=== PATIENT | female | born 1950 | race Caucasian/White ===

== ENCOUNTER 2018-01-12 11:40 | Emergency (ER) | payer MEDICARE ==
[~2018-01-12] VITALS: Ht 149.9 cm; Wt 83.9 kg
[2018-01-12] MEDS ORDERED: AMILORIDE HCL5 MG PO (12:31)
[2018-01-12] MEDS ORDERED: B-121000 MC1 SL (12:31)
[2018-01-12] MEDS ORDERED: ASPIR-LOW81 MG PO (12:31)
[2018-01-12] MEDS ORDERED: BACLOFEN10 MG PO (12:32)
[2018-01-12] MEDS ORDERED: CALCITRIOL0.25 MCG PO (12:33)
[2018-01-12] MEDS ORDERED: ESTRADIOL0.5 MG PO (12:33)
[2018-01-12] MEDS ORDERED: COLACE100 MG PO (12:33)
[2018-01-12] MEDS ORDERED: METOLAZONE2.5 MG PO (12:34)
[2018-01-12] MEDS ORDERED: MAGNESIUM500 MG PO (12:34)
[2018-01-12] MEDS ORDERED: KLOR-CON 1010 MEQ PO (12:34)
[2018-01-12] MEDS ORDERED: LEVOTHYROXINE125 MCG PO (12:34)
[2018-01-12] MEDS ORDERED: MIRAPEX1 MG PO (12:35)
[2018-01-12] MEDS ORDERED: SINGULAIR10 MG PO (12:35)
[2018-01-12] MEDS ORDERED: PROBIOTIC1 EAC1 PO (12:35)
[2018-01-12] MEDS ORDERED: VITAMIN D35000 UNIT PO (12:36)
[2018-01-12] MEDS ORDERED: TORSEMIDE100 MG PO (12:36)
[2018-01-12] MEDS ORDERED: ULORIC40 MG PO (12:36)
[2018-01-12] MEDS ORDERED: VENTOLIN HFA18 GM INH (12:37)
[2018-01-12] MEDS ORDERED: RESTORIL30 MG PO (12:37)
[2018-01-12] MEDS ORDERED: DYMISTA NASAL S23 GM NAS (12:37)
--- NOTE | 2018-01-12 18:09 | EKG ---
[facility] [address] [facility] [address] [place], [place] [address] Signed Normal sinus rhythm Low voltage QRS Borderline ECG No previous ECGs available Confirmed by RIMA CASPER MD ([id number]) on 01/12/2018 6:09:36 PM Electronically Signed By: RIMA CASPER MD 01/12/18 1809 PATIENT NAME: JUDY [place]ACE Electrocardiogram DATE OF : 48 PHYSICIAN: RIMA CASPER MD REPORT #: [id number] REPORT IS CONFIDENTIAL AND NOT TO BE RELEASED WITHOUT AUTHORIZATION
== END 2018-01-12 14:06 | disposition home or self-care (01) ==
LOC: ED 11:40
DX: R42 Dizziness and giddiness (principal); N18.3 Chronic kidney disease, stage 3 (moderate); Z91.041 Radiographic dye allergy status; Z91.013 Allergy to seafood; Z88.8 Allergy status to other drugs, medicaments and biological substances; Z88.5 Allergy status to narcotic agent; Z79.82 Long term (current) use of aspirin; Z79.899 Other long term (current) drug therapy
CPT/HCPCS: 80053; 85025; 93005; 93010; 99284

== ENCOUNTER 2019-01-07 18:38 | Emergency (ER) | payer MEDICARE ==
[~2019-01-07] VITALS: Ht 149.9 cm; Wt 88.5 kg
--- OUTSIDE RECORDS SUMMARY | ~2019-01-07 | XMS | Encounter Summary ---
Demographics + + + | Address | [address] | | | [place] [address] | + + + | Home Phone | | + + + | Preferred Language | Unknown | + + + | Marital Status | | + + + | Jainism Affiliation | 1013 | + + + | Race | Unknown | + + + | Ethnic Group | Unknown | + + + Author + + + | Author | [facility] | | | and [place] | + + + | Organization | [facility] | | | and [place] | + + + | Address | Unknown | + + + | Phone | Unavailable | + + + Support + + + + + | Name | Relationship | Address | Phone | + + + + + | AriisidroJose | ECON | [address] | | | | | [place] | | | | | [address] | | + + + + + Care Team Providers + +------+ + | Care Wrapper Stemmer Hand Name | Role | Phone | + +------+ + | Shazia Tamayo MD | PCP | | + +------+ + Reason for Referral Evaluate & Treat (Routine) + + + + + + + | Status | Reason | Specialty | Diagnoses / | Referred By | Referred To | | | | | Procedures | Contact | Contact | + + + + + + + | Authorized | Specialty | Gastroenterol | Diagnoses | | [facility] | | | Services | ogy | Elevated | [place], | [facility] | | | Required | | liver | [facility] | | | | | enzymes | [employer] [address] | | | | | Procedures | [place], [place] | [address]VE | | | | | [place], | [address] [place] | [place], [place] | | | | | ABDOM,B-SCAN | [place] | [address] | | | | | &/OR REAL | [address] | Phone: | | | | | TIME,COMPLET | Phone: | [phone] | | | | | E | [phone] | Fax: | | | | | | Fax: | [phone] | | | | | | [phone] | | + + + + + + + Reason for Visit + + + | Reason | Comments | + + + | Recall For Services | | | (DMST) | | + + + Encounter Details +--------+ + + + + | Date | Type | Department | Care Team | Description | +--------+ + + + + | 01/01/ | Telephone | [facility] | [facility] | [facility] | | 2019 | | GASTROENTEROLOGY | [facility] [address] | (DMST) | | | | [address] [place] | [place], [place] [address] | | | | | [address] [place] | [place] | | | | | [address] | [id number] | | | | | [phone] | | | +--------+ + + + [...] + +---------+ + | Alcohol Use | Drinks/We | oz/Week | Comments | | | ek | | | + + +---------+ + | No [...] as of this encounter Plan of Treatment + +--------+ + + | Name | Priori | Associated Diagnoses | Order Schedule | | | ty | | | + +--------+ + + | Alpha Fetoprotein, Tumor Marker | Routin | Elevated liver | 1 Occurrences | | | e | enzymes | starting 01/01/2019 | | | | | until 05/01/2019 | + +--------+ + + | CBC with Differential | Routin | Elevated liver | 1 Occurrences | | | e | enzymes | starting 01/01/2019 | | | | | until 05/01/2019 | + +--------+ + + | Comprehensive Metabolic Panel | Routin | Elevated liver | 1 Occurrences | | | e | enzymes | starting 01/01/2019 | | | | | until 05/01/2019 | + +--------+ + + | Protime INR | Routin | Elevated liver | 1 Occurrences | | | e | enzymes | starting 01/01/2019 | | | | | until 05/01/2019 | + +--------+ + + | US Abdomen Limited | Routin | Elevated liver | Expected: | | | e | enzymes | 01/08/2019, Expires: | | | | | 05/01/2019 | + +--------+ + + + +--------+ + + | Name | Priori | Associated Diagnoses | Order Schedule | | | ty | | | + +--------+ + + | Referral ABDOMINAL US St | Routin | Elevated liver | Ordered: 01/01/2019 | | [facility] | e | enzymes | | + +--------+ + + documented as of this encounter Visit Diagnoses + + | Diagnosis | + + | Elevated liver enzymes - Primary Nonspecific elevation of levels of transaminase or | | lactic acid dehydrogenase (LDH) | + + documented in this encounter"
--- OUTSIDE RECORDS SUMMARY | ~2019-01-07 | XMS | Encounter Summary ---
Demographics + + + | Address | [address] | | | [place] [address] | + + + | Home Phone | | + + + | Preferred Language | Unknown | + + + | Marital Status | | + + + | Gnosticist Affiliation | 1013 | + + + | Race | Unknown | + + + | Ethnic Group | Unknown | + + + Author + + + | Author | [facility] | + + + | Organization | [facility] | + + + | Address | Unknown | + + + | Phone | Unavailable | + + + Support + + + + + | Name | Relationship | Address | Phone | + + + + + | Jose Minaya | ECON | [address] | | | | | [place] | | | | | [address] | | + + + + + Care Team Providers + +------+ + | Care Outbound Sales Agent Name | Role | Phone | + +------+ + | Shazia Tamayo MD | PCP | | + +------+ + Reason for Visit + + + | Reason | Comments | + + + | Labs Only | 10/30/18 | + + + Encounter Details +--------+ + + + + | Date | Type | Department | Care Team | Description | +--------+ + + + + | 10/31/ | Documentati | [facility] | Tomás | Labs Only (10/30/18) | | 2019 | on Only | [place] [address] | [place] | | | | | [address] | | | | | | [place] [address] | | | | | | [phone] | | | +--------+ + + + [...] on file | | + + + as of this encounter Plan of Treatment +--------+---------+ + + + | Date | Type | Specialty | Care Team | Description | +--------+---------+ + + + | 04/02/ | Office | Nephrology | Arslan Robertson MD | | | 2018 | Visit | | [address] | | | | | | [address] [facility] | | | | | | [id number] | | | | | | | | +--------+---------+ + + + | 07/11/ | Office | Cardiology | Camille Hernandez, | | | 2019 | Visit | | [address] | | | | | | [address], | | | | | | [place] [address] | | | | | | [phone] | | | | | | | | +--------+---------+ + + + as of this encounter Procedures + +--------+ + + + | Procedure Name | Priori | Date/Time | Associated Diagnosis | Comments | | | ty | | | | + +--------+ + + + | MICROALBUMIN / | Routin | 10/30/2018 | | Results for this | | CREATININE URINE | e | 1:25 PM | | procedure are in the | | RATIO | | PST | | results section. | + +--------+ + + + | URINE MICROSCOPIC | Routin | 10/30/2018 | | Results for this | | ONLY | e | 1:25 PM | | procedure are in the | | | | PST | | results section. | + +--------+ + + + | CBC W/AUTO DIFF | Routin | 10/30/2018 | | Results for this | | (REFLEX TO MANUAL) | e | 1:25 PM | | procedure are in the | | | | PST | | results section. | + +--------+ + + + | URIC ACID | Routin | 10/30/2018 | | Results for this | | | e | 1:25 PM | | procedure are in the | | | | PST | | results section. | + +--------+ + + + | PTH INTACT NO | Routin | 10/30/2018 | | Results for this | | CALCIUM | e | 1:25 PM | | procedure are in the | | | | PST | | results section. | + +--------+ + + + | RENAL FUNCTION PANEL | Routin | 10/30/2018 | | Results for this | | | e | 1:25 PM | | procedure are in the | | | | PST | | results section. | + +--------+ + + + in this encounter Results Albumin/Creat Ratio (10/30/2018 1:25 PM) + + + + + | Component | Value | Ref Range | Performed At | + + + + + | ALBUMIN/CREAT RATIO | Comment: Microalbumin | | | | | calculation is invalid | | | | | when microalbumin is | | | | | less than 0.7 mg/dl | | | + + + + + + + | Specimen | + + | Urine | + + Uric acid (10/30/2018 1:25 PM) + +-------+ + + | Component | Value | Ref Range | Performed At | + +-------+ + + | URIC ACID | 6.6 | 2.3 - 6.6 | | + +-------+ + + + + | Specimen | + + | Blood | + + Renal function panel (10/30/2018 1:25 PM) + + + + + | Component | Value | Ref Range | Performed At | + + + + + | GLUCOSE | 294 (A) | 70 - 100 mg/dL | | + + + + + | BUN | 48 (A) | 6 - 23 mg/dL | | + + + + + | CREATININE | 1.74 (A) | 0.70 - 1.25 mg/dL | | + + + + + | PHOSPHORUS | 2.9 | 2.5 - 5.0 mg/dL | | + + + + + | Albumin | 4.0 | 3.5 - 5.0 | | + + + + + | SODIUM | 136 | 132 - 143 mmol/L | | + + + + + | POTASSIUM | 3.8 | 3.6 - 5.1 mmol/L | | + + + + + | CHLORIDE | 94 (A) | 95 - 112 mmol/L | | + + + + + | CO2 | 29 | 19 - 31 mmol/L | | + + + + + | ANION GAP AGAP | 16.8 | 7 - 21 mmol/L | | + + + + + | GFR MDRD Non Af Amer | | | | + + + + + | Phosphorus,Inorganic | | | | + + + + + | BUN/CREAT | 27.6 | 6.0 - 28.6 | | + + + + + | CALCIUM | 9.9 | 8.5 - 10.3 mg/dL | | + + + + + | EGFR | 29 (A) | 60 - 140 mg/dL | | + + + + + + + | Specimen | + + | Blood | + + CBC W/Auto Diff (Reflex to Manual) (10/30/2018 1:25 PM) + + + + + | Component | Value | Ref Range | Performed At | + + + + + | WBC | 8.3 | 4.5 - 11.0 10^3/mL | | + + + + + | RBC | 4.37 | 3.8 - 5.1 10^6/ L | | + + + + + | HGB | 13.0 | 12.0 - 16.0 g/dL | | + + + + + | HCT | 38.9 | 35 - 45 % | | + + + + + | MCV | 89.2 | 81 - 99 fL | | + + + + + | MCH | 30 | 27 - 33 pg | | + + + + + | MCHC | 33 | 30 - 36 g/dL | | + + + + + | PLT | 246 | 140 - 440 K/ L | | + + + + + | RDW SD | 14.9 | 10.5 - 15.0 % | | + + + + + | MPV | | fL | | + + + + + | DIFF TYPE | | | | + + + + + | NEUTROPHILS | 66.1 | 39 - 80 % | | + + + + + | LYMPHOCYTES | 20.2 (A) | 24 - 44 % | | + + + + + | MONOCYTES | 7.2 | 0 - 12 % | | + + + + + | EOSINOPHILS | 6.0 | 0 - 6 % | | + + + + + | BASOPHILS | 0.5 | 0 - 2 % | | + + + + + | NEUTROPHILS ABS | | / L | | + + + + + | LYMPHOCYTES ABS | | / L | | + + + + + | MONOCYTES ABS | | / L | | + + + + + | EOSINOPHILS ABS | | / L | | + + + + + | BASOPHILS ABS | | / L | | + + + + + + + | Specimen | + + | Blood | + + Urine microscopic only (10/30/2018 1:25 PM) + + + + + | Component | Value | Ref Range | Performed At | + + + + + | COLOR UA | Yellow | | | + + + + + | CLARITY | Clear | | | + + + + + | Specific Gore, UA | 1.008 | 1.005 - 1.030 | | + + + + + | LEUKOCYTE ESTERASE | Negative | | | + + + + + | NITRITE | Negative | | | + + + + + | UROBILINOGEN | Normal | | | + + + + + | PROTEIN | Negative | | | + + + + + | PH,URINE | 7 | 5 - 9 | | + + + + + | BLOOD | Negative | | | + + + + + | KETONES | Negative | | | + + + + + | BILIRUBIN | Negative | | | + + + + + | GLUCOSE | Negative | | | + + + + + + + | Specimen | + + | Urine | + + PTH intact no calcium (10/30/2018 1:25 PM) + + + + + | Component | Value | Ref Range | Performed At | + + + + + | PTH INTACT NO | 109.9 (A) | 15 - 65 pg/mL | | | CALCIUM | | | | + + + + + + + | Specimen | + + | Blood | + + in this encounter Visit Diagnoses Not on filein this encounter"
--- OUTSIDE RECORDS SUMMARY | ~2019-01-07 | XMS | Encounter Summary ---
Demographics + + + | Address | [address] | | | [place] [address] | + + + | Home Phone | | + + + | Preferred Language | Unknown | + + + | Marital Status | | + + + | Nondenominational Affiliation | 1013 | + + + | Race | Unknown | + + + | Ethnic Group | Unknown | + + + Author + + + | Author | [facility] | + + + | Organization | [facility] | + + + | Address | Unknown | + + + | Phone | Unavailable | + + + Support + + + + + | Name | Relationship | Address | Phone | + + + + + | Jose Minaya | ECON | [address] | | | | | [place] | | | | | [address] | | + + + + + Care Team Providers + +------+ + | Care Director Of Extension Work Name | Role | Phone | + +------+ + | Shazia Tamayo MD | PCP | | + +------+ + Encounter Details +--------+ + + + + | Date | Type | Department | Care Team | Description | +--------+ + + + + | 11/27/ | Telephone | [facility] | Tom[place], | | | 2019 | | [place] [address] | [place] | | | | | [address] | | | | | | [place] [address] | | | | | | [phone] | | | +--------+ + + + [...] | | | | | | [address] [place] | | | | | | [address] | | | | | | | | +--------+---------+ + + + | 07/11/ | Office | Cardiology | Camille Hernandez, | | | 2018 | Visit | | [address] | | | | | | [address], | | | | | | [place] [address] | | | | | | [phone] | | | | | | | | +--------+---------+ + + + + +--------+ + + | Name | Priori | Associated Diagnoses | Order Schedule | | | ty | | | + +--------+ + + | Basic metabolic panel | Routin | CKD (chronic | Expected: | | | e | kidney disease), | 01/27/2019, Expires: | | | | stage III (HCC) | 11/28/2019 | | | | Secondary | | | | | hyperparathyroidism | | | | | (HCC) Essential | | | | | hypertension | | + +--------+ + + | CBC W/Auto Diff (Reflex to | Routin | CKD (chronic | Expected: | | Manual) | e | kidney disease), | 01/27/2019, Expires: | | | | stage III (HCC) | 11/28/2019 | | | | Secondary | | | | | hyperparathyroidism | | | | | (HCC) Essential | | | | | hypertension | | + +--------+ + + | Renal function panel | Routin | CKD (chronic | Expected: | | | e | kidney disease), | 03/29/2019, Expires: | | | | stage III (HCC) | 11/28/2019 | | | | Secondary | | | | | hyperparathyroidism | | | | | (HCC) Essential | | | | | hypertension | | + +--------+ + + | CBC W/Auto Diff (Reflex to | Routin | CKD (chronic | Expected: | | Manual) | e | kidney disease), | 03/29/2019, Expires: | | | | stage III (HCC) | 11/28/2019 | | | | Secondary | | | | | hyperparathyroidism | | | | | (HCC) Essential | | | | | hypertension | | + +--------+ + + | PTH intact no calcium | Routin | CKD (chronic | Expected: | | | e | kidney disease), | 03/29/2019, Expires: | | | | stage III (HCC) | 11/28/2019 | | | | Secondary | | | | | hyperparathyroidism | | | | | (HCC) Essential | | | | | hypertension | | + +--------+ + + | Uric acid | Routin | CKD (chronic | Expected: | | | e | kidney disease), | 03/29/2019, Expires: | | | | stage III (HCC) | 11/28/2019 | | | | Secondary | | | | | hyperparathyroidism | | | | | (HCC) Essential | | | | | hypertension | | + +--------+ + + | Protein / creatinine ratio, urine | Routin | CKD (chronic | Expected: | | | e | kidney disease), | 03/29/2019, Expires: | | | | stage III (HCC) | 11/28/2019 | | | | Secondary | | | | | hyperparathyroidism | | | | | (HCC) Essential | | | | | hypertension | | + +--------+ + + as of this encounter Visit Diagnoses + + | Diagnosis | + + | CKD (chronic kidney disease), stage III (HCC) - Primary | + + | Chronic kidney disease, Stage III (moderate) | + + | Secondary hyperparathyroidism (HCC) | + + | Secondary hyperparathyroidism (of renal origin) | + + | Essential hypertension | + + | Unspecified essential hypertension | + +"
--- OUTSIDE RECORDS SUMMARY | ~2019-01-07 | XMS | Clinical Summary ---
Demographics + + + | Address | [address] | | | [place] [address] | + + + | Home Phone | | + + + | Preferred Language | Unknown | + + + | Marital Status | | + + + | Presybeterian Affiliation | 1013 | + + + | Race | Unknown | + + + | Ethnic Group | Unknown | + + + Author + + + | Author | [facility] | | | and [place] | + + + | Organization | [facility] | | [...] [place] | | | | | [address] | | + + + + + Care Team Providers + +------+ + | Care Financial Services Professional Name | Role | Phone | + +------+ + | Shazia Tamayo MD | PP | | + +------+ + Allergies + + + + + + | Active Allergy | Reactions | Severity | Noted | Comments | | | | | Date | | + + + + + + | Adhesive & Tape | Other (See Comments) | | 06/06/20 | Reaction: redness | | | | | 18 | | + + + + + + | Celecoxib | | | 06/22/20 | | | | | | 18 | | + + + + + + | Codeine | Nausea And Vomiting, | Medium | 03/14/20 | Nausea/vomiting | | | Other (See | | 13 | | | | Comments) | | | | + + + + + + | Iodinated Diagnostic | Anaphylaxis | High | 06/06/20 | | | Agents | | | 18 | | + + + + + + | Diazepam | Other (See Comments) | Medium | 03/14/20 | Nausea and | | | | | 13 | vomiting in large | | | | | | doses | + + + + + + | Hydrocodone | Nausea And Vomiting | Low | 07/17/20 | | | | | | 13 | | + + + + + + | Iodine | Other (See Comments) | | 06/06/20 | Reaction: Triggers | | | | | 18 | Asthma | + + + + + + | Metronidazole | Other (See Comments) | Medium | 06/06/20 | Reaction: | | | | | 18 | convulsions | + + + + + + | Morphine | Nausea And Vomiting | Low | 07/17/20 | | | | | | 13 | | + + + + + + | Oxycodone | Nausea And Vomiting | Low | 07/17/20 | | | | | | 13 | | + + + + + + | Penicillins | Other (See Comments) | Medium | | | + + + + + + | Shellfish | Anaphylaxis | High | 06/06/20 | | | | | | 18 | | + + + + + + | Tramadol | Other (See Comments) | Medium | 03/14/20 | Nausea/vomiting | | | | | 13 | | + + + + + + Medications + + + +---------+------+------+-------+ | Medication | Sig | Dispensed | Refills | Star | End | Statu | | | | | | t | Date | s | | | | | | Date | | | + + + +---------+------+------+-------+ | aspirin 81 mg EC | Take 81 mg by mouth | | 0 | | | Activ | | tablet | Daily. | | | | | e | + + + +---------+------+------+-------+ | calcitriol | Take 0.25 mcg by | | 0 | | | Activ | | (ROCALTROL) 0.25 mcg | mouth Daily. | | | | | e | | capsule | | | | | | | + + + +---------+------+------+-------+ | cholecalciferol | Take 5,000 Units by | | 0 | | | Activ | | (VITAMIN D-3) 5000 | mouth Daily. | | | | | e | | units TABS | | | | | | | + + + +---------+------+------+-------+ | cyanocobalamin | Take 1,000 mcg by | | 0 | | | Activ | | (VITAMIN B-12) 1000 | mouth Daily. | | | | | e | | MCG tablet | | | | | | | + + + +---------+------+------+-------+ | Magnesium 500 MG | Take 1 capsule by | | 0 | | | Activ | | CAPS | mouth Daily. | | | | | e | + + + +---------+------+------+-------+ | potassium chloride | Take 20 mEq by mouth | | 0 | | | Activ | | (KLOR-CON M20) 20 | 2 times daily. | | | | | e | | mEq ER tablet | | | | | | | + + + +---------+------+------+-------+ | torsemide | Take 10 mg by mouth | | 0 | | | Activ | | (DEMADEX) 10 mg | 2 times daily. | | | | | e | | tablet | | | | | | | + + + +---------+------+------+-------+ | febuxostat | Take 40 mg by mouth | | 0 | | | Activ | | (ULORIC) 40 mg TABS | Daily. | | | | | e | + + + +---------+------+------+-------+ | cetirizine | Take 10 mg by mouth | | 0 | | | Activ | | (ZYRTEC) 10 mg | Daily. | | | | | e | | tablet | | | | | | | + + + +---------+------+------+-------+ | Probiotic Product | Take by mouth. | | 0 | | | Activ | | (PROBIOTIC DAILY PO) | | | | | | e | + + + +---------+------+------+-------+ | metOLazone | Take 2.5 mg by mouth | | 0 | | | Activ | | (ZAROXOLYN) 5 MG | Daily. | | | | | e | | tablet | | | | | | | + + + +---------+------+------+-------+ | montelukast | Take 10 mg by mouth | | 0 | | | Activ | | (SINGULAIR) 10 mg | nightly. | | | | | e | | tablet | | | | | | | + + + +---------+------+------+-------+ | metoprolol | Take 25 mg by mouth | | 0 | | | Activ | | succinate | Daily. | | | | | e | | (TOPROL-XL) 25 mg 24 | | | | | | | | hr tablet | | | | | | | + + + +---------+------+------+-------+ | amitriptyline | Take 50 mg by mouth | | 0 | | | Activ | | (ELAVIL) 25 mg | nightly. | | | | | e | | tablet | | | | | | | + + + +---------+------+------+-------+ | levothyroxine | Take 125 mcg by | | 0 | | | Activ | | (SYNTHROID) 125 mcg | mouth every morning | | | | | e | | tablet | (before breakfast). | | | | | | + + + +---------+------+------+-------+ | gabapentin | Take 300 mg by mouth | | 0 | | | Activ | | (NEURONTIN) 300 mg | nightly. | | | | | e | | capsule | | | | | | | + + + +---------+------+------+-------+ | albuterol 90 | Inhale 2 puffs into | | 0 | | | Activ | | mcg/puff inhaler | the lungs. | | | | | e | + + + +---------+------+------+-------+ | pramipexole | Take 1 mg by mouth 3 | | 0 | | | Activ | | (MIRAPEX) 1 MG | times daily. | | | | | e | | tablet | | | | | | | + + + +---------+------+------+-------+ Active Problems + + + | Problem | Noted Date | + + + | At high risk for electrolyte imbalance | 05/08/2018 | + + + | Hypokalemia | 05/08/2018 | + + + | Chronic pain | 04/18/2018 | + + + | Essential hypertension | 04/18/2018 | + + + | Primary fibromyalgia syndrome | 04/18/2018 | + + + | Acquired hypothyroidism | 02/08/2018 | + + + | Bilateral leg edema | 02/08/2018 | + + + | CKD (chronic kidney disease), stage III | 02/08/2018 | + + + | Hyperuricemia | 02/08/2018 | + + + | Secondary hyperparathyroidism | 02/08/2018 | + + + | Tachycardia | 02/08/2018 | + + + | Vitamin D deficiency | 02/08/2018 | + + + Encounters +--------+ + + + + | Date | Type | Specialty | Care Team | Description | +--------+ + + + + | 01/05/ | Telephone | | My, | Other | | 2018 | | | [facility] | | +--------+ + + + + | 01/01/ | Telephone | | My, | Recall For Services | | 2018 | | | [facility] [place] | (DMST) | +--------+ + + + + from Last 3 Months Immunizations + + + + | Name | Dates Previously Given | Next Due | + + + + | PNEUMOCOCCAL | 05/01/2018 | | | CONJUGATE 13-VALENT | | | | (PCV13) | | | + + + + | TDAP, (ADOL/ADULT) | 05/01/2018 | | + + + + Family History + + +------+ + | Medical History | Relation | Name | Comments | + + +------+ + | Lung cancer | Sister | | | + + +------+ + + +------+ + + | Relation | Name | Status | Comments | + +------+ + + | Brother | | Alive | | + +------+ + + | Father | | | | + +------+ + + | Mother | | | | + +------+ + + | Sister | | Alive | | + +------+ + + | Sister | | | | + +------+ + + Social History + +-------+ +--------+------+ [...] recent travel history available. | + + Last Filed Vital Signs + + + + | Vital Sign | Reading | Time Taken | + + + + | Blood Pressure | 110/78 | 06/22/2018854 PDT | + + + + | Pulse | 79 | 06/22/2018854 PDT | + + + + | Temperature | 36.5 C (97.7 F) | 06/22/2018854 PDT | + + + + | Respiratory Rate | 12 | 06/22/2018854 PDT | + + + + | Oxygen Saturation | 95% | 06/22/2018854 PDT | + + + + | Inhaled Oxygen | - | - | | Concentration | | | + + + + | Weight | 86.7 kg (191 lb 2.2 | 06/22/2018854 PDT | | | oz) | | + + + + | Height | 149.9 cm (4' 11") | 06/22/2018854 PDT | + + + + | Body Mass Index | 38.61 | 06/22/2018 0855 PDT | + + + + Plan of Treatment + + + + + | Health Maintenance | Due Date | Last Done | Comments | + + + + + | Breast Cancer | | | | | Screening (Ages | 9 | | | | 50-74) | | | | + + + + + | Vaccine: Zoster (1 | | | | | of 2) | 9 | | | + + + + + | Adult Annual | | | | | Wellness Visit | 8 | | | + + + + + | Vaccine: | | 05/01/2018 | | | Pneumococcal 65+ | 9 | | | | Low/Medium Risk (2 | | | | | of 2 - PPSV23) | | | | + + + + + | Vaccine: Influenza | | | | | (Season Ended) | 9 | | | + + + + + | Colorectal Cancer | | 09/12/2013 | | | Screening | 4 | | | | (Colonoscopy) | | | | + + + + + | Vaccine: | | 05/01/2018 | | | Dtap/Tdap/Td (2 - | 8 | | | | Td) | | | | + + + + + | Hepatitis C | Completed | 05/01/2018 | | | Screening | | | | + + + + + Results Not on filefrom Last 3 Months Insurance + +--------+ +--------+ +---------+--------+ | Payer | Benefi | Subscriber | Effect | Phone | Address | Type | | | t Plan | ID | dinorah | | | | | | / | | Dates | | | | | | Group | | | | | | + +--------+ +--------+ +---------+--------+ | MEDICARE | MEDICA | [id number] | | [phone] | | Medica | | | RE | | 018-Pr | 5 | | re | | | PART A | | esent | | | | | | AND B | | | | | | + +--------+ +--------+ +---------+--------+ | AARP | AARP | [id number] | 09/12/19 | [phone] | | Indemn | | | MDCR | | 18-Pre | 0 | | ity | | | SUPPL | | sent | | | | + +--------+ +--------+ +---------+--------+ + +--------+ +--------+ + + | Guarantor Name | Accoun | Relation to | Date | Phone | Billing Address | | | t Type | Patient | of | | | | | | | | | | + +--------+ +--------+ + + | Deirdre Minaya | Person | Self [birth year] | [address] | | | al/Fam | | 1950 | [phone] | [place] | | | [place] | | | [address] (Home) | [phone] | + +--------+ +--------+ + + Advance Directives Patient has advance care planning documents on file. For more information, please contact:[facility] [address]
--- OUTSIDE RECORDS SUMMARY | ~2019-01-07 | XMS | Encounter Summary ---
Demographics + + + | Address | [address] | | | [place] [address] | + + + | Home Phone | | + + + | Preferred Language | Unknown | + + + | Marital Status | | + + + | Latter-Day Affiliation | 1013 | + + + | Race | Unknown | + + + | Ethnic Group | Unknown | + + + Author + + + | Author | [facility] [facility] | + + + | Organization | [facility] | + + + | Address | Unknown | + + + | Phone | Unavailable | + + + Support + + + + + | Name | Relationship | Address | Phone | + + + + + | Jose Minaya | ECON | [address] | | | | | [place] | | | | | [address] | | + + + + + Care Team Providers + +------+ + | Care High Density Press Laborer Name | Role | Phone | + [...] | | | | | [place] [address] | | | | | | [phone] | | | +--------+ + + + [...] | | | | | | [address] [facility] | | | | | | [id number] | | | | | | | | +--------+---------+ + + + | 07/11/ | Office | Cardiology | Camille Hernandez, | | | 2019 | Visit | | [address] | | | | | | [address], | | | | | | [place] [address] | | | | | | [phone] | | | | | | | [...] + + + + + | Specific [place], [place] | 1.008 | 1.005 - 1.030 [...]
--- OUTSIDE RECORDS SUMMARY | ~2019-01-07 | XMS | Encounter Summary ---
Demographics + + + | Address | [address] | | | [place] [address] | + + + | Home Phone | | + + + | Preferred Language | Unknown | + + + | Marital Status | | + + + | Adventism Affiliation | 1013 | + + + [...] [place] | | | | | [address] | | + + + + + Care Team Providers + +------+ + | Care Horse Farm Manager Name | Role | Phone | [...] | | | | | enzymes | [facility] [address] | [address] | | | | | Procedures | [place], [place] | [address] | | | | | [place], | [address] [place] | [place], [place] | | | | | [place]SCAN | [place], [place] | [address] | | | | | &/OR REAL | [address] | Phone: | | | | | TIME,COMPLET | Phone: | [phone] | | | | | E | [phone] | Fax: | | | | | | Fax: | [phone] | | | | | | [phone] | | + + + + + [...] + + | 01/01/ | Telephone | [facility] | [facility] | [facility] | | 2019 | | GASTROENTEROLOGY | [facility] [place] [address] | (DMST) | | | | [address] [place] | [place], [place] [address] | | | | | [address] [place] | [place] | | | | | [id number] | [id number] | | | | | [phone] | | | +--------+ + + + [...]
--- OUTSIDE RECORDS SUMMARY | ~2019-01-07 | XMS | Encounter Summary ---
Demographics + + + | Address | [address] | | | [place] [address] | + + + | Home Phone | | + + + | Preferred Language | Unknown | + + + | Marital Status | | + + + | Mormonism Affiliation | 1013 | + + + | Race | Unknown | + + + | Ethnic Group | Unknown | + + + Author + + + | Author | [facility] [employer] | + + + | Organization | [facility] [employer] | + + + | Address | Unknown | + + + | Phone | Unavailable | + + + Support + + + + + | Name | Relationship | Address | Phone | + + + + + | Jose Minaya | ECON | [address] | | | | | [place] | | | | | [address] | | + + + + + Care Team Providers + +------+ + | Care Treating Engineer Name | Role | Phone | [...] | | | | | [place] [address] | | | | | | [phone] | | | +--------+ + + + [...] [place] | | | | | | [address] | | | | | | | | +--------+---------+ + + + | 07/11/ | Office | Cardiology | Camille Hernandez, | | | 2018 | Visit | | [address] | | | | | | [address], | | | | | | [place] [address] | | | | | | [phone] | | | | | | | [...]
--- OUTSIDE RECORDS SUMMARY | ~2019-01-07 | XMS | Encounter Summary ---
Demographics + + + | Address | [address] | | | [place] [address] | + + + | Home Phone | | + + + | Preferred Language | Unknown | + + + | Marital Status | | + + + | Faith Affiliation | 1013 | + + + | Race | Unknown | + + + | Ethnic Group | Unknown | + + + Author + + + | Author | [facility] | | | and [place] | + + + | Organization | [facility] | | | [...] [place] | | | | | [address] | | + + + + + Care Team Providers + +------+ + | Care Machine Washer Name | Role | Phone | + +------+ + | Shazia Tamayo MD | PCP | | + +------+ + Reason for Visit +--------+ + | Reason | Comments | +--------+ + | Other | | +--------+ + Encounter Details +--------+ + + + + | Date | Type | Department | Care Team | Description | +--------+ + + + + | 01/05/ | Telephone | [facility] [place] | [place], | Other | | 2019 | | GASTROENTEROLOGY | [address] | | | | | [address] [place] | [place], [place] [address] | | | | | [address] [place], [place] | [place], [place] | | | | | [address] | [address] | | | | | [phone] | | | +--------+ + + + [...] as of this encounter Plan of Treatment Not on filedocumented as of this encounter Visit Diagnoses Not on filedocumented in this encounter"
--- OUTSIDE RECORDS SUMMARY | ~2019-01-07 | XMS | Encounter Summary ---
Demographics + + + | Address | [address] | | | [place] [address] | + + + | Home Phone | | + + + | Preferred Language | Unknown | + + + | Marital Status | | + + + | Druze Affiliation | 1013 | + + + | Race | Unknown | + + + | Ethnic Group | Unknown | + + + Author + + + | Author | [facility] | + + + | Organization | [facility] | + + + | Address | Unknown | + + + | Phone | Unavailable | + + + Support + + + + + | Name | Relationship | Address | Phone | + + + + + | Jose Minaya | ECON | [address] | | | | | [place] | | | | | [address] | | + + + + + Care Team Providers + +------+ + | Care Boilerhouse Mechanic Name | Role | Phone | + +------+ + | Shazia Tamayo MD | PCP | | + +------+ + Encounter Details +--------+---------+ + + + | Date | Type | Department | Care Team | Description | +--------+---------+ + + + | 11/27/ | Office | [facility] | Arslan Robertson MD | CKD (chronic kidney | | 2019 | Visit | [address] | [address] | disease), stage III | | | | [address] | [address] [place], [place] | ([facility]) (Primary Dx); | | | | [place] [address] | [address] | Essential | | | | [phone] | | hypertension; | | | | | | Bilateral leg edema; | | | | | | At high risk for | | | | | | electrolyte | | | | | | imbalance; | | | | | | Hyperuricemia; | | | | | | Secondary | | | | | | hyperparathyroidism | | | | | | (HCC); Vitamin D | | | | | | deficiency | +--------+---------+ + + + Social [...] + + + as of this encounter Last Filed Vital Signs + + + + | Vital Sign | Reading | Time Taken | + + + + | Blood Pressure | 90/60 | 11/27/2018 11:49 AM PDT | + + + + | Pulse | 79 | 11/27/2018 11:49 AM PDT | + + + + | Temperature | - | - | + + + + | Respiratory Rate | - | - | + + + + | Oxygen Saturation | 93% | 11/27/2018 11:49 AM PDT | + + + + | Inhaled Oxygen | - | - | | Concentration | | | + + + + | Weight | 86.5 kg (190 lb 11.2 | 11/27/2018 11:49 AM PDT | | | oz) | | + + + + | Height | 149.9 cm (4' 11") | 11/27/2018 11:49 AM PDT | + + + + | Body Mass Index | 38.52 | 11/27/2018 11:49 AM PDT | + + + + in this encounter Instructions Patient Instructions - Arslan Robertson MD - 11/27/2018 11:50 AM PDTDiscussions/Recommendatio ns: I discussed today with Ms. Minaya the meaning of her CKD and the interaction of that wi th her vital organs. I stressed the importance of avoiding getting dehydrated if we are to have a chance at h elping preserve her renal function. She showed good understanding. She will strictly abide by a low salt & low purine diet and will avoid all kinds of NSAI Ds for analgesia. Also: I will not change any of her vasoactive meds today. She will report back to me her home BP readings if they fall outside of her usual lower- than-average range. At that time, I will decide whether any change to his vasoactive regimen is warranted. She will continue to F/U with your office regularly. I sent her for a repeat BMP, CBC in 2 months. She will have a RFP, CBC, intact PTH, uric acid, UTPCR before she comes back in 4 months .in this encounter Progress Notes Arslan Robertson MD - 11/27/2018 11:50 AM PDTFormatting of this note may be different from th e original. Patient Active Problem List Diagnosis CKD (chronic kidney disease), stage III (HCC) Bilateral leg edema Hyperuricemia Tachycardia Secondary hyperparathyroidism (HCC) Vitamin D deficiency Acquired hypothyroidism Primary fibromyalgia syndrome Chronic pain Essential hypertension Hypokalemia At high risk for electrolyte imbalance Dear Dr Tamayo: I saw your patient Ms. Minaya in the office today. As you are familiar with her case, I w ill not state her past history in detail. Briefly, she is a 68 y.o. female patient with pas t history as delineated above; she is here to F/U on her CKD & its associated complications . She tells me she's had CKD following an LAMBERTO she sustained celeste-operatively (knee surgery) in 2012. she's had a chest ache (more pressure [...] symptoms. No symptoms of UTI; she has 3-4 times nightly nocturia. No history of pa ssing kidney stones; she has no foamy urine either. her baseline Creatinine is 1.6. There is no family history of renal genetic diseases such as PKD. she says that she feels 'fair ' today. she denies any blurred vision tinnitus, headache, f ever, chills, or cough. No nausea, vomiting, abdominal pain, diarrhea, melena, or hematoche tila. No chest pain, palpitation, dizziness, loss of consciousness, orthopnea, paroxysmal no cturnal dyspnea, or leg edema. The following portions of the patient's history were reviewed and updated as appropriate: a llergies, current medications, past medical history, past social history, past surgical hist ory, family history and problem list. As in History of Present Illness & in Assessment. All the pertinent systems were reviewed a nd were otherwise negative. Current Outpatient Prescriptions Medication Sig Dispense Refill aMILoride (MIDAMOR) 5 MG tablet Take 2 tablets by mouth daily. 180 tablet 3 amitriptyline (ELAVIL) 25 MG tablet Take 50 mg by mouth nightly as needed for Sleep. aspirin 81 MG tablet Take 81 mg by mouth daily. Cholecalciferol (VITAMIN D PO) Take 5,000 Units by mouth daily. Cyanocobalamin (VITAMIN B-12) [address] 2,500 mcg under the tongue daily. febuxostat (ULORIC) 40 MG tablet Take 2 tablets by mouth daily. 60 tablet 11 gabapentin (NEURONTIN) 300 MG capsule Take 300 mg by mouth daily. levothyroxine (SYNTHROID) 125 MCG tablet Take 125 mcg by mouth every morning before mickey akfast. Magnesium 250 MG TABS tablet Take 250 mg by mouth daily. metolazone (ZAROXOLYN) 2.5 MG tablet Take 1 tablet by mouth every other day. 30 tablet 3 metoprolol (TOPROL-XL) 25 MG 24 hr tablet Take 25 mg by mouth daily. montelukast (SINGULAIR) 10 MG tablet Take 10 mg by mouth nightly. potassium chloride SA (K-DUR,KLOR-CON) 20 MEQ tablet Take 2 tablets by mouth 4 (four) t imes daily. (Patient taking differently: Take 20 mEq by mouth 4 (four) times daily.) 240 tab let 11 pramipexole (MIRAPEX) 1 MG tablet Take 1 mg by mouth 3 (three) times daily. Probiotic Product (PROBIOTIC PO) Take by mouth. torsemide (DEMADEX) 100 MG tablet Take 1 tablet by mouth 2 (two) times daily. 180 table t 3 albuterol (PROVENTIL HFA;VENTOLIN HFA) 108 (90 Base) MCG/ACT inhaler Inhale 2 puffs int o the lungs every 6 (six) hours as needed for Wheezing. allopurinol (ZYLOPRIM) 100 MG tablet allopurinol 100 mg tablet Azelastine-Fluticasone 137-50 MCG/ACT SUSP by Nasal route daily. B Complex Vitamins (B COMPLEX PO) Take by mouth. baclofen (LIORESAL) 10 MG tablet Take 5 mg by mouth 3 (three) times daily. calcitRIOL (ROCALTROL) 0.25 MCG capsule Take 1 capsule by mouth every other day. 45 cap mili 3 cyclobenzaprine (FLEXERIL) 5 MG tablet Take 5 mg by mouth 3 (three) times daily as need ed for Muscle spasms. docusate sodium (COLACE) 250 MG capsule Take 400 mg by mouth daily. estradiol (ESTRACE) 1 MG tablet Take 1 mg by mouth daily. FERROUS SULFATE PO Take by mouth. LACTOBACILLUS PO Take by mouth daily. temazepam (RESTORIL) 30 MG capsule Take 30 mg by mouth nightly as needed for Sleep. WHEAT DEXTRIN-CALCIUM PO Take by mouth daily. No current facility-administered medications for this visit. Physical Exam: BP 90/60 (BP Location: Left upper arm, Patient Position: Sitting) | Pulse 79 | Ht 1.499 m (4' 11") | Wt 86.5 kg (190 lb 11.2 oz) | SpO2 93% | BMI 38.52 kg/m General appearance: Pleasant, not in acute distress. Neck: Supple without tracheal deviation or jugular venous distension. Head and ENT: Head is atraumatic. The oropharynx is without erythema or thrush. Eyes: Anicteric. The extraocular muscle movements are normal. Lungs: Clear to auscultation bilaterally. There are no wheezes. Heart: Regular rate and rhythm without any rub, gallop. no murmur. Abdominal exam: Soft and nontender with normal bowel sounds. [...] are normal. Lab Results Component Value Date BUN 48 (A) 10/30/2018 CREATININE 1.74 (A) 10/30/2018 EGFR 29 (A) 10/30/2018 NA 136 10/30/2018 K 3.8 10/30/2018 CL 94 (A) 10/30/2018 CO2 29 10/30/2018 CA 9.9 10/30/2018 PHOS 2.9 10/30/2018 MG 2.2 03/29/2018 ALB 4.0 10/30/2018 HGB 13.0 10/30/2018 URICACID 6.6 10/30/2018 WBC 8.3 10/30/2018 HCT 38.9 10/30/2018 FERRITIN 342.1 (A) 03/29/2018 LABIRON 16.7 (A) 03/29/2018 Assessment: Ms. Minaya is a 68 y.o. female patient with stage IIIb CKD on a background of a partially recovered ATN from 2012. RENAL FUNCTION: Stable GFR BLOOD PRESSURE: On the low side chronically BLOOD SUGAR: Reports it normal ELECTROLYTES: okay ANEMIA: none VITAMIN D: To be checked thru your office PARATHYROID HORMONE: Mildly up URIC ACID: Hyperuricemia [...] function. She showed good understanding. She will strictly abide by a low salt & low purine diet and will avoid all kinds of NSAI Ds for analgesia. Also: I will not change any of her vasoactive meds today. She will report back to me her home BP readings if they fall outside of her usual lower- than-average range. At that time, I will decide whether any change to his vasoactive regimen is warranted. I see no need to send her for a renal & bladder U/S at this time. I kept her off of her Calcitriol (hypercalcemia). I kept her Uloric at 80 mg daily. She will continue to F/U with your office regularly. I sent her for a repeat BMP, CBC in 2 months. She will have a RFP, CBC, intact PTH, uric acid, UTPCR before she comes back in 4 months . I spent 15 minutes of this 25-minute visit in education, counseling and answering all of her questions to her satisfaction. Thank you Dr Fishman for the opportunity to see this patient in F/U today. Please do not hes itate to call me at any time with questions or concerns. Truly yours, MD LOR StevensP SANIA GUTIERREZ in this encounter Plan of Treatment +--------+---------+ + + + | Date | Type | Specialty | Care Team | Description | +--------+---------+ + + + | 04/02/ | Office | Nephrology | Arslan Robertson MD | | | 2019 | Visit | | [address] | | | | | | [address] [place], [place] | | | | | | [address] | | | | | | | | +--------+---------+ + + + | 07/11/ | Office | Cardiology | Camille Hernandez, | | | 2018 | Visit | | MD Judith Finn | | | | | | Dr [address], | | | | | | [place] [address] | | | | | | [phone] | | | | | | | | +--------+---------+ + + + as of this encounter Visit Diagnoses + + | Diagnosis | + + | CKD (chronic kidney disease), stage III (HCC) - Primary | + + | Chronic kidney disease, Stage III (moderate) | + + | Essential hypertension | + + | Unspecified essential hypertension | + + | Bilateral leg edema | + + | Edema | + + | At high risk for electrolyte imbalance | + + | Hyperuricemia | + + | Other abnormal blood chemistry | + + | Secondary hyperparathyroidism (HCC) | + + | Secondary hyperparathyroidism (of renal origin) | + + | Vitamin D deficiency | + + | Unspecified vitamin D deficiency | + +
--- OUTSIDE RECORDS SUMMARY | ~2019-01-07 | XMS | Encounter Summary ---
Demographics + + + | Address | [address] | | | [place] [address] | + + + | Home Phone | | + + + | Preferred Language | Unknown | + + + | Marital Status | | + + + | Druze Affiliation | 1013 | + + + | Race | Unknown | + + + | Ethnic Group | Unknown | + + + Author + + + | Author | [facility] | + + + | Organization | [facility] | + + + | Address | Unknown | + + + | Phone | Unavailable | + + + Support + + + + + | Name | Relationship | Address | Phone | + + + + + | Jose Minaya | ECON | [address] | | | | | [place] | | | | | [address] | | + + + + + Care Team Providers + +------+ + | Care Roadway Engineer Name | Role | Phone | [...] | | [address] | [address] [place], [place] | ([facility]) (Primary Dx); | | | | [place] [address] | Essential | | | | [phone] | | hypertension; | | | | [...] | | | | | | [address] [place], [place] | | | | | | [address] | | | | | | | | +--------+---------+ + + + | 07/11/ | Office | Cardiology | Camille Hernandez, | | | 2018 | Visit | | MD Judith Finn | | | | | | Dr [address], | | | | | | [place] [address] | | | | | | [phone] | | | | | | | [...]
--- OUTSIDE RECORDS SUMMARY | ~2019-01-07 | XMS | Clinical Summary ---
Demographics + + + | Address | [address] | | | [place] [address] | + + + | Home Phone [...] [place] | | | | | [address] | | + + + + + Care Team Providers + +------+ + | Care Supervisor Type Photography Name | Role | Phone | + [...] +--------+ +---------+--------+ | MEDICARE | MEDICA | [id number] | | [phone] | | Medica | | | RE | | 018-Pr | 5 | | re | | | PART A | | esent | | | | | | AND B | | | | | | + +--------+ +--------+ +---------+--------+ | AARP | AARP | [id number] | 09/12/19 | [phone] | | Indemn [...] roque | | | 6 (Home) | [address] | + +--------+ +--------+ + + Advance Directives Patient has advance care planning documents on file. For more information, please contact:[facility] [place] [address]
--- OUTSIDE RECORDS SUMMARY | ~2019-01-07 | XMS | Clinical Summary ---
Demographics + + + | Address | [address] | | | [place] [address] | + + + | Home Phone | | + + + | Preferred Language | Unknown | + + + | Marital Status | | + + + | Sabianism Affiliation | 1013 | + + + | Race | Unknown | + + + | Ethnic Group | Unknown | + + + Author + + + | Author | [facility] [email or web address] [facility] | + + + | Organization | [facility] [email or web address] [facility] | + + + | Address | Unknown | + + + | Phone | Unavailable | + + + Support + + + + + | Name | Relationship | Address | Phone | + + + + + | Jose Wallace | ECON | [address] | | | | | [place] | | | | | [address] | | + + + + + Care Team Providers + +------+ + | Care Paving Machine Operator Name | Role | Phone | + +------+ + | Shazia Tamayo MD | PP | | + +------+ + Allergies + + + + + + | Active Allergy | Reactions | Severity | Noted | Comments | | | | | Date | | + + + + + + | Adhesive Tape | Other (See Comments) | Medium | 03/06/20 | All antibiotics | | | | | 13 | cause full body | | | | | | yeast infection | | | | | | Blisters and pulls | | | | | | skin off. | + + + + + + | Codeine | Other (See Comments) | Medium | [...] + + + | Hydrocodone | Nausea and Vomiting | Low | 07/17/20 | | | | | | 13 | | + + + + + + | Iodinated Diagnostic | Anaphylaxis | High | 03/06/20 | | | Agents | | | 13 | | + + + + + + | Metronidazole | Other (See Comments) | Medium | | | + + + + + + | Morphine | Nausea and Vomiting | Low | 07/17/20 | | | | | | 13 | | + + + + + + | Oxycodone | Nausea and Vomiting | Low | 07/17/20 | | | | | | 13 | | + + + + + + | Penicillins | Other (See Comments) | Medium | | | + + + + + + | Shellfish Allergy | Anaphylaxis | High | 03/06/20 | | | | | | 13 | | + + + + + + | Tramadol | Other (See Comments) | Medium | 03/14/20 | Nausea/vomiting | | | | | 13 | | + + + + + + Current Medications + + +---------+---------+------+------+-------+ | Prescription | Sig. | Disp. | Refills | Star | End | Statu | | | | | | t | Date | s | | | | | | Date | | | + + +---------+---------+------+------+-------+ | albuterol | Inhale 2 puffs into | | | | | Activ | | (PROVENTIL | the lungs every 6 | | | | | e | | HFA;VENTOLIN HFA) | (six) hours as | | | | | | | 108 (90 Base) | needed for Wheezing. | | | | | | | MCG/ACT inhaler | | | | | | | + + +---------+---------+------+------+-------+ | aspirin 81 MG | Take 81 mg by mouth | | | | | Activ | | tablet | daily. | | | | | e | + + +---------+---------+------+------+-------+ | | by Nasal route | | | | | Activ | | Azelastine-Fluticaso | daily. | | | | | e | | ne 137-50 MCG/ACT | | | | | | | | SUSP | | | | | | | + + +---------+---------+------+------+-------+ | baclofen | Take 5 mg by mouth 3 | | | | | Activ | | (LIORESAL) 10 MG | (three) times | | | | | e | | tablet | daily. | | | | | | + + +---------+---------+------+------+-------+ | Cholecalciferol | Take 5,000 Units by | | | | | Activ | | (VITAMIN D PO) | mouth daily. | | | | | e | + + +---------+---------+------+------+-------+ | Cyanocobalamin | Place 2,500 mcg | | | | | Activ | | (VITAMIN B-12) 2500 | under the tongue | | | | | e | | MCG SUBL | daily. | | | | | | + + +---------+---------+------+------+-------+ | cyclobenzaprine | Take 5 mg by mouth 3 | | | | | Activ | | (FLEXERIL) 5 MG | (three) times daily | | | | | e | | tablet | as needed for | | | | | | | | Muscle spasms. | | | | | | + + +---------+---------+------+------+-------+ | docusate sodium | Take 400 mg by mouth | | | | | Activ | | (COLACE) 250 MG | daily. | | | | | e | | capsule | | | | | | | + + +---------+---------+------+------+-------+ | estradiol | Take 1 mg by mouth | | | | | Activ | | (ESTRACE) 1 MG | daily. | | | | | e | | tablet | | | | | | | + + +---------+---------+------+------+-------+ | LACTOBACILLUS PO | Take by mouth | | | | | Activ | | | daily. | | | | | e | + + +---------+---------+------+------+-------+ | levothyroxine | Take 125 mcg by | | | | | Activ | | (SYNTHROID) 125 MCG | mouth every morning | | | | | e | | tablet | before breakfast. | | | | | | + + +---------+---------+------+------+-------+ | Magnesium 250 MG | Take 250 mg by mouth | | | | | Activ | | TABS tablet | daily. | | | | | e | + + +---------+---------+------+------+-------+ | montelukast | Take 10 mg by mouth | | | | | Activ | | (SINGULAIR) 10 MG | nightly. | | | | | e | | tablet | | | | | | | + + +---------+---------+------+------+-------+ | pramipexole | Take 1 mg by mouth 3 | | | | | Activ | | (MIRAPEX) 1 MG | (three) times | | | | | e | | tablet | daily. | | | | | | + + +---------+---------+------+------+-------+ | temazepam | Take 30 mg by mouth | | | | | Activ | | (RESTORIL) 30 MG | nightly as needed | | | | | e | | capsule | for Sleep. | | | | | | + + +---------+---------+------+------+-------+ | WHEAT | Take by mouth | | | | | Activ | | DEXTRIN-CALCIUM PO | daily. | | | | | e | + + +---------+---------+------+------+-------+ | allopurinol | allopurinol 100 mg | | | | | Activ | | (ZYLOPRIM) 100 MG | tablet | | | | | e | | tablet | | | | | | | + + +---------+---------+------+------+-------+ | potassium chloride | Take 2 tablets by | 240 | 11 | 02/10 | | Activ | | SA (MALIK LAGUNAS) | mouth 4 (four) times | tablet | | / | | e | | 20 MEQ | daily. | | | 18 | | | | tabletIndications: | | | | | | | | CKD (chronic kidney | | | | | | | | disease), stage III | | | | | | | | (HCC) | | | | | | | + + +---------+---------+------+------+-------+ | calcitRIOL | Take 1 capsule by | 45 | 3 | / | | Activ | | (ROCALTROL) 0.25 MCG | mouth every other | capsule | | 0/20 | | e | | capsule | day. | | | 18 | | | + + +---------+---------+------+------+-------+ | Probiotic Product | Take by mouth. | | | | | Activ | | (PROBIOTIC PO) | | | | | | e | + + +---------+---------+------+------+-------+ | amitriptyline | Take 50 mg by mouth | | | | | Activ | | (ELAVIL) 25 MG | nightly as needed | | | | | e | | tablet | for Sleep. | | | | | | + + +---------+---------+------+------+-------+ | metoprolol | Take 25 mg by mouth | | | | | Activ | | (TOPROL-XL) 25 MG 24 | daily. | | | | | e | | hr tablet | | | | | | | + + +---------+---------+------+------+-------+ | gabapentin | Take 300 mg by mouth | | | | | Activ | | (NEURONTIN) 300 MG | daily. | | | | | e | | capsule | | | | | | | + + +---------+---------+------+------+-------+ | B Complex Vitamins | Take by mouth. | | | | | Activ | | (B COMPLEX PO) | | | | | | e | + + +---------+---------+------+------+-------+ | FERROUS SULFATE PO | Take by mouth. | | | | | Activ | | | | | | | | e | + + +---------+---------+------+------+-------+ | aMILoride | Take 2 tablets by | 180 | 3 | 08/2 | | Activ | | (MIDAMOR) 5 MG | mouth daily. | tablet | | 7/20 | | e | | tablet | | | | 18 | | | + + +---------+---------+------+------+-------+ | torsemide | Take 1 tablet by | 180 | 3 | 08/2 | | Activ | | (DEMADEX) 100 MG | mouth 2 (two) times | tablet | | 7/20 | | e | | tablet | daily. | | | 18 | | | + + +---------+---------+------+------+-------+ | metolazone | Take 1 tablet by | 30 | 3 | 08/2 | | Activ | | (ZAROXOLYN) 2.5 MG | mouth every other | tablet | | 7/20 | | e | | tablet | day. | | | 18 | | | + + +---------+---------+------+------+-------+ | febuxostat | Take 2 tablets by | 60 | 11 | 11/2 | | Activ | | (ULORIC) 40 MG | mouth daily. | tablet | | 6/20 | | e | | tablet | | | | 18 | | | + + +---------+---------+------+------+-------+ Active Problems + + + | Problem | Noted Date | + + + | Hypokalemia | 05/08/2018 | + + + | At high risk for electrolyte imbalance | 05/08/2018 | + + + | Primary fibromyalgia syndrome | 04/18/2018 | + + + | Chronic pain | 04/18/2018 | + + + | Essential hypertension | 04/18/2018 | + + + | CKD (chronic kidney disease), stage III (HCC) | 02/08/2018 | + + + | Bilateral leg edema | 02/08/2018 | + + + | Hyperuricemia | 02/08/2018 | + + + | Tachycardia | 02/08/2018 | + + + | Secondary hyperparathyroidism (HCC) | 02/08/2018 | + + + | Vitamin D deficiency | 02/08/2018 | + + + | Acquired hypothyroidism | 02/08/2018 | + + + Encounters +--------+ + + + + | Date | Type | Specialty | Care Team | Description | +--------+ + + + + | 11/27/ | Office | | Arslan Robertson MD | CKD (chronic kidney | | 2019 | Visit | | | disease), stage III | | | | | | ([facility]) (Primary Dx); | | | | | | Essential | | [...] hyperparathyroidism | | | | | | ([facility]); Vitamin D | | | | | | deficiency | +--------+ + + + + | 11/27/ | Telephone | | Tomás, | | | 2018 | | | MINERVA Moeller | | +--------+ + + + + | 10/31/ | Documentati | | Tomás | Princess Only (10/30/18) | | 2019 | on Only | | MINERVA Moeller | | +--------+ + + + + from Last 3 Months Immunizations + + + + | Name | Dates Previously Given | Next Due | + + + + | Influenza, Trivalent | 07/16/2010 | | | W/Preservative | | | + + + + | Pneumococcal | 05/01/2018, 06/12/2010 | | | Conjugate 13-valent | | | + + + + | Tdap | 05/01/2018 | | + + + + | Zoster (Live) | 08/10/2011 | | + + + + Social History + [...] on file | | + + + Last Filed Vital Signs + + + + | Vital Sign | Reading | Time Taken | + + + + | Blood Pressure | 90/60 | 11/27/2018 11:49 AM PDT | + + + + | Pulse | 79 | 11/27/2018 11:49 AM PDT | + + + + | Temperature | 36.1 C (96.9 F) | 05/08/2018 10:02 AM PDT | + + + + [...] AM PDT | + + + + Plan of Treatment +--------+---------+ + + + | Date | Type | Specialty | Care Team | Description | +--------+---------+ + + + | 04/02/ | Office | | Arslan Robertson MD | | | 2018 | Visit | | [address] | | | | | | [address] [place] | | | | | | [address] | | | | | | | | +--------+---------+ + + + | 07/11/ | Office | | Camille Hernandez, | | | 2018 | Visit | | [address] | | | | | | [address], | | | | | | [place] [address] | | | | | | [phone] | | | | | | | | +--------+---------+ + + + + + + + + | Health Maintenance | Due Date | Last Done | Comments | + + + + + | Breast Cancer | | | | | Screening | 9 | | | | (Mammogram) | | | | + + + + + | Colon Cancer | | | | | Screening | 9 | | | | (Colonoscopy) | | | | + + + + + | Vaccine: Zoster (2 | | 08/10/2011 | | | of 3) | 2 | | | + + + + + | DEXA SCAN SCREENING | | | | | | 4 | | | + + + + + | Vaccine: | | 05/01/2018, 06/12/2010 | | | Pneumococcal 65+ | 9 | | | | Low/Medium Risk (2 | | | | | of 2 - PPSV23) | | | | + + + + + | Vaccine: Influenza | | 07/16/2010 | | | (Season Ended) | 9 [...] + + from Last 3 Months Results Albumin/Creat Ratio (10/30/2018 1:25 PM) + [...] + + | Urine | + + Urine microscopic only (10/30/2018 1:25 PM) + + + + + | Component | Value | Ref Range | Performed At | + + + + + | COLOR UA | Yellow | | | + + + + + | CLARITY | Clear | | | + + + + + | Specific [place], UA | 1.008 | 1.005 - 1.030 [...] + | Urine | + + CBC W/Auto Diff (Reflex [...] + | Blood | + + Uric acid (10/30/2018 1:25 PM) + +-------+ + + | Component | Value | Ref Range | Performed At | + +-------+ + + | URIC ACID | 6.6 | 2.3 - 6.6 | | + +-------+ + + + + | Specimen | + + | Blood | + + PTH intact no calcium [...] from Last 3 Months Insurance + +--------+ +------+-------+ + | Payer | Benefi | Subscriber | Type | Phone | Address | | | t Plan | ID | | | | | | / | | | | | | | Group | | | | | + +--------+ +------+-------+ + | MEDICARE | MEDICA | [id number] | | | [address] | | | RE | | | | [place] [id number] | | | IP-OP | | | | | + +--------+ +------+-------+ + | UNITED HEALTHCARE | UNITED | [id number] | | | | | | | | | | | | | HEALTH | | | | | | | CARE - | | | | | | | AARP | | | | | + +--------+ +------+-------+ + + +--------+ +--------+ + + | Guarantor Name | Accoun | Relation to | Date | Phone | Billing Address | | | t Type | Patient | of | | | | | | | | | | + +--------+ +--------+ + + | JUDY WALLACE | Person | Self [birth year] Home: | [address] [place] [address] | | | al/Fam | | 1950 | [phone] | [place] | | | [place] | | | [phone] | [phone] | + +--------+ +--------+ + +
--- OUTSIDE RECORDS SUMMARY | ~2019-01-07 | XMS | Encounter Summary ---
Demographics + + + | Address | [address] | | | [place] [address] | + + + | Home Phone | | + + + | Preferred Language | Unknown | + + + | Marital Status | | + + + | Scientologist Affiliation | 1013 | + + + | Race | Unknown | + + + | Ethnic Group | Unknown | + + + Author + + + | Author | [facility] | | | and [place] | + + + | Organization | [facility] | | | [...] [place] | | | | | [address] | | + + + + + Care Team Providers + +------+ + | Care Digital Marketing Lead Name | Role | Phone | [...] | [address] [place] | [place], [place] [address] | | | | | [address] [place], [place] | [place], [place] | | | | | [address] | [address] | | | | | [phone] | | | +--------+ + + + [...]
--- OUTSIDE RECORDS SUMMARY | ~2019-01-07 | XMS | Clinical Summary ---
Demographics + + + | Address | [address] | | | [place] [address] | + + + | Home Phone | | + + + | Preferred Language | Unknown | + + + | Marital Status | | + + + | Adventism Affiliation | 1013 | + + + | Race | Unknown | + + + | Ethnic Group | Unknown | + + + Author + + + | Author | [facility] [employer] | + + + | Organization | [facility] [employer] [facility] | + + + | Address | Unknown | + + + | Phone | Unavailable | + + + Support + + + + + | Name | Relationship | Address | Phone | + + + + + | Jose Wallace | ECON | [address] | | | | | [place] | | | | | [address] | | + + + + + Care Team Providers + +------+ + | Care Data Software Engineer Name | Role | Phone | [...] | | | | | ([facility]) (Primary Dx); | | | | | [...] | | | | | ([facility]); Vitamin D | | | | | [...] [place] | | | | | | [address] | | | | | | | | +--------+---------+ + + + | 07/11/ | Office | | Camille Hernandez, | | | 2018 | Visit | | [address] | | | | | | [address], | | | | | | [place] [address] | | | | | | [phone] | | | | | | | [...] + + + + + | Specific [place], UA | 1.008 | 1.005 - 1.030 [...] +------+-------+ + | MEDICARE | MEDICA | [id number] | | | [address] | | | RE | | | | [place] [phone] | | | IP-OP | | | | | + +--------+ +------+-------+ + | UNITED HEALTHCARE | UNITED | [id number] | | | | | | | [...] | Self | [birth year] | Home: | [address] [place] [address] | | | al/Fam | | 1950 | [phone] | [place] | | | [place] | | | [phone] | [phone] | + +--------+ +--------+ + +
[~2019-01-07 18:38] MED LIST: AMILORIDE HCL5 MG PO; ASPIR-LOW81 MG PO; B-121000 MC1 SL; BACLOFEN10 MG PO; CALCITRIOL0.25 MCG PO; COLACE100 MG PO; DYMISTA NASAL S23 GM NAS; ESTRADIOL0.5 MG PO; KLOR-CON 1010 MEQ PO; LEVOTHYROXINE125 MCG PO; MAGNESIUM500 MG PO; METOLAZONE2.5 MG PO; MIRAPEX1 MG PO; PROBIOTIC1 EAC1 PO; RESTORIL30 MG PO; SINGULAIR10 MG PO; TORSEMIDE100 MG PO; ULORIC40 MG PO; VENTOLIN HFA18 GM INH; VITAMIN D35000 UNIT PO
[2019-01-07] MEDS ORDERED: AMITRIPTYLINE H50 MG PO (20:25)
[2019-01-07] MEDS ORDERED: TORSEMIDE100 MG PO (20:25)
[2019-01-07] MEDS ORDERED: NEURONTIN300 MG PO (20:27)
[2019-01-07] MEDS ORDERED: METOPROLOL SUCC25 MG PO (20:27)
--- NOTE | 2019-01-08 07:47 | EKG ---
[facility] [address] [facility] [facility] [place], [place] [address] Signed Sinus tachycardia Nonspecific T wave abnormality Abnormal ECG When compared with ECG of 12-JAN-2018 12:25, No significant change was found Confirmed by RICCO KUHN MD ([id number]) on 01/08/2019 7:47:36 AM Electronically Signed By: RICCO KUHN MD 01/08/19 0747 PATIENT NAME: JUDY WALLACE Electrocardiogram DATE OF : 48 PHYSICIAN: RICCO KUHN MD REPORT #: [id number] REPORT IS CONFIDENTIAL AND NOT TO BE RELEASED WITHOUT AUTHORIZATION
== END 2019-01-08 00:02 | disposition home or self-care (01) ==
LOC: ED 18:38
DX: B34.9 Viral infection, unspecified (principal); N18.3 Chronic kidney disease, stage 3 (moderate); J45.909 Unspecified asthma, uncomplicated; Z90.710 Acquired absence of both cervix and uterus; Z91.048 Other nonmedicinal substance allergy status; Z91.013 Allergy to seafood; Z91.09 Other allergy status, other than to drugs and biological substances; Z88.5 Allergy status to narcotic agent; Z79.82 Long term (current) use of aspirin; Z79.899 Other long term (current) drug therapy
CPT/HCPCS: 71045; 74176; 80053; 81001; 83605; 84484; 85025; 85379; 87081; 87088; 87880; 93005; 93010; 96361; 96374; 96375; 99284-25; J2405; J2550; J7030

== ENCOUNTER 2020-01-04 22:18 | Emergency (ER) | payer MEDICARE, OTHER ==
[~2020-01-04] VITALS: Ht 149.9 cm; Wt 77.1 kg
--- OUTSIDE RECORDS SUMMARY | ~2020-01-04 | XMS | Encounter Summary ---
Demographics + + + | Address | [address] | | | [place] [address] | + + + | Home Phone | | + + + | Preferred Language | Unknown | + + + | Marital Status | | + + + | Orthodoxy Affiliation | 1013 | + + + | Race | Unknown | + + + | Ethnic Group | Unknown | + + + Author + + + | Author | [facility] | | | and [place] | + + + | Organization | [facility] | | | and [place] | + + + | Address | Unknown | + + + | Phone | Unavailable | + + + Support + + + + + | Name | Relationship | Address | Phone | + + + + + | Jose Ariisidro | ECON | [address] | | | | | [place] | | | | | [address] | | + + + + + Care Team Providers + +------+ + | Care Furnace Installer Name | Role | Phone | + +------+ + | Shazia Tamayo MD | PCP | | + +------+ + Reason for Visit +--------+ + | Reason | Comments | +--------+ + | Other | CT done, no ultrasound | +--------+ + Encounter Details +--------+ + + + + | Date | Type | Department | Care Team | Description | +--------+ + + + + | 01/05/ | Telephone | [facility] [place] | [facility], | Other (CT done, no | | 2018 | | GASTROENTEROLOGY | [place] [address] | ultrasound) | | | | [address] [place] | [place], [place] [address] | | | | | [address] [place], [place] | [place], [place] | | | | | [address] | [address] | | | | | [phone] | | | +--------+ + + + + Social History + +-------+ +--------+------+ | Tobacco Use | Types | Packs/Day | Years | Date | | | | | Used | | + +-------+ +--------+------+ | Never Smoker | | | | | + +-------+ +--------+------+ + +---+---+---+ | Smokeless Tobacco: | | | | | Never Used | | | | + +---+---+---+ + + +---------+ + | Alcohol Use | Drinks/Week | oz/Week | Comments | + + +---------+ + | No | | | | + + +---------+ + + + + | Sex Assigned at | Date Recorded | | | | + + + | Female | | + + + + + + + | Job Start Date | Occupation | Industry | + + + + | Not on file | Not on file | Not on file | + + + + + + + + | Travel History | Travel Start | Travel End | + + + + + + | No recent travel history available. | + + documented as of this encounter Plan of Treatment +--------+ + + + + | Date | Type | Specialty | Care Team | Description | +--------+ + + + + | 01/10/ | Appointment | Radiology | Deirdre Maharaj | | | 2019 | | | MD [place] [address], [place] | | | | | | [place] [address] | | | | | | [phone] | | | | | | | | +--------+ + + + + | 01/10/ | Appointment | Respiratory Therapy | Deirdre Maharaj | | | 2019 | | | MD [address] | | | | | | [place] | | | | | | [place] [address] | | | | | | [phone] | | | | | | | | +--------+ + + + + | 04/10/ | Office | Neurology | Deirdre Maharaj | | | 2019 | Visit | | MD [place] [address] | | | | | | [address] [place] | | | | | | [place] [address] | | | | | | [phone] | | | | | | | | +--------+ + + + + | 06/02/ | Office | Nephrology | Arslan Robertson MD | | | 2019 | Visit | | [address] [place] | | | | | | [address] [place] | | | | | | [address] | | | | | | | | +--------+ + + + + documented as of this encounter Visit Diagnoses Not on filedocumented in this encounter"
--- OUTSIDE RECORDS SUMMARY | ~2020-01-04 | XMS | Encounter Summary ---
Demographics + + + | Address | [address] | | | [place] [address] | + + + | Home Phone | | + + + | Preferred Language | Unknown | + + + | Marital Status | | + + + | Uatsdin Affiliation | CHR | + + + | Race | White | + + + | Ethnic Group | Not or | + + + Author + + + | Author | [facility] | + + + | Organization | [facility] | + + + | Address | Unknown | + + + | Phone | Unavailable | + + + Support + + +---------+ + | Name | Relationship | Address | Phone | + + +---------+ + | Jose Minaya | ECON | Unknown | | + + +---------+ + Care Team Providers + +------+ + | Care Food And Beverage Assistant Name | Role | Phone | + +------+ + | Shazia Tamayo MD | PCP | | + +------+ + Reason for Visit AUTH/CERT +--------+--------+ + + + + | Status | Reason | Specialty | Diagnoses / | Referred By | Referred To | | | | | Procedures | Contact | Contact | +--------+--------+ + + + + | | | | | | | +--------+--------+ + + + + Encounter Details +--------+ + + + + | Date | Type | Department | Care Team | Description | +--------+ + + + + | /04/ | Anesthesia | 6A Intra Op 3181 | Gregg Thomason MD | | | 2020 | Event | [facility] | [address] | | | | | [facility] | [facility] | | | | | [facility] | [place] [address] | | | | | Desk Located on the | [phone] | | | | | 9th floor | | | | | | [place], [place] | | | | | | [address] | | | +--------+ + + + + Anesthesia Record + + + + + | Procedure Name | Responsible | Anesthesia Start | Anesthesia Stop Time | | | Anesthesiologist | Time | | + + + + + | SACROSPINOUS | Gregg Thomason MD | 11/14/19 1511 | 11/14/19 1923 | | LIGAMENT FIXATION, | | | | | ANTERIOR AND | | | | | POSTERIOR | | | | | COLPORRHAPHY, | | | | | MID-URETHRAL SLING, | | | | | CYSTOSCOPY (N/A ) | | | | + + + + + +----+---+ + + | Da | T | Event | Comment | | te | i | | | | | m | | | | | e | | | +----+---+ + + | 03 | 1 | | | | /0 | 3 | | | | 4/ | 4 | | | | 20 | 4 | | | | 20 | | | | +----+---+ + + | | 1 | Pt. Check | Prior to anesthesia start, pt. Identified, examined, chart | | | 3 | | reviewed, PARQ held, anesthetic plan made or approved by | | | 4 | | attending anesthesiologist. NPO status confirmed as appropriate | | | 5 | | for procedure Preoperative evaluation: unchanged | +----+---+ + + | | 1 | Eq Check | Anesthesia machine checked Equipment verified | | | 3 | | | | | 4 | | | | | 9 | | | +----+---+ + + | | 1 | An Start | | | | 5 | | | | | 1 | | | | | 1 | | | +----+---+ + + | | 1 | An Start | | | | 5 | Data | | | | 1 | | | | | 8 | | | +----+---+ + + | | 1 | Vitals | Monitors applied Vital signs checked Patient ready for anesthesia | | | 5 | Checked | | | | 2 | | | | | 2 | | | +----+---+ + + | | 1 | ETT | | | | 5 | | | | | 2 | | | | | 9 | | | +----+---+ + + | | 1 | Ready | | | | 5 | | | | | 3 | | | | | 1 | | | +----+---+ + + | | 1 | Abx | | | | 5 | Administere | | | | 3 | d | | | | 1 | | | +----+---+ + + | | 1 | Incision | | | | 6 | | | | | 1 | | | | | 3 | | | +----+---+ + + | | 1 | Local | | | | 6 | Anesthetic | | | | 1 | by Surgeon | | | | 8 | | | +----+---+ + + | | 1 | Surgery end | | | | 9 | | | | | 1 | | | | | 2 | | | +----+---+ + + | | 1 | An Extubate | Neuromuscular function Intact. Pharynx suctioned. Patient obeys | | | 9 | | commands. Adequate pulmonary mechanics. | | | 1 | | | | | 6 | | | +----+---+ + + | | 1 | an stop | | | | 9 | data | | | | 1 | | | | | 7 | | | +----+---+ + + | | 1 | Anesthesia | | | | 9 | End | | | | 2 | | | | | 3 | | | +----+---+ + + | | 1 | PACU Rpt | | | | 9 | Given | | | | 2 | | | | | 3 | | | +----+---+ + + | | 1 | Post-Op | | | | 9 | Page | | | | 4 | | | | | 5 | | | +----+---+ + + +------+ | Meds | +------+ + + + | Name | Total | + + + | ceFAZolin (ANCEF) injection 2 g | 2 g | + + + | propofol | 140 mg | + + + | lidocaine 2% | 80 mg | + + + | fentaNYL | 250 mcg | + + + | dexamethasone | 10 mg | + + + | ondansetron | 4 mg | + + + | rocuronium | 70 mg | + + + | PHENYLEPHrine | 900 mcg | + + + | PHENYLEPHrine INF (25mg/250mL) | 3,179.93 mcg | + + + | fluorescein (AK-FLUOR) injection | 50 mg | + + + | neostigmine vial | 3 mg | + + + | glycopyrrolate | 0.4 mg | + + + | LR bolus | 1,600 mL | + + + + + | Name | + + | O2 FR Avance (Total Liters) | + + | N2O FR Avance (l/min) | + + | Air FR Avance (l/min) | + + | Insp Iso | + + | Et Iso | + + | EtN2O % | + + | Insp N2O % | + + + + | No blood administrations on file. | + + +--------+ + + + | Type | Details | Placement | Removal | +--------+ + + + | Periph | 11/14/19; 1229; Right; Hand; 20 | 11/14/19 1229 by | 11/15/19 0254 by | | jennl | g; Positive; 11/15/19; 0254 | Lanie Oconnell, | Sunni Tomlin RN | | IV | | RN | | +--------+ + + + | ETT | 11/14/19; 1529 (created via | 11/14/19 1529 by | 11/14/191915 by | | | procedure documentation); Kelechi | Kelechi Estevez, | Kelechi Estevez, | | | G Herb, SUPERVISORY CIVIL ENGINEER; Endotracheal | SUPERVISORY CIVIL ENGINEER | SUPERVISORY CIVIL ENGINEER | | | Tube; 7; Oral; 11/14/19; 191 | | | +--------+ + + + | Urethr | 11/14/19; 1629; Clinic Staff; | 11/14/19 1629 by | 11/15/19 0700 by | | al | Blossom; 1; Lidia; 16 Fr.; 10 mL; | Karlos Moeller RN | Yoselyn Guerra RN | | Shabbir | 11/15/19; 0700; Other (Comment) | | | | er | (Removed by ) | | | +--------+ + + + | Incisi | 11/14/19; 1629; Clinic Staff; | 11/14/19 1629 by | 11/15/19 1845 by | | on | Blossom; Other (comment); adb- | Karlos Moeller RN | Yoselyn Guerra RN | | | lower quadrant; 11/15/19; 1845 | | | +--------+ + + + documented in this encounter Social History + +-------+ +--------+------+ | Tobacco Use | Types | Packs/Day | Years | Date | | | | | Used | | + +-------+ +--------+------+ | Never Smoker | | | | | + +-------+ +--------+------+ + +---+---+---+ | Smokeless Tobacco: | | | | | Never Used | | | | + +---+---+---+ + + + | Sex Assigned at | Date Recorded | | | | + + + | Not on file | | + + + + + [...] as of this encounter Plan of Treatment +--------+---------+ + + + | Date | Type | Specialty | Care Team | Description | +--------+---------+ + + + | 02/11/ | Office | Urology | Seymour Cerrato MD | | | 2019 | Visit | | [address] | | | | | | [place], [place] | | | | | | [address] | | | | | | [phone] | | | | | | | | +--------+---------+ + + + documented as of this encounter Procedures + +--------+ + + + | Procedure Name | Priori | Date/Time | Associated Diagnosis | Comments | | | ty | | | | + +--------+ + + + | ANE ETT | Routin | 11/14/2019 | | Results for this | | | e | 3:39 PM | | procedure are in the | | | | PST | | results section. | + +--------+ + + + documented in this encounter Results ETT (11/14/2019 3:39 PM PST) + + + | Narrative | Performed At | + + + | Kelechi Estevez CRNA 11/14/2019 3:40 PM AIRWAY MANAGEMENT - | | | ETT Time of Placement: 11/14/2019 3:29 PM Intubation Reason: For | | | surgical procedure Positioning: Supine Location Performed:OR | | | OXYGENATION Patient was preoxygenated Grade: Grade 2 - Ventilated by | | | mask with oral airway/adjuvant Induction:Routine INTUBATION | | | ATTEMPT 1 Blade Type: Almas Blade #: 3 Intubation Adjuncts: w/ | | | Stylet Laryngoscopic View: Grade II ETT DETAILS ETT | | | Type:Standard, Hi-Lo Cuffed Intubation Type: Oral Size: 7 ETT | | | secured with adhesive tape Depth at Lip: 20 cm CONFIRMATION | | | airway not difficult Number of Attempts: 1 Positive for | | | EtCO2:Waveform capnography Breath Sounds: Bilateral and equal | | | NARRATIVE Attending was physically present for the critical portions | | | of the procedure as described in the procedure note | | | Attending/Authorizing Provider: Gregg Thomason MD Performing Provider: | | | Kelechi Estevez CRNA | | + + + documented in this encounter Visit Diagnoses Not on filedocumented in this encounter Administered Medications + +--------+ +------+------+------+ | Medication Order | MAR | Action | Dose | Rate | Site | | | Action | Date | | | | + +--------+ +------+------+------+ | ceFAZolin (ANCEF) injection 2 g | Given | 11/14/19 | 2 g | | | | 2 g, intravenous, PREPROCEDURE | | 20 3:31 | | | | | ONCE, 1 dose, Starting Tue11/14/19 | | PM PST | | | | | at 1146, Until Tue11/14/19 at | | | | | | | 1531 | | | | | | + +--------+ +------+------+------+ +---+---+ | | | +---+---+ + +-------+ +-------+---+---+ | dexamethasone (DECADRON) | Given | 11/14/19 | 10 mg | | | | injection INTRAPROCEDURE PRN, | | 20 3:29 | | | | | Starting Tue11/14/19 at 1529, | | PM PST | | | | | Until Tue11/14/19 at 1923 | | | | | | + +-------+ +-------+---+---+ +---+---+ | | | +---+---+ + +-------+ +--------+---+---+ | fentaNYL (SUBLIMAZE) injection | Given | 11/14/19 | 25 mcg | | | | INTRAPROCEDURE PRN, Starting Tue | | 20 7:11 | | | | | 11/14/19 at 1518, Until Tue11/14/19 | | PM PST | | | | | at 1923 | | | | | | + +-------+ +--------+---+---+ +-------+ +--------+---+---+ | Given | 11/14/19 | 25 mcg | | | | | 20 7:09 | | | | | | PM PST | | | | +-------+ +--------+---+---+ | Given | 11/14/19 | 25 mcg | | | | | 20 7:07 | | | | | | PM PST | | | | +-------+ +--------+---+---+ +---+---+ | | | +---+---+ + +-------+ +-------+---+---+ | fluorescein (AK-FLUOR) | Given | 11/14/19 | 50 mg | | | | injection INTRAPROCEDURE PRN, | | 20 6:42 | | | | | Starting Tue11/14/19 at 1842, | | PM PST | | | | | Until Tue11/14/19 at 1923 | | | | | | + +-------+ +-------+---+---+ +---+---+ | | | +---+---+ + +-------+ +--------+---+---+ | glycopyrrolate (PF) (MYRON) | Given | 11/14/19 | 0.4 mg | | | | injection soln INTRAPROCEDURE | | 20 7:06 | | | | | PRN, Starting Tue11/14/19 at 1906, | | PM PST | | | | | Until Tue11/14/19 at 1923 | | | | | | + +-------+ +--------+---+---+ +---+---+ | | | +---+---+ + + + +---+---+---+ | lactated ringers (LR) bolus | given by | 11/14/19 | | | | | INTRAPROCEDURE CONTINUOUS PRN, | | 20 7:11 | | | | | Starting Tue11/14/19 at 1229, | anesthes | PM PST | | | | | Until Tue11/14/19 at 1923 | iology | | | | | + + + +---+---+---+ + + +---+---+---+ | given by anesthesiology | 11/14/19 | | | | | | 20 7:00 | | | | | | PM PST | | | | + + +---+---+---+ | New Bag | 11/14/19 | | | | | | 20 3:55 | | | | | | PM PST | | | | + + +---+---+---+ +---+---+ | | | +---+---+ + +-------+ +-------+---+---+ | lidocaine (XYLOCAINE MPF) 2 % | Given | 11/14/19 | 80 mg | | | | (20 mg/mL) injection | | 20 3:26 | | | | | INTRAPROCEDURE PRN, Starting Wed | | PM PST | | | | | 11/14/19 at 1526, Until 11/14/19 | | | | | | | at 1923 | | | | | | + +-------+ +-------+---+---+ +---+---+ | | | +---+---+ + +-------+ +------+---+---+ | neostigmine (PROSTIGMIN) | Given | 11/14/19 | 3 mg | | | | intravenous, INTRAPROCEDURE PRN, | | 20 7:06 | | | | | Starting Tue11/14/19 at 1906, | | PM PST | | | | | Until Tue11/14/19 at 1923 | | | | | | + +-------+ +------+---+---+ +---+---+ | | | +---+---+ + +-------+ +------+---+---+ | ondansetron (ZOFRAN) injection | Given | 11/14/19 | 4 mg | | | | INTRAPROCEDURE PRN, Starting Tue | | 20 6:56 | | | | | 11/14/19 at 1856, Until Tue11/14/19 | | PM PST | | | | | at 1923 | | | | | | + +-------+ +------+---+---+ +---+---+ | | | +---+---+ + +-------+ +--------+---+---+ | PHENYLEPHrine 100 mcg/mL IV | Given | 11/14/19 | 50 mcg | | | | syringe INTRAPROCEDURE PRN, | | 20 5:11 | | | | | Starting Tue11/14/19 at 1546, | | PM PST | | | | | Until Tue11/14/19 at 1923 | | | | | | + +-------+ +--------+---+---+ +-------+ +---------+---+---+ | Given | 11/14/19 | 100 mcg | | | | | 20 5:02 | | | | | | PM PST | | | | +-------+ +---------+---+---+ | Given | 11/14/19 | 150 mcg | | | | | 20 4:23 | | | | | | PM PST | | | | +-------+ +---------+---+---+ +---+---+ | | | +---+---+ + + + + +-------+---+ | PHENYLEPHrine 25 mg/250 mL (0.1 | Rate/Dos | 11/14/19 | 0.1 | 4.76 | | | mg/mL) IV infusion (ADC) | e Change | 20 7:07 | mcg/kg/m | mL/hr | | | intravenous, INTRAPROCEDURE | | PM PST | in | | | | CONTINUOUS PRN, Starting Tue | | | | | | | 11/14/19 at 1624, Until Tue11/14/19 | | | | | | | at 1923 | | | | | | + + + + +-------+---+ + + + +--------+---+ | Rate/Dose Change | 11/14/19 | 0.3 | 14.27 | | | | 20 5:11 | mcg/kg/m | mL/hr | | | | PM PST | in | | | + + + +--------+---+ | New Bag | 11/14/19 | 0.1 | 4.76 | | | | 20 4:24 | mcg/kg/m | mL/hr | | | | PM PST | in | | | + + + +--------+---+ +---+---+ | | | +---+---+ + +-------+ +-------+---+---+ | propofoL (DIPRIVAN) injection | Given | 11/14/19 | 20 mg | | | | INTRAPROCEDURE PRN, Starting Tue | | 20 6:18 | | | | | 11/14/19 at 1526, Until 11/14/19 | | PM PST | | | | | at 1923 | | | | | | + +-------+ +-------+---+---+ +-------+ +--------+---+---+ | Given | 11/14/19 | 120 mg | | | | | 20 3:26 | | | | | | PM PST | | | | +-------+ +--------+---+---+ +---+---+ | | | +---+---+ + +-------+ +-------+---+---+ | rocuronium injection | Given | 11/14/19 | 10 mg | | | | INTRAPROCEDURE PRN, Starting Tue | | 20 5:30 | | | | | 11/14/19 at 1526, Until Tue11/14/19 | | PM PST | | | | | at 1923 | | | | | | + +-------+ +-------+---+---+ +-------+ +-------+---+---+ | Given | 11/14/19 | 10 mg | | | | | 20 4:30 | | | | | | PM PST | | | | +-------+ +-------+---+---+ | Given | 11/14/19 | 50 mg | | | | | 20 3:26 | | | | | | PM PST | | | | +-------+ +-------+---+---+ +---+---+ | | | +---+---+ documented in this encounter"
--- OUTSIDE RECORDS SUMMARY | ~2020-01-04 | XMS | Encounter Summary ---
Demographics + + + | Address | [address] | | | [place] [address] | + + + | Home Phone | | + + + | Preferred Language | Unknown | + + + | Marital Status | | + + + | Restorationism Affiliation | 1013 | + + + | Race | Unknown | + + + | Ethnic Group | Unknown | + + + Author + + + | Author | [facility] | | | and [place] | + + + | Organization | [facility] | | | and [place] | + + + | Address | Unknown | + + + | Phone | Unavailable | + + + Support + + + + + | Name | Relationship | Address | Phone | + + + + + | Jose Ariisidro | ECON | [address] | | | | | [place] | | | | | [address] | | + + + + + Care Team Providers + +------+ + | Care Monument Letterer Name | Role | Phone | + +------+ + | Shazia Tamayo MD | PCP | | + +------+ + Encounter Details +--------+ + + + + | Date | Type | Department | Care Team | Description | +--------+ + + + + | 03/26/ | Orders Only | [facility] | Conversion | | | 2019 | | NEPHROLOGY [place] | Transaction, | | | | | [address] | Provider Unknown | | | | | [address] [place], [place] | | | | | | [address] | (Fax) | | | | | [phone] | | | +--------+ + + + [...] [address] | | | | | | [address] [address] | | | | | | [place] [address] | | | | | | [phone] | | | | | | | | +--------+ + + + + | 01/10/ | Appointment | Respiratory Therapy | Deridre Maharaj | | | 2019 | | | MD [address] | [address], [place] | | | | | | [place] [address] | | | | | | [phone] | | | | | | | | +--------+ + + + + | 04/10/ | Office | Neurology | Deirdre Maharaj | | | 2019 | Visit | | MD [address] | | | | | | [place] | | | | | | [place] [address] | | | | | | [phone] | | | | | | | | +--------+ + + + + | 06/02/ | Office | Nephrology | Arslan Robertson MD | | | 2019 | Visit | | [address] | | | | | | [address] [place] | | | | | | [address] | | | | | | | | +--------+ + + + + documented as of this encounter Procedures + +--------+ + + + | Procedure Name | Priori | Date/Time | Associated Diagnosis | Comments | | | ty | | | | + +--------+ + + + | URIC ACID | Routin | 03/26/2019 | | Results for this | | | e | 2:33 PM | | procedure are in the | | | | PDT | | results section. | + +--------+ + + + | PARATHYROID HORMONE, | Routin | 03/26/2019 | | Results for this | | INTACT | e | 2:33 PM | | procedure are in the | | | | PDT | | results section. | + +--------+ + + + | RENAL FUNCTION PANEL | Routin | 03/26/2019 | | Results for this | | | e | 2:33 PM | | procedure are in the | | | | PDT | | results section. | + +--------+ + + + documented in this encounter Results Uric Acid (03/26/2019 2:33 PM PDT) + +---------+ + + + | Component | Value | Ref Range | Performed | Pathologist | | | | | At | Signature | + +---------+ + + + | Uric Acid | 7.2 (A) | 2.3 - 6.6 | EXTERNAL | | | | | | LAB | | + +---------+ + + + + + | Specimen | + + | Blood specimen | | (specimen) | + + + +---------+ + + | Performing | Address | City/State/Zipcode | Phone Number | | Organization | | | | + +---------+ + + | EXTERNAL LAB | | | | + +---------+ + + Parathyroid Hormone, Intact (03/26/2019 2:33 PM PDT) + + + + + + | Component | Value | Ref Range | Performed | Pathologist | | | | | At | Signature | + + + + + + | PTH INTACT | 108.2 (A) | 15 - 65 pg/mL | EXTERNAL | | | | | | LAB | | + + + + + + + + | Specimen | + + | Blood specimen | | (specimen) | + + + +---------+ + + | Performing | Address | City/State/Zipcode | Phone Number | | Organization | | | | + +---------+ + + | EXTERNAL LAB | | | | + +---------+ + + Renal Function Panel (03/26/2019 2:33 PM PDT) + + + + + + | Component | Value | Ref Range | Performed | Pathologist | | | | | At | Signature | + + + + + + | Glucose, | 174 (A) | 70 - 100 mg/dL | EXTERNAL | | | Fasting | | | LAB | | + + + + + + | BUN | 58 (A) | 6 - 23 mg/dL | EXTERNAL | | | | | | LAB | | + + + + + + | Creatinine | 2.42 (A) | 0.70 - 1.18 | EXTERNAL | | | | | mg/dL | LAB | | + + + + + + | PHOSPHORUS | 3.7 | 2.5 - 5.0 mg/dL | EXTERNAL | | | | | | LAB | | + + + + + + | Albumin | 4.0 | 3.5 - 5.0 | EXTERNAL | | | | | | LAB | | + + + + + + | Na | 142 | 132 - 143 | EXTERNAL | | | | | mmol/L | LAB | | + + + + + + | K | 4.2 | 3.6 - 5.1 | EXTERNAL | | | | | mmol/L | LAB | | + + + + + + | Cl | 97 | 95 - 112 mmol/L | EXTERNAL | | | | | | LAB | | + + + + + + | CO2 | 31 | 9 - 31 mmol/L | EXTERNAL | | | | | | LAB | | + + + + + + | Anion Gap | 18.2 | 7 - 21 mmol/L | EXTERNAL | | | | | | LAB | | + + + + + + | eGFR if not | | | EXTERNAL | | | | | | LAB | | | [place] | | | | | + + + + + + | Phosphorus, | | | EXTERNAL | | | Inorganic | | | LAB | | + + + + + + | BUN/Creatin | 24.0 | 6.0 - 28.6 | EXTERNAL | | | ine Ratio | | | LAB | | + + + + + + | Calcium | 9.8 | 8.5 - 10.3 | EXTERNAL | | | | | mg/dL | LAB | | + + + + + + | Estimated | 20 (A) | 60 - 140 mg/dL | EXTERNAL | | | GFR | | | LAB | | + + + + + + + + | Specimen | + + | Blood specimen | | (specimen) | + + + +---------+ + + | Performing | Address | City/State/Zipcode | Phone Number | | Organization | | | | + +---------+ + + | EXTERNAL LAB | | | | + +---------+ + + documented in this encounter Visit Diagnoses Not on filedocumented in this encounter"
--- OUTSIDE RECORDS SUMMARY | ~2020-01-04 | XMS | Encounter Summary ---
Demographics + + + | Address | [address] | | | [place] [address] | + + + | Home Phone | | + + + | Preferred Language | Unknown | + + + | Marital Status | | + + + | Latter Day Affiliation | CHR | + + + | Race | White | + + + | Ethnic Group | Not or | + + + Author + + + | Organization | Unknown | + + + | Address | Unknown | + + + | Phone | Unavailable | + + + Support + + +---------+ + | Name | Relationship | Address | Phone | + + +---------+ + | Jose Minaya | ECON | Unknown | | + + +---------+ + Care Team Providers + +------+ + | Care Printing Agent Name | Role | Phone | + +------+ + | Shazia Tamayo MD | PCP | | + +------+ + Encounter Details +--------+--------+ + + + | Date | Type | Department | Care Team | Description | +--------+--------+ + + + | 03/10/ | Travel | | | | | 2020 | | | | | +--------+--------+ + + + Social History + +-------+ [...] | Seymour Cerrato MD | | | 2020 | Visit | | [address] | | | | | | [place], [place] | | | | | | [address] | | | | | | [phone] | | | | | | | | +--------+---------+ + + + documented as of this encounter Visit Diagnoses Not on filedocumented in this encounter"
--- OUTSIDE RECORDS SUMMARY | ~2020-01-04 | XMS | Encounter Summary ---
Demographics + + + | Address | [address] | | | [place] [address] | + + + | Home Phone | | + + + | Preferred Language | Unknown | + + + | Marital Status | | + + + | Jainism Affiliation | CHR | + + + [...] Team Providers + +------+ + | Care Technical Sales Specialist Name | Role | Phone | + +------+ + | Shazia Tamayo MD | PCP | | + +------+ + Encounter Details +--------+--------+ + + + | Date | Type | Department | Care Team | Description | +--------+--------+ + + + | // | Travel | | | | | [...] Comments | + + +---------+ + | Never | | | | + + +---------+ + + + + + | Alcohol Habits | Answer | Date Recorded | + + + + | How often do you have a drink containing | Never | 01/01/2020 | | alcohol? | | | + + + + | How many drinks containing alcohol do you | Not asked | | | have on a typical day when you are | | | | drinking? | | | + + + + | How often do you have six or more drinks on | Not asked | | | one occasion? | | | + + + + + + + | Sex Assigned [...] recent travel history available. | + + + + + + | COVID-19 Exposure | Response | Date Recorded | + + + + | In the last month, have you been in contact | No / Unsure | 01/01/2020 9:17 AM | | with someone who was confirmed or | | PDT | | suspected to have Coronavirus / COVID-19? | | | + + + + documented as of this encounter Plan of Treatment +--------+---------+ + + + | Date | Type | Specialty | Care Team | Description | +--------+---------+ + + + | 02/11/ | Office | Urology | Seymour Cerrato MD | | | 2020 | Visit | | [address] | | | | | | [place] | | | | | | [address] | | | | | | [phone] | | | | | | | | +--------+---------+ + + + documented as of this encounter Visit Diagnoses Not on filedocumented in this encounter"
--- OUTSIDE RECORDS SUMMARY | ~2020-01-04 | XMS | Encounter Summary ---
Demographics + + + | Address | [address] | | | [place] [address] | + + + | Home Phone | | + + + | Preferred Language | Unknown | + + + | Marital Status | | + + + | Christian Affiliation | CHR | + + + [...] Team Providers + +------+ + | Care Investor Relations Analyst Name | Role | Phone | + [...] [address] | | | | | | [place], [place] | | | | | | [address] | | | | | | [phone] | | | | | | | | +--------+---------+ + + + documented as of this encounter Visit Diagnoses Not on filedocumented in this encounter"
--- OUTSIDE RECORDS SUMMARY | ~2020-01-04 | XMS | Encounter Summary ---
Demographics + + + | Address | [address] | | | [place] [address] | + + + | Home Phone | | + + + | Preferred Language | Unknown | + + + | Marital Status | | + + + | Cheondoism Affiliation | 1013 | + + + | Race | Unknown | + + + | Ethnic Group | Unknown | + + + Author + + + | Author | [facility] | | | and [place] | + + + | Organization | [facility] | | | and [place] | + + + | Address | Unknown | + + + | Phone | Unavailable | + + + Support + + + + + | Name | Relationship | Address | Phone | + + + + + | Jose Minaya | ECON | [address] | | | | | [place] | | | | | [address] | | + + + + + Care Team Providers + +------+ + | Care Multimedia Services Manager Name | Role | Phone | + +------+ + | Shazia Tamayo MD | PCP | | + +------+ + Encounter Details +--------+ + + + + | Date | Type | Department | Care Team | Description | +--------+ + + + + | 06/06/ | Orders Only | [facility] | Arslan Robertson MD | Essential | | 2019 | | NEPHROLOGY [place] | [address] [place] | hypertension | | | | [address] [place] | [address] [place], [place] | (Primary Dx); | | | | [address] [place], [place] | [address] | Secondary | | | | [address] | | hyperparathyroidism | | | | [phone] | | (HCC); CKD (chronic | | | | | | kidney disease), | | | | | | stage III (HCC); | | | | | | Vitamin D deficiency | +--------+ + + + + Social [...] [address] | | | | | | [place] [address] | | | | | | [phone] | | | | | | | | +--------+ + + + + | 01/10/ | Appointment | Respiratory Therapy | Deirdre Maharaj | | | 2019 | | | MD [address] | | | | | | [address], [place] | | | | | | [place] [address] | | | | | | [phone] | | | | | | | | +--------+ + + + + | 04/10/ | Office | Neurology | Deirdre Maharaj | | | 2019 | Visit | | MD [address] | [address], [place] | | | | | | [place] [address] | | | | | | [phone] | | | | | | | | +--------+ + + + + | 06/02/ | Office | Nephrology | Arslan Robertson MD | | | 2019 | Visit | | [address] [place] | | | | | | [address] [place], [place] | | | | | | [address] | | | | | | | | +--------+ + + + + + +------+--------+ + + | Name | Type | Priori | Associated Diagnoses | Order Schedule | | | | ty | | | + +------+--------+ + + | Basic Metabolic | Lab | Routin | Essential | Expected: | | Panel | | e | hypertension CKD | 09/05/2019, Expires: | | | | | (chronic kidney | 06/06/2020 | | | | | disease), stage III | | | | | | (HCC) | | + +------+--------+ + + | CBC with | Lab | Routin | Essential | Expected: | | Differential | | e | hypertension CKD | 09/05/2019, Expires: | | | | | (chronic kidney | 06/06/2020 | | | | | disease), stage III | | | | | | (HCC) | | + +------+--------+ + + | Renal Function Panel | Lab | Routin | Essential | Expected: | | | | e | hypertension CKD | 12/05/2019, Expires: | | | | | (chronic kidney | 06/06/2020 | | | | | disease), stage III | | | | | | (HCC) | | + +------+--------+ + + | CBC with | Lab | Routin | Essential | Expected: | | Differential | | e | hypertension CKD | 12/05/2019, Expires: | | | | | (chronic kidney | 06/06/2020 | | | | | disease), stage III | | | | | | (HCC) | | + +------+--------+ + + | Parathyroid Hormone, | Lab | Routin | Essential | Expected: | | Intact | | e | hypertension | 12/05/2019, Expires: | | | | | Secondary | 06/06/2020 | | | | | hyperparathyroidism | | | | | | (HCC) CKD (chronic | | | | | | kidney disease), | | | | | | stage III (HCC) | | + +------+--------+ + + | Vitamin D, | Lab | Routin | Essential | Expected: | | Deficiency Screen | | e | hypertension CKD | 12/05/2019, Expires: | | (25-Hydroxy) | | | (chronic kidney | 06/06/2020 | | | | | disease), stage III | | | | | | ([facility]) Vitamin D | | | | | | deficiency | | + +------+--------+ + + | Protein/Creatinine | Lab | Routin | Essential | Expected: | | Ratio, Urine | | e | hypertension CKD | 12/05/2019, Expires: | | | | | (chronic kidney | 06/06/2020 | | | | | disease), stage III | | | | | | (HCC) | | + +------+--------+ + + documented as of this encounter Results Creatinine Clearance, Test (12/03/2019 11:53 AM PDT) + + + + + + | Component | Value | Ref Range | Performed | Pathologist | | | | | At | Signature | + + + + + + | Creatinine | 2.5 (H) | 0.6 - 1.5 mg/dL | REFERENCE | | | | | | LAB | | | | | | [facility] | | | | | | LABORATORY | | + + + + + + | Creatinine, | 26.0Comment: NO NORMAL | mg/dL | REFERENCE | | | timed | RANGE ESTABLISHED | | LAB | | | urine | | | [facility] | | | | | | LABORATORY | | + + + + + + | Creatinine, | 1.1 | g/24hr | REFERENCE | | | Urine | | | LAB | | | (mg/24hr) | | | [facility] | | | | | | LABORATORY | | + + + + + + | CREATININE | 36.2 (L)Comment: Testing | 64 - 104 mL | REFERENCE | | | CLEARANCE | performed at TCL;[address] | cl/min | LAB | | | | [place] | | [facility] | | | | [address];[place] [address] | | LABORATORY | | + + + + + + + + | Specimen | + + | Urine | + + + + + + + | Performing | Address | City/State/Zipcode | Phone Number | | Organization | | | | + + + + + | REFERENCE LAB | [address] | [place] | [phone] | | [facility] | Bl[address]. | [address] | | | LABORATORY | | | | + + + + + | REFERENCE LAB | [address] | [place] | | | [facility] | Blvd. | [address] | | | LABORATORY | | | | + + + + + documented in this encounter Visit Diagnoses + + | Diagnosis | + + | Essential hypertension - Primary Unspecified essential hypertension | + + | Secondary hyperparathyroidism (HCC) Secondary hyperparathyroidism (of renal origin) | + + | CKD (chronic kidney disease), stage III (HCC) Chronic kidney disease, Stage III | | (moderate) | + + | Vitamin D deficiency Unspecified vitamin D deficiency | + + documented in this encounter"
--- OUTSIDE RECORDS SUMMARY | ~2020-01-04 | XMS | Encounter Summary ---
Demographics + + + | Address | [address] | | | [place] [address] | + + + | Home Phone | | + + + | Preferred Language | Unknown | + + + | Marital Status | | + + + | Hoahaoism Affiliation | 1013 | + + + | Race | Unknown | + + + | Ethnic Group | Unknown | + + + Author + + + | Author | [facility] | | | and [place] | + + + | Organization | [facility] | | | and [place] | + + + | Address | Unknown | + + + | Phone | Unavailable | + + + Support + + + + + | Name | Relationship | Address | Phone | + + + + + | Jose Ariisidro | ECON | [address] | | | | | [place] | | | | | [address] | | + + + + + Care Team Providers + +------+ + | Care Negotiator Name | Role | Phone | + +------+ + | Shazia Tamayo MD | PCP | | + +------+ + Encounter Details +--------+ + + + + | Date | Type | Department | Care Team | Description | +--------+ + + + + | 07/15/ | Orders Only | [facility] | Arslan Robertson MD | | | 2019 | | NEPHROLOGY [place] | [address] [place] | | | | | [address] [place] | [address] [place], [place] | | | | | [address] [place], [place] | [address] | | | | | [address] | | | | | | [phone] | | | +--------+ + + + [...] 2019 | | | MD [address] | | | | | | [place] | | | | | | [place] [address] | | | | | | [phone] | | | | | | | | +--------+ + + + + | 01/10/ | Appointment | Respiratory Therapy | Deirdre Maharaj | | | 2020 | | | MD [address] | | | [address], [place] | | | | | | [place] [address] | | | | | | [phone] | | | | | | | | +--------+ + + + + | 04/10/ | Office | Neurology | Deirdre Maharaj | | | 2019 | Visit | | MD [address] | | | [address], [place] | | | | | | [place] [address] | | | | | | [phone] | | | | | | | | +--------+ + + + + | 06/02/ | Office | Nephrology | Arslan Robertson MD | | | 2019 | Visit | | [address] [place] | | | | | | [address] [place] | | | | | | [address] | | | | | | | | +--------+ + + + + documented as of this encounter Procedures + +--------+ + + + | Procedure Name | Priori | Date/Time | Associated Diagnosis | Comments | | | ty | | | | + +--------+ + + + | EXTERNAL LAB: [facility] | Routin | 03/26/2019 | | Results for this | | | e | 2:33 PM | | procedure are in the | | | | PDT | | results section. | + +--------+ + + + documented in this encounter Results External Lab: [facility] (03/26/2019 2:33 PM PDT) + + + + + + | Component | Value | Ref Range | Performed | Pathologist | | | | | At | Signature | + + + + + + | WBC | 8.3 | 4.5 - 11.0 10 | EXTERNAL | | | | | | LAB | | + + + + + + | Red Blood | 4.22 | 3.8 - 5.1 10 | EXTERNAL | | | Cells | | | LAB | | | Counted | | | | | + + + + + + | Hemoglobin | 12.4 | 12.0 - 16.0 | EXTERNAL | | | | | g/dL | LAB | | + + + + + + | Hematocrit, | 36.5 | 35 - 45 % | EXTERNAL | | | POC | | | LAB | | + + + + + + | MCV | 86.5 | 81 - 99 fL | EXTERNAL | | | | | | LAB | | + + + + + + | MCH | 29 | 27 - 33 pg | EXTERNAL | | | | | | LAB | | + + + + + + | MCHC | 34 | 30 - 36 g/dL | EXTERNAL | | | | | | LAB | | + + + + + + | Platelet | 254 | 140 - 440 K/ L | EXTERNAL | | | Count | | | LAB | | | Plasma | | | | | + + + + + + | RDW-CV | 15.1 (A) | 10.5 - 15.0 % | EXTERNAL | | | | | | LAB | | + + + + + + | MPV | | fL | EXTERNAL | | | | | | LAB | | + + + + + + | Differentia | | | EXTERNAL | | | l Type | | | LAB | | + + + + + + | % Segmented | 71.8 | 39 - 80 % | EXTERNAL | | | | | | LAB | | | Neutrophils | | | | | + + + + + + | % | 17.4 (A) | 24 - 44 % | EXTERNAL | | | Lymphocytes | | | LAB | | + + + + + + | % Monocytes | 5.4 | 0 - 12 % | EXTERNAL | | | | | | LAB | | + + + + + + | % | 4.1 | 0 - 6 % | EXTERNAL | | | Eosinophils | | | LAB | | + + + + + + | % Basophils | 1.3 | 0 - 2 % | EXTERNAL | | | | | | LAB | | + + + + + + | Absolute | | / L | EXTERNAL | | | Segmented | | | LAB | | | Neutrophils | | | | | + + + + + + | Absolute | | / L | EXTERNAL | | | Lymphocytes | | | LAB | | + + + + + + | Absolute | | / L | EXTERNAL | | | Monocytes | | | LAB | | + + + + + + | Absolute | | / L | EXTERNAL | | | Eosinophils | | | LAB | | + + + + + + | Absolute | | / L | EXTERNAL | | | Basophils | | | LAB | | + [...]
--- OUTSIDE RECORDS SUMMARY | ~2020-01-04 | XMS | Encounter Summary ---
Demographics + + + | Address | [address] | | | [place] [address] | + + + | Home Phone | | + + + | Preferred Language | Unknown | + + + | Marital Status | | + + + | Worship Affiliation | 1013 | + + + | Race | Unknown | + + + | Ethnic Group | Unknown | + + + Author + + + | Author | [facility] | | | and [place] | + + + | Organization | [facility] | | | and [place] | + + + | Address | Unknown | + + + | Phone | Unavailable | + + + Support + + + + + | Name | Relationship | Address | Phone | + + + + + | Jose Ariisidro | ECON | [address] | | | | | [place] | | | | | [address] | | + + + + + Care Team Providers + +------+ + | Care Video Games Mechanic Name | Role | Phone | + +------+ + | Shazia Tamayo MD | PCP | | + +------+ + Encounter Details +--------+ + + + + | Date | Type | Department | Care Team | Description | +--------+ + + + + | 05/23/ | Orders Only | [facility] | Arslan Robertson MD | | | 2017 | | NEPHROLOGY [place] | [address] [place] | | | | | [address] [place] | [address] [place], [place] | | | | | [address] [place], [place] | [address] | | | | | [address] | | | | | | [phone] | | | +--------+ + + + + Social History + +-------+ +--------+------+ | Tobacco Use | Types | Packs/Day | Years | Date | | | | | Used | | + +-------+ +--------+------+ | Never Assessed | | | | | + +-------+ +--------+------+ + + + | Sex Assigned at [...] | | | | | [place] [address] | | | | | | [phone] | | | | | | | | +--------+ + + + + | 01/10/ | Appointment | Respiratory Therapy | Deirdre Maharaj | | | 2020 | | | MD [address], [place] | | | | | | [place] [address] | | | | | | [phone] | | | | | | | | +--------+ + + + + | 04/10/ | Office | Neurology | Deirdre Maharaj | | | 2019 | Visit | | MD [address], [place] | | | | | | [place] [address] | | | | | | [phone] | | | | | | | | +--------+ + + + + | 06/02/ | Office | Nephrology | Arslan Robertson MD | | | 2019 | Visit | | [address] [facility] | | | | | | [address] [place] | | | | | | [address] | | | | | | | | +--------+ + + + + documented as of this encounter Procedures + +--------+ + + + | Procedure Name | Priori | Date/Time | Associated Diagnosis | Comments | | | ty | | | | + +--------+ + + + | EXTERNAL LAB: [facility] | Routin | 02/01/2018 | | Results for this | | | e | 2:50 PM | | procedure are in the | | | | PDT | | results section. | + +--------+ + + + | URINALYSIS WITH | Routin | 02/01/2018 | | Results for this | | MICROSCOPIC IF | e | 2:50 PM | | procedure are in the | | INDICATED | | PDT | | results section. | + +--------+ + + + | PROTEIN/CREATININE | Routin | 02/01/2018 | | Results for this | | RATIO, URINE | e | 2:50 PM | | procedure are in the | | | | PDT | | results section. | + +--------+ + + + | URIC ACID | Routin | 02/01/2018 | | Results for this | | | e | 2:50 PM | | procedure are in the | | | | PDT | | results section. | + +--------+ + + + | BASIC METABOLIC | Routin | 02/01/2018 | | Results for this | | PANEL | e | 2:50 PM | | procedure are in the | | | | PDT | | results section. | + +--------+ + + + documented in this encounter Results Protein/Creatinine Ratio, Urine (02/01/2018 2:50 PM PDT) + +-------+ + + + | Component | Value | Ref Range | Performed | Pathologist | | | | | At | Signature | + +-------+ + + + | Protein/Cre | | | EXTERNAL | | | at Ratio | | | LAB | | + +-------+ + + + + + | Specimen | + + | Urine specimen | | (specimen) | + + + + + | Narrative | Performed At | + + + | Protein: <4 Creatinine: 27 | EXTERNAL LAB | + + + + +---------+ + + | Performing | Address | City/State/Zipcode | Phone Number | | Organization | | | | + +---------+ + + | EXTERNAL LAB | | | | + +---------+ + + Urinalysis with Microscopic if Indicated (02/01/2018 2:50 PM PDT) + + + + + + | Component | Value | Ref Range | Performed | Pathologist | | | | | At | Signature | + + + + + + | Color | Colorless | | EXTERNAL | | | | | | LAB | | + + + + + + | Clarity | Clear | | EXTERNAL | | | | | | LAB | | + + + + + + | Spec Grav, | 1.006 | 1.005 - 1.030 | EXTERNAL | | | Fluid | | | LAB | | + + + + + + | Leukocyte | Negative | | EXTERNAL | | | Esterase, | | | LAB | | | Urine | | | | | + + + + + + | Nitrite, | Negative | | EXTERNAL | | | Urine | | | LAB | | + + + + + + | Urobilinoge | Normal | | EXTERNAL | | | n, Urine | | | LAB | | + + + + + + | Total | Negative | | EXTERNAL | | | Protein | | | LAB | | + + + + + + | pH, Urine | 6 | 5 - 9 | EXTERNAL | | | | | | LAB | | + + + + + + | Blood, | Negative | | EXTERNAL | | | Urine | | | LAB | | + + + + + + | Ketones | Negative | | EXTERNAL | | | | | | LAB | | + + + + + + | Bilirubin, | Negative | | EXTERNAL | | | Urine | | | LAB | | + + + + + + | Glucose, | Negative | | EXTERNAL | | | Urine | | | LAB | | + + + + + + + + | Specimen | + + | Urine specimen | | (specimen) | + + + + + | Narrative | Performed At | + + + | Bacteria: 1+ | EXTERNAL LAB | + + + + +---------+ + + | Performing | Address | City/State/Zipcode | Phone Number | | Organization | | | | + +---------+ + + | EXTERNAL LAB | | | | + +---------+ + + External Lab: CBC (02/01/2018 2:50 PM PDT) + +-------+ + + + | Component | Value | Ref Range | Performed | Pathologist | | | | | At | Signature | + +-------+ + + + | WBC | 9.2 | 4.5 - 11.0 10 | EXTERNAL | | | | | | LAB | | + +-------+ + + + | Red Blood | 3.95 | 3.8 - 5.1 10 | EXTERNAL | | | Cells | | | LAB | | | Counted | | | | | + +-------+ + + + | Hemoglobin | 12.5 | 12 - 16 g/dL | EXTERNAL | | | | | | LAB | | + +-------+ + + + | Hematocrit, | 36.9 | 35 - 45 % | EXTERNAL | | | POC | | | LAB | | + +-------+ + + + | MCV | 93.4 | 81 - 99 fL | EXTERNAL | | | | | | LAB | | + +-------+ + + + | MCH | 32 | 27 - 33 pg | EXTERNAL | | | | | | LAB | | + +-------+ + + + | MCHC | 34 | 30 - 36 g/dL | EXTERNAL | | | | | | LAB | | + +-------+ + + + | Platelet | 215 | 140 - 440 K/ L | EXTERNAL | | | Count | | | LAB | | | Plasma | | | | | + +-------+ + + + | RDW-CV | 14 | 10.5 - 15.0 % | EXTERNAL | | | | | | LAB | | + +-------+ + + + | MPV | | fL | EXTERNAL | | | | | | LAB | | + +-------+ + + + | Differentia | | | EXTERNAL | | | l Type | | | LAB | | + +-------+ + + + | % Segmented | | % | EXTERNAL | | | | | | LAB | | | Neutrophils | | | | | + +-------+ + + + | % | | % | EXTERNAL | | | Lymphocytes | | | LAB | | + +-------+ + + + | % Monocytes | | % | EXTERNAL | | | | | | LAB | | + +-------+ + + + | % | | % | EXTERNAL | | | Eosinophils | | | LAB | | + +-------+ + + + | % Basophils | | % | EXTERNAL | | | | | | LAB | | + +-------+ + + + | Absolute | | / L | EXTERNAL | | | Segmented | | | LAB | | | Neutrophils | | | | | + +-------+ + + + | Absolute | | / L | EXTERNAL | | | Lymphocytes | | | LAB | | + +-------+ + + + | Absolute | | / L | EXTERNAL | | | Monocytes | | | LAB | | + +-------+ + + + | Absolute | | / L | EXTERNAL | | | Eosinophils | | | LAB | | + +-------+ + + + | Absolute | | / L | EXTERNAL | | | Basophils | | | LAB | | + +-------+ + + + + + | Specimen | + + | Blood specimen | | (specimen) | + + + +---------+ + + | Performing | Address | City/State/Zipcode | Phone Number | | Organization | | | | + +---------+ + + | EXTERNAL LAB | | | | + +---------+ + + Uric Acid (02/01/2018 2:50 PM PDT) + + + + + + | Component | Value | Ref Range | Performed | Pathologist | | | | | At | Signature | + + + + + + | Uric Acid | 10.7 (A) | 2.3 - 6.6 | EXTERNAL [...] | | | + +---------+ + + Basic Metabolic Panel (02/01/2018 2:50 PM PDT) + + + + + + | Component | Value | Ref Range | Performed | Pathologist | | | | | At | Signature | + + + + + + | Glucose, | 105 (A) | 70 - 100 mg/dL | EXTERNAL | | | Fasting | | | LAB | | + + + + + + | BUN | 47 (A) | 6 - 23 mg/dL | EXTERNAL | | | | | | LAB | | + + + + + + | Creatinine | 1.62 (A) | 0.7 - 1.25 | EXTERNAL | | | | | mg/dL | LAB | | + + + + + + | BUN/Creatin | 29 (A) | 6.0 - 28.6 | EXTERNAL | | | ine Ratio | | | LAB | | + + + + + + | Calcium | 10.2 | 8.4 - 10.2 | EXTERNAL | | | | | mg/dL | LAB | | + + + + + + | Na | 139 | 132 - 143 | EXTERNAL | | | | | mmol/L | LAB | | + + + + + + | K | 3.6 | 3.6 - 5.1 | EXTERNAL | | | | | mmol/L | LAB | | + + + + + + | Cl | 97 | 95 - 112 mmol/L | EXTERNAL | | | | | | LAB | | + + + + + + | CO2 | 26 | 19 - 31 mmol/L | EXTERNAL | | | | | | LAB | | + + + + + + | Anion Gap | 19.6 | 7 - 21 mmol/L | EXTERNAL | | | | | | LAB | | + + + + + + | Estimated | 32 (A) | 60 mg/dL | EXTERNAL | | | GFR [...]
--- OUTSIDE RECORDS SUMMARY | ~2020-01-04 | XMS | Encounter Summary ---
Demographics + + + | Address | [address] | | | [place] [address] | + + + | Home Phone | | + + + | Preferred Language | Unknown | + + + | Marital Status | | + + + | Confucianist Affiliation | CHR | + + + [...] Team Providers + +------+ + | Care Director Customer Name | Role | Phone | + +------+ + | Shazia Tamayo MD | PCP | | + +------+ + Encounter Details +--------+--------+ + + + | Date | Type | Department | Care Team | Description | +--------+--------+ + + + | 11/06/ | Travel | | | | | [...] [facility] | | | | | | [place], [place] | | | | | | [address] | | | | | | [phone] | | | | | | | | +--------+---------+ + + + documented as of this encounter Visit Diagnoses Not on filedocumented in this encounter"
--- OUTSIDE RECORDS SUMMARY | ~2020-01-04 | XMS | Encounter Summary ---
Demographics + + + | Address | [address] | | | [place] [address] | + + + | Home Phone | | + + + | Preferred Language | Unknown | + + + | Marital Status | | + + + | Cheondoism Affiliation | CHR | + + + [...] Team Providers + +------+ + | Care Tanning Wheel Filler Name | Role | Phone | + +------+ + | Shazia Tamayo MD | PCP | | + +------+ + Encounter Details +--------+--------+ + + + | Date | Type | Department | Care Team | Description | +--------+--------+ + + + | 03/04/ | Travel | | | | | [...] [facility] | | | | | | [place], [place] | | | | | | [address] | | | | | | [phone] | | | | | | | | +--------+---------+ + + + documented as of this encounter Visit Diagnoses Not on filedocumented in this encounter"
--- OUTSIDE RECORDS SUMMARY | ~2020-01-04 | XMS | Encounter Summary ---
Demographics + + + | Address | [address] | | | [place] [address] | + + + | Home Phone | | + + + | Preferred Language | Unknown | + + + | Marital Status | | + + + | Adventist Affiliation | CHR | + + + | Race | White | + + + | Ethnic Group | Not or | + + + Author + + + | Author | [facility] | + + + | Organization | [facility] | + + + | Address | Unknown | + + + | Phone | Unavailable | + + + Support + + +---------+ + | Name | Relationship | Address | Phone | + + +---------+ + | Jose Minaya | ECON | Unknown | | + + +---------+ + Care Team Providers + +------+ + | Care Gel Coat Sprayer Name | Role | Phone | + [...] | +--------+ + + + + | 01/02/ | Hospital | [facility] | Yung Cerrato MD | | | 2020 | Encounter | STAY [address] | [address] | | | | | Ave Mailcode: [facility] | [place], [place] | | | | | [facility] | [address] | | | | | [facility], | [phone] | | | | | [place] [address] | | | | | | [place], [place] | | | | | | [address] | | | | | | [phone] | | | +--------+ + + + [...] in contact | No / Unsure | 01/03/2020 8:30 AM | | with someone who was confirmed or | | PDT | | suspected to have Coronavirus / COVID-19? | | | + + + + documented as of this encounter Last Filed Vital Signs + + + + + | Vital Sign | Reading | Time Taken | Comments | + + + + + | Blood Pressure | 120/70 | 01/03/2020 2:30 PM | | | | | PDT | | + + + + + | Pulse | 87 | 01/03/2020 1:46 PM | | | | | PDT | | + + + + + | Temperature | 36.8 C (98.2 F) | 01/03/2020 2:28 PM | | | | | PDT | | + + + + + | Respiratory Rate | 16 | 01/03/2020 1:46 PM | | | | | PDT | | + + + + + | Oxygen Saturation | 98% | 01/03/2020 2:30 PM | | | | | PDT | | + + + + + | Inhaled Oxygen | - | - | | | Concentration | | | | + + + + + | Weight | 77.1 kg (170 lb) | 01/03/2020 9:00 AM | | | | | PDT | | + + + + + | Height | 147.3 cm (4' 10") | 01/03/2020 9:00 AM | | | | | PDT | | + + + + + | Body Mass Index | 35.53 | 01/03/2020 9:00 AM | | | | | PDT | | + + + + + documented in this encounter Discharge Instructions Instructions Roshni Garcia RN - 01/03/2020Principal Diagnosis: bladder outlet obstr uction Principal Procedure: sling incision, cystoscopy Reason for Admission, Significant Findings, Treatment and Complication: none Condition on Discharge: Good Disposition: Home Follow up care: As scheduled Activity Restrictions: No heavy lifting (more than 8 lbs), no strenuous activity, and noth ing per vagina until after you are seen by Dr. Cerrato. You can shower starting tomorrow. No baths or swimming for 4 weeks. Continue to use the catheter to empty your bladder as needed. Diet: Resume usual diet Call Dr. Cerrato at for difficulty breathing or unusual shortness of breath , excessive bleeding, drainage at the operative site, fevers, chills, increased pain that is not relieved by pain medications, persistent nausea or vomiting. Also call if you have any difficulty in urinating. Signed by: YUNG CERRATO MD documented in this encounter Medications at Time of Discharge + + + +---------+ + + | Medication | Sig | Dispensed | Refills | Start | End Date | | | | | | Date | | + + + +---------+ + + | acetaminophen 500 | Take 2 tablets by | | 0 | 11/15/19 | | | mg oral tablet | mouth three times | | | 20 | | | | daily. | | | | | + + + +---------+ + + | albuterol | Ventolin HFA 90 | | 0 | | | | (VENTOLIN HFA) 90 | mcg/actuation | | | | | | mcg/actuation | aerosol inhaler | | | | | | inhalation HFA | | | | | | | aerosol inhaler | | | | | | + + + +---------+ + + | aMILoride 5 mg | Take 10 mg by mouth | | 0 | 09/25/19 | | | oral tablet | once daily. | | | 20 | | + + + +---------+ + + | amitriptyline 50 | TAKE 1 TO 3 TABLETS | | 0 | 09/15/19 | | | mg oral tablet | BY MOUTH EVERY DAY | | | 20 | | | | AT BEDTIME FOR 90 | | | | | | | DAYS | | | | | + + + +---------+ + + | aspirin EC 81 mg | Take 81 mg by mouth. | | 0 | | | | oral tablet,delayed | | | | | | | release (DR/EC) | | | | | | + + + +---------+ + + | benzalkonium | Apply 1 each to | 4 Box | 11 | 11/26/19 | | | chloride 0.115 % | affected area Use as | | | 20 | | | topical towelette | directed. Use 1 | | | | | | | towelette to clean | | | | | | | prior to | | | | | | | catheterizing. | | | | | + + + +---------+ + + | Catheter 12 FR-16" | Disp 12fr | 90 each | 11 | 11/26/19 | | | miscellaneous | prelubricated | | | 20 | | | (misc) misc | straight | | | | | | | catheters.Duration: | | | | | | | 1 year. Length of | | | | | | | need more than 90 | | | | | | | days.Sig: | | | | | | | Catheterize 3 times | | | | | | | a day as instructed. | | | | | | | Catheterize in the | | | | | | | AM and PM prior to | | | | | | | bedtime.Start date: | | | | | | | 11/26/2019 ICD 10: | | | | | | | Urinary retention | | | | | | | R33.9 | | | | | + + + +---------+ + + | Cetirizine | Zyrtec 10 mg capsule | | 0 | | | | (ZYRTEC) 10 mg oral | Take by oral route. | | | | | | capsule | | | | | | + + + +---------+ + + | cyanocobalamin | Take by mouth. | | 0 | | | | 1,000 mcg oral | | | | | | | tablet | | | | | | + + + +---------+ + + | cyclobenzaprine 5 | Take 5 mg by mouth | | 0 | | | | mg oral tablet | as needed. Do not | | | | | | | use longer than 2-3 | | | | | | | weeks. | | | | | + + + +---------+ + + | Febuxostat 40 mg | TAKE 2 TABLETS BY | | 0 | 08/07/20 | | | oral tablet | MOUTH ONCE DAILY | | | 18 | | + + + +---------+ + + | HYDROmorphone 2 mg | Take 1 tablet by | 8 | 0 | 01/03/20 | | | oral tablet | mouth every six | tablet | | 20 | | | | hours as needed for | | | | | | | severe pain. | | | | | + + + +---------+ + + | HYDROmorphone 2 mg | Take 1-2 tablets by | 12 | 0 | 11/15/19 | | | oral tablet | mouth every four | tablet | | 20 | | | | hours as needed for | | | | | | | moderate pain. | | | | | + + + +---------+ + + | levothyroxine 125 | Take 125 mcg by | | 0 | | | | mcg oral tablet | mouth before | | | | | | | breakfast. | | | | | + + + +---------+ + + | Magnesium 250 mg | Take 250 mg by | | 0 | | | | oral tablet | mouth. | | | | | + + + +---------+ + + | metOLazone 2.5 mg | Take 2.5 mg by mouth | | 0 | 08/24/20 | | | oral tablet | every seventy-two | | | 19 | | | | hours. | | | | | + + + +---------+ + + | metoprolol | Take 25 mg by mouth | | 0 | | | | succinate 25 mg oral | once daily. | | | | | | tablet extended | | | | | | | release 24 hr | | | | | | + + + +---------+ + + | montelukast 10 mg | montelukast 10 mg | | 0 | | | | oral tablet | tablet | | | | | + + + +---------+ + + | oxybutynin CR 10 | Take 1 tablet by | 30 | 1 | 12/18/19 | | | mg oral tablet | mouth once daily. | tablet | | 20 | | | extended release | Indications: | | | | | | 24hrIndications: | overactive bladder | | | | | | bladder | | | | | | | hyperactivity | | | | | | + + + +---------+ + + | potassium chloride | TAKE 2 TABLETS BY | | 0 | 03/12/20 | | | SR 20 mEq oral | MOUTH 4 TIMES DAILY | | | 19 | | | tablet,ER | | | | | | | particles/crystals | | | | | | + + + +---------+ + + | pramipexole 1 mg | pramipexole 1 mg | | 0 | | | | oral tablet | tablet | | | | | + + + +---------+ + + | torsemide 20 mg | torsemide 20 mg | | 0 | | | | oral tablet | tablet | | | | | + + + +---------+ + + documented as of this encounter Plan of Treatment +--------+---------+ + + + | Date | Type | Specialty | Care Team | Description | +--------+---------+ + + + | 02/11/ | Office | Urology | Yung Cerrato MD | | | 2019 | Visit | | [address] | | | | | | [place], [place] | | | | | | [address] | | | | | | [phone] | | | | | | | | +--------+---------+ + + + documented as of this encounter Procedures + +--------+ + + + | Procedure Name | Priori | Date/Time | Associated Diagnosis | Comments | | | ty | | | | + +--------+ + + + | RETROPUBIC | Electi | 01/03/2020 | Bladder outlet | | | MID-URETHRAL SLING | ve | 11:25 AM | obstruction | | | (TVT) | Surgic | PDT | | | | | al | | | | + +--------+ + + + | INTRAPROCEDURE | Routin | 01/03/2020 | | Results for this | | IMAGING | e | 8:49 AM | | procedure are in the | | | | PDT | | results section. | + +--------+ + + + documented in this encounter Results INTRAPROCEDURE IMAGING (01/03/2020 8:49 AM PDT) + + | Specimen | + + | | + + + + + | Narrative | Performed At | + + + | See admission or procedure notes for details of any intraprocedure | [facility] | | images obtained. | [facility] | + + + + +---------+ + + | Performing | Address | City/State/Zipcode | Phone Number | | Organization | | | | + +---------+ + + | [facility] | | | | + +---------+ + + documented in this encounter Visit Diagnoses + + | Diagnosis | + + | Bladder outlet obstruction - Primary Urinary obstruction, unspecified | + + documented in this encounter Administered Medications + +--------+---------+------+------+------+ | Medication Order | MAR | Action | Dose | Rate | Site | | | Action | Date | | | | + +--------+---------+------+------+------+ + +---+ | fentaNYL (SUBLIMAZE) injection | | | 25-50 mcg 25-50 mcg, | | | intravenous, POSTPROCEDURE PRN, 8 | | | doses, Starting Ronel 01/03/20 at | | | 1158, Until Ronel 01/03/20 at 2256, | | | severe pain while in Phase I | | | Recovery | | + +---+ | | | + +---+ | HYDROmorphone (DILAUDID) | | | injection 0.2-0.5 mg 0.2-0.5 mg, | | | intravenous, POSTPROCEDURE PRN, | | | Starting Ronel 01/03/20 at 1158, | | | Until Ronel 01/03/20 at 2256, | | | moderate pain while in Phase I | | | Recovery, if unable to take PO | | + +---+ | | | + +---+ + +-------+ +------+---+---+ | HYDROmorphone (DILAUDID) tablet | Given | 01/03/20 | 2 mg | | | | 2 mg 2 mg, oral, ONCE, 1 dose, | | 20 1:04 | | | | | Ronel 01/03/20 at 1345 | | PM PDT | | | | + +-------+ +------+---+---+ + +---+ | | | + +---+ | meperidine (DEMEROL) injection | | | 12.5 mg 12.5 mg, intravenous, | | | POSTPROCEDURE PRN, 2 doses, | | | Starting Ronel 01/03/20 at 1158, | | | Until Ronel 01/03/20 at 2256, | | | shivering | | + +---+ | | | + +---+ | naloxone (NARCAN) injection | | | intravenous, POSTPROCEDURE PRN, | | | Starting Ronel 01/03/20 at 1158, | | | Until Ronel 01/03/20 at 2256, | | | hypopnea | | + +---+ | | | + +---+ documented in this encounter
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
--- OUTSIDE RECORDS SUMMARY | ~2020-01-04 | XMS | Encounter Summary ---
Demographics + + + | Address | [address] | | | [place] [address] | + + + | Home Phone | | + + + | Preferred Language | Unknown | + + + | Marital Status | | + + + | Jew Affiliation | CHR | + + + | Race | White | + + + | Ethnic Group | Not or | + + + Author + + + | Author | [facility] | + + + | Organization | [facility] | + + + | Address | Unknown | + + + | Phone | Unavailable | + + + Support + + +---------+ + | Name | Relationship | Address | Phone | + + +---------+ + | Jose Minaya | ECON | Unknown | | + + +---------+ + Care Team Providers + +------+ + | Care Emergency Dispatcher Name | Role | Phone | + +------+ + | Shazia Tamayo MD | PCP | | + +------+ + Reason for Visit + + + | Reason | Comments | + + + | Pre-op evaluation | | + + + Encounter Details +--------+ + + + + | Date | Type | Department | Care Team | Description | +--------+ + + + + | 12/31/ | Telephone-S | Preoperative | | Pre-op evaluation | | 2019 | cheduled | Medicine Clinic at | | | | | | [facility] | | | | | | [address] | | | | | | [facility] | | | | | | and Healing Building | | | | | | [address] [place], [place] | | | | | | [address] | | | | | | [phone] | | | +--------+ + + + + Anesthesia Record + + + + + | Procedure Name | Responsible | Anesthesia Start | Anesthesia Stop Time | | | Anesthesiologist | Time | | + + + + + | TRANSVAGINAL SLING | Ciara Wilks, | 01/03/20 1123 | 01/03/20 1235 | | INCISION (N/A ) | MD | | | + + + + + +----+---+ + + | Da | T | Event | Comment | | te | i | | | | | m | | | | | e | | | +----+---+ + + | 04 | 1 | Eq Check | Anesthesia machine checked Equipment verified | | /2 | 0 | | | | 3/ | 5 | | | | 20 | 0 | | | | 20 | | | | +----+---+ + + | | 1 | Pt. Check | Prior to anesthesia start, pt. Identified, examined, chart | | | 1 | | reviewed, PARQ held, anesthetic plan made or approved by | | | 1 | | attending anesthesiologist. NPO status confirmed as appropriate | | | 9 | | for procedure Preoperative evaluation: unchanged | +----+---+ + + | | 1 | An Start | | | | 1 | | | | | 2 | | | | | 3 | | | +----+---+ + + | | 1 | An Start | | | | 1 | Data | | | | 2 | | | | | 6 | | | +----+---+ + + | | 1 | Vitals | Monitors applied Vital signs checked Patient ready for anesthesia | | | 1 | Checked | | | | 3 | | | | | 1 | | | +----+---+ + + | | 1 | SGA | | | | 1 | | | | | 3 | | | | | 6 | | | +----+---+ + + | | 1 | Ready | | | | 1 | | | | | 3 | | | | | 8 | | | +----+---+ + + | | 1 | Abx | | | | 1 | Administere | | | | 4 | d | | | | 2 | | | +----+---+ + + | | 1 | SGA Removed | | | | 1 | | | | | 4 | | | | | 6 | | | +----+---+ + + | | 1 | ETT | | | | 1 | | | | | 4 | | | | | 7 | | | +----+---+ + + | | 1 | Timeout | | | | 1 | | | | | 5 | | | | | 7 | | | +----+---+ + + | | 1 | Incision | | | | 1 | | | | | 5 | | | | | 8 | | | +----+---+ + + | | 1 | Local | | | | 2 | Anesthetic | | | | 0 | by Surgeon | | | | 2 | | | +----+---+ + + | | 1 | Surgery end | | | | 2 | | | | | 1 | | | | | 8 | | | +----+---+ + + | | 1 | An Extubate | Neuromuscular function Intact. Pharynx suctioned. Patient obeys | | | 2 | | commands. Adequate pulmonary mechanics. | | | 1 | | | | | 9 | | | +----+---+ + + | | 1 | an stop | | | | 2 | data | | | | 2 | | | | | 0 | | | +----+---+ + + | | 1 | PACU Rpt | | | | 2 | Given | | | | 3 | | | | | 5 | | | +----+---+ + + | | 1 | Anesthesia | | | | 2 | End | | | | 3 | | | | | 5 | | | +----+---+ + + | | 1 | Post-Op | | | | 2 | Page | | | | 5 | | | | | 3 | | | +----+---+ + + +------+ | Meds | +------+ + + + No medications | on file. | + + + + + | No agents on file. | + + + + | No blood administrations on file. | + + +--------+ + + + | Type | Details | Placement | Removal | +--------+ + + + | Urethr | 11/15/19; 1745 | 11/15/19 1745 by | | | sosa | | Yoselyn Guerra RN | | | Shabbir | | | | | er | | | | +--------+ + + + | Incisi | 01/03/20; MD Blossom; vagina | 01/03/20 0000 by | | | on | | Bibiana Rosales, | | | | | RN | | +--------+ + + + | Periph | 01/03/20; 950; Left; Forearm; 22 | 01/03/2051 by | | | marquita | g | Roro Araujo RN | | | IV | | | | +--------+ + + + | ETT | 01/03/20; 1136 (created via | 01/03/20 1136 by | 01/03/20 1219 by | | | procedure documentation); | Theron Green | Theron Green | | | Theron Malagon CRNA; | PARVIN Malagon | PARVIN Malagon | | | Endotracheal Tube; 7; Oral; | | | | | Cuffed; 01/03/20; 1219 | | | +--------+ + + + [...] + + documented as of this encounter Patient Instructions Patient Instructions Pati Bo RN - 01/01/2020 2:20 PM PDT PREOPERATIVE INSTRUCTIONS If you develop any cold or flu symptoms such as fever, sore throat, cough, or shortness of breath, or if you have had a household or other close contact with a person who has been mony gnosed with COVID-19 (coronavirus), please call the Preoperative Medicine Clinic ) immediately. [facility] has a process for determining what next steps you should take, and if there are concerns for possible Covid-19 infection, we will work to determine if it is safe to keep your surgery date. As part of [facility]'s efforts to keep patients and visitors safe, this is the current visitatio n policy--no visitors except in rare circumstances. If you are not having respiratory symptoms or concerning close contacts but would like to c ancel/postpone your surgery, please contact your surgeon directly. More information can be found here: [email or web address]. Pre-surgery "homework" If you have not already done so, please consider getting your flu vaccine before surgery. This is safe and effective before a surgery and recovery. Unless otherwise instructed by your surgeon, stay active between now and surgery, even st riving to increase your activity levels if you can (ex. taking at least one walk daily, even around the block). This can help speed your surgery recovery. Follow any nutrition recommendations from your surgeon (including special diet or nutriti onal supplements) If you have a CPAP/BiPAP machine (or other device for Sleep Apnea treatment like a mouth guard), please bring it with you on the day of your surgery. Deciding to or needing to schedule a surgery is often an important moment that can help yo u pursue quitting smoking life-long. We ideally recommend quitting smoking for at least 4 we eks before surgery, though we recognize that your appointment today is likely less than 4 we eks until surgery. Any smoking quitting is worth it before surgery, though speak to your evan geon about any specific goals set for how long you will be off cigarettes before your surger y. Quitting smoking can help you decrease the chance of complications from your surgery and improve healing. Multiple tobacco quitting aids exist, including nicotine patches and gum. Leeanna Villegas Quit Line can also be reached at 1.800.QUIT.NOW ( ) or online at [email or web address]. If you did not get a chance to watch it at the Pre-Op Clinic or want to watch it again, venice jacinto can view the home pump/nerve block instructions here - [email or web address] Surgery check-in location: [address] [facility] 2, 1st Floor [facility] Surgery Check in Time: you will receive a call 1-3 business days before your surgery confi rming your exact arrival/check-in time for your surgery day. We know that planning for surg iris can be stressful and involve a lot of family/friend/transportation coordination as well as hotel arrangements. The Preoperative Medicine Clinic does not have access to check in ti mes, and we encourage you to contact your surgeon's office for any assistance planning aroun d a tentative arrival time. Empty stomach before surgery On the day BEFORE your surgery, drink plenty of fluids and stay well hydrated NOTHING to eat or drink after midnight the night before surgery. This includes water, coffee, candy, mints, gum. Medications Instructions On the evening before your surgery, take ALL your usual evening medications On the morning of surgery TAKE the following medications with a sip of water: CETIRIZINE 10 MG CAPSULE LEVOTHYROXINE 125 MCG TABLET OXYBUTYNIN CHLORIDE ER 10 MG TABLET,EXTENDED RELEASE 24 HR On the morning of surgery DO NOT TAKE the following medications: ACETAMINOPHEN 500 MG TABLET ALBUTEROL SULFATE HFA 90 MCG/ACTUATION AEROSOL INHALER AMILORIDE 5 MG TABLET AMITRIPTYLINE 50 MG TABLET ASPIRIN 81 MG TABLET,DELAYED RELEASE BENZALKONIUM CHLORIDE 0.115 % TOWELETTE CYANOCOBALAMIN (VIT B-12) 1,000 MCG TABLET CYCLOBENZAPRINE 5 MG TABLET FEBUXOSTAT 40 MG TABLET HYDROMORPHONE 2 MG TABLET MAGNESIUM 250 MG TABLET METOLAZONE 2.5 MG TABLET METOPROLOL SUCCINATE ER 25 MG TABLET,EXTENDED RELEASE 24 HR MONTELUKAST 10 MG TABLET POTASSIUM CHLORIDE ER 20 MEQ TABLET,EXTENDED RELEASE(PART/CRYST) PRAMIPEXOLE 1 MG TABLET TORSEMIDE 20 MG TABLET Unless otherwise directed by your surgeon, do not take any aspirin, fish oil supplements , vitamin E or non-steroidal anti-inflammatory (NSAIDs i.e. Advil, Aleve, Ibuprofen) or herb al supplements 7 days prior to your surgery. These drugs may interfere with normal blood khai tting and may cause excessive bleeding and bruising during or after the surgery. If you need a pain medication for general purposes, use Tylenol as directed. OK to yin e it even on the morning of surgery, if needed. If you are in doubt about any medications that you are taking, please contact our office . Other Important Guidelines ? Do not shave the surgical area ? Do not smoke, drink alcohol or use recreational drugs for 24 hours before your surgery Watch for any change in your health condition. Let your surgeon know right away if you do not feel well--this includes calling if you think you are developing a "cold" in the days before your surgery. Don't bring own medications unless instructed to do so. ? Do not wear makeup, perfume, lotions, deodorant, powder or hairspray. Do not wear any jewelry to the hospital. Wear loose, comfortable clothing. Leave all your valuables at home. Allow enough travel time so you re not late for your check in for surgery. ? Take a bath or shower and remember to shampoo your hair using your usual hair product be fore your arrival at the hospital ? Please remember to brush your teeth the night before and the morning of your procedure. Preventing post op complications while you are in the hospital Use an incentive spirometer or peep breathe to keep your lungs working properly an d to help prevent respiratory complications. It helps you take long, deep breaths. Use it at least once every hour while you are awake. Leg and feet exercises will maintain good circulation and help prevent blood clots in yo ur legs. Sometimes your doctor will order sequential air compression stockings. Compressed air helps the circulation in your legs. Walking and moving will help stimulate normal circulation and deep breathing. Going Home Your surgical team will decide when you are medically ready to go home. If you are released to go home on the same day as your procedure/surgery please note th e following: You will not be able to drive yourself A responsible adult MUST escort you home. You may not drive yourself Your responsible adult can drive you or they can accompany you in a taxi, ride share (robertson ch as Uber/Lyft), or public transportation. An Uber/Lyft/bobtail driver does not count as the responsible adult who accompanies you. Certified Medical Transport can transport you after surgery as long as a competent adult is waiting for you on arrival at your destination Although not mandatory, it is highly recommended that a patient has a responsible person with you to provide overnight monitoring/support following discharge. It IS required that you have a competent person assist you and look after you on the fi rst night after you have undergone regional blocks (72 hours for patients going home with re gional block pump) If you stayed in the hospital after surgery, please discuss anticipated discharge time and plans with your inpatient team so that transportation plans and other going home arrange ments can be coordinated If you have questions or concerns after you go home, call your doctor s office. If it is after office hours, call the [facility] mixing roll operator at [phone] and ask them to page him or h er. Service animals Not allowed in the following areas: ? 6A ? 11B PCU ? [facility] Pre/Post-op ? [facility] at [facility] During Covid-19 Operations: Visitor guidelines: No visitors are allowed in the hospital at this time. Exceptions: 1 healthy person over age 18 per day may stay with: ? A child or baby ? A patient in labor ? A patient during end of life care ? An adult patient who is deaf/hard of hearing, visually impaired, developmentally challeng ed, or has or limited comprehension. Friends and family are important! Please connect with your loved ones often over the phone or through electronic communication. Day patients: Must have a responsible adult friend or family member available to hear disch arge instructions and accompany the patient home who can ensure arrive home safely and whom can stay with the patient throughout the remainder of the evening and overnight. Overnight Day patients: may be staying in 11B PCU or 6A PACU overnight. No space for visito rs to stay overnight. documented in this encounter Progress Notes Pati Bo RN - 01/01/2020 2:20 PM PDTPhone appointment completed as scheduled. Doc umentation to be found in the Notes and Trans Encounter tab in Nano ePrint. documented in this encounter Plan of Treatment +--------+---------+ + + + | Date | Type | Specialty | Care Team | Description | +--------+---------+ + + + | 02/11/ | Office | Urology | Seymour Cerrato MD | | 2019 | Visit | | [address] | | | | | | [place], [place] | | | | | | [address] | | | | | | [phone] | | | | | | | | +--------+---------+ + + + documented as of this encounter Visit Diagnoses + + | Diagnosis | + + | Pre-op evaluation - Primary Preoperative examination, unspecified | + + documented in this encounter
--- OUTSIDE RECORDS SUMMARY | ~2020-01-04 | XMS | Encounter Summary ---
Demographics + + + | Address | [address] | | | [place] [address] | + + + | Home Phone | | + + + | Preferred Language | Unknown | + + + | Marital Status | | + + + | Adventism Affiliation | CHR | + + + | Race | White | + + + | Ethnic Group | Not or | + + + Author + + + | Author | [facility] | + + + | Organization | [facility] | + + + | Address | Unknown | + + + | Phone | Unavailable | + + + Support + + +---------+ + | Name | Relationship | Address | Phone | + + +---------+ + | Jose Minaya | ECON | Unknown | | + + +---------+ + Care Team Providers + +------+ + | Care Accounts Receivable Accountant Name | Role | Phone | + +------+ + | Shazia Tamayo MD | PCP | | + +------+ + Reason for Visit + + + | Reason | Comments | + + + | Screening | | + + + Encounter Details +--------+ + + + + | Date | Type | Department | Care Team | Description | +--------+ + + + + | 12/16/ | Telephone | Urology at [facility] | Seymour Cerrato MD | Screening | | 2020 | | [address] | [address] | | | | | [place] [facility] | [place], [place] | | | | | and Healing, | [address] | | | | | | [phone] | | | | | Floor [place], [place] | | | | | | [address] | | | | | | [phone] | | | +--------+ + + + [...] [address] | | | | | | [place] | | | | | | [address] | | | | | | [phone] | | | | | | | | +--------+---------+ + + + documented as of this encounter Visit Diagnoses Not on filedocumented in this encounter"
--- OUTSIDE RECORDS SUMMARY | ~2020-01-04 | XMS | Encounter Summary ---
Demographics + + + | Address | [address] | | | [place] [address] | + + + | Home Phone | | + + + | Preferred Language | Unknown | + + + | Marital Status | | + + + | Yazdanism Affiliation | CHR | + + + | Race | White | + + + | Ethnic Group | Not or | + + + Author + + + | Author | [facility] | + + + | Organization | [facility] | + + + | Address | Unknown | + + + | Phone | Unavailable | + + + Support + + +---------+ + | Name | Relationship | Address | Phone | + + +---------+ + | Jose Minyaa | ECON | Unknown | | + + +---------+ + Care Team Providers + +------+ + | Care Vegetable Preparer Name | Role | Phone | + +------+ + | Shazia Tamayo MD | PCP | | + +------+ + Encounter Details +--------+ + + + + | Date | Type | Department | Care Team | Description | +--------+ + + + + | 11/14/ | Pharmacy | Outpatient [facility] | | | | 2019 | Visit | [facility] | | | | | | [address] | | | | | | [address] [place], [place] | | | | | | [address] | | | | | | [phone] | | | +--------+ + + + [...] [address] | | | | | | [place], [place] | | | | | | [address] | | | | | | [phone] | | | | | | | | +--------+---------+ + + + documented as of this encounter Visit Diagnoses Not on filedocumented in this encounter"
--- OUTSIDE RECORDS SUMMARY | ~2020-01-04 | XMS | Encounter Summary ---
Demographics + + + | Address | [address] | | | [place] [address] | + + + | Home Phone | | + + + | Preferred Language | Unknown | + + + | Marital Status | | + + + | Anglican Affiliation | 1013 | + + + | Race | Unknown | + + + | Ethnic Group | Unknown | + + + Author + + + | Author | [facility] | | | and [place] | + + + | Organization | [facility] | | | and [place] | + + + | Address | Unknown | + + + | Phone | Unavailable | + + + Support + + + + + | Name | Relationship | Address | Phone | + + + + + | Josevenice Minaya | ECON | [address] | | | | | [place] | | | | | [address] | | + + + + + Care Team Providers + +------+ + | Care Safety Administrator Name | Role | Phone | + +------+ + | Shazia Tamayo MD | PCP | | + +------+ + Reason for Visit + + + | Reason | Comments | + + + | Medication Refill | | + + + Encounter Details +--------+--------+ + + + | Date | Type | Department | Care Team | Description | +--------+--------+ + + + | 08/05/ | Refill | [facility] | Arslan Robertson MD | Medication Refill | | 2019 | | NEPHROLOGY [place] | [address] [place] | | | | | [address] | [address] [facility] [place] | | | | | [facility] [address] | [address] | | | | | [place], [place] | | | | | | [address] | | | | | | [phone] | | | +--------+--------+ + + + [...] [address] | | | | | | [place], [address] | | | | | | [place] [address] | | | | | | [phone] | | | | | | | | +--------+ + + + + | 01/10/ | Appointment | Respiratory Therapy | Deirdre Maharaj | | | 2019 | | | [address], [place] | | | | | | [place] [address] | | | | | | [phone] | | | | | | | | +--------+ + + + + | 04/10/ | Office | Neurology | Deirdre Maharaj | | | 2019 | Visit | | [address], [place] | | | | | | [place] [address] | | | | | | [phone] | | | | | | | | +--------+ + + + + | 06/02/ | Office | Nephrology | Arslan Robertson MD | | | 2019 | Visit | | [address] [place] | | | | | | [address] [place], [place] | | | | | | [address] | | | | | | | [...] Unspecified vitamin D deficiency | + + | Hyperuricemia Other abnormal blood chemistry | + + documented in this encounter"
--- OUTSIDE RECORDS SUMMARY | ~2020-01-04 | XMS | Encounter Summary ---
Demographics + + + | Address | [address] | | | [place] [address] | + + + | Home Phone | | + + + | Preferred Language | Unknown | + + + | Marital Status | | + + + | Pentecostalism Affiliation | 1013 | + + + | Race | Unknown | + + + | Ethnic Group | Unknown | + + + Author + + + | Author | [facility] | | | and [place] | + + + | Organization | [facility] | | | [...] [place] | | | | | [address] | | + + + + + Care Team Providers + +------+ + | Care Manager Software Development Name | Role | Phone | + +------+ + | Shazia Tamayo MD | PCP | | + +------+ + Encounter Details +--------+ + + + + | Date | Type | Department | Care Team | Description | +--------+ + + + + | 12/02/ | Orders Only | [facility] | PaulinoMaria De Jesusca | Essential | | 2020 | | [address] | I, Conveyor Belt Installer | hypertension; CKD | | | | [place], [place] | | (chronic kidney | | | | [address] | | disease), stage III | | | | [phone] | | (HCC) | +--------+ + + + + Social [...] | | | | | [place] [address] | | | | | | [phone] | | | | | | | | +--------+ + + + + | 01/10/ | Appointment | Respiratory Therapy | Deirdre Maharaj | | 2019 | | | MD [address], [place] | | | | | | [place] [address] | | | | | | [phone] | | | | | | | | +--------+ + + + + | 04/10/ | Office | Neurology | Deirdre Maharaj | | | 2019 | Visit | | MD [address], [place] | | | | | | [place] [address] | | | | | | [phone] | | | | | | | | +--------+ + + + + | 06/02/ | Office | Nephrology | Arslan Robertson MD | | | 2019 | Visit | | [address] | | | | | | [address] [place] | | | | | | [address] | | | | | | | | +--------+ + + + + documented as of this encounter Procedures + +--------+ + + + | Procedure Name | Priori | Date/Time | Associated Diagnosis | Comments | | | ty | | | | + +--------+ + + + | CREATININE | Routin | 12/03/2019 | Essential | Results for this | | CLEARANCE, RESULT | e | 11:53 AM | hypertension CKD | procedure are in the | | | | PDT | (chronic kidney | results section. | | | | | disease), stage III | | | | | | (HCC) | | + +--------+ + + + | VOL/TIME | Routin | 12/03/2019 | | Results for this | | | e | 11:53 AM | | procedure are in the | | | | PDT | | results section. | + +--------+ + + + documented in this encounter Results Vol/Time (12/03/2019 11:53 AM PDT) + + + + + + | Component | Value | Ref Range | Performed | Pathologist | | | | | At | Signature | + + + + + + | Urine Time | 24 | hours | REFERENCE | | | | | | LAB | | | | | | [facility] | | | | | | LABORATORY | | + + + + + + | Urine | 4,375Comment: Testing | mLs | REFERENCE | | | Volume | performed at [facility];[address] | | LAB | | | | [place] | | [facility] | | | | [address];[place] [address] | | LABORATORY | | + + + + + + + + | Specimen | + + | | + + + + + + + | Performing | Address | City/State/Zipcode | Phone Number | | Organization | | | | + + + + + | REFERENCE LAB | [address] [place] [address] | [place], [place] | [phone] | | [facility] | Bl[address] | [address] | | | LABORATORY | | | | + + + + + | REFERENCE LAB | [address] [place] [address] | [place], [place] | | | [facility] | Bl[address] | [address] | | | LABORATORY | | | | + + + + + Creatinine Clearance, Test (12/03/2019 11:53 AM PDT) [...] | [facility] | | | | Blvd;[place] [address] | | LABORATORY | | + + + + + + + + | Specimen | + + | Urine | + + + + + + + | Performing | Address | City/State/Zipcode | Phone Number | | Organization | | | | + + + + + | REFERENCE LAB | [address] | [place] | [phone] | | [facility] | Bl[address] | [address] | | | LABORATORY | | | | + + + + + | REFERENCE LAB | [address] | [place], [place] | | | [facility] | [address] | [address] | | | LABORATORY | | | | + + + + + documented in this encounter Visit Diagnoses + + | Diagnosis | + + | Essential hypertension Unspecified essential hypertension | + + | CKD (chronic kidney disease), stage III (HCC) Chronic kidney disease, Stage III | | (moderate) | + + documented in this encounter"
--- OUTSIDE RECORDS SUMMARY | ~2020-01-04 | XMS | Encounter Summary ---
Demographics + + + | Address | [address] | | | [place] [address] | + + + | Home Phone | | + + + | Preferred Language | Unknown | + + + | Marital Status | | + + + | Latter Day Affiliation | 1013 | + + + | Race | Unknown | + + + | Ethnic Group | Unknown | + + + Author + + + | Author | [facility] | | | and [place] | + + + | Organization | [facility] | | | and [place] | + + + | Address | Unknown | + + + | Phone | Unavailable | + + + Support + + + + + | Name | Relationship | Address | Phone | + + + + + | Jose Ariisidro | ECON | [address] | | | | | [place] | | | | | [address] | | + + + + + Care Team Providers + +------+ + | Care Health Information Administrator Name | Role | Phone | + +------+ + | Shazia Tamayo MD | PCP | | + +------+ + Encounter Details +--------+ + + + + | Date | Type | Department | Care Team | Description | +--------+ + + + + | 08/20/ | Orders Only | [facility] | Arslan Robertson MD | | | 2017 | | NEPHROLOGY [place] | [address] [place] | | | | | [address] [place] | [address] [place], [place] | | | | | [address] [place], [place] | [address] | | | | | [address] | | | | | | [phone] | | | +--------+ + + + [...] | | | | | [place] [address] | | | | | | [phone] | | | | | | | | +--------+ + + + + | 01/10/ | Appointment | Respiratory Therapy | Deirdre Maharaj | | | 2020 | | | MD [address], [place] | | | | | | [place] [address] | | | | | | [phone] | | | | | | | | +--------+ + + + + | 04/10/ | Office | Neurology | Deirdre Maharaj | | | 2019 | Visit | | MD [address], [place] | | | | | | [place] [address] | | | | | | [phone] | | | | | | | | +--------+ + + + + | 06/02/ | Office | Nephrology | Arslan Robertson MD | | | 2019 | Visit | | [address] [facility] | | | | | | [address] [facility] | | | | | | [address] | | | | | | | | +--------+ + + + + documented as of this encounter Procedures + +--------+ + + + | Procedure Name | Priori | Date/Time | Associated Diagnosis | Comments | | | ty | | | | + +--------+ + + + | EXTERNAL LAB: [facility] | Routin | 05/01/2018 | | Results for this | | | e | 2:55 PM | | procedure are in the | | | | PDT | | results section. | + +--------+ + + + | URINALYSIS WITH | Routin | 05/01/2018 | | Results for this | | MICROSCOPIC IF | e | 2:55 PM | | procedure are in the | | INDICATED | | PDT | | results section. | + +--------+ + + + | PARATHYROID HORMONE, | Routin | 05/01/2018 | | Results for this | | INTACT AND CALCIUM | e | 2:55 PM | | procedure are in the | | | | PDT | | results section. | + +--------+ + + + | URIC ACID | Routin | 05/01/2018 | | Results for this | | | e | 2:55 PM | | procedure are in the | | | | PDT | | results section. | + +--------+ + + + | RENAL FUNCTION PANEL | Routin | 05/01/2018 | | Results for this | | | e | 2:55 PM | | procedure are in the | | | | PDT | | results section. | + +--------+ + + + documented in this encounter Results Parathyroid Hormone, Intact and Calcium (05/01/2018 2:55 PM PDT) + + + + + + | Component | Value | Ref Range | Performed | Pathologist | | | | | At | Signature | + + + + + + | PTH Intact | 80.69 (A) | 15 - 65 | EXTERNAL | | | | | | LAB | | + + + + + + | Calcium | 10.5 (A) | 8.5 - 10.3 | EXTERNAL | [...] + + Urinalysis with Microscopic if Indicated (05/01/2018 2:55 PM PDT) + + + + + + | Component | Value | Ref Range | Performed | Pathologist | | | | | At | Signature | + + + + + + | Color | Yellow | | EXTERNAL | | | | [...] + + + | pH, Urine | 7 | 5 - 9 | EXTERNAL | [...] + +---------+ + + External Lab: CBC (05/01/2018 2:55 PM PDT) + +-------+ + + + | Component | Value | Ref Range | Performed | Pathologist | | | | | At | Signature | + +-------+ + + + | WBC | 8.5 | 4.5 - 11.0 10 | EXTERNAL | | | | | | LAB | | + +-------+ + + + | Red Blood | 4.14 | 3.8 - 5.1 10 | EXTERNAL | | | Cells | | | LAB | | | Counted | | | | | + +-------+ + + + | Hemoglobin | 12.8 | 12 - 16 g/dL | EXTERNAL | | | | | | LAB | | + +-------+ + + + | Hematocrit, | 38.7 | 35 - 45 % | EXTERNAL | | | POC | | | LAB | | + +-------+ + + + | MCV | 93.5 | 81 - 99 fL | EXTERNAL | | | | | | LAB | | + +-------+ + + + | MCH | 31 | 27 - 33 pg | EXTERNAL | | | | | | LAB | | + +-------+ + + + | MCHC | 33 | 30 - 36 g/dL | EXTERNAL | | | | | | LAB | | + +-------+ + + + | Platelet | 234 | 140 - 440 K/ L | EXTERNAL | | | Count | | | LAB | | | Plasma | | | | | + +-------+ + + + | RDW-CV | 14.1 | 10.5 - 15.0 % | EXTERNAL [...] | + +---------+ + + Uric Acid (05/01/2018 2:55 PM PDT) + +---------+ + + + | Component | Value | Ref Range | Performed | Pathologist | | | | | At | Signature | + +---------+ + + + | Uric Acid | 9.2 (A) | 2.3 - 6.6 | EXTERNAL [...] + +---------+ + + Renal Function Panel (05/01/2018 2:55 PM PDT) + + + + + + | Component | Value | Ref Range | Performed | Pathologist | | | | | At | Signature | + + + + + + | Glucose, | 113 (A) | 70 - 100 mg/dL | EXTERNAL | | | Fasting | | | LAB | | + + + + + + | BUN | 49 (A) | 6 - 23 mg/dL | EXTERNAL | | | | | | LAB | | + + + + + + | Creatinine | 2.06 (A) | 0.7 - 1.25 | EXTERNAL | | | | | mg/dL | LAB | | + + + + + + | PHOSPHORUS | 4.1 | 2.5 - 5.0 mg/dL | EXTERNAL | | | | | | LAB | | + + + + + + | Albumin | 4.5 | 3.5 - 5.0 | EXTERNAL | | | | | | LAB | | + + + + + + | Na | 140 | 132 - 143 | EXTERNAL | | | | | mmol/L | LAB | | + + + + + + | K | 3.7 | 3.6 - 5.1 | EXTERNAL | | | | | mmol/L | LAB | | + + + + + + | Cl | 95 | 95 - 112 mmol/L | EXTERNAL | | | | | | LAB | | + + + + + + | CO2 | 31 | 19 - 31 mmol/L | EXTERNAL | | | | | | LAB | | + + + + + + | Anion Gap | 17.7 | 7 - 21 mmol/L | EXTERNAL | | | | | | LAB | | + + + + + + | eGFR if not | | | EXTERNAL | | | | | | LAB | | | [place] | | | | | + + + + + + | Phosphorus, | | | EXTERNAL | | | Inorganic | | | LAB | | + + + + + + | BUN/Creatin | 23.8 | 6.0 - 28.6 | EXTERNAL | | | ine Ratio | | | LAB | | + + + + + + | Calcium | 10.5 (A) | 8.5 - 10.3 | EXTERNAL | | | | | mg/dL | LAB | | + + + + + + | Estimated | 24 (A) | 60 mg/dL | EXTERNAL | [...]
--- OUTSIDE RECORDS SUMMARY | ~2020-01-04 | XMS | Encounter Summary ---
Demographics + + + | Address | [address] | | | [place] [address] | + + + | Home Phone | | + + + | Preferred Language | Unknown | + + + | Marital Status | | + + + | Sabianist Affiliation | CHR | + + + | Race | White | + + + | Ethnic Group | Not or | + + + Author + + + | Author | [facility] | + + + | Organization | [facility] | + + + | Address | Unknown | + + + | Phone | Unavailable | + + + Support + + +---------+ + | Name | Relationship | Address | Phone | + + +---------+ + | Jose Minaya | ECON | Unknown | | + + +---------+ + Care Team Providers + +------+ + | Care Foreign Language Stenographer Name | Role | Phone | + +------+ + | Shazia Tamayo MD | PCP | | + +------+ + Reason for Visit + + + | Reason | Comments | + + + | Pre-op evaluation | | + + + Encounter Details +--------+---------+ + + + | Date | Type | Department | Care Team | Description | +--------+---------+ + + + | 11/06/ | Office | Preoperative | Carlotta Clay, | Pre-op evaluation | | 2019 | Visit | Medicine Clinic at | ANP [address] [facility] | (Primary Dx); CKD | | | | [facility] | [address] | (chronic kidney | | | | [address] | [place], [place] | disease) stage 4, | | | | [facility] | [address] | GFR 15-29 ml/min | | | | and Healing Building | [phone] | (HCC); Essential | | | | [address], [place] | | hypertension; | | | | [address] | | Acquired | | | | [phone] | | hypothyroidism; | | | | | | Primary fibromyalgia | | | | | | syndrome; Preop | | | | | | examination | +--------+---------+ + + + Anesthesia Record + + + + + | Procedure Name | Responsible | Anesthesia Start | Anesthesia Stop Time | | | Anesthesiologist | Time | | + + + + + | SACROSPINOUS | Gregg Thomason MD | 11/14/19 1511 | 11/14/191922 | | LIGAMENT FIXATION, | | | [...] by | 11/15/19 0254 by | | eral | g; Positive; 11/15/19; 0254 | Lanie Oconnell, | Sunni Tomlin RN | | IV | | RN | | +--------+ + + + | ETT | 11/14/19; 1529 (created via | 11/14/19 1529 by | 11/14/191915 by | | | procedure documentation); Kelechi | Kelechi Estevez, | Kelechi Estevez, | | | Nghia Estevez CRNA; Endotracheal | POOLROOM/POOLHALL MANAGER | POOLROOM/POOLHALL MANAGER | | | Tube; 7; Oral; 11/14/19; 191 | | | +--------+ + + + | Urethr | 11/14/19; 1629; Clinic Staff; | 11/14/19 1629 by | 11/15/19 0700 by | | al | Blossom; 1; Lidia; 16 Fr.; 10 mL; | Karlos Moeller RN | Yoselyn Guerra RN | | Cathpete | 11/15/19; 0700; Other (Comment) | | | | er | (Removed by ) | | | +--------+ + + + | Incisi | 11/14/19; 1629; Clinic Staff; | 11/14/19 1629 by | 11/15/19 184 by | | on | Blossom; Other [...] + + + | Blood Pressure | 104/56 | 11/06/2019 11:56 AM | | | | | PST | | + + + + + | Pulse | 84 | 11/06/2019 11:56 AM | | | | | PST | | + + + + + | Temperature | 37 C (98.6 F) | 11/06/2019 11:56 AM | | | | | PST | | + + + + + | Respiratory Rate | 20 | 11/06/2019 11:56 AM | | | | | PST | | + + + + + | Oxygen Saturation | 100% | 11/06/2019 11:56 AM | | | | | PST | | + + + + + | Inhaled Oxygen | - | - | | | Concentration | | | | + + + + + | Weight | 81.8 kg (180 lb 6.4 | 11/06/2019 11:56 AM | | | | oz) | PST | | + + + + + | Height | 149.9 cm (4' 11") | 11/06/2019 11:56 AM | | | | | PST | | + + + + + | Body Mass Index | 36.44 | 11/06/2019 11:56 AM | | | | | PST | | + + + + + documented in this encounter Patient Instructions Patient Instructions Carlotta Clay ANP - 11/06/2019 1:00 PM PST PREOPERATIVE INSTRUCTIONS Pre-surgery "homework" * If you have not already done so, please consider getting your flu vaccine before surgery. This is safe and effective before a surgery and recovery. * Unless otherwise instructed by your surgeon, stay active between now and surgery, even st riving to increase your activity levels if you can (ex. taking at least one walk daily, even around the block). This can help speed your surgery recovery. * Follow any nutrition recommendations from your surgeon (including special diet or nutriti onal supplements) Surgery check-in location: Park in parking lot B, also known as [facility] Admitting - [facility], ninth floor [facility] Surgery Check in Time: you will receive a call 1-3 business days before your surgery confi rming your exact arrival/check-in time for your surgery day. We know that planning for surg iris can be stressful and involve a lot of family/friend/transportation coordination as well as hotel arrangements. The Preoperative Medicine Clinic does not have access to check in ti [facility], and we encourage you to contact your surgeon's office for any assistance planning aroun d a tentative arrival time. Empty stomach before surgery On the day BEFORE your surgery, drink plenty of fluids and stay well hydrated NOTHING to eat or drink after midnight the night before surgery. This includes water, c offee, candy, mints, gum. Medications Instructions On the evening before your surgery, take ALL your usual evening medications STOP Aspirin 7 days prior to surgery On the morning of surgery TAKE the following medications with a sip of water: Levothyroxine Metoprolol Unless otherwise directed by your surgeon, do not take any Aspirin, fish oil supplements , vitamin E or non-steroidal anti-inflammatory (NSAIDs i.e. Advil, Aleve, Ibuprofen) or herb al supplements 7 days prior to your surgery. These drugs may interfere with normal blood khai tting and may cause excessive bleeding and bruising during or after the surgery. If you need a pain medication for general purposes, use Tylenol as directed. OK to take it even on the morning of surgery, if needed. If you are in doubt about any medications that you are taking, please contact our office . Skin preparation to help avoid surgical site infections HIBICLENS GUIDE TO GENERAL SKIN CLEANSING AT HOME BEFORE SURGERY Before you bathe or shower: ? Read the instructions given to you by your healthcare practitioner, and begin your genera l skin cleansing protocol as directed. ? Carefully read all directions on the product label. ? Hibiclens is not to be used on the head or face, keep out of the eyes, ears and mouth. ? Hibiclens is not to be used in the genital area. ? Hibiclens should not be used if you are allergic to chlorhexidine gluconate or any other ingredients in this preparation. *See Hibiclens label for full product information and precautions. When you bathe or shower the night before your surgery: ? If you plan to wash your hair, do so with your regular shampoo. Then rinse hair and body thoroughly to remove any shampoo residue. ? Wash your face with your regular soap or water only. ? Thoroughly rinse your body with warm water from neck down. ? Use Hibiclens as you would any other liquid soap. Please do not put the Hibiclens on a wa sh cloth, apply directly to the skin and wash gently. Apply the minimum amount of Hibiclens necessary to cover the skin. Leave the Hibiclens on your skin for 1 minute, then rinse off. ? Rinse thoroughly with warm water. ? Do not use your regular soap after applying and rinsing Hibiclens. When using Hibiclens for a second day in a row (morning of surgery, as soon as you wake up) : ? Shower/bathe again using Hibiclens in the same method as described above. ? Do not apply any lotions, deodorants, powders or perfumes to the body areas that have been cleaned with Hibiclens. Other Important Guidelines ? Do not shave the surgical area ? Do not smoke, drink alcohol or use recreational drugs for 24 hours before your surgery Watch for any change in your health condition. Let your surgeon know right away if you do not feel well--this includes calling if you think you are developing a "cold" in the days before your surgery. ? Do not wear makeup, perfume, lotions, deodorant, powder or hairspray. Do not wear any jewelry to the hospital. Wear loose, comfortable clothing. Leave all your valuables at home. Allow enough travel time so you re not late for your check in for surgery. ? Please remember to brush your teeth [...] same day as your procedure/surgery please note the following: You will not be able to drive yourself A responsible adult MUST escort you home. You may not drive yourself Your responsible adult can drive you or they can accompany you in a taxi, ride share (robertson ch as Uber/Lyft), or public transportation. An Uber/Lyft/piledriver carpenter does not count as the responsible adult who accompanies you. Certified Medical Transport can transport you after surgery as long as a competent adult is waiting for you on arrival at your destination Although not mandatory, it is highly recommended that a patient has a responsible person with you to provide overnight monitoring/support following discharge. If you stayed in the hospital after surgery, please discuss anticipated discharge time a nd plans with your inpatient team so that transportation plans and other going home arrangem ents can be coordinated If you have questions or concerns after you go home, call your doctor s office. If it is after office hours, call the [facility] dry placer machine operator at [phone] and ask them to page him or h er. documented in this encounter Progress Notes Kunal Huerta MA - 11/06/2019 1:00 PM PSTVenipuncture performed in clinic, blood sampl e obtained from Left antecubital site Electronically signed by Kunal Huerta MA at 2019 3:49 PM PSTCarlotta Clay ANP - 11/06/2019 1:00 PM PST PRE-OPERATIVE MEDICINE CLINIC ([facility]) CONSULT NOTE Author: FE Cain Referring Physician: Seymour Cerrato MD Primary Care Provider: Shazia Tamayo MD Reason for Consult: Preoperative evaluation and risk assessment Proposed Procedure/Date: SACROSPINOUS LIGAMENT FIXATION, ANTERIOR AND POSTERIOR COLPORRHAPH Y, MID-URETHRAL SLING, CYSTOSCOPY 11/14/19 Proposed Procedure Location: [facility] HISTORY OF PRESENT ILLNESS: Deirdre Minaya is a 69 y.o. female here for preoperative roger luation of medical comorbid conditions and risk assessment in anticipation of the above proc edure. 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 Associated symptom s include abrupt onset 5-6 weeks ago of a vaginal bulge that is bothersome to see and feel. It was accompanied by voiding difficulty, having to lean forward to empty her bladder, has n ot tried splinting. She has urinary frequency but attributes this to drinking 1 gallon of fl uid per day for her chronic kidney disease. She feels worsening vaginal pressure during amy l movements, but no splinting, her constipation is usually well-controlled. She has not been sexually active since the bulge occurs but was prior. Pertinent medical conditions and/or prior cardiopulmonary testing reviewed during this visi t: HTN - well controlled on metoprolol and diuretics CKD stage IV - last GFR 20 with Cr >2 - Followed by nephrology in [place] - BMP drawn today Fibromyalgia/RLS - stable on duloxetine Hypothyroid - stable on levothyroxine High risk for IVANA - Pt. 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 Has asthma Classification: allergic asth ma Frequency of rescue inhaler use: infrequent ER Visits/Hospitalizations: none no COPD No dx of sleep apnea Risk factors for sleep apnea: Pt. being treated for high blood pressure BMI>35 and Age>50 pt. 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 has: no active bleeding no bleeding disorder No clotting disorders No hemoglobin d isorders no malignancy Infectious Disease: no MRSA no VRE no clostridium difficile Skin: no open wounds No active skin infections no skin conditions AutoImmune Disorders: No autoimmune disorders Current medications reviewed / updated Current Outpatient Medications Medication Sig albuterol (VENTOLIN HFA) 90 mcg/actuation inhalation HFA aerosol inhaler Ventolin HFA 9 0 mcg/actuation aerosol inhaler aMILoride 5 mg oral tablet Take 10 mg by mouth once daily. amitriptyline 50 mg oral tablet TAKE 1 TO 3 TABLETS BY MOUTH EVERY DAY AT BEDTIME FOR 9 0 DAYS aspirin EC 81 mg oral tablet,delayed release (DR/EC) Take 81 mg by mouth. Cetirizine (ZYRTEC) 10 mg oral capsule Zyrtec 10 mg capsule Take by oral route. cyanocobalamin 1,000 mcg oral tablet Take by mouth. Febuxostat 40 mg oral tablet TAKE 2 TABLETS BY MOUTH ONCE DAILY levothyroxine 125 mcg oral tablet Take by mouth. Magnesium 250 mg oral tablet Take 250 mg by mouth. metOLazone 2.5 mg oral tablet TAKE 1 TABLET BY MOUTH EVERY OTHER DAY metoprolol succinate 25 mg oral tablet extended release 24 hr Take 25 mg by mouth. montelukast 10 mg oral tablet montelukast 10 mg tablet potassium chloride SR 20 mEq oral tablet,ER particles/crystals TAKE 2 TABLETS BY MOUTH 4 TIMES DAILY pramipexole 1 mg oral tablet pramipexole 1 mg tablet torsemide 20 mg oral tablet torsemide 20 mg tablet Level of confidence in medication reconciliation accuracy: High Allergies reviewed / updated Allergies Allergen Reactions Iodinated Contrast Media Anaphylaxis Shellfish Containing Products Anaphylaxis Adhesive Tape Unknown All antibiotics cause full body yeast infection Blisters and pulls skin off. Codeine Nausea and Vomiting and Unknown Nausea/vomiting Nausea/vomiting Diazepam Unknown Nausea and vomiting in large doses Nausea and vomiting in large doses Metronidazole Unknown Reaction: convulsions Tramadol Unknown Nausea/vomiting Nausea/vomiting Celecoxib Unknown Gabapentin Agitation Iodine Unknown Reaction: Triggers Asthma Hydrocodone Nausea and Vomiting Morphine Nausea and Vomiting Oxycodone Nausea and Vomiting Past medical history reviewed / updated Past Medical History: Diagnosis Date Asthma Chronic kidney disease, stage 3 (HCC) Fibromyalgia Hypothyroidism Osteoarthritis Restless leg syndrome Past surgery reviewed / updated Past Surgical History Procedure Laterality Date Hysterectomy 1972 Uterine suspension x2 Tonsillectomy Appendectomy Total knee replacement Bilateral Umbilical hernia repair Cataract extract, extracaps, irrign and aspiratn, w/ prosth lens insert, 1 stage, compl ex Facial reconstruction Family history reviewed / updated Family History Problem Relation Diabetes Other Hypertension Other Cancer Other Asbestos - Lunch cancer problems Other Social history reviewed / updated Social History Tobacco Use Smoking status: Never Smoker Smokeless tobacco: Never Used Substance Use Topics Alcohol use: Not on file Drug use: Not on file PHYSICAL EXAM: Last Vitals: BP 104/56 | Pulse 84 | Temp 37 C (98.6 F) (Oral) | Resp 20 | Ht 1.499 m (4' 11") | Wt 81.8 kg (180 lb 6.4 oz) | SpO2 100% | BMI 36.44 kg/m | BSA 1.85 m B cory mass index is 36.44 kg/m. General: Appearance: Age appropriate and No distress LOC: Alert HEENT: Normocephalic/Atraumatic, Normal sclerae/conjunctivae, EOMI, No thyromegaly, PERRL, Oropha ryngeal mucosa pink/moist, Ext inspection of ears/nose normal and No cervical/supraclavicula r adenopathy Airway: Dentition: dental implants, bridges or caps present missing teeth Date of last Dental Exam: 10/2019 Mallampati: 2 Mouth Opening: > 3 cm TM Distance:> 6 cm C-Spine ROM: Limited extension Neck Anatomy: Normal Jaw Protrusion: Normal (lower incisors go above upper incisors) Pulmonary: Respiratory: pulmonary exam normal Breath Sounds: breath sounds normal Breath sound comments: CTAB Cardiovascular: Rhythm: Regular Rate: Normal Other findings: peripheral edema Cardiovascular comments: 1+ p itting edema BLE Abdomen: General: Normal Body Habitus: obesity Musculoskeletal: Range of Motion: Normal range of motion Musculoskeletal Comments: No obvious deformities n oted. Neuro/Psych: Affect: Normal Cognitive Status: Normal Speech: Normal speech Strength: Normal Muscle Tone: Normal Movement: Normal Comments: chronic vertigo - ambulate s with walker for balance Skin: Color: skin color normal Texture: Normal Turgor: turgor normal Temperature: Warm Other Implanted Devices: Implanted devices: None LABS & DATA REVIEWED/ORDERED Lab Results Component Value Date WBC 9.62 11/06/2019 HB 11.4 11/06/2019 HCT 37.0 11/06/2019 PLT 263 11/06/2019 MCV 89.6 11/06/2019 RDW 47.7 11/06/2019 Lab Results Component Value Date NA 134 11/06/2019 K 3.9 11/06/2019 CL 101 11/06/2019 BICARB 27 11/06/2019 BUN 49 11/06/2019 CR 1.91 11/06/2019 GLU 141 11/06/2019 CA 9.5 11/06/2019 No results found for: ABO, RH No results found for: A1C EKG: Personally reviewed. Sinus rhythm - low voltage - otherwise normal Results for orders placed or performed in visit on 11/06/19 12 LEAD ECG Result Value Ref Range VENTRICULAR RATE 78 bpm ATRIAL RATE 79 ms P-R INTERVAL 151 ms P AXIS 79 deg QRS DURATION 92 ms QT 386 ms QTC-BAZETT 440 ms R AXIS -16 deg T AXIS 59 deg ECG IMPRESSION Sinus rhythm ECG IMPRESSION Low voltage, precordial leads- OTHERWISE NORMAL ECG - ECG IMPRESSION Electronically signed by: TONE WILD 11-06-2019 15:18:54 Outside records reviewed: Labs Perioperative risk evaluation: 2014 ACC/AHA Perioperative Cardiac Risk Stratification for non-emergent, non-cardiac surger y Are active cardiac conditions present? No Calculate the combined surgical and patient-specific risk: using the Diamond perioperative ca rdiac risk calculator, the risk of major adverse cardiac event (MACE) is: less than 1%. No further risk stratification for coronary disease is indicated. Estimated ASA class 3 Other perioperative risk calculators: Not Applicable ASSESSMENT and RECOMMENDATIONS: Perioperative risk assessment: Deirdre Minaya is a 69 y.o. female referred for pre-o perative evaluation and risk assessment before the above surgery for the above surgical mila cations. Based on the clinical information obtained and reviewed during this visit, the ove rall assessment is that the patient is having Intermediate risk surgery with identified risk factors. The patient is stable / optimized for surgery: Additional testing needed: no Additional optimization needed: no Venue: [facility] is appropriate based on this patients comorbid conditions and pzm-ck-gwvsszr care coordination needs Medication management recommendations: The patient was advised to continue all usual med ications except as noted in Patient Instructions (After Visit Summary given to pt) HTN - well controlled on metoprolol and diuretics CKD stage IV - last GFR 20 with Cr >2 - Followed by nephrology in [place] - [facility] today with GFR 26 and Cr 1.91 - stable Fibromyalgia/RLS - stable on duloxetine Hypothyroid - stable on levothyroxine High risk for IVANA - Pt. being treated for high blood pressure BMI>35 and Age>50 I counseled Deirdre Minaya regarding perioperative risk (cardiac/bleeding/ DVT/ respira tory failure/ infection, etc.) and methods to mitigate risk. I advised the patient regardin g NPO requirements, hydration before surgery, showering, general body hygiene. All pre-proc edure instructions given to the patient (after-visit summary). All of patient's questions w ere addressed. The patient verbalized understanding of the instructions given. Thank you fo r the opportunity to contribute to this patient's care. FE Cain [facility] Building [address] [place] [address] [phone] (fax) do cumented in this encounter Plan of Treatment +--------+---------+ + + + | Date | Type | Specialty | Care Team | Description | +--------+---------+ + + + | 02/11/ | Office | Urology | Seymour Cerrato MD | | 2019 | Visit | | [address] [facility] [address] | | | | | | [place], [place] | | | | | | [address] | | | | | | [phone] | | | | | | | | +--------+---------+ + + + documented as of this encounter Procedures + +--------+ + + + | Procedure Name | Priori | Date/Time | Associated Diagnosis | Comments | | | ty | | | | + +--------+ + + + | ME COLLECTION VENOUS | Routin | 11/06/2019 | Pre-op evaluation | | | BLOOD,VENIPUNCTURE | e | 12:12 PM | | | | | | PST | | | + +--------+ + + + | CBC (HEMOGRAM) ONLY | Routin | 11/06/2019 | Pre-op evaluation | Results for this | | | e | 12:12 PM | | procedure are in the | | | | PST | | results section. | + +--------+ + + + | BASIC METABOLIC SET | Routin | 11/06/2019 | Pre-op evaluation | Results for this | | (NA, K, CL, TCO2, | e | 12:12 PM | | procedure are in the | | BUN, CR, GLU, CA) | | PST | | results section. | + +--------+ + + + | CBC ONLY | Routin | 11/06/2019 | Pre-op evaluation | Results for this | | | e | 12:12 PM | | procedure are in the | | | | PST | | results section. | + +--------+ + + + | 12 LEAD ECG | Routin | 11/06/2019 | Pre-op evaluation | Results for this | | | e | 12:04 PM | | procedure are in the | | | | PST | | results section. | + +--------+ + + + documented in this encounter Results CBC (HEMOGRAM) ONLY (11/06/2019 12:12 PM PST) + + + + + + | Component | Value | Ref Range | Performed | Pathologist | | | | | At | Signature | + + + + + + | WHITE CELL | 9.62 | 3.50 - 10.80 | [facility] | | | COUNT | | K/cu mm | LABORATORY | | | | | | SERVICES, | | | | | | CORE | | + + + + + + | RED CELL | 4.13 | 4.00 - 5.20 | [facility] | | | COUNT | | M/cu mm | LABORATORY | | | | | | SERVICES, | | | | | | CORE | | + + + + + + | HEMOGLOBIN | 11.4 (L) | 12.0 - 16.0 | [facility] | | | | | g/dL | LABORATORY | | | | | | SERVICES, | | | | | | CORE | | + + + + + + | HEMATOCRIT | 37.0 | 36.0 - 46.0 % | [facility] | | | | | | LABORATORY | | | | | | SERVICES, | | | | | | CORE | | + + + + + + | MCV | 89.6 | 80.0 - 100.0 fL | [facility] | | | | | | LABORATORY | | | | | | SERVICES, | | | | | | CORE | | + + + + + + | MCHC | 30.8 (L) | 32.0 - 36.0 | [facility] | | | | | g/dL | LABORATORY | | | | | | SERVICES, | | | | | | CORE | | + + + + + + | RDW SD | 47.7 (H) | 35.1 - 46.3 fL | [facility] | | | | | | LABORATORY | | | | | | SERVICES, | | | | | | CORE | | + + + + + + | PLATELET | 263 | 150 - 400 K/cu | [facility] | | | COUNT | | mm | LABORATORY | | | | | | SERVICES, | | | | | | CORE | | + + + + + + | MPV | 12.3 | 9.7 - 12.3 fL | [facility] | | | | | | LABORATORY | | | | | | SERVICES, | | | | | | CORE | | + + + + + + | NRBC% | 0.0 | 0.0 - 0.3 % | [facility] | | | | | | LABORATORY | | | | | | SERVICES, | | | | | | CORE | | + + + + + + | NRBC# | 0.00 | 0.00 - 0.02 | [facility] | | | | | K/cu mm | LABORATORY | | | | | | SERVICES, | | | | | | CORE | | + + + + + + + + | Specimen | + + | Blood - Blood | | (substance) | + + + + + + + | Performing | Address | City/State/Zipcode | Phone Number | | Organization | | | | + + + + + | [facility] | [address] | [place] [address] | | | SERVICES, CORE | [address] | | | + + + + + BASIC METABOLIC SET (NA, K, CL, TCO2, BUN, CR, GLU, CA) (11/06/2019 12:12 PM PST) + + + + + + | Component | Value | Ref Range | Performed | Pathologist | | | | | At | Signature | + + + + + + | GLUCOSE, | 141 (H) | 70 - 99 mg/dL | [facility] | | | PLASMA | | | LABORATORY | | | (LAB) | | | SERVICES, | | | | | | CORE | | + + + + + + | BUN, PLASMA | 49 (H) | 6 - 20 mg/dL | [facility] | | | (LAB) | | | LABORATORY | | | | | | SERVICES, | | | | | | CORE | | + + + + + + | CREATININE | 1.91 (H) | 0.60 - 1.10 | [facility] | | | PLASMA | | mg/dL | LABORATORY | | | (LAB) | | | SERVICES, | | | | | | CORE | | + + + + + + | EGFR | 31 (L) | >60 mL/min | [facility] | | | - | | | LABORATORY | | | CHINESE | | | SERVICES, | | | | | | CORE | | + + + + + + | EGFR NON | 26 (L) | >60 mL/min | [facility] | | | -ALONA | | | LABORATORY | | | RICAN | | | SERVICES, | | | | | | CORE | | + + + + + + | SODIUM, | 134 (L) | 136 - 145 | [facility] | | | PLASMA | | mmol/L | LABORATORY | | | (LAB) | | | SERVICES, | | | | | | CORE | | + + + + + + | POTASSIUM, | 3.9 | 3.4 - 5.0 | [facility] | | | PLASMA | | mmol/L | LABORATORY | | | (LAB) | | | SERVICES, | | | | | | CORE | | + + + + + + | CHLORIDE, | 101 | 97 - 108 mmol/L | [facility] | | | PLASMA | | | LABORATORY | | | (LAB) | | | SERVICES, | | | | | | CORE | | + + + + + + | TOTAL CO2, | 27 | 21 - 32 mmol/L | [facility] | | | PLASMA | | | LABORATORY | | | (LAB) | | | SERVICES, | | | | | | CORE | | + + + + + + | CALCIUM, | 9.5 | 8.6 - 10.2 | [facility] | | | PLASMA | | mg/dL | LABORATORY | | | (LAB) | | | SERVICES, | | | | | | CORE | | + + + + + + | ANION GAP | 6 | 4 - 11 mmol/L | [facility] | | | | | | LABORATORY | | | | | | SERVICES, | | | | | | CORE | | + + + + + + | POTASSIUM | No Hemo | | [facility] | | | CMNT | | | LABORATORY | | | | | | SERVICES, | | | | | | CORE | | + + + + + + | BUN/CREATIN | 26 (H) | 8 - 25 | [facility] | | | INE RATIO | | | LABORATORY | | | | | | SERVICES, | | | | | | CORE | | + + + + + + + + | Specimen | + + | Blood - Blood | | (substance) | + + + + + | Narrative | Performed At | + + + | GFR is estimated using the MDRD equation recommended by the National | [facility] | | Kidney Disease Education Program. Estimated GFR Interpretive | LABORATORY | | Information: <60 mL/min/1.73 sq m Chronic Kidney | SERVICES, CORE | | Disease <15 mL/min/1.73 sq m Kidney Failure | | | Estimated GFR greater than 60 mL/min/1.73 sq m is of limited clinical | | | value. The MDRD equation is not valid in the following situations: | | | - Patients under 18 years of age - Severe malnutrition or obesity | | | - Vegetarian diet - Rapidly changing kidney function - Amputees, | | | paraplegics, or other muscle-wasting diseases | | + + + + + + + + | Performing | Address | City/State/Zipcode | Phone Number | | Organization | | | | + + + + + | [facility] | [address] | [place] [address] | | | DEMARCUS, RAGHAVENDRA | [address] | | | + + + + + 12 LEAD ECG (11/06/2019 12:04 PM PST) + + + + + + | Component | Value | Ref Range | Performed | Pathologist | | | | | At | Signature | + + + + + + | VENTRICULAR | 78 | bpm | [facility] | | | RATE | | | OF | | | | | | CARDIOLOGY | | + + + + + + | ATRIAL RATE | 79 | ms | [facility] | | | | | | OF | | | | | | CARDIOLOGY | | + + + + + + | P-R | 151 | ms | [facility] | | | INTERVAL | | | OF | | | | | | CARDIOLOGY | | + + + + + + | P AXIS | 79 | deg | [facility] | | | | | | OF | | | | | | CARDIOLOGY | | + + + + + + | QRS | 92 | ms | [facility] | | | DURATION | | | OF | | | | | | CARDIOLOGY | | + + + + + + | QT | 386 | ms | [facility] | | | | | | OF | | | | | | CARDIOLOGY | | + + + + + + | QTC-BAZETT | 440 | ms | [facility] | | | | | | OF | | | | | | CARDIOLOGY | | + + + + + + | R AXIS | -16 | deg | [facility] | | | | | | OF | | | | | | CARDIOLOGY | | + + + + + + | T AXIS | 59 | deg | [facility] | | | | | | OF | | | | | | CARDIOLOGY | | + + + + + + | ECG | Sinus rhythm | | [facility] | | | IMPRESSION | | | OF | | | | | | CARDIOLOGY | | + + + + + + | ECG | Low voltage, precordial | | [facility] | | | IMPRESSION | leads- OTHERWISE NORMAL | | OF | | | | ECG - | | CARDIOLOGY | | + + + + + + | ECG | Electronically signed | | [facility] | | | IMPRESSION | by: TONE WILD | | OF | | | | 11-06-2019 15:18:54 | | CARDIOLOGY | | + + + + + + + + | Specimen | + + | | + + + + + | Narrative | Performed At | + + + | | | + + + + + + + + | Performing | Address | City/State/Zipcode | Phone Number | | Organization | | | | + + + + + | [facility] | [address] | [place], [place] | | | CARDIOLOGY | [address] | [address] | | + + + + + documented in this encounter Visit Diagnoses + + | Diagnosis | + + | Pre-op evaluation - Primary Preoperative examination, unspecified | + + | CKD (chronic kidney disease) stage 4, GFR 15-29 ml/min (HCC) Chronic kidney disease, | | Stage IV (severe) | + + | Essential hypertension | + + | Acquired hypothyroidism Unspecified hypothyroidism | + + | Primary fibromyalgia syndrome Mylagia and myositis, unspecified | + + | Preop examination Preoperative examination, unspecified | + + documented in this encounter
--- OUTSIDE RECORDS SUMMARY | ~2020-01-04 | XMS | Encounter Summary ---
Demographics + + + | Address | [address] | | | [place] [address] | + + + | Home Phone | | + + + | Preferred Language | Unknown | + + + | Marital Status | | + + + | Confucianist Affiliation | 1013 | + + + | Race | Unknown | + + + | Ethnic Group | Unknown | + + + Author + + + | Author | [facility] | | | and [place] | + + + | Organization | [facility] | | | [...] [place] | | | | | [address] | | + + + + + Care Team Providers + +------+ + | Care Custom Feed Mill Operator Name | Role | Phone | + +------+ + | Shazia Tamayo MD | PCP | | + +------+ + Encounter Details +--------+---------+ + + + | Date | Type | Department | Care Team | Description | +--------+---------+ + + + | 06/04/ | Office | [facility] | Arslan Robertson MD | CKD (chronic kidney | | 2019 | Visit | NEPHROLOGY [place] | [address] [place] | disease), stage III | | | | [address] | [address] [place], [place] | (HCC) (Primary Dx); | | | | [address] | [address] | Essential | | | | [place], [place] | | hypertension; | | | | [address] | | Secondary | | | | [phone] | | hyperparathyroidism | | | | | | (HCC); At high risk | | | | | | for electrolyte | | | | | | imbalance; Bilateral | | | | | | leg edema; | | | | | | Hyperuricemia; | | | | | | Vitamin D deficiency | +--------+---------+ + + + Social History [...] + + + | Blood Pressure | 82/54 | 06/04/2019 12:06 PM | | | | | PDT | | + + + + + | Pulse | 76 | 06/04/2019 12:06 PM | | | | | PDT | | + + + + + | Temperature | - | - | | + + + + + | Respiratory Rate | - | - | | + + + + + | Oxygen Saturation | - | - | | + + + + + | Inhaled Oxygen | - | - | | | Concentration | | | | + + + + + | Weight | 85.3 kg (188 lb 1.6 | 06/04/2019 12:06 PM | | | | oz) | PDT | | + + + + + | Height | 149.9 cm (4' 11") | 06/04/2019 12:06 PM | | | | | PDT | | + + + + + | Body Mass Index | 37.99 | 06/04/2019 12:06 PM | | | | | PDT | | + + + + + documented in this encounter Patient Instructions Patient Instructions Arslan Robertson MD - 06/04/2019 11:10 AM PDTDiscussions/Recommendations : I discussed today with Ms. Minaya the meaning of her CKD and the interaction of that wi th her vital organs. I stressed the importance of avoiding getting dehydrated if we are to have a chance at h elping preserve her renal function. She showed good understanding. She will abide by a low salt & low purine diet. She will avoid all kinds of NSAIDs for analgesia. Also: I will not change any of her vasoactive meds today. She will report back to me her home BP readings if they fall outside of her usual lower- than-average range. At that time, I will decide whether any change to his vasoactive regimen is warranted. I advised her to stay active regularly but safely & to try to lose weight methodically; She voiced good understanding. She will F/U with your office regularly. I sent her for a repeat BMP, CBC in 3 months. She will have a RFP, CBC, intact PTH, 25-OH D, UTPCR, in addition to a 24-hour collectio n for CrCl & total proteins before she comes back in 6 months. documented in this encounter Progress Notes Arslan Robertson MD - 06/04/2019 11:10 AM PDT Patient Active Problem List Diagnosis Date Noted POA At high risk for electrolyte imbalance 05/08/2018 Unknown Hypokalemia 05/08/2018 Unknown Chronic pain 04/18/2018 Unknown Essential hypertension 04/18/2018 Unknown Primary fibromyalgia syndrome 04/18/2018 Unknown Acquired hypothyroidism 02/08/2018 Unknown Bilateral leg edema 02/08/2018 Unknown CKD (chronic kidney disease), stage III 02/08/2018 Unknown Hyperuricemia 02/08/2018 Unknown Secondary hyperparathyroidism 02/08/2018 Unknown Tachycardia 02/08/2018 Unknown Vitamin D deficiency 02/08/[address] Tamayo: I saw your patient Ms. Minaya in the office today. As you are familiar with her case, I w ill not state her past history in detail. Briefly, she is a 69 y.o. female patient with pas t history as delineated above; she is here to F/U on her CKD & its associated complications . She tells me she's had CKD following an LAMBERTO she sustained celeste-operatively (knee surgery) in 2012. In spring 2018: She was in the ED for fever & tachycardia; "acute viral syndrome"; she rece ived 4 Liters of IV fluids. She felt better; but she ended up with a severe leg edema, that gradually improved over 2 weeks. she's had a chest ache (more pressure than pain; 4 out of 10) x3 hours now; anterior ches t & to the left; not related to activity. She has tachycardia. She tells me she gets these e pisodes once every few months, but these do not last for than a half an hour. The patient denies any history of prolonged exposure to NSAIDs or recent exposure to known nephrotoxins. she denies any recurrent nephrolithiasis or pyelonephritis. she tells me that she's had no history of urinary retention, gross hematuria or dysuria. she has chronic incon tinence symptoms. No symptoms of UTI; she has 3 times nightly nocturia. No history of pass ing kidney stones; she has no foamy urine either. her baseline Creatinine is 1.6. There is n o family history of renal genetic diseases such as PKD. she says that she feels 'fair ' today. she denies any blurred vision tinnitus, headache, f ever, chills, or cough. No nausea, vomiting, abdominal pain, diarrhea, melena, or hematoche tila. No chest pain, palpitation, loss of consciousness, orthopnea, paroxysmal nocturnal dys pnea; she has chronic leg edema. She has chronic dizziness for which she F/U's with your of ja & the Cardiology team. The following portions of the patient's history were reviewed and updated as appropriate: a llergies, current medications, past medical history, past social history, past surgical hist ory, family history and problem list. As in History of Present Illness & in Assessment. All the pertinent systems were reviewed a nd were otherwise negative. Current Outpatient Medications: aMILoride (MIDAMOR) 5 mg tablet, , Disp: , Rfl: 3 amitriptyline (ELAVIL) 50 mg tablet, TAKE 1 TABLET BY MOUTH AT BEDTIME FOR 90 DAYS, Di sp: , Rfl: 4 aspirin 81 mg EC tablet, Take 81 mg by mouth Daily., Disp: , Rfl: cetirizine (ZYRTEC) 10 mg tablet, Take 10 mg by mouth Daily., Disp: , Rfl: cholecalciferol (VITAMIN D-3) 5000 units TABS, Take 5,000 Units by mouth Daily., Disp: , Rfl: cyanocobalamin (VITAMIN B-12) 1000 MCG tablet, Take 1,000 mcg by mouth Daily., Disp: , Rfl: febuxostat (ULORIC) 40 mg TABS, Take 40 mg by mouth Daily., Disp: , Rfl: gabapentin (NEURONTIN) 300 mg capsule, Take 300 mg by mouth nightly., Disp: , Rfl: levothyroxine (SYNTHROID) 125 mcg tablet, Take 125 mcg by mouth every morning (before breakfast)., Disp: , Rfl: Magnesium 500 MG CAPS, Take 1 capsule by mouth Daily., Disp: , Rfl: metOLazone 2.5 mg tablet, , Disp: , Rfl: 3 metoprolol succinate (TOPROL-XL) 25 mg 24 hr tablet, Take 25 mg by mouth Daily., Disp: , Rfl: montelukast (SINGULAIR) 10 mg tablet, Take 10 mg by mouth nightly., Disp: , Rfl: pramipexole (MIRAPEX) 1 MG tablet, Take 1 mg by mouth 3 times daily., Disp: , Rfl: Probiotic Product (PROBIOTIC DAILY PO), Take by mouth., Disp: , Rfl: torsemide (DEMADEX) 100 mg tablet, TAKE 1 TABLET BY MOUTH TWICE DAILY, Disp: 180 table t, Rfl: 3 Physical Exam: BP (!) 82/54 | Pulse 76 | Ht 1.499 m (4' 11") | Wt 85.3 kg (188 lb 1.6 oz) | BMI 37.99 kg/m General appearance: Pleasant, not in acute distress. Neck: Supple without tracheal deviation or jugular venous distension. Head and ENT: Head is atraumatic. The oropharynx is without erythema or thrush. Eyes: Anicteric. The extraocular muscle movements are normal. Lungs: Clear to auscultation bilaterally. There are no wheezes. Heart: Regular rate and rhythm without any rub, gallop. No murmur. Abdominal exam: Obese. Soft and nontender with normal bowel sounds. Musculoskeletal: No costovertebral angle tenderness bilaterally. Extremities: Warm to touch with trace pitting leg edema. There is no cyanosis.; no thighs edema. Skin: There are no rashes, petechiae, or ecchymosis. Neurological: Awake, alert, and oriented to time, place, and person. Normal gross motor po wer. There is no asterixis. Psychiatric: The patient s behavior is normal. Judgment and thought content are normal. *I also reviewed with her her labs from 05/28/19.* Lab Results Component Value Date BUN 26 (A) 01/22/2019 CREATININE 2.09 (A) 01/22/2019 EGFR 23 (A) 01/22/2019 NA 138 01/22/2019 K 4.3 01/22/2019 CL 97 01/22/2019 CO2 30 01/22/2019 CA 10.2 01/22/2019 PHOS 3.6 01/22/2019 MG 2.2 03/29/2018 ALB 4.0 01/22/2019 HGB 12.4 01/22/2019 URICACID 7.5 (A) 01/22/2019 WBC 7.9 01/22/2019 HCT 37.7 01/22/2019 FERRITIN 342.1 (A) 03/29/2018 LABIRON 16.7 (A) 03/29/2018 Assessment: Ms. Minaya is a 69 y.o. female patient with stage IV CKD on a background of a partially re covered ATN from 2012. RENAL FUNCTION: Stable GFR BLOOD PRESSURE: On the low side to lower than normal chronically BLOOD SUGAR: Reports it normal ELECTROLYTES: okay ANEMIA: none VITAMIN D: Deficiency is being treated PARATHYROID HORMONE: Mildly up URIC ACID: Hyperuricemia is better with Uloric PROTEINURIA: none URINALYSIS: No UTI or hematuria VOLUME STATUS: Euvolumic. Discussions/Recommendations: I discussed today with Ms. Minaya the meaning of her CKD and the interaction of that wi th her vital organs. I stressed the importance of avoiding getting dehydrated if we are to have a chance at h elping preserve her renal function. She showed good understanding. She will abide by a low salt & low purine diet. She will avoid all kinds of NSAIDs for analgesia. Also: I will not change any of her vasoactive meds today. She will report back to me her home BP readings if they fall outside of her usual lower- than-average range. At that time, I will decide whether any change to his vasoactive regimen is warranted. I see no need to send her for a repeat renal & bladder U/S at this time. I kept her off of her Calcitriol (mild hypercalcemia history). I advised her to stay active regularly but safely & to try to lose weight methodically; She voiced good understanding. She will F/U with your office regularly. I sent her for a repeat BMP, CBC in 3 months. She will have a RFP, CBC, intact PTH, 25-OH D, UTPCR, in addition to a 24-hour collectio n for CrCl & total proteins before she comes back in [address] Fishman for the opportunity to see this patient in F/U today. Please do not hes itate to call me at any time with questions or concerns. Truly yours, Arslan Robertson MD FACP [facility] documented in this enc ounter Plan of Treatment +--------+ + + + + | Date | Type | Specialty | Care Team | Description | +--------+ + + + + | 01/10/ | Appointment | Radiology | Deirdre Maharaj | | | 2019 | | | MD [address] | | | | | | [place] | | | | | | [place] [address] | | | | | | [phone] | | | | | | | | +--------+ + + + + | 01/10/ | Appointment | Respiratory Therapy | Deirdre Maharaj | | | 2019 | | | MD [address] | | | | | | [place] | | | | | | [place] [address] | | | | | | [phone] | | | | | | | | +--------+ + + + + | 04/10/ | Office | Neurology | Deirdre Maharaj | | | 2019 | Visit | | MD [address] | | | | | | [place] | | | | | | [place] [address] | | | | | | [phone] | | | | | | | | +--------+ + + + + | 06/02/ | Office | Nephrology | Arslan Robertson MD | | | 2019 | Visit | | [address] [place] | | | | | | [address] [facility] | | | | | | [address] | | | | | | | | +--------+ + + + + documented as of this encounter Visit Diagnoses + + | Diagnosis | + + | CKD (chronic kidney disease), stage III (HCC) - Primary Chronic kidney disease, Stage | | III (moderate) | + + | Essential hypertension Unspecified essential hypertension | + + | Secondary hyperparathyroidism (HCC) Secondary hyperparathyroidism (of renal origin) | + + | At high risk for electrolyte imbalance | + + | Bilateral leg edema Edema | + + | Hyperuricemia Other abnormal blood chemistry | + + | Vitamin D deficiency Unspecified vitamin D deficiency | + + documented in this encounter
--- OUTSIDE RECORDS SUMMARY | ~2020-01-04 | XMS | Encounter Summary ---
Demographics + + + | Address | [address] | | | [place] [address] | + + + | Home Phone | | + + + | Preferred Language | Unknown | + + + | Marital Status | | + + + | Sikhism Affiliation | 1013 | + + + | Race | Unknown | + + + | Ethnic Group | Unknown | + + + Author + + + | Author | [facility] | | | and [place] | + + + | Organization | [facility] | | | and [place] | + + + | Address | Unknown | + + + | Phone | Unavailable | + + + Support + + + + + | Name | Relationship | Address | Phone | + + + + + | Jose Ariisidro | ECON | [address] | | | | | [place] | | | | | [address] | | + + + + + Care Team Providers + +------+ + | Care Court Liaison Name | Role | Phone | + +------+ + | Shazia Tamayo MD | PCP | | + +------+ + Encounter Details +--------+ + + + + | Date | Type | Department | Care Team | Description | +--------+ + + + + | 06/05/ | Orders Only | [facility] [place] | [facility], | | | 2019 | | GASTROENTEROLOGY | PATRICK [place] [address] | | | | | [address] [place] | [place] [place] [address] | | | | | [address] [place], [place] | [place], [place] | | | | | [address] | [address] | | | | | [phone] | | | +--------+ + + + [...] | | | | | [place] [address] | | | | | | [phone] | | | | | | | | +--------+ + + + + | 01/10/ | Appointment | Respiratory Therapy | Deirdre Maharaj | | | 2019 | | | MD [address] | | | | | | [address], [place] | | | | | | [place] [address] | | | | | | [phone] | | | | | | | | +--------+ + + + + | 04/10/ | Office | Neurology | Deirdre Maharaj | | | 2019 | Visit | | [address] | | | | | | [place], [place] | | | | | | [place] [address] | | | | | | [phone] | | | | | | | | +--------+ + + + + | 06/02/ | Office | Nephrology | Arslan Robertson MD | | | 2019 | Visit | | [address] [place] | | | | | | [address] [place] | | | | | | [address] | | | | | | | | +--------+ + + + + documented as of this encounter Visit Diagnoses Not on filedocumented in this encounter"
--- OUTSIDE RECORDS SUMMARY | ~2020-01-04 | XMS | Encounter Summary ---
Demographics + + + | Address | [address] | | | [place] [address] | + + + | Home Phone | | + + + | Preferred Language | Unknown | + + + | Marital Status | | + + + | Caodaism Affiliation | CHR | + + + | Race | White | + + + | Ethnic Group | Not or | + + + Author + + + | Author | [facility] | + + + | Organization | [facility] | + + + | Address | Unknown | + + + | Phone | Unavailable | + + + Support + + +---------+ + | Name | Relationship | Address | Phone | + + +---------+ + | Jose Wallace | ECON | Unknown | | + + +---------+ + Care Team Providers + +------+ + | Care Senior Technologist Name | Role | Phone | + [...] | +--------+ + + + + | 11/13/ | Hospital | [facility] [address] | Seymour Cerrato MD | | | 2019 - | Encounter | [address] | [address] | | | | | [id number] | [place], [place] | | | 11/14/ | | [place], | [address] | | | 2019 | | [place] [address] | [phone] | | | | | [phone] | | | +--------+ + + + [...] + + + | Blood Pressure | 103/52 | 11/15/2019 3:50 PM | | | | | PST | | + + + + + | Pulse | 86 | 11/14/2019 10:44 PM | | | | | PST | | + + + + + | Temperature | 36.6 C (97.9 F) | 11/15/2019 3:50 PM | | | | | PST | | + + + + + | Respiratory Rate | 18 | 11/15/2019 3:50 PM | | | | | PST | | + + + + + | Oxygen Saturation | 97% | 11/15/2019 3:50 PM | | | | | PST | | + + + + + | Inhaled Oxygen | - | - | | | Concentration | | | | + + + + + | Weight | 79.3 kg (174 lb 13.2 | 11/14/2019 11:45 AM | | | | oz) | PST | | + + + + + | Height | 149.9 cm (4' 11") | 11/14/2019 11:45 AM | | | | | PST | | + + + + + | Body Mass Index | 35.31 | 11/14/2019 11:45 AM | | | | | PST | | + + + + + documented in this encounter Discharge Summaries Seymour Cerrato MD - 11/15/2019 8:24 AM PST DEPARTMENT OF UROLOGY Inpatient Physician Discharge Summary Author: SILVANA UMANA MD Attending Physician: Seymour Cerrato MD PCP: Shazia Tamayo MD Admission Date: 11/14/2019 Discharge Date: 15 Nov 2019 Diagnoses Principal Final Diagnosis: 1. Pelvic organ prolapse, stress incontinence Additional Diagnoses: Procedures Sacrospinous ligament colpopexy Mid-urethral sling Anterior and posterior colporrhaphy Brief Hospital Course Deirdre Wallace was admitted to [facility] on 11/14/2019 for sacrospinous ligament fixation, ante rior and posterior colporrhaphy, and mid-urethral sling. Her surgery and postoperative recov iris were uncomplicated. She was unable to void so catheter was replaced prior to discharge o n 11/15/19. Her blood pressure was low celeste-operatively so her amiloride and metolazone were help and s he will resume at home on Tuesday11/19/2019 or when her SBP > 120, whichever is sooner. She wi ll resume home aspirin 1 week post-op. Medications: Medication List START taking these medications acetaminophen 500 mg Tab Commonly known as: TYLENOL Take 2 tablets by mouth three times daily. HYDROmorphone 2 mg Tab Commonly known as: DILAUDID Take 1-2 tablets by mouth every four hours as needed for moderate pain. CONTINUE taking these medications aMILoride 5 mg Tab Commonly known as: MIDAMOR Take 10 mg by mouth once daily. amitriptyline 50 mg Tab Commonly known as: ELAVIL TAKE 1 TO 3 TABLETS BY MOUTH EVERY DAY AT BEDTIME FOR 90 DAYS aspirin EC 81 mg Tbec Take 81 mg by mouth. cyanocobalamin 1,000 mcg Tab Commonly known as: VITAMIN B-12 Take by mouth. Febuxostat 40 mg Tab TAKE 2 TABLETS BY MOUTH ONCE DAILY levothyroxine 125 mcg Tab Take by mouth. Magnesium 250 mg Tab Take 250 mg by mouth. metOLazone 2.5 mg Tab Commonly known as: ZAROXOLYN TAKE 1 TABLET BY MOUTH EVERY OTHER DAY metoprolol succinate 25 mg Tb24 Commonly known as: TOPROL-XL Take 25 mg by mouth. montelukast 10 mg Tab Commonly known as: SINGULAIR montelukast 10 mg tablet potassium chloride SR 20 mEq Tbtq Commonly known as: K-DUR TAKE 2 TABLETS BY MOUTH 4 TIMES DAILY pramipexole 1 mg Tab Commonly known as: MIRAPEX pramipexole 1 mg tablet torsemide 20 mg Tab Commonly known as: DEMADEX torsemide 20 mg tablet VENTOLIN HFA 90 mcg/actuation Hfaa Generic drug: albuterol Ventolin HFA 90 mcg/actuation aerosol inhaler ZyrTEC 10 mg Cap Generic drug: Cetirizine Zyrtec 10 mg capsule Take by oral route. Other Discharge Orders and Instructions [facility] UROLOGY -- AFTERCARE FOR VAGINAL SURGERY Incision care: You have vaginal incisions as well as two small incisions in your belly where the sling was pulled through. The abdominal incisions were glued. Always wash your hands before and after touching near your incision site. You may take a shower starting the day after surgery. You can let warm soapy water run over the incisions but do not scrub them. Do not soak in a bat htub, hot tub, or go swimming until your stitches, steri-strips or rey are removed and t he incision is well healed, usually 6 weeks. Your surgeon will tell you when bathing is ok a t your post-op appointment. Drainage from the vagina is normal, wear celeste-pads as needed. Pl ease call if the drainage becomes very bloody, or is increasing, or becomes cloudy or has a foul-smell. If you have a glue-like covering over the incision, allow the glue to flake off on its own, usually in 1 week. Your scar will heal in about 4 to 6 weeks and will become softer and continue to fade over the next year. Sensation to your incision will return in a few weeks or months. Avoid wearing tight or rough clothing. It may rub your incisions and make it harder for th em to heal. Diet: Resume your pre-operative diet Pain: Pain after surgery is normal. It is important to manage this pain so that you can increase your activity, sleep, and heal well from surgery. To manage this pain, start with non-narcot ic medications and take Tylenol on a scheduled basis for baseline pain control. For addition al pain, please take the narcotic medications, typically every 4-6 hours. Ensure that you do not take more than 4000mg of Tylenol/acetaminophen in 24 hours, especially if the pain medi cation you were discharged with contains Tylenol/acetaminophen. Medications: Please hold your baby aspirin for 1 week post-op Blood pressure: please take your blood pressure when you get home. Please continue taking y our Torsemide. Please hold your other diuretics (amilaride, metolazone) and restart them on Tuesday11/19/2019 or when your systolic blood pressure is greater than 120. Please continue taking your beta-denice Bowel care: Surgery and narcotics contribute to constipation. Avoid straining with bowel movements. Ple ase take Sennakot, Miralax, or another bowel care medicine to help you have regular bowel mo vements while you are on narcotics. Activities: Nothing in the vagina for 6 weeks No strenuous activity for 6 weeks, walking is ok and encouraged No lifting >10lbs 6 weeks, or until cleared by your surgeon (a gallon of milk is approximat donny 8lbs.) Do not drive or operate heavy machinery while taking narcotics. Murillo Catheter: Please keep your catheter in place. You will need to follow-up with Dr. Cerrato in one week for a void trial. We will call you with an appointment. Follow up appointment: Future Appointments Provider Department Dept Phone Center 12/18/2019 3:45 PM Seymour Cerrato Urology at [facility] [phone] Urology See your PCP about your procedure/hospital stay for continuity of care. When to call: Inability to void Difficulty breathing or unusual shortness of breath Excessive bleeding, drainage at the operative site Fevers, chills, increased pain that is not relieved by pain medications Persistent nausea or vomiting For general questions, contact [facility] Urology Clinic at # [phone] for questions For urgent issues that cannot wait until business hours, call the hospital at [phone] and ask for the adult urology resident special collections librarian Urology Follow Up We will call you to schedule a nurse visit for next week for catheter removal. Please call the Urology Clinic at with any questions or concerns, or if you experience symptoms of fever; chills; severe nausea; vomiting; pain that does not go away wi usual medication; drainage or bleeding from the incision site; sudden numbness, weakness, or difficulty speaking; or any other concerns. Future Appointments Provider Department Dept Phone Center 12/18/2019 3:45 PM Seymour Cerrato Urology at [facility] [phone] Urology Outstanding labs/studies: None Discharging Physician: SILVANA UMANA MD Attending Physician: Seymour Cerrato MDElectronically signed by Seymour Cerrato MD at 020 7:21 AM PSTdocumented in this encounter Discharge Instructions Discharge Instr - Activity Og Morley MD,MPH - 11/15/2019 5:26 PM PST Learning About Urinary Catheter Care to Prevent Infection What is a urinary catheter? A urinary catheter is a flexible plastic tube used to drain urine from your bladder when yo u can't urinate on your own. The catheter allows urine to drain from the bladder into a bag. Two types of drainage bags may be used with a urinary catheter. A bedside bag is a large bag that you can hang on the side of your bed or on a chair. You c an use it overnight or anytime you will be sitting or lying down for a long time. A leg bag is a small bag that you can use during the day. It is usually attached to your th igh or calf and hidden under your clothes. Having a urinary catheter increases your risk of getting a urinary tract infection. Germs m ay get on the catheter and cause an infection in your bladder or kidneys. The longer you hav e a catheter, the more likely it is that you will get an infection. You can help prevent thi s problem with good hygiene and careful handling of your catheter and drainage bags. How can you help prevent infection? Take care to be clean Always wash your hands well before and after you handle your catheter. Clean the skin around the catheter twice a day using soap and water. Dry with a clean towel afterward. You can shower with your catheter and drainage bag in place unless your doctor t old you not to. When you clean around the catheter, check the surrounding skin for signs of infection. Look for things like pus or irritated, swollen, red, or tender skin around the catheter. Be careful with your drainage bag Always keep the drainage bag below the level of your bladder. This will help keep urine fro m flowing back into your bladder. Check often to see that urine is flowing through the catheter into the drainage bag. Empty the drainage bag when it is half full. This will keep it from overflowing or backing up. When you empty the drainage bag, do not let the tubing or drain spout touch anything. Be careful with your catheter Do not unhook the catheter from the drain tube. That could let germs get into the tube. Make sure that the catheter tubing does not get twisted or kinked. Do not tug or pull on the catheter. And make sure that the drainage bag does not drag or pu ll on the catheter. Do not put powder or lotion on the skin around the catheter. Talk with your doctor about your options for sexual intercourse while wearing a catheter. How do you empty a urine drainage bag? If your doctor has asked you to keep a record, write down the amount of urine in the bag be fore you empty it. Wash your hands before and after you touch the bag. Remove the drain spout from its sleeve at the bottom of the drainage bag. Open the valve on the drain spout. Let the urine flow out into the toilet or a container. B e careful not to let the tubing or drain spout touch anything. After you empty the bag, close the valve. Then put the drain spout back into its sleeve at the bottom of the collection bag. How do you add a bedside bag to a leg bag? Wash your hands before and after you handle the bags. Empty the leg bag attached to the catheter. Put a clean towel under the leg bag. Use an alcohol wipe to clean the tip of the bedside bag. Then connect the bedside bag to th e leg bag. How can you clean a bedside drainage bag? Many people clean their bedside bag in the morning if they switch to a leg bag. To clean a bedside drainage bag: Remove the bedside bag from the leg bag. Fill the bag with 2 parts vinegar and 3 parts water. Let it stand for 20 minutes. Empty the bag, and let it air dry. When should you call for help? Call your doctor now or seek immediate medical care if: You have symptoms of a urinary infection. These may include: Pain or burning when you urinate. A frequent need to urinate without being able to pass much urine. Pain in the flank, which is just below the rib cage and above the waist on either side of t he back. Blood in your urine. A fever. Your urine smells bad. You see large blood clots in your urine. No urine or very little urine is flowing into the bag for 4 or more hours. Watch closely for changes in your health, and be sure to contact your doctor if: The area around the catheter becomes irritated, swollen, red, or tender, or there is pus dr aining from it. Urine is leaking from the place where the catheter enters your body. Follow-up care is a nuñez part of your treatment and safety. Be sure to make and go to all ap pointments, and call your doctor if you are having problems. It's also a good idea to know y our test results and keep a list of the medicines you take. Where can you learn more? To learn more about "Learning About Urinary Catheter Care to Prevent Infection", log into y our [employer] account at [email or web address]. You can enter U010 in the "[employer]" search box. Not on [employer]? Review the Stentyshart section of your After Visit Summary for directions on liz w to sign up. Current as of: August 30, 2018 Content Version: 12.1 7323-9527 [employer]. Care instructions adapted under license by [facility] [employer]. If you have questions about a medical condition or this instr uction, always ask your healthcare professional. [employer] disclaims any marily anty or liability for your use of this information. documented in this encounter Medications at Time of Discharge + + + +---------+ + + | Medication | Sig | Dispensed | Refills | Start | End Date | | | | | | Date | | + + + +---------+ + + | acetaminophen 500 | Take 2 tablets by | | 0 | /01/29 | | | mg oral tablet | [...] mg by mouth | | 0 | 01/14/20 | | | oral tablet | once [...] mg by mouth | | 0 | 12//20 | | | oral tablet | every -two | | | 19 | | | [...] + + documented as of this encounter Progress Notes Silvana Umana MD - 11/15/2019 7:54 AM PSTFormatting of this note might be different fro m the original. Urology Progress Note Hospital Day: 1 Attending Physician: Seymour Cerrato MD Patient: DEIRDRE WALLACE [id number] ID: Deirdre Wallace is a 69 y.o. female with pelvic organ prolapse, stress incontinence w ho underwent sacrospinous ligament colpopexy, anterior and posterior colporrhaphy, retropubi c mid-urethral sling 11/14/19. 24H events/Subjective: CHRIS Pain controlled Tolerating soft foods. Denies nausea or vomiting. Ordering breakfast this morning BP slightly lower than baseline, asymptomatic Has changed celeste-pad once overnight with drainage Has not ambulated Objective: Last Vitals: BP (!) 89/54 (BP Location: Left upper arm, Patient Position: Lying on back) | Pulse 86 | Temp 36.5 C (97.7 F) (Oral) | Resp 18 | Ht 1.499 m (4' 11") | Wt 79.3 kg (174 lb 13.2 oz) | SpO2 93% | BMI 35.31 kg/m | BSA 1.82 m 24 Hour Vital Min/Max: Systolic (24hrs), Av , Min:81 , Max:130 Diastolic (24hrs), Av, Min:41, Max:70 Pulse Min: 81 Max: 101 Temp Min: 36.4 C (97.5 F) Max: 36.6 C (97.8 F) Resp Min: 10 Max: 21 SpO2 Min: 88 % Max: 99 % IV 1.6 PO 1.3L Medications, labs, imaging: reviewed in [facility] CBC with diff last 72 hours (or 3 results) - Refreshable Recent Labs 11/15/19 0453 WBC 13.04* HB 11.3* HCT 35.7* PLT 276 Chemistries: Last 72 Hours (or 3 results) - Refreshable Recent Labs 11/14/19 1231 11/14/19 1927 11/15/19 0453 NA -- -- 138 K -- -- 5.0 CL -- -- 103 BICARB -- -- 25 BUN -- -- 53* CR -- -- 2.08* GLU 117* 157* 203* CA -- -- 9.4 MG -- -- 2.4 PO4 -- -- 2.5 Exam: Gen: Alert, oriented, conversant, NAD Pulm: unlabored breathing Abd: Soft, nondistended, appropriately tender. Sling arm incisions intact : Murillo clear yellow urine, removed on rounds. Celeste-pad with some serosang drainage Ext: Warm, well-perfused Assessment and Plan: Deirdre Wallace is a 69 y.o. female with pelvic organ prolapse, stress incontinence who u nderwent sacrospinous ligament colpopexy, anterior and posterior colporrhaphy, retropubic mi d-urethral sling 11/14/19. Progressing appropriately Murillo removed this morning Renal diet, SLIV Tylenol, narcotics PRN Hold diuretics this morning and on discharge. Will have her resume on Tuesday or when SBP >1 20, whichever is sooner. Curbsided hospitalist Anticipate discharge after voiding today The attending of record for this patient is Seymour Cerrato MD. Silvana Umana MD Urologic Surgery Resident Physician, PGY-4 Associated attestation - Seymour Cerrato MD - 11/15/2019 9:56 AM PSTI saw and evaluated th is patient. I have personally participated in the history, physical, assessment and plan. She is doing well with minimal pain that is well-controlled. Murillo out and awaiting void. I reviewed her postoperative restrictions with her. If she voids will discharge without catheter. If unable to void will discharge with Murillo w ith voiding trial early next week. MD Guerita NATHAN, Silvana Greenwood MD - 11/14/2019 7:28 PM PSTPOST-OP PLAN: Renal diet, IVF PO pain medications, no NSAIDs due to CKD Murillo overnight, out in AM No vaginal packing Labs in AM Silvana Umana MD Urologic Surgery Resident Physician, PGY-4 documented in this e ncounter Plan of Treatment +--------+---------+ + + + | Date | Type | Specialty | Care Team | Description | +--------+---------+ + + + | 02/11/ Office | Urology | Seymour Cerrato MD | | | 2019 | Visit | | [address] | | | | | | [place], [place] | | | | | | [address] | | | | | | [phone] | | | | | | | | +--------+---------+ + + + documented as of this encounter Procedures + +--------+ + + + | Procedure Name | Priori | Date/Time | Associated Diagnosis | Comments | | | ty | | | | + +--------+ + + + | PROCEDURE NOTE | Routin | 11/15/2019 | | Results for this | | | e | 7:05 PM | | procedure are in the | | | | PST | | results section. | + +--------+ + + + | CBC (HEMOGRAM) ONLY | Urgent | 11/15/2019 | | Results for this | | | | 4:53 AM | | procedure are in the | | | | PST | | results section. | + +--------+ + + + | BASIC METABOLIC SET | Urgent | 11/15/2019 | | Results for this | | (NA, K, CL, TCO2, | | 4:53 AM | | procedure are in the | | BUN, CR, GLU, CA) | | PST | | results section. | + +--------+ + + + | CBC ONLY | Urgent | 11/15/2019 | | Results for this | | | | 4:53 AM | | procedure are in the | | | | PST | | results section. | + +--------+ + + + | PHOSPHORUS, PLASMA | Urgent | 11/15/2019 | | Results for this | | | | 4:53 AM | | procedure are in the | | | | PST | | results section. | + +--------+ + + + | MAGNESIUM, PLASMA | Urgent | 11/15/2019 | | Results for this | | | | 4:53 AM | | procedure are in the | | | | PST | | results section. | + +--------+ + + + | CAPILLARY BLOOD | Routin | 11/14/2019 | | Results for this | | GLUCOSE (NO CHG), | e | 7:27 PM | | procedure are in the | | POC | | PST | | results section. | + +--------+ + + + | SACROSPINOUS | Electi | 11/14/2019 | Vaginal vault | | | LIGAMENT SUSPENSION; | ve | 3:18 PM | 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 | | | TRANSVAGINAL TAPING | Surgic | PST | hysterectomy, | | | (TVT) | al | | Cystocele, midline, | | | | | | Rectocele, Female | | | | | | stress incontinence | | + +--------+ + + + | CAPILLARY BLOOD | Routin | 11/14/2019 | | Results for this | | GLUCOSE (NO CHG), | e | 12:31 PM | | procedure are in the | | POC | | PST | | results section. | + +--------+ + + + | INTRAPROCEDURE | Routin | 11/14/2019 | | Results for this | | IMAGING | e | 11:46 AM | | procedure are in the | | | | PST | | results section. | + +--------+ + + + | CARDIOLOGY | | 11/14/2019 | | Results for this | | | | 12:00 AM | | procedure are in the | | | | PST | | results section. | + +--------+ + + + documented in this encounter Results PROCEDURE NOTE (11/15/2019 7:05 PM PST)CBC (HEMOGRAM) ONLY (11/15/2019 4:53 AM PST) + + + + + + | Component | Value | Ref Range | Performed | Pathologist | | | | | At | Signature | + + + + + + | WHITE CELL | 13.04 (H) | 3.50 - 10.80 | [facility] | | | COUNT | | K/cu mm | LABORATORY | | | | | | SERVICES, | | | | | | CORE | | + + + + + + | RED CELL | 3.95 (L) | 4.00 - 5.20 | [facility] | | | COUNT | | M/cu mm | LABORATORY | | | | | | SERVICES, | | | | | | CORE | | + + + + + + | HEMOGLOBIN | 11.3 (L) | 12.0 - 16.0 | [facility] | | | | | g/dL | LABORATORY | | | | | | SERVICES, | | | | | | CORE | | + + + + + + | HEMATOCRIT | 35.7 (L) | 36.0 - 46.0 % | [facility] | | | | | | LABORATORY | | | | | | SERVICES, | | | | | | CORE | | + + + + + + | MCV | 90.4 | 80.0 - 100.0 fL | [facility] | | | | | | LABORATORY | | | | | | SERVICES, | | | | | | CORE | | + + + + + + | MCHC | 31.7 (L) | 32.0 - 36.0 | [facility] | | | | | g/dL | LABORATORY | | | | | | SERVICES, | | | | | | CORE | | + + + + + + | RDW SD | 47.9 (H) | 35.1 - 46.3 fL | [facility] | | | | | | LABORATORY | | | | | | SERVICES, | | | | | | CORE | | + + + + + + | PLATELET | 276 | 150 - 400 K/cu | [facility] | | | COUNT | | mm | LABORATORY | | | | | | SERVICES, | | | | | | CORE | | + + + + + + | MPV | 11.8 | 9.7 - 12.3 fL | [facility] [...] | + + + + + | [facility] | [address] | [place] [address] | | | SERVICES, CORE | [address] | | | + + + + + BASIC METABOLIC SET (NA, K, CL, TCO2, BUN, CR, GLU, CA) (11/15/2019 4:53 AM PST) + + + + + + | Component | Value | Ref Range | Performed | Pathologist | | | | | At | Signature | + + + + + + | GLUCOSE, | 203 (H) | 70 - 99 mg/dL | [facility] | | | PLASMA | | | LABORATORY | | | (LAB) | | | SERVICES, | | | | | | CORE | | + + + + + + | BUN, PLASMA | 53 (H) | 6 - 20 mg/dL | [facility] | | | (LAB) | | | LABORATORY | | | | | | SERVICES, | | | | | | CORE | | + + + + + + | CREATININE | 2.08 (H) | 0.60 - 1.10 | [facility] | | | PLASMA | | mg/dL | LABORATORY | | | (LAB) | | | SERVICES, | | | | | | CORE | | + + + + + + | EGFR | 28 (L) | >60 mL/min | [facility] | | | - | | | LABORATORY | | | [place] | | | SERVICES, | | | | | | CORE | | + + + + + + | EGFR NON | 24 (L) | >60 mL/min | [facility] | | | -[place] | | | LABORATORY | | | RICAN | | | SERVICES, | | | | | | CORE | | + + + + + + | SODIUM, | 138 | 136 - 145 | [facility] | | | PLASMA | | mmol/L | LABORATORY | | | (LAB) | | | SERVICES, | | | | | | CORE | | + + + + + + | POTASSIUM, | 5.0 | 3.4 - 5.0 | [facility] | | | PLASMA | | mmol/L | LABORATORY | | | (LAB) | | | SERVICES, | | | | | | CORE | | + + + + + + | CHLORIDE, | 103 | 97 - 108 mmol/L | [facility] | | | PLASMA | | | LABORATORY | | | (LAB) | | | SERVICES, | | | | | | CORE | | + + + + + + | TOTAL CO2, | 25 | 21 - 32 mmol/L | [facility] | | | PLASMA | | | LABORATORY | | | (LAB) | | | SERVICES, | | | | | | CORE | | + + + + + + | CALCIUM, | 9.4 | 8.6 - 10.2 | [facility] | | | PLASMA | | mg/dL | LABORATORY | | | (LAB) | | | SERVICES, | | | | | | CORE | | + + + + + + | ANION GAP | 10 | 4 - 11 mmol/L | [facility] [...] + + + + | BUN/CREATIN | 25 | 8 - 25 | [facility] | [...] | + + + + + | [facility] | [address] | [place] [address] | | | SERVICES, [place] | [address] | | | + + + + + PHOSPHORUS, PLASMA (11/15/2019 4:53 AM PST) + +-------+ + + + | Component | Value | Ref Range | Performed | Pathologist | | | | | At | Signature | + +-------+ + + + | PHOSPHORUS, | 2.5 | 2.4 - 4.7 mg/dL | [facility] | | | PLASMA | | | LABORATORY | | | (LAB) | | | SERVICES, | | | | | | CORE | | + +-------+ + + + + + | Specimen | + + | Blood - Blood | | (substance) | + + + + + + + | Performing | Address | City/State/Zipcode | Phone Number | | Organization | | | | + + + + + | [facility] | [address] | [place] [address] | | | SERVICES, CORE | [address] | | | + + + + + MAGNESIUM, PLASMA (11/15/2019 4:53 AM PST) + +-------+ + + + | Component | Value | Ref Range | Performed | Pathologist | | | | | At | Signature | + +-------+ + + + | MAGNESIUM,P | 2.4 | 1.6 - 2.6 mg/dL | [facility] | | | L[facility] | | | LABORATORY | | | | | | SERVICES, | | | | | | CORE | | + +-------+ + + + + + | Specimen | + + | Blood - Blood | | (substance) | + + + + + + + | Performing | Address | City/State/Zipcode | Phone Number | | Organization | | | | + + + + + | [facility] | [address] | [place] [address] | | | SERVICES, CORE | [address] | | | + + + + + CAPILLARY BLOOD GLUCOSE (NO CHG), POC (11/14/2019 7:27 PM PST) + +---------+ + + + | Component | Value | Ref Range | Performed | Pathologist | | | | | At | Signature | + +---------+ + + + | BLOOD | 157 (H) | 70 - 99 mg/dL | [facility] - | | | GLUCOSE, | | | [place] | | | POC | | | [facility] | | | | | | OF CARE | | | | | | TESTS | | + +---------+ + + + + + | Specimen | + + | Blood | + + + + + + + | Performing | Address | City/State/Zipcode | Phone Number | | Organization | | | | + + + + + | [facility] | [address] | [place], [place] | | | [facility] | [facility] | [address] | | | TESTS | | | | + + + + + CAPILLARY BLOOD GLUCOSE (NO CHG), POC (11/14/2019 12:31 PM PST) + +---------+ + + + | Component | Value | Ref Range | Performed | Pathologist | | | | | At | Signature | + +---------+ + + + | BLOOD | 117 (H) | 70 - 99 mg/dL | [facility] - | | | GLUCOSE, | | | [place] | | | POC | | | [place] | | | | | | OF CARE | | | | | | TESTS | | + +---------+ + + + + + | Specimen | + + | Blood | + + + + + + + | Performing | Address | City/State/Zipcode | Phone Number | | Organization | | | | + + + + + | [facility] | [address] | [place], [place] | | | [facility] | [address] | [address] | | | TESTS | | | | + + + + + INTRAPROCEDURE IMAGING (11/14/2019 11:46 AM PST) + + | Specimen | + + [...] | | | + +---------+ + + CARDIOLOGY (11/14/2019 12:00 AM PST) + + + | Narrative | Performed At | + + + | | | + + + documented in this encounter Visit Diagnoses Not on filedocumented in this encounter Administered Medications + +--------+ + +------+------+ | Medication Order | MAR | Action | Dose | Rate | Site | | | Action | Date | | | | + +--------+ + +------+------+ | acetaminophen (TYLENOL) tablet | Given | 11/15/19 | 1,000 mg | | | | 1,000 mg 1,000 mg, oral, THREE | | 20 3:54 | | | | | TIMES DAILY, First dose on Tue | | PM PST | | | | | 11/14/19 at 2245, Until | | | | | | | Discontinued | | | | | | + +--------+ + +------+------+ +-------+ + +---+---+ | Given | 11/15/19 | 1,000 mg | | | | | 20 8:45 | | | | | | AM PST | | | | +-------+ + +---+---+ | Given | 11/14/19 | 1,000 mg | | | | | 20 11:07 | | | | | | PM PST | | | | +-------+ + +---+---+ +---+---+ | | | +---+---+ + +-------+ +-------+---+---+ | amitriptyline (ELAVIL) tablet | Given | 11/14/19 | 50 mg | | | | 50 mg 50 mg, oral, EVERY | | 20 11:50 | | | | | EVENING, First dose on Tue11/14/19 | | PM PST | | | | | at 2245, Until Discontinued | | | | | | + +-------+ +-------+---+---+ +---+---+ | | | +---+---+ + +-------+ +------+---+---+ | HYDROmorphone (DILAUDID) tablet | Given | 11/15/19 | 2 mg | | | | 2-4 mg 2-4 mg, oral, EVERY 4 | | 20 6:07 | | | | | HOURS NEEDED, Starting Tue | | PM PST | | | | | 11/14/19 at 2335, Until 11/16/19 | | | | | | | at 0128, moderate pain | | | | | | + +-------+ +------+---+---+ +-------+ +------+---+---+ | Given | 11/15/19 | 2 mg | | | | | 20 6:57 | | | | | | AM PST | | | | +-------+ +------+---+---+ | Given | 11/14/19 | 2 mg | | | | | 20 11:53 | | | | | | PM PST | | | | +-------+ +------+---+---+ +---+---+ | | | +---+---+ + +---------+ + + +---+ | lactated ringers (LR) infusion | New Bag | 11/14/19 | 75 mL/hr | 75 mL/hr | | | 75 mL/hr, intravenous, | | 20 11:08 | | | | | CONTINUOUS, Starting 11/14/19 | | PM PST | | | | | at 2245, Until Ronel 11/15/19 at 0758 | | | | | | + +---------+ + + +---+ +---+---+ | | | +---+---+ + +-------+ +---------+---+---+ | levothyroxine tablet 125 mcg | Given | 11/15/19 | 125 mcg | | | | 125 mcg, oral, BEFORE BREAKFAST, | | 20 5:41 | | | | | First dose on Tue11/15/19 at 0630, | | AM PST | | | | | Until Discontinued | | | | | | + +-------+ +---------+---+---+ +---+---+ | | | +---+---+ + +-------+ +------+---+---+ | melatonin tablet 3 mg 3 mg, | Given | 11/14/19 | 3 mg | | | | oral, AT BEDTIME NEEDED, | | 20 11:08 | | | | | Starting 11/14/19 at 2244, | | PM PST | | | | | Until 11/16/19 at 0128, | | | | | | | insomnia | | | | | | + +-------+ +------+---+---+ +---+---+ | | | +---+---+ + +-------+ +-------+---+---+ | montelukast (SINGULAIR) tablet | Given | 11/15/19 | 10 mg | | | | 10 mg 10 mg, oral, DAILY, First | | 20 9:21 | | | | | dose on [facility] 11/15/19 at 0900, Until | | AM PST | | | | | Discontinued | | | | | | + +-------+ +-------+---+---+ +---+---+ | | | +---+---+ + +-------+ +---------+---+---+ | senna-docusate (SENOKOT S) | Given | 11/15/19 | 2 | | | | 8.6-50 mg 2 tablet 2 tablet, | | 20 8:45 | tablets | | | | oral, TWICE DAILY, First dose on | | AM PST | | | | | 11/14/19 at 2245, Until | | | | | | | Discontinued | | | | | | + +-------+ +---------+---+---+ +-------+ +---------+---+---+ | Given | 11/14/19 | 2 | | | | | 20 11:07 | tablets | | | | | PM PST | | | | +-------+ +---------+---+---+ +---+---+ | | | +---+---+ + +-------+ +-------+---+---+ | torsemide (DEMADEX) tablet 20 | Given | 11/15/19 | 20 mg | | | | mg 20 mg, oral, DAILY, First | | 20 3:52 | | | | | dose on Tue11/15/19 at 1500, Until | | PM PST | | | | | Discontinued | | | | | | + +-------+ +-------+---+---+ +---+---+ | | | +---+---+ documented in this encounter
--- OUTSIDE RECORDS SUMMARY | ~2020-01-04 | XMS | Encounter Summary ---
Demographics + + + | Address | [address] | | | [place] [address] | + + + | Home Phone | | + + + | Preferred Language | Unknown | + + + | Marital Status | | + + + | Judaism Affiliation | 1013 | + + + | Race | Unknown | + + + | Ethnic Group | Unknown | + + + Author + + + | Author | [facility] | | | and [place] | + + + | Organization | [facility] | | | and [place] | + + + | Address | Unknown | + + + | Phone | Unavailable | + + + Support + + + + + | Name | Relationship | Address | Phone | + + + + + | Jose Ariisidro | ECON | [address] | | | | | [place] | | | | | [address] | | + + + + + Care Team Providers + +------+ + | Care Vp Cardiovascular Service Line Name | Role | Phone | + +------+ + | Shazia Tamayo MD | PCP | | + +------+ + Encounter Details +--------+ + + + + | Date | Type | Department | Care Team | Description | +--------+ + + + + | 06/18/ | Orders Only | [facility] | Arslan Robertson MD | | | 2017 | | NEPHROLOGY [place] | [address] [place] | | | | | [address] [place] | [address] [place], [place] | | | | | [address] [place], [place] | [address] | | | | | [address] | | | | | | [phone] | | | +--------+ + + + [...] | | | | | [place] [address] | | | | | | [phone] | | | | | | | | +--------+ + + + + | 01/10/ | Appointment | Respiratory Therapy | Deirdre Maharaj | | | 2020 | | | MD [address], [place] | | | | | | [place] [address] | | | | | | [phone] | | | | | | | | +--------+ + + + + | 04/10/ | Office | Neurology | Deirdre Maharaj | | | 2019 | Visit | | MD [address], [place] | | | | | | [place] [address] | | | | | | [phone] | | | | | | | | +--------+ + + + + | 06/02/ | Office | Nephrology | Arslan Robertson MD | | | 2019 | Visit | | [address] [facility] [facility] | | | | | | [address] [place] | | | | | | [address] | | | | | | | | +--------+ + + + + documented as of this encounter Procedures + +--------+ + + + | Procedure Name | Priori | Date/Time | Associated Diagnosis | Comments | | | ty | | | | + +--------+ + + + | BASIC METABOLIC | Routin | 02/27/2018 | | Results for this | | PANEL | e | 4:05 PM | | procedure are in the | | | | PDT | | results section. | + +--------+ + + + documented in this encounter Results Basic Metabolic Panel (02/27/2018 4:05 PM PDT) + + + + + + | Component | Value | Ref Range | Performed | Pathologist | | | | | At | Signature | + + + + + + | Glucose, | 142 (A) | 70 - 100 mg/dL | EXTERNAL | | | Fasting | | | LAB | | + + + + + + | BUN | 47 (A) | 6 - 23 mg/dL | EXTERNAL | | | | | | LAB | | + + + + + + | Creatinine | 1.73 (A) | 0.7 - 1.25 | EXTERNAL | | | | | mg/dL | LAB | | + + + + + + | BUN/Creatin | 27.2 | 6.0 - 28.6 | EXTERNAL | | | ine Ratio | | | LAB | | + + + + + + | Calcium | 10.2 | 8.4 - 10.2 | EXTERNAL | | | | | mg/dL | LAB | | + + + + + + | Na | 137 | 132 - 143 | EXTERNAL | | | | | mmol/L | LAB | | + + + + + + | K | 3.7 | 3.6 - 5.1 | EXTERNAL | | | | | mmol/L | LAB | | + + + + + + | Cl | 93 (A) | 95 - 112 mmol/L | EXTERNAL | | | | | | LAB | | + + + + + + | CO2 | 29 | 19 - 31 mmol/L | EXTERNAL | | | | | | LAB | | + + + + + + | Anion Gap | 18.7 | 7 - 21 mmol/L | EXTERNAL | | | | | | LAB | | + + + + + + | Estimated | 29 (A) | 60 mg/dL | EXTERNAL | [...]
--- OUTSIDE RECORDS SUMMARY | ~2020-01-04 | XMS | Encounter Summary ---
Demographics + + + | Address | [address] | | | [place] [address] | + + + | Home Phone | | + + + | Preferred Language | Unknown | + + + | Marital Status | | + + + | Roman Catholic Affiliation | 1013 | + + + | Race | Unknown | + + + | Ethnic Group | Unknown | + + + Author + + + | Author | [facility] | | | and [place] | + + + | Organization | [facility] | | | and [place] | + + + | Address | Unknown | + + + | Phone | Unavailable | + + + Support + + + + + | Name | Relationship | Address | Phone | + + + + + | Jose Ariisidro | ECON | [address] | | | | | [place] | | | | | [address] | | + + + + + Care Team Providers + +------+ + | Care Manager Architecture Name | Role | Phone | + +------+ + | Shazia Tamayo MD | PCP | | + +------+ + Reason for Visit +--------+ + | Reason | Comments | +--------+ + | LABS | 11/21/19 | +--------+ + Encounter Details +--------+ + + + + | Date | Type | Department | Care Team | Description | +--------+ + + + + | 11/22/ | Documentati | [facility] | Tomás | LOR (11/21/19) | | 2020 | on | NEPHROLOGY [place] | [facility] | | | | | [address] | Substance Abuse Services Director | | | | | [address] | | | | | | [place] | | | | | | [address] | | | | | | [phone] | | | +--------+ + + + [...] | | | | | [place] [address] | | | | | | [phone] | | | | | | | | +--------+ + + + + | 01/10/ | Appointment | Respiratory Therapy | Deirdre Maharaj | | | 2019 | | | MD [address] | [address], [place] | | | | | | [place] [address] | | | | | | [phone] | | | | | | | | +--------+ + + + + | 04/10/ | Office | Neurology | Deirdre Maharaj | | | 2019 | Visit | | MD [address], [place] | | | | | | [place] [address] | | | | | | [phone] | | | | | | | | +--------+ + + + + | 06/02/ | Office | Nephrology | Arslan Robertson MD | | | 2019 | Visit | | [address] [place] | | | | | | [address] [place], [place] | | | | | | [address] | | | | | | | | +--------+ + + + + documented as of this encounter Procedures + +--------+ + + + | Procedure Name | Priori | Date/Time | Associated Diagnosis | Comments | | | ty | | | | + +--------+ + + + | EXTERNAL LAB: PTH, | Routin | 11/21/2019 | | Results for this | | INTACT | e | | | procedure are in the | | | | | | results section. | + +--------+ + + + | VITAMIN D, | Routin | 11/21/2019 | | Results for this | | 25-HYDROXY, LC/MS/MS | e | | | procedure are in the | | | | | | results section. | + +--------+ + + + | CBC NO DIFFERENTIAL | Routin | 11/21/2019 | | Results for this | | | e | | | procedure are in the | | | | | | results section. | + +--------+ + + + | URIC ACID | Routin | 11/21/2019 | | Results for this | | | e | | | procedure are in the | | | | | | results section. | + +--------+ + + + | RENAL FUNCTION PANEL | Routin | 11/21/2019 | | Results for this | | | e | | | procedure are in the | | | | | | results section. | + +--------+ + + + documented in this encounter Results External Lab: PTH, Intact (11/21/2019) + + + + + + | Component | Value | Ref Range | Performed | Pathologist | | | | | At | Signature | + + + + + + | PTH Intact, | 112.7 (A) | 15 - 65 | | | | External | | | | | + + + + + + + + | Specimen | + + | | + + CBC with Manual Differential (11/21/2019) + + + + + + | Component | Value | Ref Range | Performed | Pathologist | | | | | At | Signature | + + + + + + | WBC | 9.6 | 4.5 - 11.0 | | | + + + + + + | RBC | 4.17 | 3.80 - 5.10 | | | | | | M/uL | | | + + + + + + | Hemoglobin | 11.8 (A) | 12 - 16 | | | + + + + + + | Hematocrit, | 35.7 | 35.0 - 45.0 % | | | | POC | | | | | + + + + + + | MCV | 85.7 | 81.0 - 99.0 fL | | | + + + + + + | MCH | 28.0 | 27.0 - 33.0 pg | | | + + + + + + | MCHC | 33.0 | 30.0 - 36.0 | | | | | | g/dL | | | + + + + + + | Platelet | 250 | 140 - 440 | | | | Count | | | | | | Plasma | | | | | + + + + + + | RDW | 15.4 (A) | 10.5 - 15 | | | + + + + + + | BAL | 73 | 39 - 80 % | | | | Neutrophils | | | | | | % | | | | | + + + + + + | % | 16.7 (A) | 24 - 44 | | | | Lymphocytes | | | | | + + + + + + | Monocyte % | 6.4 | 0 - 12 | | | + + + + + + | BAL | 3 | 0 - 6 % | | | | Eosinophils | | | | | | % | | | | | + + + + + + | BF % | 1 | 0 - 2 % | | | | Basophils | | | | | + + + + + + + + | Specimen | + + | Blood | + + Vitamin D, 25-Hydroxy, LC/MS/MS (11/21/2019) + +-------+ + + + | Component | Value | Ref Range | Performed | Pathologist | | | | | At | Signature | + +-------+ + + + | Vit D, | 60 | 30 - 100 | | | | 25-Hydroxy | | | | | + +-------+ + + + + + | Specimen | + + | Blood | + + Renal Function Panel (11/21/2019) + + + + + + | Component | Value | Ref Range | Performed | Pathologist | | | | | At | Signature | + + + + + + | Na | 136 | 132 - 143 | | | | | | mmol/L | | | + + + + + + | K | 3.4 (A) | 3.6 - 5.1 | | | | | | mmol/L | | | + + + + + + | Cl | 94 (A) | 95 - 112 mmol/L | | | + + + + + + | CO2 | 30 | 19 - 31 mmol/L | | | + + + + + + | Anion Gap | 15 | 7 - 21 mmol/L | | | + + + + + + | Glucose | 192 (A) | 70 - 100 mg/dL | | | + + + + + + | BUN | 31 (A) | 6 - 23 mg/dL | | | + + + + + + | Creatinine | 1.50 (A) | 0.70 - 1.18 | | | | | | mg/dL | | | + + + + + + | Estimated | 34.0 (A) | 60.0 - 140.0 | | | | GFR | | mL/min/1.73m2 | | | + + + + + + | BUN/Creatin | 20.7 | 6.0 - 28.6 | | | | ine Ratio | | | | | + + + + + + | Albumin | 3.9 | 3.5 - 5.0 g/dL | | | + + + + + + | Calcium | 9.6 | 8.5 - 10.3 | | | + + + + + + | PHOSPHORUS | 2.9 | 2.5 - 5.0 | | | + + + + + + + + | Specimen | + + | Blood | + + Uric Acid (11/21/2019) + +---------+ + + + | Component | Value | Ref Range | Performed | Pathologist | | | | | At | Signature | + +---------+ + + + | Uric Acid | 7.0 (A) | 2.3 - 6.6 | | | + +---------+ + + + + + | Specimen | + + | Blood | + + documented in this encounter Visit Diagnoses Not on filedocumented in this encounter"
--- OUTSIDE RECORDS SUMMARY | ~2020-01-04 | XMS | Encounter Summary ---
Demographics + + + | Address | [address] | | | [place] [address] | + + + | Home Phone | | + + + | Preferred Language | Unknown | + + + | Marital Status | | + + + | Restorationism Affiliation | CHR | + + + [...] Team Providers + +------+ + | Care Reproductive Endocrinologist Name | Role | Phone | + +------+ + | Shazia Tamayo MD | PCP | | + +------+ + Encounter Details +--------+--------+ + + + | Date | Type | Department | Care Team | Description | +--------+--------+ + + + | 02/04/ | Travel | | | | | [...] [facility] | | | | | | [place], [place] | | | | | | [address] | | | | | | [phone] | | | | | | | | +--------+---------+ + + + documented as of this encounter Visit Diagnoses Not on filedocumented in this encounter"
--- OUTSIDE RECORDS SUMMARY | ~2020-01-04 | XMS | Encounter Summary ---
Demographics + + + | Address | [address] | | | [place] [address] | + + + | Home Phone | | + + + | Preferred Language | Unknown | + + + | Marital Status | | + + + | Mu-Ism Affiliation | 1013 | + + + | Race | Unknown | + + + | Ethnic Group | Unknown | + + + Author + + + | Author | [facility] | | | and [place] | + + + | Organization | [facility] | | | and [place] | + + + | Address | Unknown | + + + | Phone | Unavailable | + + + Support + + + + + | Name | Relationship | Address | Phone | + + + + + | Jose Ariisidro | ECON | [address] | | | | | [place] | | | | | [address] | | + + + + + Care Team Providers + +------+ + | Care Senior Geologist Name | Role | Phone | + +------+ + | Shazia Tamayo MD | PCP | | + +------+ + Encounter Details +--------+ + + + + | Date | Type | Department | Care Team | Description | +--------+ + + + + | 12/10/ | Orders Only | [facility] | Arslan Robertson MD | | | 2017 | | NEPHROLOGY [place] | [address] [place] | | | | | [address] [place] | [address] [place], [place] | | | | | [address] [place], [place] | [address] | | | | | [address] | | | | | | [phone] | | | +--------+ + + + [...] | | | | | [place] [address] | | | | | | [phone] | | | | | | | | +--------+ + + + + | 01/10/ | Appointment | Respiratory Therapy | Deirdre Maharaj | | | 2020 | | | MD [address], [place] | | | | | | [place] [address] | | | | | | [phone] | | | | | | | | +--------+ + + + + | 04/10/ | Office | Neurology | Deirdre Maharja | | | 2019 | Visit | | MD [address], [place] | | | | | | [place] [address] | | | | | | [phone] | | | | | | | | +--------+ + + + + | 06/02/ | Office | Nephrology | Arslan Robertson MD | | | 2019 | Visit | | [address] [address] | | | | | | [address] [place] | | | | | | [address] | | | | | | | | +--------+ + + + + documented as of this encounter Procedures + +--------+ + + + | Procedure Name | Priori | Date/Time | Associated Diagnosis | Comments | | | ty | | | | + +--------+ + + + | EXTERNAL LAB: [facility]ÍRE[facility] | Routin | 08/21/2018 | | Results for this | | | e | 2:20 PM | | procedure are in the | | | | PST | | results section. | + +--------+ + + + | BASIC METABOLIC | Routin | 08/21/2018 | | Results for this | | PANEL | e | 2:20 PM | | procedure are in the | | | | PST | | results section. | + +--------+ + + + documented in this encounter Results External Lab: CBC (08/21/2018 2:20 PM PST) + +-------+ + + + | Component | Value | Ref Range | Performed | Pathologist | | | | | At | Signature | + +-------+ + + + | WBC | 10.0 | 4.5 - 11.0 10 | EXTERNAL | | | | | | LAB | | + +-------+ + + + | Red Blood | 4.21 | 3.8 - 5.1 10 | EXTERNAL | | | Cells | | | LAB | | | Counted | | | | | + +-------+ + + + | Hemoglobin | 12.9 | 12.0 - 16.0 | EXTERNAL | | | | | g/dL | LAB | | + +-------+ + + + | Hematocrit, | 38.6 | 35 - 45 % | EXTERNAL | | | POC | | | LAB | | + +-------+ + + + | MCV | 91.6 | 81 - 99 fL | EXTERNAL [...] +-------+ + + + | Platelet | 261 | 140 - 440 K/ L | EXTERNAL | | | Count | | | LAB | | | Plasma | | | | | + +-------+ + + + | RDW-CV | | % | EXTERNAL | | [...] + +---------+ + + Basic Metabolic Panel (08/21/2018 2:20 PM PST) + + + + + + | Component | Value | Ref Range | Performed | Pathologist | | | | | At | Signature | + + + + + + | Glucose, | 138 (A) | 70 - 100 mg/dL | EXTERNAL | | | Fasting | | | LAB | | + + + + + + | BUN | 59 (A) | 6 - 23 mg/dL | EXTERNAL | | | | | | LAB | | + + + + + + | Creatinine | 2.21 (A) | 0.70 - 1.25 | EXTERNAL | | | | | mg/dL | LAB | | + + + + + + | BUN/Creatin | 26.7 | 6.0 - 28.6 | EXTERNAL | [...] + + + + | Cl | 96 | 95 - 112 mmol/L | EXTERNAL [...] + + + + | Estimated | 22 (A) | 60 - 140 mg/dL | [...]
--- OUTSIDE RECORDS SUMMARY | ~2020-01-04 | XMS | Encounter Summary ---
Demographics + + + | Address | [address] | | | [place] [address] | + + + | Home Phone | | + + + | Preferred Language | Unknown | + + + | Marital Status | | + + + | Muslim Affiliation | CHR | + + + | Race | White | + + + | Ethnic Group | Not or | + + + Author + + + | Author | [facility] | + + + | Organization | [facility] | + + + | Address | Unknown | + + + | Phone | Unavailable | + + + Support + + +---------+ + | Name | Relationship | Address | Phone | + + +---------+ + | Jose Minaya | ECON | Unknown | | + + +---------+ + Care Team Providers + +------+ + | Care Research Associate Molecular Biology Name | Role | Phone | + [...] + + + + | 01/02/ | Anesthesia | [facility] | Ciara Wilks | | | 2020 | Event | [facility] | MD Antonette [address] | | | | | and Healing Surgery | [address] | | | | | Center Admitting | [place], [place] | | | | | Desk Located on the | [address] | | | | | 4th floor [address] | [phone] | | | | | [address] [place], | | | | | | [place] [address] | Chace Holland | | | | | | [facility] [address] | | | | | | [facility] | | | | | | [place], [place] | | | | | | [address] | | | | | | [phone] | | | | | | | [...] | ceFAZolin (ANCEF) injection 2 g | 2,000 mg | + + + | fentaNYL | 150 mcg | + + + | lidocaine 2% | 40 mg | + + + | propofol | 200 mg | + + + | dexamethasone | 4 mg | + + + | succinylcholine | 100 mg | + + + | ondansetron (ZOFRAN) injection 4 | 4 mg | | mg | | + + + | PHENYLEPHrine | 150 mcg | + + + | midazolam | 1 mg | + + + | LR bolus | 700 mL | + + + + + | Name | + + | O2 FR Avance (Total Liters) | + + | Air FR Avance (l/min) | + + | Insp Sevo | + + | Et Sevo | + + | Insp N2O % | + + + + | No blood administrations on file. | + + +--------+ + + + | Type | Details | Placement | Removal | +--------+ + + + | Urethr | 11/15/19; 1745 | 11/15/19 1745 by | | | al | | Yoselyn Guerra RN | | | Shabbir | | | | | er | | | | +--------+ + + + | Incisi | 01/03/20; MD Blossom; vagina | 01/03/20 0000 by | | | on | | Bibiana Rosales | | | | | MISHA | | +--------+ + + + | Periph | 01/03/20; 0951; Left; Forearm; 22 | 01/03/20 0951 by | | | marquita | rima | Roro Araujo RN | | | [...] [address] | | | | | | [place], [place] | | | | | | [address] | | | | | | [phone] | | | | | | | | +--------+---------+ + + + documented as of this encounter Procedures + +--------+ + + + | Procedure Name | Priori | Date/Time | Associated Diagnosis | Comments | | | ty | | | | + +--------+ + + + | ANE ETT | Routin | 01/03/2020 | | Results for this | | | e | 11:54 AM | | procedure are in the | | | | PDT | | results section. | + +--------+ + + + | ANE LMA | Routin | 01/03/2020 | | Results for this | | | e | 11:52 AM | | procedure are in the | | | | PDT | | results section. | + +--------+ + + + documented in this encounter Results ETT (01/03/2020 11:54 AM PDT) + + + | Narrative | Performed At | + + + | Theron Malagon CRNA 01/03/2020 11:54 AM AIRWAY | | | MANAGEMENT - ETT Time of Placement: 01/03/2020 11:36 AM Intubation | | | Reason: For surgical procedure Positioning: Supine Location | | | Performed:OR Pertinent COVID-19 Status: positive OXYGENATION | | | Patient was preoxygenated Grade: Grade 2 - Ventilated by mask with | | | oral airway/adjuvant Induction:Routine INTUBATION ATTEMPT 1 | | | Blade Type: Almas Blade #: 3 Laryngoscopic View: Grade I | | | ETT DETAILS ETT Type:Standard, Hi-Lo Cuffed Intubation Type: Oral | | | Cuff Status: Cuffed Size: 7 ETT secured with adhesive tape Depth | | | at Lip: 21 cm CONFIRMATION airway not difficult Number of | | | Attempts: 1 Atraumatic placement Positive for EtCO2:Waveform | | | capnography NARRATIVE Attending was physically present for the | | | critical portions of the procedure as described in the procedure | | | note Attending/Authorizing Provider: Ciara Wilks MD | | | Performing Provider: Theron Malagon CRNA | | + + + SGA (01/03/2020 11:52 AM PDT) + + + | Narrative | Performed At | + + + | Theron Malagon CRNA 01/03/2020 11:53 AM AIRWAY | | | MANAGEMENT - SGA Time of Placement: 01/03/2020 11:36 AM Positioning: | | | Supine Location Performed:OR OXYGENATION Patient was | | | preoxygenated Grade: Grade 0 - Ventilation by mask not attempted | | | LMA DETAILS LMA Type: Air-Q LMA Size: 3.5 - 3.5 CONFIRMATION | | | airway not difficult Number of Attempts: 1 Atraumatic placement | | | Positive for EtCO2:Waveform capnography Breath Sounds: Bilateral and | | | equal NARRATIVE Attending was physically present for the critical | | | portions of the procedure as described in the procedure note | | | Attending/Authorizing Provider: Ciara Wilks MD Performing | | | Provider: Theron Malagon CRNA Procedure Comments: | | | Inadequate seal. LMA removed and replaced with ETT. | | + + + documented in this encounter Visit Diagnoses Not on filedocumented in this encounter Administered Medications + +--------+ + +------+------+ | Medication Order | MAR | Action | Dose | Rate | Site | | | Action | Date | | | | + +--------+ + +------+------+ | ceFAZolin (ANCEF) injection 2 g | Given | 01/03/20 | 2,000 mg | | | | 2 g, intravenous, PREPROCEDURE | | 20 11:42 | | | | | ONCE, 1 dose, Starting Ronel | | AM PDT | | | | | 01/03/20 at 0849, Until Ronel | | | | | | | 01/03/20 at 1142 | | | | | | + +--------+ + +------+------+ +---+---+ | | | +---+---+ + +-------+ +------+---+---+ | dexamethasone (DECADRON) | Given | 01/03/20 | 4 mg | | | | injection INTRAPROCEDURE PRN, | | 20 11:51 | | | | | Starting Ronel 01/03/20 at 1151, | | AM PDT | | | | | Until Ronel 01/03/20 at 1235 | | | | | | + +-------+ +------+---+---+ +---+---+ | | | +---+---+ + +-------+ +--------+---+---+ | fentaNYL (SUBLIMAZE) injection | Given | 01/03/20 | 25 mcg | | | | INTRAPROCEDURE PRN, Starting Ronel | | 20 12:09 | | | | | 01/03/20 at 1131, Until Ronel | | PM PDT | | | | | 01/03/20 at 1235 | | | | | | + +-------+ +--------+---+---+ +-------+ +--------+---+---+ | Given | 01/03/20 | 25 mcg | | | | | 20 12:06 | | | | | | PM PDT | | | | +-------+ +--------+---+---+ | Given | 01/03/20 | 50 mcg | | | | | 20 11:36 | | | | | | AM PDT | | | | +-------+ +--------+---+---+ +---+---+ | | | +---+---+ + + + +---+---+---+ | lactated ringers (LR) bolus | given by | 01/03/20 | | | | | INTRAPROCEDURE CONTINUOUS PRN, | | 20 11:33 | | | | | Starting Ronel 01/03/20 at 1105, | anesthes | AM PDT | | | | | Until Ronel 01/03/20 at 1235 | iology | | | | | + + + +---+---+---+ +---------+ +---+---+---+ | New Bag | 01/03/20 | | | | | | 20 11:05 | | | | | | AM PDT | | | | +---------+ +---+---+---+ +---+---+ | | | +---+---+ + +-------+ +-------+---+---+ | lidocaine (XYLOCAINE MPF) 2 % | Given | 01/03/20 | 40 mg | | | | (20 mg/mL) injection | | 20 11:36 | | | | | INTRAPROCEDURE PRN, Starting Ronel | | AM PDT | | | | | 01/03/20 at 1136, Until Ronel | | | | | | | 01/03/20 at 1235 | | | | | | + +-------+ +-------+---+---+ +---+---+ | | | +---+---+ + +-------+ +------+---+---+ | midazolam (PF) (VERSED) | Given | 01/03/20 | 1 mg | | | | injection INTRAPROCEDURE PRN, | | 20 12:31 | | | | | Starting Ronel 01/03/20 at 1231, | | PM PDT | | | | | Until Ronel 01/03/20 at 1235 | | | | | | + +-------+ +------+---+---+ +---+---+ | | | +---+---+ + +-------+ +------+---+---+ | ondansetron (ZOFRAN) injection | Given | 01/03/20 | 4 mg | | | | 4 mg 4 mg, intravenous, | | 20 12:05 | | | | | POSTPROCEDURE PRN, 1 dose, | | PM PDT | | | | | Starting Ronel 01/03/20 at 1158, | | | | | | | Until Ronel 01/03/20 at 1205, | | | | | | | nausea/vomiting, 1st line | | | | | | + +-------+ +------+---+---+ +---+---+ | | | +---+---+ + +-------+ +---------+---+---+ | PHENYLEPHrine 100 mcg/mL IV | Given | 01/03/20 | 150 mcg | | | | syringe INTRAPROCEDURE PRN, | | 20 12:10 | | | | | Starting Ronel 01/03/20 at 1210, | | PM PDT | | | | | Until Ronel 01/03/20 at 1235 | | | | | | + +-------+ +---------+---+---+ +---+---+ | | | +---+---+ + +-------+ +-------+---+---+ | propofoL (DIPRIVAN) injection | Given | 01/03/20 | 50 mg | | | | INTRAPROCEDURE PRN, Starting Ronel | | 20 11:47 | | | | | 01/03/20 at 1136, Until Ronel | | AM PDT | | | | | 01/03/20 at 1235 | | | | | | + +-------+ +-------+---+---+ +-------+ +--------+---+---+ | Given | 01/03/20 | 150 mg | | | | | 20 11:36 | | | | | | AM PDT | | | | +-------+ +--------+---+---+ +---+---+ | | | +---+---+ + +-------+ +--------+---+---+ | succinylcholine (ANECTINE) | Given | 01/03/20 | 100 mg | | | | injection INTRAPROCEDURE PRN, | | 20 11:47 | | | | | Starting Ronel 01/03/20 at 1147, | | AM PDT | | | | | Until Ronel 01/03/20 at 1235 | | | | | | + +-------+ +--------+---+---+ +---+---+ | | | +---+---+ documented in this encounter"
--- OUTSIDE RECORDS SUMMARY | ~2020-01-04 | XMS | Encounter Summary ---
Demographics + + + | Address | [address] | | | [place] [address] | + + + | Home Phone | | + + + | Preferred Language | Unknown | + + + | Marital Status | | + + + | Synagogue Affiliation | 1013 | + + + | Race | Unknown | + + + | Ethnic Group | Unknown | + + + Author + + + | Author | [facility] | | | and [place] | + + + | Organization | [facility] | | | and [...] [place] | | | | | [address] | | + + + + + Care Team Providers + +------+ + | Care Glass Beveller Name | Role | Phone | + +------+ + | Shazia Tamayo MD | PCP | | + +------+ + Reason for Visit + + + | Reason | Comments | + + + | Lab Results | | + + + Encounter Details +--------+ + + + + | Date | Type | Department | Care Team | Description | +--------+ + + + + | 07/19/ | Telephone | [facility] | [facility], | Lab Results | | 2018 | | GASTROENTEROLOGY | PATRICK Livingston [address] | | | | | [address] [place] | [place], [address] | | | | | [address] [place], [place] | [place], [place] | | | | | [address] | [address] | | | | | [phone] | | | +--------+ + + + [...] | | | | | [place] [address] | | | | | | [phone] | | | | | | | | +--------+ + + + + | 01/10/ | Appointment | Respiratory Therapy | Deirdre Maharaj | | | 2019 | | | MD [address] | [address] | | [address], [place] | | | | | | [place] [address] | | | | | | [phone] | | | | | | | | +--------+ + + + + | 04/10/ | Office | Neurology | Deirdre Maharaj | | | 2019 | Visit | | MD [address], [place] | | | | | | [place] [address] | | | | | | [phone] | | | | | | | | +--------+ + + + + | 06/02/ | Office | Nephrology | Arslan Roberston MD | | | 2019 | Visit | | [address] [place] | | | | | | [address] [place], [place] | | | | | | [address] | | | | | | | | +--------+ + + + + documented as of this encounter Visit Diagnoses Not on filedocumented in this encounter"
--- OUTSIDE RECORDS SUMMARY | ~2020-01-04 | XMS | Encounter Summary ---
Demographics + + + | Address | [address] | | | [place] [address] | + + + | Home Phone | | + + + | Preferred Language | Unknown | + + + | Marital Status | | + + + | Adventist Affiliation | 1013 | + + + | Race | Unknown | + + + | Ethnic Group | Unknown | + + + Author + + + | Author | [facility] | | | and [place] | + + + | Organization | [facility] | | | [...] [place] | | | | | [address] | | + + + + + Care Team Providers + +------+ + | Care Manager Energy Name | Role | Phone | + +------+ + | Shazia Tamayo MD | PCP | | + +------+ + Reason for Visit +---------+ + | Reason | Comments | +---------+ + | Results | 05/28/19 | +---------+ + Encounter Details +--------+ + + + + | Date | Type | Department | Care Team | Description | +--------+ + + + + | 05/31/ | Documentati | [facility] | Tomás, | Results (05/28/19) | | 2019 | on | NEPHROLOGY [place] | [facility] | | | | | [address] | Radioisotope Technologist | | | | | [address] [place] | | | | | | [address] | | | | | | [phone] | | | +--------+ + + + [...] | | | | | [place] [address] | | | | | | [phone] | | | | | | | | +--------+ + + + + | 01/10/ | Appointment | Respiratory Therapy | Deirdre Maharaj | | | 2019 | | | MD [address] | [address] | | [address], [place] | | | | | | [place] [address] | | | | | | [phone] | | | | | | | | +--------+ + + + + | 04/10/ | Office | Neurology | Deirdre Maharaj | | | 2019 | Visit | | MD [address], [place] | | | | | | [place] [address] | | | | | | [phone] | | | | | | | | +--------+ + + + + | 06/02/ | Office | Nephrology | Arslan Robertson MD | | | 2019 | Visit | | [address] | | | | | | [address] [place], [place] | | | | | | [address] | | | | | | | | +--------+ + + + + documented as of this encounter Procedures + +--------+ + + + | Procedure Name | Priori | Date/Time | Associated Diagnosis | Comments | | | ty | | | | + +--------+ + + + | CBC W/AUTO | Routin | 05/28/2019 | | Results for this | | DIFFERENTIAL | e | | | procedure are in the | | | | | | results section. | + +--------+ + + + | BASIC METABOLIC | Routin | 05/28/2019 | | Results for this | | PANEL | e | | | procedure are in the | | | | | | results section. | + +--------+ + + + documented in this encounter Results Basic Metabolic Panel (05/28/2019) + + + + + + | Component | Value | Ref Range | Performed | Pathologist | | | | | At | Signature | + + + + + + | Na | 139 | 132 - 143 | | | | | | mmol/L | | | + + + + + + | K | 3.9 | 3.6 - 5.1 | | | | | | mmol/L | | | + + + + + + | Cl | 96 | 95 - 112 mmol/L | | | + + + + + + | CO2 | 31 | 19 - 31 mmol/L | | | + + + + + + | Anion Gap | 16 | 7 - 21 mmol/L | | | + + + + + + | Glucose | 135 (A) | 70 - 100 mg/dL | | | + + + + + + | Calcium | 9.8 | 8.5 - 10.3 | | | + + + + + + | BUN | 61 (A) | 6 - 23 mg/dL | | | + + + + + + | CREA | 2.32 (A) | 0.70 - 1.18 | | | | | | mg/dL | | | + + + + + + | eGFR if not | 21 (A) | 60 - 140 | | | | | | mL/min/1.73m2 | | | | POLISH | | | | | + + + + + + | BUN/Creatin | 26.3 | 6.0 - 28.6 | | | | ine Ratio | | | | | + + + + + + + + | Specimen | + + | Blood | + + CBC w/ Auto Differential (05/28/2019) + + + + + + | Component | Value | Ref Range | Performed | Pathologist | | | | | At | Signature | + + + + + + | WBC | 8.1 | 4.5 - 11.0 | | | + + + + + + | RBC COUNT | 4 | 4 - 5 | | | + + + + + + | Hemoglobin | 12.1 | 12 - 16 | | | + + + + + + | Hematocrit, | 36.7 | 25 - 45 | | | | BF | | | | | + + + + + + | Platelet | 233 | 140 - 440 | | | | Count | | | | | | Plasma | | | | | + + + + + + | NEUTROPHILS | 65.8 | 39 - 80 % | | | | BL | | | | | + + + + + + | LYMPHOCYTES | 21.9 (A) | 24 - 44 % | | | | BL | | | | | + + + + + + | MONOCYTES | 6.6 | 0 - 12 | | | | BAL | | | | | + + + + + + | MCV | 88.0 | 81 - 99 | | | + + + + + + | RDW | 15.8 (A) | 10.5 - 15.0 | | | + + + + + + | MCH | 29 | 27 - 33 | | | + + + + + + | MCHC, POC | 33 | 30 - 36 | | | + + + + + + | EOSINOPHILS | 4.4 | 0 - 6 % | | | | BL | | | | | + + + + + + | BASOPHILS | 1.3 | 0 - 2 | | | | BAL | | | | | + + + + + + + + | Specimen | + + | Blood | + + documented in this encounter Visit Diagnoses Not on filedocumented in this encounter"
--- OUTSIDE RECORDS SUMMARY | ~2020-01-04 | XMS | Encounter Summary ---
Demographics + + + | Address | [address] | | | [place] [address] | + + + | Home Phone | | + + + | Preferred Language | Unknown | + + + | Marital Status | | + + + | Orthodox Affiliation | CHR | + + + [...] Team Providers + +------+ + | Care Green Material Value Added Assessor Name | Role | Phone | + +------+ + | Shazia Tamayo MD | PCP | | + +------+ + Encounter Details +--------+ + + + + | Date | Type | Department | Care Team | Description | +--------+ + + + + | 11/25/ | Telephone | Urology at [facility] | Seymour Cerrato MD | | | 2019 | | [address] | [address] | | | | | [facility] | [place], [place] | | | | | and Healing, | [address] | | | | | | [phone] | | | | | Floor [place], [place] | | | | | | [address] | | | | | | [phone] | | | +--------+ + + + [...] [address] | | | | | | [place], [place] | | | | | | [address] | | | | | | [phone] | | | | | | | | +--------+---------+ + + + documented as of this encounter Visit Diagnoses Not on filedocumented in this encounter"
--- OUTSIDE RECORDS SUMMARY | ~2020-01-04 | XMS | Encounter Summary ---
Demographics + + + | Address | [address] | | | [place] [address] | + + + | Home Phone | | + + + | Preferred Language | Unknown | + + + | Marital Status | | + + + | Methodist Affiliation | CHR | + + + [...] Team Providers + +------+ + | Care Second Worker Name | Role | Phone | + +------+ + | Shazia Tamayo MD | PCP | | + +------+ + Encounter Details +--------+--------+ + + + | Date | Type | Department | Care Team | Description | +--------+--------+ + + + | 01/02/ | Travel | | | | | [...] [address] | | | | | | [place] | | | | | | [address] | | | | | | [phone] | | | | | | | | +--------+---------+ + + + documented as of this encounter Visit Diagnoses Not on filedocumented in this encounter"
--- OUTSIDE RECORDS SUMMARY | ~2020-01-04 | XMS | Encounter Summary ---
Demographics + + + | Address | [address] | | | [place] [address] | + + + | Home Phone | | + + + | Preferred Language | Unknown | + + + | Marital Status | | + + + | Shinto Affiliation | 1013 | + + + | Race | Unknown | + + + | Ethnic Group | Unknown | + + + Author + + + | Author | [facility] | | | and [place] | + + + | Organization | [facility] | | | and [place] | + + + | Address | Unknown | + + + | Phone | Unavailable | + + + Support + + + + + | Name | Relationship | Address | Phone | + + + + + | Jose Ariisidro | ECON | [address] | | | | | [place] | | | | | [address] | | + + + + + Care Team Providers + +------+ + | Care Botanical Technical Officer Name | Role | Phone | + +------+ + | Shazia Tamayo MD | PCP | | + +------+ + Encounter Details +--------+ + + + + | Date | Type | Department | Care Team | Description | +--------+ + + + + | 06/18/ | Orders Only | [facility] | Arslan Robertson MD | | | 2017 | | NEPHROLOGY [place] | [address] [place] | | | | | [address] [place] | [address] [place], [place] | | | | | [address] [place], [place] | [address] | | | | | [address] | | | | | | [phone] | | | +--------+ + + + [...] | 01/10/ | Appointment | Radiology | Deirrde Maharaj | | | 2019 | | | MD [address], [place] | | | | | | [place] [address] | | | | | | [phone] | | | | | | | | +--------+ + + + + | 01/10/ | Appointment | Respiratory Therapy | Deirdre Maharaj | | | 2020 | | | MD [address] | | [address] | [address], [place] | | | | | | [place] [address] | | | | | | [phone] | | | | | | | | +--------+ + + + + | 04/10/ | Office | Neurology | Deirdre Maharaj | | | 2019 | Visit | | MD [address] | [address], [place] | | | | | | [place] [address] | | | | | | [phone] | | | | | | | | +--------+ + + + + | 06/02/ | Office | Nephrology | Arslan Robertson MD | | | 2019 | Visit | | [address] [facility] | | | | | | [address] [place] | | | | | | [address] | | | | | | | [...]
--- OUTSIDE RECORDS SUMMARY | ~2020-01-04 | XMS | Encounter Summary ---
Demographics + + + | Address | [address] | | | [place] [address] | + + + | Home Phone | | + + + | Preferred Language | Unknown | + + + | Marital Status | | + + + | Christian Affiliation | CHR | + + + | Race | White | + + + | Ethnic Group | Not or | + + + Author + + + | Author | [facility] | + + + | Organization | [facility] | + + + | Address | Unknown | + + + | Phone | Unavailable | + + + Support + + +---------+ + | Name | Relationship | Address | Phone | + + +---------+ + | Jose Minaya | ECON | Unknown | | + + +---------+ + Care Team Providers + +------+ + | Care Angio Technologist Name | Role | Phone | [...] [address] | | | | | [facility] | [place], [place] | | | | | and Healing, | [address] | | | | | | [phone] | | | | | Floor [place], [place] | | | | | | [address] | | | | | | [phone] | | | +--------+ + + + [...] [place] | | | | | | [address] | | | | | | [phone] | | | | | | | | +--------+---------+ + + + documented as of this encounter Visit Diagnoses Not on filedocumented in this encounter"
--- OUTSIDE RECORDS SUMMARY | ~2020-01-04 | XMS | Encounter Summary ---
Demographics + + + | Address | [address] | | | [place] [address] | + + + | Home Phone | | + + + | Preferred Language | Unknown | + + + | Marital Status | | + + + | Tenriism Affiliation | CHR | + + + | Race | White | + + + | Ethnic Group | Not or | + + + Author + + + | Author | [facility] | + + + | Organization | [facility] | + + + | Address | Unknown | + + + | Phone | Unavailable | + + + Support + + +---------+ + | Name | Relationship | Address | Phone | + + +---------+ + | Jose Minaya | ECON | Unknown | | + + +---------+ + Care Team Providers + +------+ + | Care Briar Wood Sorter Name | Role | Phone | + +------+ + | Shazia Tamayo MD | PCP | | + +------+ + Encounter Details +--------+ + + + + | Date | Type | Department | Care Team | Description | +--------+ + + + + | 12/31/ | Clinical | Preoperative | | | | 2020 | Support | Medicine Clinic at | | | | | Staff | [facility] | | | | | | [address] | | | | | | [facility] | | | | | | and Healing Building | | | | | | [address] [place], [place] | | | | | | [address] | | | | | | [phone] | | | +--------+ + + + [...] + documented as of this encounter Progress Jimena Cantor MA - 01/01/2020 1:30 PM PDTTelephone contact made to inform of negative C OVID-19 test results. documented in this encounter Plan of Treatment +--------+---------+ + + + | Date | Type | Specialty | Care Team | Description | +--------+---------+ + + + | 02/11/ | Office | Urology | Seymour Cerrato MD | | 2019 | Visit | | [address] | | | | | | [place], [place] | | | | | | [address] | | | | | | [phone] | | | | | | | | +--------+---------+ + + + documented as of this encounter Procedures + +--------+ + + + | Procedure Name | Priori | Date/Time | Associated Diagnosis | Comments | | | ty | | | | + +--------+ + + + | COVID-19 | Urgent | 01/01/2020 | Screening for | Results for this | | | | 9:32 AM | viral disease | procedure are in the | | | | PDT | | results section. | + +--------+ + + + documented in this encounter Results COVID-19 (01/01/2020 9:32 AM PDT) + + + + + + | Component | Value | Ref Range | Performed | Pathologist | | | | | At | Signature | + + + + + + | COVID-19 | Not Detected | Not Detected | [facility] | | | | | | MOLECULAR | | | | | | MICROBIOLIG | | | | | | Y LAB | | + + + + + + + + | Specimen | + + | Swab - Nasopharynx | + + + + + | Narrative | Performed At | + + + | Not Detected results do not preclude SARS-CoV-2 infection and should | [facility] | | not be used as the sole basis for treatment or other patient | MOLECULAR | | management decisions. Not Detected results must be combined with | MICROBIOLIGY | | clinical observations, patient history, and epidemiological | LAB | | information. Analyte specific reagents are used in many laboratory | | | tests necessary for standard medical care. This test was developed and | | | its performance characteristics determined by [facility] [employer]. It | | | has not been cleared or approved by the US Food and Drug | | | Administration (FDA). FDA does not require this test to go through | | | premarket FDA review. This test is used for clinical purposes. It | | | should not be regarded as investigational or for research. The | | | laboratory is certified under the Clinical Laboratory Improvement | | | Amendments (CLIA) as qualified to perform high complexity clinical | | | laboratory testing. My electronic signature indicates that I have | | | personally reviewed and interpreted the data pertaining to this case. | | | Reviewed and electronically signed by Raul Kearney MD,PhD 01/01/2020 | | | 6:48 PM | | + + + + + + + + | Performing | Address | City/State[facility] | Phone Number | | Organization | | | | + + + + + | [facility] MOLECULAR | [address] | [place] [address] | | | MICROBIOLRocket[facility]Y LAB | [address] | | | + + + + + documented in this encounter Visit Diagnoses + + | Diagnosis | + + | Screening for viral disease Special screening examination for unspecified viral | | disease | + + documented in this encounter"
--- OUTSIDE RECORDS SUMMARY | ~2020-01-04 | XMS | Encounter Summary ---
Demographics + + + | Address | [address] [facility] [address] | | | [place] [address] | + + + | Home Phone | | + + + | Preferred Language | Unknown | + + + | Marital Status | | + + + | Tenriism Affiliation | 1013 | + + + | Race | Unknown | + + + | Ethnic Group | Unknown | + + + Author + + + | Author | [facility] | | | and [place] | + + + | Organization | [facility] | | | and [place] | + + + | Address | Unknown | + + + | Phone | Unavailable | + + + Support + + + + + | Name | Relationship | Address | Phone | + + + + + | Jose Minaya | ECON | [address] | | | | | [place] | | | | | [address] | | + + + + + Care Team Providers + +------+ + | Care Logging Worker Name | Role | Phone | + +------+ + | Shazia Tamayo MD | PCP | | + +------+ + Reason for Visit +--------+ + | Reason | Comments | +--------+ + | Other | B/P log 03/27/19-08/10/19 | +--------+ + Encounter Details +--------+ + + + + | Date | Type | Department | Care Team | Description | +--------+ + + + + | 10/02/ | Documentati | [facility] | Tomás | Codi (B/P log | | 2020 | on | NEPHROLOGY ANTIONE | [facility] | 03/27/19-08/10/19) | | | | [address] | Covering Machine Operator | | | | | [address] [place], [place] | | | | | | [address] | | | | | | [phone] | | | +--------+ + + + [...] Radiology | Deirdre Maharaj | | | 2020 | | | MD [address] | | | | | | [address] | | | | | | [place] [address] | | | | | | [phone] | | | | | | | | +--------+ + + + + | 01/10/ | Appointment | Respiratory Therapy | Deirdre Maharaj | | | 2019 | | | MD [address] | | | | | | [address] [place] [address] [place] | | | | | | [place] [address] | | | | | | [phone] | | | | | | | | +--------+ + + + + | 04/10/ | Office | Neurology | Deirdre Maharaj | | | 2019 | Visit | | MD [address] | | [address], [place] | | | | | | [place] [address] | | | | | | [phone] | | | | | | | | +--------+ + + + + | 06/02/ | Office | Nephrology | Arslan Robertson MD | | | 2019 | Visit | | [address] | | | | | | [address] [place], [place] | | | | | | [address] | | | | | | | | +--------+ + + + + documented as of this encounter Visit Diagnoses Not on filedocumented in this encounter"
--- OUTSIDE RECORDS SUMMARY | ~2020-01-04 | XMS | Encounter Summary ---
Demographics + + + | Address | [address] | | | [place] [address] | + + + | Home Phone | | + + + | Preferred Language | Unknown | + + + | Marital Status | | + + + | Restorationist Affiliation | CHR | + + + | Race | White | + + + | Ethnic Group | Not or | + + + Author + + + | Author | [facility] | + + + | Organization | [facility] | + + + | Address | Unknown | + + + | Phone | Unavailable | + + + Support + + +---------+ + | Name | Relationship | Address | Phone | + + +---------+ + | Jose Minaya | ECON | Unknown | | + + +---------+ + Care Team Providers + +------+ + | Care Synthetic Cloth Binding Cutter Name | Role | Phone | + +------+ + | Shazia Tamayo MD | PCP | | + +------+ + Reason for Visit + + + | Reason | Comments | + + + | Pre-op evaluation | | + + + | Covid19 Screening | | + + + Encounter Details +--------+ + + + + | Date | Type | Department | Care Team | Description | +--------+ + + + + | 12/31/ | Plating Technician | Preoperative | O Shavon Dhillon | Screening for viral | | 2019 | | Medicine Clinic at | MD Krystyna [address] | disease (Primary Dx) | | | | [facility] | [facility] | | | | | [address] | [place], [place] | | | | | [place] [facility] | [address] | | | | | and [facility] | [phone] | | | | | [address] [place], [place] | | | | | | [address] | | | | | | [phone] | | | +--------+ + + + [...] [address] | | | | | | [place], [place] | | | | | | [address] | | | | | | [phone] | | | | | | | | +--------+---------+ + + + documented as of this encounter Results COVID-19 (01/01/2020 9:32 AM [...] | | its performance characteristics determined by [facility]. It | | | has not been [...] + + + + + | [facility] | [address] | [place] [address] | | | MICROBIOLIGY LAB | [address] | | | + + + + + documented in this encounter Visit Diagnoses + + | Diagnosis | + + | Screening for viral disease - Primary Special screening examination for unspecified | | viral disease | + + documented in this encounter"
--- OUTSIDE RECORDS SUMMARY | ~2020-01-04 | XMS | Encounter Summary ---
Demographics + + + | Address | [address] | | | [place] [address] | + + + | Home Phone | | + + + | Preferred Language | Unknown | + + + | Marital Status | | + + + | Hindu Affiliation | CHR | + + + | Race | White | + + + | Ethnic Group | Not or | + + + Author + + + | Author | [facility] | + + + | Organization | [facility] | + + + | Address | Unknown | + + + | Phone | Unavailable | + + + Support + + +---------+ + | Name | Relationship | Address | Phone | + + +---------+ + | Jose Minaya | ECON | Unknown | | + + +---------+ + Care Team Providers + +------+ + | Care Body Recall Instructor Name | Role | Phone | + +------+ + | Shazia Tamayo MD | PCP | | + +------+ + Encounter Details +--------+ + + + + | Date | Type | Department | Care Team | Description | +--------+ + + + + | 01/02/ | Procedure | [facility] | | | | 2020 | Pass | [facility] | | | | | | and Healing Surgery | | | | | | Center Admitting | | | | | | Desk Located on the | | | | | | 4th floor [address] | | | | | | [address] [place], | | | | | | [place] [address] | | | +--------+ + + + [...] [address] | | | | | | [place], [place] | | | | | | [address] | | | | | | [phone] | | | | | | | | +--------+---------+ + + + documented as of this encounter Visit Diagnoses Not on filedocumented in this encounter"
--- OUTSIDE RECORDS SUMMARY | ~2020-01-04 | XMS | Encounter Summary ---
Demographics + + + | Address | [address] | | | [place] [address] | + + + | Home Phone | | + + + | Preferred Language | Unknown | + + + | Marital Status | | + + + | Oriental Orthodox Affiliation | CHR | + + [...] Team Providers + +------+ + | Care Plant Pathologist Name | Role | Phone | + [...] [address] | | | | | | [place], [place] | | | | | | [address] | | | | | | [phone] | | | | | | | | +--------+---------+ + + + documented as of this encounter Visit Diagnoses Not on filedocumented in this encounter"
--- OUTSIDE RECORDS SUMMARY | ~2020-01-04 | XMS | Encounter Summary ---
Demographics + + + | Address | [address] | | | [place] [address] | + + + | Home Phone | | + + + | Preferred Language | Unknown | + + + | Marital Status | | + + + | Episcopalian Affiliation | CHR | + + + | Race | White | + + + | Ethnic Group | Not or | + + + Author + + + | Author | [facility] | + + + | Organization | [facility] | + + + | Address | Unknown | + + + | Phone | Unavailable | + + + Support + + +---------+ + | Name | Relationship | Address | Phone | + + +---------+ + | Jose Wallace | ECON | Unknown | | + + +---------+ + Care Team Providers + +------+ + | Care Media Coordinator Name | Role | Phone | + [...] Description | +--------+---------+ + + + | /04/ | Surgery | [address] Intra Op [id number] | Seymour Cerrato MD | SACROSPINOUS | | 2019 | | [facility] | [address] | LIGAMENT FIXATION, | | | | [address] [facility] | [facility] [place] | ANTERIOR AND | | | | Hospital Admitting | [address] | POSTERIOR | | | | Desk Located on the | [phone] | COLPORRHAPHY, | | | | 9th floor | | [address] [place], | | | | [place], [place] | | CYSTOSCOPY | | | | [address] | | | +--------+---------+ + + + Social History [...] + + | Height | 149.9 cm (") | 11/14/2019 11:45 AM | | | [...] Hospital Course Deirdre Wallace was admitted to [facility] on 11/14/2019 for sacrospinous ligament fixation, ante [...] oral route. Other Discharge Orders and Instructions [facility] UROLOGY -- AFTERCARE FOR VAGINAL SURGERY Incision [...] 12/18/2019 3:45 PM Seymour Cerrato Urology at [facility] [phone] Urology See your PCP about your procedure/hospital stay for continuity of care. When to call: Inability to void Difficulty breathing or unusual shortness of breath Excessive bleeding, drainage at the operative site Fevers, chills, increased pain that is not relieved by pain medications Persistent nausea or vomiting For general questions, contact [facility] Urology Clinic at # [phone] for questions For urgent issues that cannot wait until business hours, call the hospital at [phone] and ask for the adult urology resident managing consultant clinical professor Urology Follow Up We will call you to schedule a nurse visit for next week for catheter removal. Please call the Urology Clinic at with any questions or concerns, or if you experience symptoms of fever; chills; severe nausea; vomiting; pain that does not go away wi th usual medication; drainage or bleeding from the incision site; sudden numbness, weakness, or difficulty speaking; or any other concerns. Future Appointments Provider Department Dept Phone Center 12/18/2019 3:45 PM Seymour Cerrato Urology at [facility] [phone] Urology Outstanding labs/studies: None Discharging Physician: SILVANA [...] or tender, or there is pus dr santos from it. Urine is leaking from the [...] to Prevent Infection", log into y our Nextdoor account at [email or web address]. You can enter [id number] in the "Paytopia [email or web address] y" search box. Not on Nextdoor? Review the MyChart section of your After Visit Summary for directions on liz yao to sign up. Current as of: August 30, 2018 Content Version: .[id number] OnLive. Care instructions adapted under license by [facility] Mod[employer] & Science [place]. If you have questions about a medical condition or this instr uction, always ask your healthcare professional. OnLive disclaims any marily anty or liability for [...] tablets by | 12 | 0 | /01/29 | | | oral tablet | mouth [...] mg by mouth | | 0 | / | | | oral tablet | every [...] Physician: Seymour Cerrato MD Patient: DEIRDRE WALLACE [id number] ID: Deirdre Wallace is a 69 y.o. [...] PO 1.3L Medications, labs, imaging: reviewed in [facility] CBC with diff last 72 hours (or [...] [address] | | | | | | [place], [place] | | | | | | [address] | | | | | | [phone] | | | | | | | [...] | + + + + + | [facility] | [address] | [place] [address] | | | SERVICES CORE | [address] | | | [...] | | | LABORATORY | | | KYRGYZ | | | SERVICES, | | | [...] | + + + + + | [facility] | [address] | [place] [address] | | | DEMARCUS, RAGHAVENDRA | [address] | | | + [...] | + + + + + | [facility] | [address] | [place] [address] | | | SERVICES, CORE | [address] | | | + + + + + MAGNESIUM, PLASMA (11/15/2019 4:53 AM PST) + +-------+ + + + | Component | Value | Ref Range | Performed | Pathologist | | | | | At | Signature | + +-------+ + + + | MAGNESIUM,P | 2.4 | 1.6 - 2.6 mg/dL | [facility] | | | LASMA | | | [...] | + + + + + | [facility] | [address] | [place] [address] | | | SERVICES, CORE | PRIETO [...] + + + + | [facility] | [address] | [place], [place] | | | [facility] | [address] | [address] | | | TESTS | | | [...] + + | [facility] | [address] | [place], [place] | | | [facility] | [address] | [address] | | | TESTS | | | [...] | | | | HOURS NEEDED, Starting Wed | | PM PST | [...] | +---+---+ + +-------+ +-------+---+---+ | lidocaine (XYLOCAINE) 5 mg/mL | Given | 11/14/19 | 50 mL | | | | (0.5 %) injection INTRAPROCEDURE | | 20 7:09 | | | | | PRN, Starting Tue11/14/19 at | | PM PST | | | | | 1909, Until Tue11/14/19 at 1925 | | | | | | + +-------+ +-------+---+---+ +---+---+ | | | +---+---+ + +-------+ +-------+---+---+ | lidocaine-EPINEPHrine | Given | 11/14/19 | 19 mL | | | | (XYLOCAINE WITH EPINEPHRINE) 1 | | 20 7:09 | | | | | %-1:100,000 injection | | PM PST | | | | | INTRAPROCEDURE PRN, Starting Tue | | | | | | | 11/14/19 at 1909, Until Tue11/14/19 | | | | | | | at 1925 | | | | | | + +-------+ +-------+---+---+ +---+---+ | | | +---+---+ + +-------+ +------+---+---+ | melatonin tablet 3 mg 3 mg, | Given | 11/14/19 | 3 mg | | | | oral, AT BEDTIME NEEDED, | | 20 11:08 | | | | | Starting Tue11/14/19 at 2244, | | PM PST | | | | | Until Tue11/16/19 at 0128, | | | | | | | insomnia | | | | | | + +-------+ +------+---+---+ +---+---+ | | | +---+---+ + +-------+ +-------+---+---+ | montelukast (SINGULAIR) tablet | Given | 11/15/19 | 10 mg | | | | 10 mg 10 mg, oral, DAILY, First | | 20 9:21 | | | | | dose on Tue11/15/19 at 0900, Until | | AM PST [...]
--- OUTSIDE RECORDS SUMMARY | ~2020-01-04 | XMS | Encounter Summary ---
Demographics + + + | Address | [address] | | | [place] [address] | + + + | Home Phone | | + + + | Preferred Language | Unknown | + + + | Marital Status | | + + + | Orthodoxy Affiliation | CHR | + + + | Race | White | + + + | Ethnic Group | Not or | + + + Author + + + | Author | [facility] | + + + | Organization | [facility] | + + + | Address | Unknown | + + + | Phone | Unavailable | + + + Support + + +---------+ + | Name | Relationship | Address | Phone | + + +---------+ + | Jose Wallace | ECON | Unknown | | + + +---------+ + Care Team Providers + +------+ + | Care Assistant Grocery Name | Role | Phone | + [...] | | 2019 - | Encounter | [address] | [address] | | | | | [id number] | [place], [place] | | | 11/14/ | | [place], | [address] | | | 2019 | | [place] [address] | [phone] | | | | | [phone] | | | +--------+ + + + [...] Hospital Course Deirdre Wallace was admitted to [facility] on 11/14/2019 for sacrospinous ligament fixation, ante [...] oral route. Other Discharge Orders and Instructions [facility] UROLOGY -- AFTERCARE FOR VAGINAL SURGERY Incision [...] 12/18/2019 3:45 PM Seymour Cerrato Urology at [facility] [phone] Urology See your PCP about your procedure/hospital stay for continuity of care. When to call: Inability to void Difficulty breathing or unusual shortness of breath Excessive bleeding, drainage at the operative site Fevers, chills, increased pain that is not relieved by pain medications Persistent nausea or vomiting For general questions, contact [facility] Urology Clinic at # [phone] for questions For urgent issues that cannot wait until business hours, call the hospital at [phone] and ask for the adult urology resident call center consultant Urology Follow Up We will call you [...] 12/18/2019 3:45 PM Seymour Cerrato Urology at [facility] [phone] Urology Outstanding labs/studies: None Discharging Physician: SILVANA [...] to Prevent Infection", log into y our Gluster account at [email or web address]. You can enter [id number] in the "Cretia's Creations" search box. Not on Gluster? Review the Social Recruitinghart section of your After Visit Summary for directions on liz w to sign up. Current as of: August 30, 2018 Content Version: 12.1 5141-2168 Huiyuan. Care instructions adapted under license by [facility] [employer] Apps & Science [place]. If you have questions about a medical condition or this instr uction, always ask your healthcare professional. Huiyuan disclaims any marily anty or liability for [...] Physician: Seymour Cerrato MD Patient: DEIRDRE WALLACE [id number] ID: Deirdre Wallace is a 69 y.o. [...] Medications, labs, imaging: reviewed in [facility] CBC with diff last 72 hours (or [...] [address] | | | | | | [place], [place] | | | | | | [address] | | | | | | [phone] | | | | | | | [...] | + + + + + | [facility] | [address] | [place] [address] | | | SERVICES, CORE | PRIETO [...] | | | LABORATORY | | | NAURUAN | | | SERVICES, | | | [...] | + + + + + | [facility] | [address] | [place] [address] | | | SERVICES, RAGHAVENDRA | PRIETO [...] | + + + + + | [facility] | [address] | [place] [address] | | | SERVICES, CORE | [address] | | | + + + + + MAGNESIUM, PLASMA (11/15/2019 4:53 AM PST) + +-------+ + + + | Component | Value | Ref Range | Performed | Pathologist | | | | | At | Signature | + +-------+ + + + | MAGNESIUM,P | 2.4 | 1.6 - 2.6 mg/dL | [facility] | | | LASMA | | | [...] | + + + + + | [facility] | [address] | [place] [address] | | | SERVICES, CORE | PRIETO [...] (H) | 70 - 99 mg/dL | [facility] - | | | GLUCOSE, | | [...] [facility] | [address] | [place], [place] | | | [facility] [place] | [facility] | [address] | | | TESTS | | | [...] | [facility] | [address] | [place], [place] | | | [facility] | [address] | [address] | | | TESTS | | | [...] | | | | | dose on [facility] 11/15/19 at 0900, Until | | [...]
--- OUTSIDE RECORDS SUMMARY | ~2020-01-04 | XMS | Encounter Summary ---
Demographics + + + | Address | [address] | | | [place] [address] | + + + | Home Phone | | + + + | Preferred Language | Unknown | + + + | Marital Status | | + + + | Scientology Affiliation | 1013 | + + + | Race | Unknown | + + + | Ethnic Group | Unknown | + + + Author + + + | Author | [facility] | | | and [place] | + + + | Organization | [facility] | | | and [place] | + + + | Address | Unknown | + + + | Phone | Unavailable | + + + Support + + + + + | Name | Relationship | Address | Phone | + + + + + | Jose Ariisidro | ECON | [address] | | | | | [place] | | | | | [address] | | + + + + + Care Team Providers + +------+ + | Care [employer] Crew Linesman Name | Role | Phone | + +------+ + | Shazia Tamayo MD | PCP | | + +------+ + Encounter Details +--------+ + + + + | Date | Type | Department | Care Team | Description | +--------+ + + + + | 02/18/ | Orders Only | [facility] | Conversion | | | 2019 | | NEPHROLOGY [place] | Transaction, | | | | | [address] | Provider Unknown | | | | | [address] [place], [place] | | | | | | [address] | (Fax) | | | | | [phone] | | | +--------+ + + + [...] | | | | | [place] [address] | | | | | | [phone] | | | | | | | | +--------+ + + + + | 01/10/ | Appointment | Respiratory Therapy | Deirdre Maharaj | | | 2019 | | | MD [address] | [address] | [address], [place] | | | | | | [place] [address] | | | | | | [phone] | | | | | | | | +--------+ + + + + | 04/10/ | Office | Neurology | Deirdre Maharaj | | | 2019 | Visit | | MD [address] | | | | | | [place] | | | | | | [place] [address] | | | | | | [phone] | | | | | | | | +--------+ + + + + | 06/02/ | Office | Nephrology | Arslan Robertson MD | | | 2019 | Visit | | [address] [place] | | | | | | [address] [place] | | | | | | [address] | | | | | | | | +--------+ + + + + documented as of this encounter Procedures + +--------+ + + + | Procedure Name | Priori | Date/Time | Associated Diagnosis | Comments | | | ty | | | | + +--------+ + + + | EXTERNAL LAB: CBC | Routin | 10/30/2018 | | Results for this | | | e | 1:25 PM | | procedure are in the | | | | PST | | results section. | + +--------+ + + + | URINALYSIS, | Routin | 10/30/2018 | | Results for this | | MICROSCOPIC ONLY | e | 1:25 PM | | procedure are in the | | | | PST | | results section. | + +--------+ + + + | MICROALBUMIN/CREATIN | Routin | 10/30/2018 | | Results for this | | INE RATIO, URINE | e | 1:25 PM | | procedure are in the | | TEST | | PST | | results section. | + +--------+ + + + | URIC ACID | Routin | 10/30/2018 | | Results for this | | | e | 1:25 PM | | procedure are in the | | | | PST | | results section. | + +--------+ + + + | PARATHYROID HORMONE, | Routin | 10/30/2018 | | Results for this | | INTACT | e | 1:25 PM | | [...] + + documented in this encounter Results Microalbumin/Creatinine Ratio, Urine (10/30/2018 1:25 PM PST) + + + + + + | Component | Value | Ref Range | Performed | Pathologist | | | | | At | Signature | + + + + + + | ALBUMIN/CRE | Comment: Microalbumin | | EXTERNAL | | | ATININE | calculation is invalid | | LAB | | | RATIO.URINE | when microalbumin is | | | | | .ORD.MG/G | less than 0.7 mg/dl | | | | | (BRET) | | | | | | | | | | | | | | | | | + + + + + + + + | Specimen | + + | Urine specimen | | (specimen) | + + + +---------+ + + | Performing | Address | City/State/Zipcode | Phone Number | | Organization | | | | + +---------+ + + | EXTERNAL LAB | | | | + +---------+ + + Urinalysis, Microscopic Only (10/30/2018 1:25 PM PST) + + + + + [...] + + + + + + | Specific | 1.008 | 1.005 - 1.030 | EXTERNAL | | | [place], | | | LAB | | | [...] + + + + + + | Protein, | Negative | | EXTERNAL | | [...] + +---------+ + + External Lab: CBC (10/30/2018 1:25 PM PST) + + + + + [...] + + + | Red Blood | 4.37 | 3.8 - 5.1 10 | EXTERNAL | | | Cells | | | LAB | | | Counted | | | | | + + + + + + | Hemoglobin | 13.0 | 12.0 - 16.0 | EXTERNAL | | | | | g/dL | LAB | | + + + + + + | Hematocrit, | 38.9 | 35 - 45 % | EXTERNAL | | | POC | | | LAB | | + + + + + + | MCV | 89.2 | 81 - 99 fL | EXTERNAL | | | | | | LAB | | + + + + + + | MCH | 30 | 27 - 33 pg | EXTERNAL | | | | | | LAB | | + + + + + + | MCHC | 33 | 30 - 36 g/dL | EXTERNAL | | | | | | LAB | | + + + + + + | Platelet | 246 | 140 - 440 K/ L | EXTERNAL | | | Count | | | LAB | | | Plasma | | | | | + + + + + + | RDW-CV | 14.9 | 10.5 - 15.0 % | EXTERNAL [...] + + + | % Segmented | 66.1 | 39 - 80 % | EXTERNAL | | | | | | LAB | | | Neutrophils | | | | | + + + + + + | % | 20.2 (A) | 24 - 44 % | EXTERNAL | | | Lymphocytes | | | LAB | | + + + + + + | % Monocytes | 7.2 | 0 - 12 % | EXTERNAL | | | | | | LAB | | + + + + + + | % | 6.0 | 0 - 6 % | EXTERNAL | | | Eosinophils | | | LAB | | + + + + + + | % Basophils | 0.5 | 0 - 2 % | EXTERNAL [...] | + +---------+ + + Uric Acid (10/30/2018 1:25 PM PST) + +-------+ + + + | Component | Value | Ref Range | Performed | Pathologist | | | | | At | Signature | + +-------+ + + + | Uric Acid | 6.6 | 2.3 - 6.6 | EXTERNAL | [...] + +---------+ + + Parathyroid Hormone, Intact (10/30/2018 1:25 PM PST) + + + + + + | Component | Value | Ref Range | Performed | Pathologist | | | | | At | Signature | + + + + + + | PTH INTACT | 109.9 (A) | 15 - 65 [...] + +---------+ + + Renal Function Panel (10/30/2018 1:25 PM PST) + + + + + + | Component | Value | Ref Range | Performed | Pathologist | | | | | At | Signature | + + + + + + | Glucose, | 294 (A) | 70 - 100 mg/dL | EXTERNAL | | | Fasting | | | LAB | | + + + + + + | BUN | 48 (A) | 6 - 23 mg/dL | EXTERNAL | | | | | | LAB | | + + + + + + | Creatinine | 1.74 (A) | 0.70 - 1.25 | EXTERNAL | | | | | mg/dL | LAB | | + + + + + + | PHOSPHORUS | 2.9 | 2.5 - 5.0 mg/dL | EXTERNAL | | | | | | LAB | | + + + + + + | Albumin | 4.0 | 3.5 - 5.0 | EXTERNAL | | | | | | LAB | | + + + + + + | Na | 136 | 132 - 143 | EXTERNAL | | | | | mmol/L | LAB | | + + + + + + | K | 3.8 | 3.6 - 5.1 | EXTERNAL | [...] + + + | Anion Gap | 16.8 | 7 - 21 mmol/L | EXTERNAL | | | | | | LAB | | + + + + + + | eGFR if not | | | EXTERNAL | | | | | | LAB | | | GREEK | | | | | + + + + + + | Phosphorus, | | | EXTERNAL | | | Inorganic | | | LAB | | + + + + + + | BUN/Creatin | 27.6 | 6.0 - 28.6 | EXTERNAL | | | ine Ratio | | | LAB | | + + + + + + | Calcium | 9.9 | 8.5 - 10.3 | EXTERNAL | | | | | mg/dL | LAB | | + + + + + + | Estimated | 29 (A) | 60 - 140 [...]
--- OUTSIDE RECORDS SUMMARY | ~2020-01-04 | XMS | Encounter Summary ---
Demographics + + + | Address | [address] [facility] [address] | | | [place] [address] | + + + | Home Phone | | + + + | Preferred Language | Unknown | + + + | Marital Status | | + + + | Restorationist Affiliation | 1013 | + + + | Race | Unknown | + + + | Ethnic Group | Unknown | + + + Author + + + | Author | [facility] | | | and [place] | + + + | Organization | [facility] | | | and [place] | + + + | Address | Unknown | + + + | Phone | Unavailable | + + + Support + + + + + | Name | Relationship | Address | Phone | + + + + + | Jose Ariisidro | ECON | [address] | | | | | [place] | | | | | [address] | | + + + + + Care Team Providers + +------+ + | Care Plastic Cutter Name | Role | Phone | + +------+ + | Shazia Tamayo MD | PCP | | + +------+ + Encounter Details +--------+ + + + + | Date | Type | Department | Care Team | Description | +--------+ + + + + | 06/06/ | Abstract | [facility] | Provider, | | | 2017 | | GASTROENTEROLOGY | MD [address] | | | | | [address] | Vaibhav Hernandez | | | | | [address] [place] | [place] [address] | | | | | [address] | | | | | | [phone] | | | +--------+ + + + [...] | | | | DRIVE, [address] | | | | | | [place], [place] [address] | | | | | | [phone] | | | | | | | | +--------+ + + + + | 01/10/ | Appointment | Respiratory Therapy | Deirdre Maharaj | | | 2019 | | | MD [address] | | | | | | [address], [place] | | | | | | [place] [address] | | | | | | [phone] | | | | | | | | +--------+ + + + + | 04/10/ | Office | Neurology | Deirdre Maharaj | | | 2019 | Visit | | MD [address] | | | | | | [address] [address] | | | | | | [place] [address] | | | | | | [phone] | | | | | | | | +--------+ + + + + | 06/02/ | Office | Nephrology | Arslan Robertson MD | | | 2019 | Visit | | [address] [place] | | | | | | [address] [place] | | | | | | [address] | | | | | | | | +--------+ + + + + documented as of this encounter Procedures + +--------+ + + + | Procedure Name | Priori | Date/Time | Associated Diagnosis | Comments | | | ty | | | | + +--------+ + + + | EXTERNAL LAB: KARAN | Routin | 05/01/2018 | | Results for this | | | e | | | procedure are in the | | | | | | results section. | + +--------+ + + + | EXTERNAL LAB: | Routin | 05/01/2018 | | Results for this | | GLUCOSE | e | | | procedure are in the | | | | | | results section. | + +--------+ + + + | EXTERNAL LAB: ALT | Routin | 05/01/2018 | | Results for this | | | e | | | procedure are in the | | | | | | results section. | + +--------+ + + + | EXTERNAL LAB: AST | Routin | 05/01/2018 | | Results for this | | | e | | | procedure are in the | | | | | | results section. | + +--------+ + + + | EXTERNAL LAB: | Routin | 05/01/2018 | | Results for this | | ALKALINE PHOSPHATASE | e | | | procedure are in the | | | | | | results section. | + +--------+ + + + | EXTERNAL LAB: | Routin | 05/01/2018 | | Results for this | | BILIRUBIN, TOTAL | e | | | procedure are in the | | | | | | results section. | + +--------+ + + + | EXTERNAL LAB: | Routin | 05/01/2018 | | Results for this | | ALBUMIN | e | | | procedure are in the | | | | | | results section. | + +--------+ + + + | EXTERNAL LAB: | Routin | 05/01/2018 | | Results for this | | PROTEIN, TOTAL | e | | | procedure are in the | | | | | | results section. | + +--------+ + + + | EXTERNAL LAB: | Routin | 05/01/2018 | | Results for this | | CALCIUM | e | | | procedure are in the | | | | | | results section. | + +--------+ + + + | EXTERNAL LAB: CARBON | Routin | 05/01/2018 | | Results for this | | DIOXIDE | e | | | procedure are in the | | | | | | results section. | + +--------+ + + + | EXTERNAL LAB: | Routin | 05/01/2018 | | Results for this | | CHLORIDE | e | | | procedure are in the | | | | | | results section. | + +--------+ + + + | EXTERNAL LAB: | Routin | 05/01/2018 | | Results for this | | POTASSIUM | e | | | procedure are in the | | | | | | results section. | + +--------+ + + + | EXTERNAL LAB: SODIUM | Routin | 05/01/2018 | | Results for this | | | e | | | procedure are in the | | | | | | results section. | + +--------+ + + + | EXTERNAL LAB: | Routin | 05/01/2018 | | Results for this | | URINALYSIS | e | | | procedure are in the | | | | | | results section. | + +--------+ + + + | EXTERNAL LAB: PTH, | Routin | 05/01/2018 | | Results for this | | INTACT | e | | | procedure are in the | | | | | | results section. | + +--------+ + + + | EXTERNAL LAB: CBC | Routin | 05/01/2018 | | Results for this | | | e | | | procedure are in the | | | | | | results section. | + +--------+ + + + | EXTERNAL LAB: | Routin | 05/01/2018 | | Results for this | | PROTIME INR | e | | | procedure are in the | | | | | | results section. | + +--------+ + + + | EXTERNAL LAB: EGFR | Routin | 05/01/2018 | | Results for this | | | e | | | procedure are in the | | | | | | results section. | + +--------+ + + + | EXTERNAL LAB: | Routin | 05/01/2018 | | Results for this | | CREATININE | e | | | procedure are in the | | | | | | results section. | + +--------+ + + + | HEPATITIS A, B, C | Routin | 05/01/2018 | | Results for this | | PANEL, REFLEX | e | | | procedure are in the | | | | | | results section. | + +--------+ + + + | URINALYSIS, REFLEX | Routin | 05/01/2018 | | Results for this | | MICROSCOPIC AND/OR | e | | | procedure are in the | | CULTURE | | | | results section. | + +--------+ + + + | CBC WITH | Routin | 05/01/2018 | | [...] | + +--------+ + + + | COMPREHENSIVE | Routin | 05/01/2018 | | Results for this | | METABOLIC PANEL | e | | | procedure are in the | | | | | | results section. | + +--------+ + + + | EXTERNAL LAB: BUN | Routin | 03/29/2018 | | Results for this | | | e | | | procedure are in the | | | | | | results section. | + +--------+ + + + | EXTERNAL LAB: | Routin | 03/29/2018 | | Results for this | | GLUCOSE | e | | | procedure are in the | | | | | | results section. | + +--------+ + + + | EXTERNAL LAB: ALT | Routin | 03/29/2018 | | Results for this | | | e | | | procedure are in the | | | | | | results section. | + +--------+ + + + | EXTERNAL LAB: AST | Routin | 03/29/2018 | | Results for this | | | e | | | procedure are in the | | | | | | results section. | + +--------+ + + + | EXTERNAL LAB: | Routin | 03/29/2018 | | Results for this | | ALKALINE PHOSPHATASE | e | | | procedure are in the | | | | | | results section. | + +--------+ + + + | EXTERNAL LAB: | Routin | 03/29/2018 | | Results for this | | BILIRUBIN, TOTAL | e | | | procedure are in the | | | | | | results section. | + +--------+ + + + | EXTERNAL LAB: | Routin | 03/29/2018 | | Results for this | | ALBUMIN | e | | | procedure are in the | | | | | | results section. | + +--------+ + + + | EXTERNAL LAB: | Routin | 03/29/2018 | | Results for this | | PROTEIN, TOTAL | e | | | procedure are in the | | | | | | results section. | + +--------+ + + + | EXTERNAL LAB: | Routin | 03/29/2018 | | Results for this | | PHOSPHORUS | e | | | procedure are in the | | | | | | results section. | + +--------+ + + + | EXTERNAL LAB: | Routin | 03/29/2018 | | Results for this | | MAGNESIUM | e | | | procedure are in the | | | | | | results section. | + +--------+ + + + | EXTERNAL LAB: | Routin | 03/29/2018 | | Results for this | | CALCIUM | e | | | procedure are in the | | | | | | results section. | + +--------+ + + + | EXTERNAL LAB: CARBON | Routin | 03/29/2018 | | Results for this | | DIOXIDE | e | | | procedure are in the | | | | | | results section. | + +--------+ + + + | EXTERNAL LAB: | Routin | 03/29/2018 | | Results for this | | CHLORIDE | e | | | procedure are in the | | | | | | results section. | + +--------+ + + + | EXTERNAL LAB: | Routin | 03/29/2018 | | Results for this | | POTASSIUM | e | | | procedure are in the | | | | | | results section. | + +--------+ + + + | EXTERNAL LAB: SODIUM | Routin | 03/29/2018 | | Results for this | | | e | | | procedure are in the | | | | | | results section. | + +--------+ + + + | EXTERNAL LAB: PINKY | Routin | 03/29/2018 | | Results for this | | INTACT | e | | | procedure are in the | | | | | | results section. | + +--------+ + + + | EXTERNAL LAB: STACI | Routin | 03/29/2018 | | Results for this | | TOTAL | e | | | procedure are in the | | | | | | results section. | + +--------+ + + + | EXTERNAL LAB: IRON | Routin | 03/29/2018 | | Results for this | | SATURATION | e | | | procedure are in the | | | | | | results section. | + +--------+ + + + | EXTERNAL LAB: IRON | Routin | 03/29/2018 | | Results for this | | BINDING CAPACITY | e | | | procedure are in the | | | | | | results section. | + +--------+ + + + | EXTERNAL LAB: | Routin | 03/29/2018 | | Results for this | | FERRITIN | e | | | procedure are in the | | | | | | results section. | + +--------+ + + + | EXTERNAL LAB: CBC | Routin | 03/29/2018 | | Results for this | | | e | | | procedure are in the | | | | | | results section. | + +--------+ + + + | EXTERNAL LAB: EGFR | Routin | 03/29/2018 | | Results for this | | | e | | | procedure are in the | | | | | | results section. | + +--------+ + + + | EXTERNAL LAB: | Routin | 03/29/2018 | | Results for this | | CREATININE | e | | | procedure are in the | | | | | | results section. | + +--------+ + + + | IRON PROFILE, | Routin | 03/29/2018 | | Results for this | | (FE+IBC+FERR+%SAT) | e | | | procedure are in the | | | | | | results section. | + +--------+ + + + | RETIC COUNT | Routin | 03/29/2018 | | Results for this | | | e | | | procedure are in the | | | | | | results section. | + +--------+ + + + | CBC WITH | Routin | 03/29/2018 | | Results for this | | DIFFERENTIAL | e | | | procedure are in the | | | | | | results section. | + +--------+ + + + | COMPREHENSIVE | Routin | 03/29/2018 | | Results for this | | METABOLIC PANEL | e | | | procedure are in the | | | | | | results section. | + +--------+ + + + | EXTERNAL LAB: KARAN | Routin | 02/27/2018 | | Results for this | | | e | | | procedure are in the | | | | | | results section. | + +--------+ + + + | EXTERNAL LAB: | Routin | 02/27/2018 | | Results for this | | GLUCOSE | e | | | procedure are in the | | | | | | results section. | + +--------+ + + + | EXTERNAL LAB: | Routin | 02/27/2018 | | Results for this | | CALCIUM | e | | | procedure are in the | | | | | | results section. | + +--------+ + + + | EXTERNAL LAB: CARBON | Routin | 02/27/2018 | | Results for this | | DIOXIDE | e | | | procedure are in the | | | | | | results section. | + +--------+ + + + | EXTERNAL LAB: | Routin | 02/27/2018 | | Results for this | | CHLORIDE | e | | | procedure are in the | | | | | | results section. | + +--------+ + + + | EXTERNAL LAB: | Routin | 02/27/2018 | | Results for this | | POTASSIUM | e | | | procedure are in the | | | | | | results section. | + +--------+ + + + | EXTERNAL LAB: SODIUM | Routin | 02/27/2018 | | Results for this | | | e | | | procedure are in the | | | | | | results section. | + +--------+ + + + | EXTERNAL LAB: EGFR | Routin | 02/27/2018 | | Results for this | | | e | | | procedure are in the | | | | | | results section. | + +--------+ + + + | EXTERNAL LAB: | Routin | 02/27/2018 | | Results for this | | CREATININE | e | | | procedure are [...] + + documented in this encounter Results Comprehensive Metabolic Panel (05/01/2018) + +-------+ + + + | Component | Value | Ref Range | Performed | Pathologist | | | | | At | Signature | + +-------+ + + + | Anion Gap | 20 | 7 - 21 mmol/L | | | + +-------+ + + + | BUN/Creatin | 25.1 | 6 - 28.6 | | | | ine Ratio | | | | | + +-------+ + + + | Globulin | 2.6 | 1.8 - 3.5 | | | + +-------+ + + + | Albumin/Talya | 1.7 | 1.1 - 2.4 | | | | bulin Ratio | | | | | + +-------+ + + + + + | Specimen | + + | Blood | + + Hepatitis A, B, C Panel, Reflex (05/01/2018) + + + + + + | Component | Value | Ref Range | Performed | Pathologist | | | | | At | Signature | + + + + + + | HAV AB IGM | Negative | | | | + + + + + + | Hepatitis B | Negative | | | | | Surface | | | | | | Ag, | | | | | | External | | | | | + + + + + + | HEP B | Negative | | | | | SURFACE | | | | | | ANTIBODY | | | | | + + + + + + | Hepatitis B | Non Reactive | Non Reactive | | | | Core Ab, | | | | | | Total | | | | | + + + + + + | HCV Ab | Negative | | | | + + + + + + + + | Specimen | + + | Blood | + + External Lab: PTH, Intact (05/01/2018) + + + + + + | Component | Value | Ref Range | Performed | Pathologist | | | | | At | Signature | + + + + + + | PTH Intact, | 80.69 (A) | 15 - 65 | | | | External | | | | | + + + + + + + + | Specimen | + + | | + + Urinalysis, Reflex Microscopic and/or Culture (05/01/2018) + + + + + + | Component | Value | Ref Range | Performed | Pathologist | | | | | At | Signature | + + + + + + | COLLECTION | Clean Catch | | | | | METHOD 1 | | | | | + + + + + + | Color | Straw | | | | + + + + + + | Clarity | Clear | | | | + + + + + + | Bilirubin, | Negative | Negative | | | | Urine | | | | | + + + + + + | Nitrite, | Negative | Negative | | | | Urine | | | | | + + + + + + | Urobilinoge | Normal | < 0.2 mg/dL, | | | | n, Urine | | 1.0 mg/dL, 4.0 | | | | | | mg/dL, Normal, | | | | | | 1.0 E.U./dL, | | | | | | 0.2 E.U./dL, | | | | | | 0.2 mg/dL, | | | | | | Negative, 1 | | | | | | mg/dL, <2.0 | | | | | | mg/dL | | | + + + + + + | CASTS | 1+ | | | | + + + + + + | WBC, UA | 0 | 0 - 4 | | | + + + + + + | Squamous | 1+ | | | | | epithelial, | | | | | | UA, POC | | | | | + + + + + + | CRYSTAL UA | Negative | | | | + + + + + + | Bacteria, | Negative | | | | | UA | | | | | + + + + + + + + | Specimen | + + | Urine | + + CBC with Differential (05/01/2018) + +-------+ + + + | Component | Value | Ref Range | Performed | Pathologist | | | | | At | Signature | + +-------+ + + + | MCH | 31.0 | 26.0 - 33.0 pg | | | + +-------+ + + + | MCHC | 33.0 | 30.0 - 36.0 % | | | + +-------+ + + + | % Basophils | 0.5 | 0.0 - 2.0 % | | | + +-------+ + + + + + | Specimen | + + | Blood | + + Renal Function Panel (05/01/2018) + + + + + + | Component | Value | Ref Range | Performed | Pathologist | | | | | At | Signature | + + + + + + | Na | 140 | 132 - 143 | | | | | | mmol/L | | | + + + + + + | K | 3.7 | 3.6 - 5.1 | | | | | | mmol/L | | | + + + + + + | Cl | 95 | 95 - 112 mmol/L | | | + + + + + + | Carbon | 31 | 19 - 31 | | | | Dioxide, WB | | | | | + + + + + + | Anion Gap | 18 | 7 - 21 mmol/L | | | + + + + + + | Glucose | 113 (A) | 70 - 100 mg/dL | | | + + + + + + | BUN, | 49 (A) | 6 - 23 | | | | External | | | | | + + + + + + | Creatinine | 2.06 (A) | 0.7 - 1.25 | | | + + + + + + | GFR | 24 (A) | 60 - 99,999 | | | | ESTIMATE | | | | | | (REF) | | | | | + + + + + + | BUN/Creatin | 23.8 | 6 - 28.6 | | | | ine Ratio | | | | | + + + + + + | Albumin | 4.5 | 3.5 - 5.0 g/dL | | | + + + + + + | Calcium | 10.5 (A) | 8.5 - 10.3 | | | | | | mg/dL | | | + + + + + + | Phosphorus, | 4.1 | 2.5 - 5 | | | | Inorganic | | | | | + + + + + + + + | Specimen | + + | Blood | + + External Lab: BUN (05/01/2018) + +--------+ + + + | Component | Value | Ref Range | Performed | Pathologist | | | | | At | Signature | + +--------+ + + + | BUN, | 50 (A) | 6 - 23 | EXTERNAL | | | External | | | LAB | | + +--------+ + + + + + | Specimen | + + | | + + + +---------+ + + | Performing | Address | City/State/Zipcode | Phone Number | | Organization | | | | + +---------+ + + | EXTERNAL LAB | | | | + +---------+ + + External Lab: Glucose (05/01/2018) + +---------+ + + + | Component | Value | Ref Range | Performed | Pathologist | | | | | At | Signature | + +---------+ + + + | Glucose, | 113 (A) | 70 - 100 | EXTERNAL | | | External | | | LAB | | + +---------+ + + + + +---------+ + + | Performing | Address | City/State/Zipcode | Phone Number | | Organization | | | | + +---------+ + + | EXTERNAL LAB | | | | + +---------+ + + External Lab: ALT (05/01/2018) + +--------+ + + + | Component | Value | Ref Range | Performed | Pathologist | | | | | At | Signature | + +--------+ + + + | ALT, | 62 (A) | 7 - 52 | EXTERNAL | | | External | | | LAB | | + +--------+ + + + + +---------+ + + | Performing | Address | City/State/Zipcode | Phone Number | | Organization | | | | + +---------+ + + | EXTERNAL LAB | | | | + +---------+ + + External Lab: AST (05/01/2018) + +--------+ + + + | Component | Value | Ref Range | Performed | Pathologist | | | | | At | Signature | + +--------+ + + + | AST, | 50 (A) | 13 - 39 | EXTERNAL | | | External | | | LAB | | + +--------+ + + + + +---------+ + + | Performing | Address | City/State/Zipcode | Phone Number | | Organization | | | | + +---------+ + + | EXTERNAL LAB | | | | + +---------+ + + External Lab: Alkaline Phosphatase (05/01/2018) + +-------+ + + + | Component | Value | Ref Range | Performed | Pathologist | | | | | At | Signature | + +-------+ + + + | ALP, | 114 | 31 - 130 | EXTERNAL | | | External | | | LAB | | + +-------+ + + + + +---------+ + + | Performing | Address | City/State/Zipcode | Phone Number | | Organization | | | | + +---------+ + + | EXTERNAL LAB | | | | + +---------+ + + External Lab: Bilirubin, Total (05/01/2018) + +-------+ + + + | Component | Value | Ref Range | Performed | Pathologist | | | | | At | Signature | + +-------+ + + + | Bilirubin, | 0.6 | 0 - 1.2 | EXTERNAL | | | Total, | | | LAB | | | External | | | | | + +-------+ + + + + +---------+ + + | Performing | Address | City/State/Zipcode | Phone Number | | Organization | | | | + +---------+ + + | EXTERNAL LAB | | | | + +---------+ + + External Lab: Albumin (05/01/2018) + +-------+ + + + | Component | Value | Ref Range | Performed | Pathologist | | | | | At | Signature | + +-------+ + + + | Albumin, | 4.5 | 3.5 - 5 | EXTERNAL | | | External | | | LAB | | + +-------+ + + + + +---------+ + + | Performing | Address | City/State/Zipcode | Phone Number | | Organization | | | | + +---------+ + + | EXTERNAL LAB | | | | + +---------+ + + External Lab: Protein, Total (05/01/2018) + +-------+ + + + | Component | Value | Ref Range | Performed | Pathologist | | | | | At | Signature | + +-------+ + + + | Protein, | 7.1 | 6 - 8.3 | EXTERNAL | | | Total, | | | LAB | | | External | | | | | + +-------+ + + + + +---------+ + + | Performing | Address | City/State/Zipcode | Phone Number | | Organization | | | | + +---------+ + + | EXTERNAL LAB | | | | + +---------+ + + External Lab: Calcium (05/01/2018) + + + + + + | Component | Value | Ref Range | Performed | Pathologist | | | | | At | Signature | + + + + + + | Calcium, | 10.4 (A) | 8.5 - 10.3 | EXTERNAL | | | External | | | LAB | | + + + + + + + +---------+ + + | Performing | Address | City/State/Zipcode | Phone Number | | Organization | | | | + +---------+ + + | EXTERNAL LAB | | | | + +---------+ + + External Lab: Carbon Dioxide (05/01/2018) + +-------+ + + + | Component | Value | Ref Range | Performed | Pathologist | | | | | At | Signature | + +-------+ + + + | Carbon | 30 | 19 - 31 | EXTERNAL | | | Dioxide, | | | LAB | | | External | | | | | + +-------+ + + + + +---------+ + + | Performing | Address | City/State/Zipcode | Phone Number | | Organization | | | | + +---------+ + + | EXTERNAL LAB | | | | + +---------+ + + External Lab: Chloride (05/01/2018) + +-------+ + + + | Component | Value | Ref Range | Performed | Pathologist | | | | | At | Signature | + +-------+ + + + | Chloride, | 96 | 95 - 112 | EXTERNAL | | | External | | | LAB | | + +-------+ + + + + +---------+ + + | Performing | Address | City/State/Zipcode | Phone Number | | Organization | | | | + +---------+ + + | EXTERNAL LAB | | | | + +---------+ + + External Lab: Potassium (05/01/2018) + +-------+ + + + | Component | Value | Ref Range | Performed | Pathologist | | | | | At | Signature | + +-------+ + + + | Potassium, | 3.7 | 3.6 - 5.1 | EXTERNAL | | | External | | | LAB | | + +-------+ + + + + +---------+ + + | Performing | Address | City/State/Zipcode | Phone Number | | Organization | | | | + +---------+ + + | EXTERNAL LAB | | | | + +---------+ + + External Lab: Sodium (05/01/2018) + +-------+ + + + | Component | Value | Ref Range | Performed | Pathologist | | | | | At | Signature | + +-------+ + + + | Sodium, | 142 | 132 - 143 | EXTERNAL | | | External | | | LAB | | + +-------+ + + + + +---------+ + + | Performing | Address | City/State/Zipcode | Phone Number | | Organization | | | | + +---------+ + + | EXTERNAL LAB | | | | + +---------+ + + External Lab: Urinalysis (05/01/2018) + + + + + + | Component | Value | Ref Range | Performed | Pathologist | | | | | At | Signature | + + + + + + | UA Blood, | Negative | | EXTERNAL | | | External | | | LAB | | + + + + + + | UA Glucose, | Normal | | EXTERNAL | | | External | | | LAB | | + + + + + + | UA Ketones, | Negative | | EXTERNAL | | | External | | | LAB | | + + + + + + | UA Ph, | 7 | 5 - 9 | EXTERNAL | | | External | | | LAB | | + + + + + + | UA | Negative | | EXTERNAL | | | Proteins, | | | LAB | | | External | | | | | + + + + + + | UA RBC, | 0 | 0 - 4 | EXTERNAL | | | External | | | LAB | | + + + + + + | UA Specific | 1.006 | 1.005 - 1.03 | EXTERNAL | | | [place], | | | LAB | | | External | | | | | + + + + + + | UA | Negative | | EXTERNAL | | | Leukocyte | | | LAB | | | Esterase, | | | | | | External | | | | | + + + + + + + + + | Narrative | Performed At | + + + | Correct ordering provider: Arslan Robertson | EXTERNAL LAB | + + + + +---------+ + + | Performing | Address | City/State/Zipcode | Phone Number | | Organization | | | | + +---------+ + + | EXTERNAL LAB | | | | + +---------+ + + External Lab: CBC (05/01/2018) + + + + + + | Component | Value | Ref Range | Performed | Pathologist | | | | | At | Signature | + + + + + + | WBC, | 8.5 | 4.5 - 11 | EXTERNAL | | | External | | | LAB | | + + + + + + | HGB, | 12.8 | 12 - 16 | EXTERNAL | | | External | | | LAB | | + + + + + + | HCT, | 38.7 | 35 - 45 | EXTERNAL | | | External | | | LAB | | + + + + + + | PLT, | 234 | 140 - 440 | EXTERNAL | | | External | | | LAB | | + + + + + + | Neutrophils | 65.1 | 39 - 80 | EXTERNAL | | | %, | | | LAB | | | External | | | | | + + + + + + | Lymphocytes | 21.1 (A) | 24 - 44 | EXTERNAL | | | %, | | | LAB | | | External | | | | | + + + + + + | Monocytes | 6.4 | 0 - 12 | EXTERNAL | | | %, External | | | LAB | | + + + + + + | Eosinophils | 6.9 (A) | 0 - 6 | EXTERNAL | | | %, | | | LAB | | | External | | | | | + + + + + + | RBC, | 4.14 | 3.8 - 5.1 | EXTERNAL | | | External | | | LAB | | + + + + + + | MCV, | 94 | 81 - 99 | EXTERNAL | | | External | | | LAB | | + + + + + + | RDW, | 14.1 | 10.5 - 15 | EXTERNAL | | | External | | | LAB | | + + + + + + + + + | Narrative | Performed At | + + + | Correct ordering provider: Arslan Robertson | EXTERNAL LAB | + + + + +---------+ + + | Performing | Address | City/State/Zipcode | Phone Number | | Organization | | | | + +---------+ + + | EXTERNAL LAB | | | | + +---------+ + + External Lab: Sofía THOMPSON (05/01/2018) + +-------+ + + + | Component | Value | Ref Range | Performed | Pathologist | | | | | At | Signature | + +-------+ + + + | INR, | 1.1 | | EXTERNAL | | | External | | | LAB | | + +-------+ + + + | PT, | 14.1 | 11.8 - 14.2 | EXTERNAL | | | External | | | LAB | | + +-------+ + + + + + | Specimen | + + | Blood | + + + +---------+ + + | Performing | Address | City/State/Zipcode | Phone Number | | Organization | | | | + +---------+ + + | EXTERNAL LAB | | | | + +---------+ + + External Lab: eGFR (05/01/2018) + +--------+ + + + | Component | Value | Ref Range | Performed | Pathologist | | | | | At | Signature | + +--------+ + + + | eGFR, | 25 (A) | 60 - 2,999 | EXTERNAL | | | External | | | LAB | | + +--------+ + + + + + | Specimen | + + | Blood | + + + +---------+ + + | Performing | Address | City/State/Zipcode | Phone Number | | Organization | | | | + +---------+ + + | EXTERNAL LAB | | | | + +---------+ + + External Lab: Creatinine (05/01/2018) + + + + + + | Component | Value | Ref Range | Performed | Pathologist | | | | | At | Signature | + + + + + + | Creatinine, | 1.99 (A) | 0.7 - 1.25 | EXTERNAL | | | External | | | LAB | | + + + + + + + + | Specimen | + + | Blood | + + + +---------+ + + | Performing | Address | City/State/Zipcode | Phone Number | | Organization | | | | + +---------+ + + | EXTERNAL LAB | | | | + +---------+ + + External Lab: PTH, Intact (03/29/2018) + + + + + + | Component | Value | Ref Range | Performed | Pathologist | | | | | At | Signature | + + + + + + | PTH Intact, | 72.48 (A) | 15 - 65 | | | | External | | | | | + + + + + + + + | Specimen | + + | | + + Retic Count (03/29/2018) + + + + + + | Component | Value | Ref Range | Performed | Pathologist | | | | | At | Signature | + + + + + + | Absolute | 86.2 (A) | 40 - 79 | | | | Reticulocyt | | | | | | e Count | | | | | + + + + + + | % | 2.1 | 0.8 - 2.1 % | | | | Reticulocyt | | | | | | e Count | | | | | + + + + + + | Reticulocyt | 1.4 | 1 - 2 | | | | e | | | | | | Production | | | | | | Index | | | | | + + + + + + + + | Specimen | + + | Blood | + + CBC with Differential (03/29/2018) + +-------+ + + + | Component | Value | Ref Range | Performed | Pathologist | | | | | At | Signature | + +-------+ + + + | MCH | 31.0 | 26.0 - 33.0 pg | | | + +-------+ + + + | MCHC | 34.0 | 30.0 - 36.0 % | | | + +-------+ + + + | % Basophils | 1.7 | 0.0 - 2.0 % | | | + +-------+ + + + + + | Specimen | + + | Blood | + + Comprehensive Metabolic Panel (03/29/2018) + +-------+ + + + | Component | Value | Ref Range | Performed | Pathologist | | | | | At | Signature | + +-------+ + + + | Anion Gap | 16 | 7 - 21 mmol/L | | | + +-------+ + + + | BUN/Creatin | 20.8 | 6 - 28.6 | | | | ine Ratio | | | | | + +-------+ + + + | Globulin | 3.1 | 1.8 - 3.5 | | | + +-------+ + + + | Albumin/Talya | 1.4 | 1.1 - 2.4 | | | | bulin Ratio | | | | | + +-------+ + + + + + | Specimen | + + | Blood | + + Iron Profile (03/29/2018) + +-------+ + + + | Component | Value | Ref Range | Performed | Pathologist | | | | | At | Signature | + +-------+ + + + | TIBC | 371 | 245 - 400 ug/dL | | | + +-------+ + + + | TRANSFERRIN | 265.3 | 192.0 - 382.0 | | | | | | mg/dL | | | + +-------+ + + + + + | Specimen | + + | Blood | + + External Lab: BUN (03/29/2018) + +--------+ + + + | Component | Value | Ref Range | Performed | Pathologist | | | | | At | Signature | + +--------+ + + + | BUN, | 43 (A) | 6 - 23 | EXTERNAL | | | External | | | LAB | | + +--------+ + + + + +---------+ + + | Performing | Address | City/State/Zipcode | Phone Number | | Organization | | | | + +---------+ + + | EXTERNAL LAB | | | | + +---------+ + + External Lab: Glucose (03/29/2018) + +---------+ + + + | Component | Value | Ref Range | Performed | Pathologist | | | | | At | Signature | + +---------+ + + + | Glucose, | 142 (A) | 70 - 100 | EXTERNAL | | | External | | | LAB | | + +---------+ + + + + +---------+ + + | Performing | Address | City/State/Zipcode | Phone Number | | Organization | | | | + +---------+ + + | EXTERNAL LAB | | | | + +---------+ + + External Lab: ALT (03/29/2018) + +--------+ + + + | Component | Value | Ref Range | Performed | Pathologist | | | | | At | Signature | + +--------+ + + + | ALT, | 56 (A) | 7 - 52 | EXTERNAL | | | External | | | LAB | | + +--------+ + + + + +---------+ + + | Performing | Address | City/State/Zipcode | Phone Number | | Organization | | | | + +---------+ + + | EXTERNAL LAB | | | | + +---------+ + + External Lab: AST (03/29/2018) + +--------+ + + + | Component | Value | Ref Range | Performed | Pathologist | | | | | At | Signature | + +--------+ + + + | AST, | 45 (A) | 13 - 39 | EXTERNAL | | | External | | | LAB | | + +--------+ + + + + +---------+ + + | Performing | Address | City/State/Zipcode | Phone Number | | Organization | | | | + +---------+ + + | EXTERNAL LAB | | | | + +---------+ + + External Lab: Alkaline Phosphatase (03/29/2018) + +-------+ + + + | Component | Value | Ref Range | Performed | Pathologist | | | | | At | Signature | + +-------+ + + + | ALP, | 124 | 31 - 130 | EXTERNAL | | | External | | | LAB | | + +-------+ + + + + +---------+ + + | Performing | Address | City/State/Zipcode | Phone Number | | Organization | | | | + +---------+ + + | EXTERNAL LAB | | | | + +---------+ + + External Lab: Bilirubin, Total (03/29/2018) + +-------+ + + + | Component | Value | Ref Range | Performed | Pathologist | | | | | At | Signature | + +-------+ + + + | Bilirubin, | 0.5 | 0 - 1.2 | EXTERNAL | | | Total, | | | LAB | | | External | | | | | + +-------+ + + + + +---------+ + + | Performing | Address | City/State/Zipcode | Phone Number | | Organization | | | | + +---------+ + + | EXTERNAL LAB | | | | + +---------+ + + External Lab: Albumin (03/29/2018) + +-------+ + + + | Component | Value | Ref Range | Performed | Pathologist | | | | | At | Signature | + +-------+ + + + | Albumin, | 4.4 | 3.5 - 5 | EXTERNAL | | | External | | | LAB | | + +-------+ + + + + +---------+ + + | Performing | Address | City/State/Zipcode | Phone Number | | Organization | | | | + +---------+ + + | EXTERNAL LAB | | | | + +---------+ + + External Lab: Protein, Total (03/29/2018) + +-------+ + + + | Component | Value | Ref Range | Performed | Pathologist | | | | | At | Signature | + +-------+ + + + | Protein, | 7.5 | 6 - 8.3 | EXTERNAL | | | Total, | | | LAB | | | External | | | | | + +-------+ + + + + +---------+ + + | Performing | Address | City/State/Zipcode | Phone Number | | Organization | | | | + +---------+ + + | EXTERNAL LAB | | | | + +---------+ + + External Lab: Phosphorus (03/29/2018) + +-------+ + + + | Component | Value | Ref Range | Performed | Pathologist | | | | | At | Signature | + +-------+ + + + | Phosphorus, | 3 | 2.5 - 5 | EXTERNAL | | | External | | | LAB | | + +-------+ + + + + +---------+ + + | Performing | Address | City/State/Zipcode | Phone Number | | Organization | | | | + +---------+ + + | EXTERNAL LAB | | | | + +---------+ + + External Lab: Magnesium (03/29/2018) + +-------+ + + + | Component | Value | Ref Range | Performed | Pathologist | | | | | At | Signature | + +-------+ + + + | Magnesium, | 2.2 | 1.7 - 2.5 | EXTERNAL | | | External | | | LAB | | + +-------+ + + + + +---------+ + + | Performing | Address | City/State/Zipcode | Phone Number | | Organization | | | | + +---------+ + + | EXTERNAL LAB | | | | + +---------+ + + External Lab: Calcium (03/29/2018) + +-------+ + + + | Component | Value | Ref Range | Performed | Pathologist | | | | | At | Signature | + +-------+ + + + | Calcium, | 10 | 8.4 - 10.2 | EXTERNAL | | | External | | | LAB | | + +-------+ + + + + +---------+ + + | Performing | Address | City/State/Zipcode | Phone Number | | Organization | | | | + +---------+ + + | EXTERNAL LAB | | | | + +---------+ + + External Lab: Carbon Dioxide (03/29/2018) + +-------+ + + + | Component | Value | Ref Range | Performed | Pathologist | | | | | At | Signature | + +-------+ + + + | Carbon | 29 | 19 - 31 | EXTERNAL | | | Dioxide, | | | LAB | | | External | | | | | + +-------+ + + + + +---------+ + + | Performing | Address | City/State/Zipcode | Phone Number | | Organization | | | | + +---------+ + + | EXTERNAL LAB | | | | + +---------+ + + External Lab: Chloride (03/29/2018) + +-------+ + + + | Component | Value | Ref Range | Performed | Pathologist | | | | | At | Signature | + +-------+ + + + | Chloride, | 96 | 95 - 112 | EXTERNAL | | | External | | | LAB | | + +-------+ + + + + +---------+ + + | Performing | Address | City/State/Zipcode | Phone Number | | Organization | | | | + +---------+ + + | EXTERNAL LAB | | | | + +---------+ + + External Lab: Potassium (03/29/2018) + +---------+ + + + | Component | Value | Ref Range | Performed | Pathologist | | | | | At | Signature | + +---------+ + + + | Potassium, | 3.5 (A) | 3.6 - 5.1 | EXTERNAL | | | External | | | LAB | | + +---------+ + + + + +---------+ + + | Performing | Address | City/State/Zipcode | Phone Number | | Organization | | | | + +---------+ + + | EXTERNAL LAB | | | | + +---------+ + + External Lab: Sodium (03/29/2018) + +-------+ + + + | Component | Value | Ref Range | Performed | Pathologist | | | | | At | Signature | + +-------+ + + + | Sodium, | 137 | 132 - 143 | EXTERNAL | | | External | | | LAB | | + +-------+ + + + + +---------+ + + | Performing | Address | City/State/Zipcode | Phone Number | | Organization | | | | + +---------+ + + | EXTERNAL LAB | | | | + +---------+ + + External Lab: Iron Total (03/29/2018) + +-------+ + + + | Component | Value | Ref Range | Performed | Pathologist | | | | | At | Signature | + +-------+ + + + | Iron, | 62.09 | 37 - 160 | EXTERNAL | | | External | | | LAB | | + +-------+ + + + + +---------+ + + | Performing | Address | City/State/Zipcode | Phone Number | | Organization | | | | + +---------+ + + | EXTERNAL LAB | | | | + +---------+ + + External Lab: Iron Saturation (03/29/2018) + + + + + + | Component | Value | Ref Range | Performed | Pathologist | | | | | At | Signature | + + + + + + | Iron | 16.7 (A) | 20 - 55 | EXTERNAL | | | Saturation, | | | LAB | | | External | | | | | + + + + + + + +---------+ + + | Performing | Address | City/State/Zipcode | Phone Number | | Organization | | | | + +---------+ + + | EXTERNAL LAB | | | | + +---------+ + + External Lab: Iron Binding Capacity (03/29/2018) + +-------+ + + + | Component | Value | Ref Range | Performed | Pathologist | | | | | At | Signature | + +-------+ + + + | Iron | 309 | | EXTERNAL | | | Binding | | | LAB | | | Capacity, | | | | | | External | | | | | + +-------+ + + + + +---------+ + + | Performing | Address | City/State/Zipcode | Phone Number | | Organization | | | | + +---------+ + + | EXTERNAL LAB | | | | + +---------+ + + External Lab: Ferritin (03/29/2018) + + + + + + | Component | Value | Ref Range | Performed | Pathologist | | | | | At | Signature | + + + + + + | Ferritin, | 342.1 (A) | 13 - 150 | EXTERNAL | | | External | | | LAB | | + + + + + + + +---------+ + + | Performing | Address | City/State/Zipcode | Phone Number | | Organization | | | | + +---------+ + + | EXTERNAL LAB | | | | + +---------+ + + External Lab: CBC (03/29/2018) + +--------+ + + + | Component | Value | Ref Range | Performed | Pathologist | | | | | At | Signature | + +--------+ + + + | WBC, | 9.8 | 4.5 - 11 | EXTERNAL | | | External | | | LAB | | + +--------+ + + + | HGB, | 13.3 | 12 - 16 | EXTERNAL | | | External | | | LAB | | + +--------+ + + + | HCT, | 39.5 | 35 - 45 | EXTERNAL | | | External | | | LAB | | + +--------+ + + + | PLT, | 222 | 140 - 440 | EXTERNAL | | | External | | | LAB | | + +--------+ + + + | Neutrophils | 69.7 | 39 - 80 | EXTERNAL | | | %, | | | LAB | | | External | | | | | + +--------+ + + + | Lymphocytes | 17 (A) | 24 - 44 | EXTERNAL | | | %, | | | LAB | | | External | | | | | + +--------+ + + + | Monocytes | 5.6 | 0 - 12 | EXTERNAL | | | %, External | | | LAB | | + +--------+ + + + | Eosinophils | 6 | 0 - 6 | EXTERNAL | | | %, | | | LAB | | | External | | | | | + +--------+ + + + | Neutrophils | 6.83 | 2 - 6.9 | EXTERNAL | | | , Absolute, | | | LAB | | | External | | | | | + +--------+ + + + | Lymphocytes | 17 (A) | 24 - 44 | EXTERNAL | | | , Absolute, | | | LAB | | | External | | | | | + +--------+ + + + | Monocytes, | 5.6 | 0 - 12 | EXTERNAL | | | Absolute, | | | LAB | | | External | | | | | + +--------+ + + + | Eosinophils | 0.59 | 0 - 0.7 | EXTERNAL | | | , Absolute | | | LAB | | + +--------+ + + + | Basophils, | 0.17 | 0 - 0.2 | EXTERNAL | | | Absolute | | | LAB | | + +--------+ + + + | RBC, | 4.33 | 3.8 - 5.1 | EXTERNAL | | | External | | | LAB | | + +--------+ + + + | MCV, | 91 | 81 - 99 | EXTERNAL | | | External | | | LAB | | + +--------+ + + + | RDW, | 13.1 | 10.5 - 15 | EXTERNAL | | | External | | | LAB | | + +--------+ + + + + +---------+ + + | Performing | Address | City/State/Zipcode | Phone Number | | Organization | | | | + +---------+ + + | EXTERNAL LAB | | | | + +---------+ + + External Lab: eGFR (03/29/2018) + +--------+ + + + | Component | Value | Ref Range | Performed | Pathologist | | | | | At | Signature | + +--------+ + + + | eGFR, | 24 (A) | 60 - 99,999 | EXTERNAL | | | External | | | LAB | | + +--------+ + + + + + | Specimen | + + | Blood | + + + +---------+ + + | Performing | Address | City/State/Zipcode | Phone Number | | Organization | | | | + +---------+ + + | EXTERNAL LAB | | | | + +---------+ + + External Lab: Creatinine (03/29/2018) + + + + + + | Component | Value | Ref Range | Performed | Pathologist | | | | | At | Signature | + + + + + + | Creatinine, | 2.07 (A) | 0.7 - 1.25 | EXTERNAL | | | External | | | LAB | | + + + + + + + + | Specimen | + + | Blood | + + + +---------+ + + | Performing | Address | City/State/Zipcode | Phone Number | | Organization | | | | + +---------+ + + | EXTERNAL LAB | | | | + +---------+ + + Basic Metabolic Panel (02/27/2018) + +-------+ + + + | Component | Value | Ref Range | Performed | Pathologist | | | | | At | Signature | + +-------+ + + + | Anion Gap | 19 | 7 - 21 mmol/L | | | + +-------+ + + + | BUN/Creatin | 27.2 | 6 - 28.6 | | | | ine Ratio | | | | | + +-------+ + + + + + | Specimen | + + | Blood | + + External Lab: BUN (02/27/2018) + +--------+ + + + | Component | Value | Ref Range | Performed | Pathologist | | | | | At | Signature | + +--------+ + + + | BUN, | 47 (A) | 6 - 23 | EXTERNAL | | | External | | | LAB | | + +--------+ + + + + +---------+ + + | Performing | Address | City/State/Zipcode | Phone Number | | Organization | | | | + +---------+ + + | EXTERNAL LAB | | | | + +---------+ + + External Lab: Glucose (02/27/2018) + +---------+ + + + | Component | Value | Ref Range | Performed | Pathologist | | | | | At | Signature | + +---------+ + + + | Glucose, | 142 (A) | 70 - 100 | EXTERNAL | | | External | | | LAB | | + +---------+ + + + + +---------+ + + | Performing | Address | City/State/Zipcode | Phone Number | | Organization | | | | + +---------+ + + | EXTERNAL LAB | | | | + +---------+ + + External Lab: Calcium (02/27/2018) + +-------+ + + + | Component | Value | Ref Range | Performed | Pathologist | | | | | At | Signature | + +-------+ + + + | Calcium, | 10.2 | 8.4 - 10.2 | EXTERNAL | | | External | | | LAB | | + +-------+ + + + + +---------+ + + | Performing | Address | City/State/Zipcode | Phone Number | | Organization | | | | + +---------+ + + | EXTERNAL LAB | | | | + +---------+ + + External Lab: Carbon Dioxide (02/27/2018) + +-------+ + + + | Component | Value | Ref Range | Performed | Pathologist | | | | | At | Signature | + +-------+ + + + | Carbon | 29 | 19 - 31 | EXTERNAL | | | Dioxide, | | | LAB | | | External | | | | | + +-------+ + + + + +---------+ + + | Performing | Address | City/State/Zipcode | Phone Number | | Organization | | | | + +---------+ + + | EXTERNAL LAB | | | | + +---------+ + + External Lab: Chloride (02/27/2018) + +--------+ + + + | Component | Value | Ref Range | Performed | Pathologist | | | | | At | Signature | + +--------+ + + + | Chloride, | 93 (A) | 95 - 112 | EXTERNAL | | | External | | | LAB | | + +--------+ + + + + +---------+ + + | Performing | Address | City/State/Zipcode | Phone Number | | Organization | | | | + +---------+ + + | EXTERNAL LAB | | | | + +---------+ + + External Lab: Potassium (02/27/2018) + +-------+ + + + | Component | Value | Ref Range | Performed | Pathologist | | | | | At | Signature | + +-------+ + + + | Potassium, | 3.7 | 3.6 - 5.1 | EXTERNAL | | | External | | | LAB | | + +-------+ + + + + +---------+ + + | Performing | Address | City/State/Zipcode | Phone Number | | Organization | | | | + +---------+ + + | EXTERNAL LAB | | | | + +---------+ + + External Lab: Sodium (02/27/2018) + +-------+ + + + | Component | Value | Ref Range | Performed | Pathologist | | | | | At | Signature | + +-------+ + + + | Sodium, | 137 | 132 - 143 | EXTERNAL | | | External | | | LAB | | + +-------+ + + + + +---------+ + + | Performing | Address | City/State/Zipcode | Phone Number | | Organization | | | | + +---------+ + + | EXTERNAL LAB | | | | + +---------+ + + External Lab: eGFR (02/27/2018) + +--------+ + + + | Component | Value | Ref Range | Performed | Pathologist | | | | | At | Signature | + +--------+ + + + | eGFR, | 29 (A) | 60 - 99,999 | EXTERNAL | | | External | | | LAB | | + +--------+ + + + + + | Specimen | + + | Blood | + + + +---------+ + + | Performing | Address | City/State/Zipcode | Phone Number | | Organization | | | | + +---------+ + + | EXTERNAL LAB | | | | + +---------+ + + External Lab: Creatinine (02/27/2018) + + + + + + | Component | Value | Ref Range | Performed | Pathologist | | | | | At | Signature | + + + + + + | Creatinine, | 1.73 (A) | 0.7 - 1.25 | EXTERNAL | | | External | | | LAB | | + + + + + + + + | Specimen | + + | Blood | + + + +---------+ + + | Performing | Address | City/State/Zipcode | Phone Number | | Organization | | | | + +---------+ + + | EXTERNAL LAB | | | | + +---------+ + + documented in this encounter Visit Diagnoses Not on filedocumented in this encounter"
--- OUTSIDE RECORDS SUMMARY | ~2020-01-04 | XMS | Encounter Summary ---
Demographics + + + | Address | [address] | | | [place] [address] | + + + | Home Phone | | + + + | Preferred Language | Unknown | + + + | Marital Status | | + + + | Holiness Affiliation | CHR | + + + | Race | White | + + + | Ethnic Group | Not or | + + + Author + + + | Author | [facility] | + + + | Organization | [facility] | + + + | Address | Unknown | + + + | Phone | Unavailable | + + + Support + + +---------+ + | Name | Relationship | Address | Phone | + + +---------+ + | Jose Minaya | ECON | Unknown | | + + +---------+ + Care Team Providers + +------+ + | Care Store Operations Associate Name | Role | Phone | + +------+ + | Shazia Tamayo MD | PCP | | + +------+ + Reason for Visit + + + | Reason | Comments | + + + | Urinary retention | | + + + Encounter Details +--------+ + + + + | Date | Type | Department | Care Team | Description | +--------+ + + + + | 11/20/ | Telephone | [facility] | Seymour Cerrato MD | Urinary retention | | 2020 | | [address] | [address] | | | | | [facility] | [place], [place] | | | | | and [place], | [address] | | | | | Building | [phone] | | | | | Floor [place], [place] | | | | | | [address] | | | | | | [phone] | | | +--------+ + + + [...] [place] | | | | | | [address] | | | | | | [phone] | | | | | | | | +--------+---------+ + + + documented as of this encounter Visit Diagnoses Not on filedocumented in this encounter"
--- OUTSIDE RECORDS SUMMARY | ~2020-01-04 | XMS | Encounter Summary ---
Demographics + + + | Address | [address] | | | [place] [address] | + + + | Home Phone | | + + + | Preferred Language | Unknown | + + + | Marital Status | | + + + | Sabianism Affiliation | 1013 | + + + | Race | Unknown | + + + | Ethnic Group | Unknown | + + + Author + + + | Author | [facility] | | | and [place] | + + + | Organization | [facility] | | [...] [place] | | | | | [address] | | + + + + + Care Team Providers + +------+ + | Care Bell Captain Name | Role | Phone | + +------+ + | Shazia Tamayo MD | PCP | | + +------+ + Encounter Details +--------+ + + + + | Date | Type | Department | Care Team | Description | +--------+ + + + + | 06/06/ | Orders Only | [facility] | Arslan Robertson MD | Essential | | 2019 | | NEPHROLOGY [place] | [address] [place] | hypertension | | | | [address] [place] | [address] [place], [place] | (Primary Dx); | | | | [address] [place], [place] | [address] | Secondary | | | | [address] | | hyperparathyroidism | | | | [phone] | | (HCC); CKD (chronic | | [...] | | | | | [place] [address] | | | | | | [phone] | | | | | | | | +--------+ + + + + | 01/10/ | Appointment | Respiratory Therapy | Deirdre Maharaj | | | 2019 | | | MD [address], [place] | | | | | | [place] [address] | | | | | | [phone] | | | | | | | | +--------+ + + + + | 04/10/ | Office | Neurology | Deirdre Maharaj | | | 2019 | Visit | | MD [address], [place] | | | | | | [place] [address] | | | | | | [phone] | | | | | | | | +--------+ + + + + | 06/02/ | Office | Nephrology | Arslan Robertson MD | | | 2019 | Visit | | [address] [place] | | | | | | [address] [place], [place] | | | | | | [address] | | | | | | | [...] III | | | | | | ([facility]) Vitamin D | | | | | [...] | [facility] | | | | [address];[place] [address] | | LABORATORY | | + + + + + + + + | Specimen | + + | Urine | + + + + + + + | Performing | Address | City/State/Zipcode | Phone Number | | Organization | | | | + + + + + | REFERENCE LAB | [address] | [place] | [phone] | | [facility] | [address] | [address] | | | LABORATORY | | | | + + + + + | REFERENCE LAB | [address] | [place] | | | [facility] | Blvd. | [address] | | | LABORATORY | | | [...]
--- OUTSIDE RECORDS SUMMARY | ~2020-01-04 | XMS | Encounter Summary ---
Demographics + + + | Address | [address] | | | [place] [address] | + + + | Home Phone | | + + + | Preferred Language | Unknown | + + + | Marital Status | | + + + | Taoism Affiliation | [id number] | + + + | Race | Unknown | + + + | Ethnic Group | Unknown | + + + Author + + + | Author | [facility] | | | and [place] | + + + | Organization | [facility] | | [...] [place] | | | | | [id number] | | + + + + + Care Team Providers + +------+ + | Care Contracting Engineer Name | Role | Phone | + +------+ + | Shazia Tamayo MD | PCP | | + +------+ + Reason for Visit + + + | Reason | Comments | + + + | Annual Exam | | + + + Encounter Details +--------+---------+ + + + | Date | Type | Department | Care Team | Description | +--------+---------+ + + + | 11/27/ | Office | [facility] | Camille Webster, | Essential | | 2020 | Visit | CARDIOLOGY BAM | [address] | hypertension | | | | [address] | [place], [place] | (Primary Dx); CKD | | | | [address] [place] [address] | [address] | (chronic kidney | | | | [place] | | disease), stage III | | | | [id number] | | (HCC); Tachycardia | | | | [phone] | | | +--------+---------+ + + + [...] + + + | Blood Pressure | 92/54 | 11/28/2019 12:01 PM | | | | | PDT | | + + + + + | Pulse | 78 | 11/28/2019 12:01 PM | | | | | PDT | | + + + + + | Temperature | - | - | | + + + + + | Respiratory Rate | - | - | | + + + + + | Oxygen Saturation | 98% | 11/28/2019 12:01 PM | | | | | PDT | | + + + + + | Inhaled Oxygen | - | - | | | Concentration | | | | + + + + + | Weight | 80.3 kg (177 lb) | 11/28/2019 12:01 PM | | | | | PDT | | + + + + + | Height | 149.9 cm (4' 11") | 11/28/2019 12:01 PM | | | | | PDT | | + + + + + | Body Mass Index | 35.75 | 11/28/2019 12:01 PM | | | | | PDT | | + + + + + documented in this encounter Progress Notes Camille Webster MD - 11/28/2019 11:45 AM PDTFormatting of this note might be different f rom the original. Date of visit: 11/28/2019 Primary Care Physician: Shazia Tamayo MD CHIEF COMPLAINT: Chief Complaint Patient presents with Annual Exam HISTORY OF PRESENT ILLNESS: Deirdre is 69 y.o. here for follow-up visit, initially was evaluated for tachycardia that was noted while she was being evaluated at the nephrology office at that time normal EKG wa s performed. No recurrent episodes since prior evaluation. Denies any chest pain, shortness of breath, lower extremity edema or orthopnea. Continues to follow-up with nephrology in regard to advanced kidney disease. Had event monitor that did not show any significant arrhythmia. Recently evaluated in [facility], on February 08, 2018 patient was visiting with Dr. Tomlinson bridge manager for evaluation of chronic kidney disease at that time she was noted to be tachycardic with heart rate of 184, noted to be as well as hypotensive she was symptomatic with headache and dizziness. Was discharged on metoprolol succinate once a day, no episodes since. Has limited activity level, overall does household work without cardiac limitation. Uses a walker for balance. Was hospitalized in 2012 after knee surgery, that time she had a cute renal failure and had longer hospitalization. In January 2017, was hospitalized again secondary to acute especially failure where she had to be intubated. Discharged in wheelchair to rehabilitation currently using a walker to ambulat e. Past medical history, SH, FH, and medications were reviewed in the chart. Medications: Outpatient Encounter Medications as of 11/28/2019 Medication Sig Dispense Refill aMILoride (MIDAMOR) 5 mg tablet TAKE 2 TABLETS BY MOUTH ONCE DAILY 180 tablet 3 amitriptyline (ELAVIL) 50 mg tablet TAKE 1 TABLET BY MOUTH AT BEDTIME FOR 90 DAYS 4 aspirin 81 mg EC tablet Take 81 mg by mouth Daily. cetirizine (ZYRTEC) 10 mg tablet Take 10 mg by mouth Daily. cholecalciferol (VITAMIN D-3) 5000 units TABS Take 5,000 Units by mouth Daily. cyanocobalamin (VITAMIN B-12) 1000 MCG tablet Take 1,000 mcg by mouth Daily. febuxostat (ULORIC) 40 mg TABS TAKE 2 TABLETS BY MOUTH ONCE DAILY 60 tablet 11 levothyroxine (SYNTHROID) 125 mcg tablet Take 125 mcg by mouth every morning (before br eakfast). Magnesium 500 MG CAPS Take 1 capsule by mouth Daily. metOLazone 2.5 mg tablet Take 2.5 mg by mouth Every 3 days. 3 metoprolol succinate (TOPROL-XL) 25 mg 24 hr tablet Take 25 mg by mouth Daily. montelukast (SINGULAIR) 10 mg tablet Take 10 mg by mouth nightly. POTASSIUM CHLORIDE EB ER PO Take 40 mEq by mouth 4 times daily. pramipexole (MIRAPEX) 1 MG tablet Take 1 mg by mouth 3 times daily. Probiotic Product (PROBIOTIC DAILY PO) Take by mouth. torsemide (DEMADEX) 100 mg tablet TAKE 1 TABLET BY MOUTH TWICE DAILY 180 tablet 3 No facility-administered encounter medications on file as of 11/28/2019. Allergies Allergies Allergen Reactions Contrast [Iodinated Diagnostic Agents] Anaphylaxis Shellfish Anaphylaxis Codeine Nausea And Vomiting and Other (See Comments) Nausea/vomiting Diazepam Other (See Comments) Nausea and vomiting in large doses Metronidazole Other (See Comments) Reaction: convulsions Penicillins Other (See Comments) Tramadol Other (See Comments) Nausea/vomiting Adhesive & Tape Other (See Comments) Reaction: redness Celebrex [Celecoxib] Gabapentin Patient's Preference Iodine Other (See Comments) Reaction: Triggers Asthma Hydrocodone Nausea And Vomiting Morphine Nausea And Vomiting Oxycodone Nausea And Vomiting REVIEW OF SYSTEMS: Constitutional: No fever chills weight has been stable. HEENT: Negative for nosebleeds, ear discharge, nasal congestion or soar throat. Eyes: Negative for visual disturbance, redness, or secretion. Respiratory: Negative for cough, sputum production, hemoptysis, wheezing. Cardiovascular: As HPI. Gastrointestinal: Negative for nausea, vomiting, diarrhea, abdominal pain and blood in stoo l. Genitourinary: Negative for dysuria or hematuria. Musculoskeletal: Chronic arthritic pain. Skin: Negative for rash. Neurological: Uses a walker secondary to significant dizziness no syncope. Hematological: No significant bruising. Psychiatric/Behavioral: No depression or anxiety. PHYSICAL EXAM Vital Signs: BP 92/54 | Pulse 78 | Ht 1.499 m (4' 11") | Wt 80.3 kg (177 lb) | SpO2 98% | BMI 35.75 kg/m GENERAL APPEARANCE: Alert, oriented, cooperative, no distress, appears stated age. HEENT: Extraocular movements were intact. No jaundice. Pupiles round and reactive. NECK: No JVD, lymphadenopathy. Carotid upstrokes normal. No carotid bruit heard. CARDIAC: Regular rhythm and rate. There is normal S1 and S2. No galop. No murmur. CHEST: Normal bilateral symmetrical chest excursion.ackles or wheezing. ABDOMEN: Soft.No tenderness or guarding. No palpable organs. Active bowel sounds. EXTREMITIES: No lower extremities edema, cyanosis or clubbing. NEURO: Alert and oriented times three with no focal deficit. Cranial nerves are grossly no rmal. SKIN: Warm and dry. No rash. Psych: Normal affect and mood. DATA 11/21/2019 WBC 9.6, hemoglobin 11.8, platelets 250, sodium 136, potassium 3.4, chloride 94, bicarb 30, BUN 31, creatinine 1.5, GFR 34. Lab Results Component Value Date/Time NA 136 11/21/2019 NA 139 05/28/2019 NA 142 03/26/2019 02:33 PM K 3.4 (A) 11/21/2019 K 3.9 05/28/2019 K 4.2 03/26/2019 02:33 PM CO2 30 11/21/2019 CO2 31 05/28/2019 CO2 31 03/26/2019 02:33 PM CO2 31 05/01/2018 BUN 31 (A) 11/21/2019 BUN 61 (A) 05/28/2019 BUN 58 (A) 03/26/2019 02:33 PM CREA 1.50 (A) 11/21/2019 CREA 2.32 (A) 05/28/2019 CALCIUM 9.6 11/21/2019 CALCIUM 9.8 05/28/2019 CALCIUM 9.8 03/26/2019 02:33 PM CALCIUM 10.5 (A) 05/01/2018 MG 2.2 03/29/2018 03:10 PM Lab Results Component Value Date/Time WBC 8.3 03/26/2019 02:33 PM WBC 7.9 01/22/2019 07:49 AM WBC 7.7 01/09/2019 12:00 AM HGB 11.8 (A) 11/21/2019 HGB 12.4 03/26/2019 02:33 PM HGB 12.4 01/22/2019 07:49 AM HGB 12.6 01/09/2019 12:00 AM MCV 85.7 11/21/2019 MCV 88.0 05/28/2019 MCV 86.5 03/26/2019 02:33 PM MCV 88.3 01/22/2019 07:49 AM LABPLAT 250 11/21/2019 LABPLAT 233 05/28/2019 LABPLAT 254 03/26/2019 02:33 PM Lab Results Component Value Date ALT 72 (A) 01/09/2019 ALT 56 (A) 03/29/2018 GLUF 174 (A) 03/26/2019 GLUF 141 (A) 01/22/2019 EC11/28/2019 Ordered and reviewed by myself showed normal sinus rhythm, on EKG. Last Echo: 11/03/2016 From [place], reported with normal LV size and function EF 77%. Normal RV size and function . No significant valvular pathology was reported. Last Stress test:12/01/2017 From [place] reported with normal perfusion and no evidence of ischemia. Normal LV size and function. Last Cath: Last US carotid: 1. Event monitor. 70% diagnostic data. 2. Patient was predominantly in sinus rhythm with no triggered events. 3. Average heart rate 74 beats minute, minimum heart rate 52 bpm and maximal heart rate 115 bpm. 4. Arrhythmia was noted as rare premature atrial contractions, short episodes of paroxysmal asymptomatic supraventricular tachycardia however the longest was only 10 beats. ASSESSMENT: Patient is 69 y.o. with 5. Tachycardia with symptomatic hypotension last noted in February 08, 2018. No recurrent episo gustavo. 6. Obesity BMI 37.5. 7. 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 8. Fibromyalgia. Plan: Patient continues to have no symptoms. Has been symptomatically controlled on metoprolol succinate 25 mg daily. We will continue to follow-up with nephrology. Appears to be euvolemic at this time. Reviewed event monitor. We will continue to follow patient's symptomatology. Will call with any change in symptoms. *This report has been prepared using a voice recognition system. The report was reviewed fo r accuracy, however, sound-alike word errors, addition and/or deletions may occur. If there is any question about this report please contact me. Camille Webster MD, MPH documented in this encounter Plan of Treatment +--------+ + + + + | Date | Type | Specialty | Care Team | Description | +--------+ + + + + | 01/10/ | Appointment | Radiology | Deirdre Maharaj | | | 2019 | | | MD [address] | | | | | | [place] | | | | | | [place] [address] | | | | | | [phone] | | | | | | | | +--------+ + + + + | 01/10/ | Appointment | Respiratory Therapy | Deirdre Maharaj | | | 2019 | | | MD [address] | [address], [place] | | | | | | [place] [address] | | | | | | [phone] | | | | | | | | +--------+ + + + + | 04/10/ | Office | Neurology | Deirdre Maharaj | | | 2019 | Visit | | MD [address], [place] | | | | | | [place] [address] | | | | | | [phone] | | | | | | | | +--------+ + + + + | 06/02/ | Office | Nephrology | Arslan Robertson MD | | | 2019 | Visit | | [address] [place] | | | | | | [address] [place], [place] | | | | | | [address] | | | | | | | | +--------+ + + + + documented as of this encounter Procedures + +--------+ + + + | Procedure Name | Priori | Date/Time | Associated Diagnosis | Comments | | | ty | | | | + +--------+ + + + | ECG 12 LEAD | Routin | 11/28/2019 | Essential | Results for this | | | e | 12:07 PM | hypertension | procedure are in the | | | | PDT | | results section. | + +--------+ + + + documented in this encounter Results ECG 12 lead (11/28/2019 12:07 PM PDT) + + + + + + | Component | Value | Ref Range | Performed | Pathologist | | | | | At | Signature | + + + + + + | VENTRICULAR | 74 | BPM | [facility] | | | RATE EKG | | | | | + + + + + + | ATRIAL RATE | 74 | BPM | [facility] | | + + + + + + | P-R | 146 | ms | [facility] | | | INTERVAL | | | | | + + + + + + | QRS | 76 | ms | [facility] | | | DURATION | | | | | + + + + + + | Q-T | 384 | ms | [facility] | | | INTERVAL | | | | | + + + + + + | Q-T | 426 | ms | [facility] | | | INTERVAL | | | | | | (CORRECTED) | | | | | + + + + + + | P WAVE AXIS | 61 | degrees | [facility] | | + + + + + + | QRS AXIS | 46 | degrees | [facility] | | + + + + + + | T AXIS | 63 | degrees | [facility] | | + + + + + + | INTERPRETAT | Normal sinus | | [facility] | | | ION TEXT | rhythmNormal ECGNo | | | | | | previous ECGs | | | | | | availableConfirmed by | | | | | | Camille Webster MD | | | | | | ([id number]) on 11/28/2019 | | | | | | 2:45:32 PM | | | | + + + + + + + + | Specimen | + + | | + + + + + | Narrative | Performed At | + + + | | | + + + + +---------+ + + | Performing | Address | City/State/Zipcode | Phone Number | | Organization | | | | + +---------+ + + | [facility] | | | | + +---------+ + + documented in this encounter Visit Diagnoses + + | Diagnosis | + + | Essential hypertension - Primary Unspecified essential hypertension | + + | CKD (chronic kidney disease), stage III (HCC) Chronic kidney disease, Stage III | | (moderate) | + + | Tachycardia Tachycardia, unspecified | + + documented in this encounter
--- OUTSIDE RECORDS SUMMARY | ~2020-01-04 | XMS | Encounter Summary ---
Demographics + + + | Address | [address] | | | [place] [address] | + + + | Home Phone [...] + + + | Author | [facility] | + + + | Organization | [facility] | + + + | Address | Unknown | + + + | Phone | Unavailable | + + + Support + + +---------+ + | Name | Relationship | Address | Phone | + + +---------+ + | Jose Minaya | ECON | Unknown | | + + +---------+ + Care Team Providers + +------+ + | Care Housing Liaison Name | Role | Phone | + +------+ + | Shazia Tamayo MD | PCP | | + +------+ + Reason for Referral PROC - Outpatient Surgery (Routine) + +--------+ + + + + | Status | Reason | Specialty | Diagnoses / | Referred By | Referred To | | | | | Procedures | Contact | Contact | + +--------+ + + + + | Authorized | | Urology | Diagnoses | Blossom, | Blossom, | | | | | Bladder | MD Seymour | MD Seymour | | | | | outlet | [address] | [address] | | | | | obstruction | Ave | Ave | | | | | Procedures | [facility] [place] | [place], [place] | | | | | REQUEST TO | [phone] | [address] | | | | | SURGERY | Phone: | Phone: | | | | | AUTOMATED LOGISTICS SPECIALIST | [phone] | [phone] | | | | | [place] REMV/REVS | Fax: | Fax: | | | | | SLING FOR | [phone] | [phone] | | | | | STRES | | | | | | | INCONTINENCE | | | | | | | | | | | | | | TRANSVAGINAL | | | | | | | SLING | | | | | | | INCISION | | | + +--------+ + + + + Reason for Visit + + + | Reason | Comments | + + + | Appointment | | + + + Global Period - Transplant (Routine) + +--------+ + + + + | Status | Reason | Specialty | Diagnoses / | Referred By | Referred To | | | | | Procedures | Contact | Contact | + +--------+ + + + + | Authorized | | Urology | | Blossom, | Blossom, | | | | | | MD Seymour | MD Seymour | | | | | | [address] | [address] | | | | | | Ave | Ave | | | | | | [place], [place] | [facility] [place] | | | | | | [address] | [address] | | | | | | Phone: | Phone: | | | | | | [phone] | [phone] | | | | | | Fax: | Fax: | | | | | | [phone] | [phone] | + +--------+ + + + + Encounter Details +--------+---------+ + + + | Date | Type | Department | Care Team | Description | +--------+---------+ + + + | 12/17/ | Office | Urology at [facility] | Seymour Cerrato MD | Urinary retention | | 2020 | Visit | [address] | [address] | (Primary Dx); | | | | [place] [facility] | [place], [place] | Bladder outlet | | | | and Healing, | [address] | obstruction | | | | Building | [phone] | | | | | Floor [place], [place] | | | | | | [address] | | | | | | [phone] | | | +--------+---------+ + + + [...] in contact | No / Unsure | 12/18/2019 10:52 AM | | with someone who was confirmed or | | PDT | | suspected to have Coronavirus / COVID-19? | | | + + + + documented as of this encounter Last Filed Vital Signs + + + + + | Vital Sign | Reading | Time Taken | Comments | + + + + + | Blood Pressure | 113/60 | 12/18/2019 11:01 AM | | | | | PDT | | + + + + + | Pulse | 86 | 12/18/2019 11:01 AM | | | | | PDT | | + + + + + | Temperature | - | - | | + + + + + | Respiratory Rate | 18 | 12/18/2019 11:01 AM | | | | | PDT | | + + + + + | Oxygen Saturation | - | - | | + + + + + | Inhaled Oxygen | - | - | | | Concentration | | | | + + + + + | Weight | 80.3 kg (177 lb) | 12/18/2019 11:01 AM | | | | | PDT | | + + + + + | Height | 149.9 cm (4' 11") | 12/18/2019 11:01 AM | | | | | PDT | | + + + + + | Body Mass Index | 35.75 | 12/18/2019 11:01 AM | | | | | PDT | | + + + + + documented in this encounter Patient Instructions Patient Instructions Seymour Cerrato MD - 12/18/2019 11:00 AM PDTChris, You cannot empty your bladder all the way. This is probably due to your sling healing in to o tight. I prescribed you a medication to help with the bladder spasms. You may empty less on your o wn, but you have the catheter to help if needed. We will plan to cut (loosen) your sling once we are able to do elective procedures again. Brien greenberg will call you to set it up. Seymour Cerrato documented in this encounter Progress Notes Seymour Cerrato MD - 12/18/2019 11:00 AM [id number] with pelvic organ prolapse and stress urin jennifer incontinence who underwent sacrospinous ligament fixation, anterior and posterior colpor rhaphy, retropubic mid-urethral sling 11/14/2019. Her postoperative course was complicated b y urinary retention for which she was started on intermittent catheterization. Unfortunately Karlos has continued retention. She has reduced her intermittent catheterizati on to twice daily and is mostly managing by voiding every 30 - 60 minutes. She cannot void m ore than 200mL and she has post-void residuals measured at home of 200 - 500mL. She also has painful bladder spasm after she catheterizes. She has also been having dysuria. No urinary incontinence. No gross hematuria. No buttock pain. No vaginal bulge, she is reli eved that the prolapse is resolved. Bowel movements are good with stool softeners and laxati ves. BP 113/60 (BP Location: Right upper arm, Patient Position: Sitting) | Pulse 86 | Resp 18 | Ht 1.499 m (4' 11") | Wt 80.3 kg (177 lb) | BMI 35.75 kg/m | BSA 1.83 m Pelvic Exam (Female): Bearingizer present: Linnea Douglas MA Suprapubic: incisions well-healed External Genitalia: atrophic Urethra: sutures in place, no mesh extrusion Vagina: sutures in place, appropriate discharge Anus/Perineum: well-healed POP-Q: Aa -2 Ba -2 C -8 gh 3 pb 3 tvl 9 Ap -3 Bp -3 UA: moderate blood, large leuk, otherwise normal Post-void residual: 499mL Impression: Chronic urinary retention Dysuria Discussed with Karlos that she most likely has bladder outlet obstruction secondary to her s ling. The dysuria may be due to bladder outlet obstruction, irritation, or catheterization u se. Will use culture to assess. We discussed the options which include giving the retention more time, continuing clean int ermittent self-catheterization, or sling incision. The chances of resolution of the retentio n at this point is low but not zero. We discussed sling incision. The risks include but are not limited to bleeding, infection, persistent retention, urethral injury, recurrent urinary incontinence, need for other procedures. Plan: The patient requires intermittent catheterization due to urinary retention that is expected to not resolve within 3 months They perform clean intermittent self-catheterization 2 times per day due to frequency. No activity restrictions May have spotting for 1-2 days due to examination today Discharge will resolve when sutures dissolve in another 2 - 4 weeks. Urine for culture Plan for transvaginal sling incision, cystoscopy The procedure, alternatives, risks, and questions (PARQ) conference was held. All questions were answered and informed consent was obtained. She understands and agrees that this will be deferred until elective surgeries resume at [facility]. Will make this one a priority. Seymour Cerrato MD Health Screener Female Pelvic Medicine, Reconstructive Urology, and Neurourology Department of Urology documented in this enc ounter Plan of Treatment +--------+---------+ + + + | Date | Type | Specialty | Care Team | Description | +--------+---------+ + + + | 02/11/ | Office | Urology | Seymour Cerrato MD | | | 2020 | Visit | | [address] | | | | | | [place], [place] | | | | | | [address] | | | | | | [phone] | | | | | | | | +--------+---------+ + + + documented as of this encounter Procedures + +--------+ + + + | Procedure Name | Priori | Date/Time | Associated Diagnosis | Comments | | | ty | | | | + +--------+ + + + | URINE CULTURE WORKUP | Routin | 12/18/2019 | Urinary retention | Results for this | | | e | 11:45 AM | | procedure are in the | | | | PDT | | results section. | + +--------+ + + + | CULTURE, URINE [facility] | Routin | 12/18/2019 | Urinary retention | Results for this | | | e | 11:45 AM | | procedure are in the | | | | PDT | | results section. | + +--------+ + + + | CULTURE, URINE BACTI | Routin | 12/18/2019 | Urinary retention | Results for this | | | e | 11:45 AM | | procedure are in the | | | | PDT | | results section. | + +--------+ + + + | UA DIPSTICK 10 DIP | Routin | 12/18/2019 | Urinary retention | Results for this | | W/O MICRO | e | 11:20 AM | | procedure are in the | | (AUTOMATED), POC | | PDT | | results section. | + +--------+ + + + documented in this encounter Results URINE CULTURE WORKUP (12/18/2019 11:45 AM PDT) + + | Specimen | + + | Urine | + + + + + | Narrative | Performed At | + + + | Culture Report: One or more organisms are present, indicating | [facility] | | probable contamination or colonization not related to infection. | [facility] | | Further work-up of this culture may result in clinically misleading | [place] | | information. Recollection is suggested if clinically indicated. | | + + + + + + + + | Performing | Address | City/State/Zipcode | Phone Number | | Organization | | | | + + + + + | [facility] | [address] | [place] [address] | | | [facility] | | | | + + + + + CULTURE, URINE [facility] (12/18/2019 11:45 AM PDT) + + + + + + | Component | Value | Ref Range | Performed | Pathologist | | | | | At | Signature | + + + + + + | URINE | See Cx Results (A) | | [facility] | | | CULTURE | | | LABORATORY | | | [facility] | | | SERVICES, | | | | | | CORE | | + + + + + + + + | Specimen | + + | Urine | + + + + + + + | Performing | Address | City/State/Zipcode | Phone Number | | Organization | | | | + + + + + | [facility] | [address] | [place] [address] | | | [facility] | [address] | | | + + + + + UA 10 [address]CH [place] (12/18/2019 11:20 AM PDT) + + + + + + | Component | Value | Ref Range | Performed | Pathologist | | | | | At | Signature | + + + + + + | COLOR (UA | Yellow | | [facility], | | | DIP), POC | | | POINT OF | | | | | | CARE TESTS | | + + + + + + | APPEARANCE | Clear | | [facility], | | | (UA DIP), | | | POINT OF | | | POC | | | CARE TESTS | | + + + + + + | LEUKOCYTES | Large (A) | Negative | [facility], | | | (UA DIP), | | | POINT OF | | | POC | | | CARE TESTS | | + + + + + + | NITRITES | Negative | Negative | [facility], | | | (UA DIP), | | | POINT OF | | | POC | | | CARE TESTS | | + + + + + + | UROBILINOGE | 0.2 | 0.2 - 1.0 | [facility], | | | N (UA DIP), | | E.U./dL | POINT OF | | | POC | | | CARE TESTS | | + + + + + + | PROTEIN (UA | Negative | Neg - Trace | [facility], | | | DIP), POC | | mg/dL | POINT OF | | | | | | CARE TESTS | | + + + + + + | PH (UA | 7.0 | 5.0 - 8.0 | [facility], | | | DIP), POC | | | POINT OF | | | | | | CARE TESTS | | + + + + + + | BLOOD (UA | Moderate (A) | Negative | [facility], | | | DIP), POC | | | POINT OF | | | | | | CARE TESTS | | + + + + + + | SPECIFIC | 1.020 | 1.005 - 1.030 | [facility], | | | GRAVITY (UA | | | POINT OF | | | DIP), POC | | | CARE TESTS | | + + + + + + | KETONES (UA | Negative | Negative mg/dL | [facility], | | | DIP), POC | | | POINT OF | | | | | | CARE TESTS | | + + + + + + | BILIRUBIN | Negative | Negative | [facility], | | | (UA DIP), | | | POINT OF | | | POC | | | CARE TESTS | | + + + + + + | GLUCOSE (UA | Negative | Negative - | [facility], | | | DIP), POC | | Trace mg/dL | POINT OF | | | | | | CARE TESTS | | + + + + + + + + | Specimen | + + | Urine - Urine | | (substance) | + + + + + + + | Performing | Address | City/State/Zipcode | Phone Number | | Organization | | | | + + + + + | [facility] | [address] | [place] [address] | | | OF CARE TESTS | | | | + + + + + documented in this encounter Visit Diagnoses + + | Diagnosis | + + | Urinary retention - Primary Retention of urine, unspecified | + + | Bladder outlet obstruction Urinary obstruction, unspecified | + + documented in this encounter
--- OUTSIDE RECORDS SUMMARY | ~2020-01-04 | XMS | Encounter Summary ---
Demographics + + + | Address | [address] | | | [place] [address] | + + + | Home Phone | | + + + | Preferred Language | Unknown | + + + | Marital Status | | + + + | Mormonism Affiliation | 1013 | + + + | Race | Unknown | + + + | Ethnic Group | Unknown | + + + Author + + + | Author | [facility] | | | and [place] | + + + | Organization | [facility] | | [...] [place] | | | | | [address] | | + + + + + Care Team Providers + +------+ + | Care Zinc Skimmer Name | Role | Phone | + [...] + + | 08/05/ | Refill | [facility] | Arslan Robertson MD | Medication Refill | | 2019 | | NEPHROLOGY [place] | [address] [place] | | | | | [address] | [address] [facility] [place] | | | | | [facility] [address] | [address] | | | | | [place], [place] | | | | | | [address] | | | | | | [phone] | | | +--------+--------+ + + + [...] | | | | | [place] [address] | | | | | | [phone] | | | | | | | | +--------+ + + + + | 01/10/ | Appointment | Respiratory Therapy | Deirdre Maharaj | | | 2019 | | | MD [address] | | [address], [place] | | | | | | [place] [address] | | | | | | [phone] | | | | | | | | +--------+ + + + + | 04/10/ | Office | Neurology | Deirdre Maharaj | | | 2019 | Visit | | MD [address], [place] | | | | | | [place] [address] | | | | | | [phone] | | | | | | | | +--------+ + + + + | 06/02/ | Office | Nephrology | Arslan Robertson MD | | | 2019 | Visit | | [address] [place] | | | | | | [address] [place], [place] | | | | | | [address] | | | | | | | [...]
--- OUTSIDE RECORDS SUMMARY | ~2020-01-04 | XMS | Encounter Summary ---
Demographics + + + | Address | [address] | | | [place] [address] | + + + | Home Phone | | + + + | Preferred Language | Unknown | + + + | Marital Status | | + + + | Anabaptist Affiliation | 1013 | + + + | Race | Unknown | + + + | Ethnic Group | Unknown | + + + Author + + + | Author | [facility] | | | and [place] | + + + | Organization | [facility] | | [...] [place] | | | | | [address] | | + + + + + Care Team Providers + +------+ + | Care Tire Layer Name | Role | Phone | + [...] + + | 10/02/ | Documentati | [facility] | Tomás | Codi (B/P log | | 2020 | on | NEPHROLOGY [place] | [facility] | 03/27/19-08/10/19) | | | | [address] | Replanting Machine Crewman | | | | | [address] [place], [place] | | | | | | [address] | | | | | | [phone] | | | +--------+ + + + [...] | | | | | [place] [address] | | | | | | [phone] | | | | | | | | +--------+ + + + + | 01/10/ | Appointment | Respiratory Therapy | Deirdre Maharaj | | | 2019 | | | MD [address] | | | | | | [address] [place] | | | | | | [place] [address] | | | | | | [phone] | | | | | | | | +--------+ + + + + | 04/10/ | Office | Neurology | Deirdre Maharaj | | | 2019 | Visit | | MD [address], [place] | | | | | | [place] [address] | | | | | | [phone] | | | | | | | | +--------+ + + + + | 06/02/ | Office | Nephrology | Arslan Robertson MD | | | 2019 | Visit | | [address] | | | | | | [address] [place], [place] | | | | | | [address] | | | | | | | | +--------+ + + + + documented as of this encounter Visit Diagnoses Not on filedocumented in this encounter"
--- OUTSIDE RECORDS SUMMARY | ~2020-01-04 | XMS | Encounter Summary ---
Demographics + + + | Address | [address] | | | [place] [address] | + + + | Home Phone | | + + + | Preferred Language | Unknown | + + + | Marital Status | | + + + | Baptism Affiliation | 1013 | + + + | Race | Unknown | + + + | Ethnic Group | Unknown | + + + Author + + + | Author | [facility] | | | and [place] | + + + | Organization | [facility] | | | [...] [place] | | | | | [address] | | + + + + + Care Team Providers + +------+ + | Care Rebar Bender Name | Role | Phone | + +------+ + | Shazia Tamayo MD | PCP | | + +------+ + Encounter Details +--------+ + + + + | Date | Type | Department | Care Team | Description | +--------+ + + + + | 11/26/ | Orders Only | [facility] | Arslan Robertson MD | Essential | | 2020 | | NEPHROLOGY [place] | [address] [place] | hypertension | | | | [address] | [address] [place], [place] | (Primary Dx); | | | | [address] | [address] | Secondary | | | | [place], [place] | | hyperparathyroidism | | | | [address] | | (HCC); CKD (chronic | | | | [phone] | | kidney disease), | | | | | | stage III (HCC); At | | | | | | high risk for | | | | | | electrolyte | | | | | | imbalance | +--------+ + + + + Social [...] | | | | | [place] [address] | | | | | | [phone] | | | | | | | | +--------+ + + + + | 01/10/ | Appointment | Respiratory Therapy | Deirdre Maharaj | | | 2019 | | | MD [address] | | [address], [place] | | | | | | [place] [address] | | | | | | [phone] | | | | | | | | +--------+ + + + + | 04/10/ | Office | Neurology | Deirdre Maharaj | | | 2019 | Visit | | MD [address], [place] | | | | | | [place] [address] | | | | | | [phone] | | | | | | | | +--------+ + + + + | 06/02/ | Office | Nephrology | Arslan Robertson MD | | | 2019 | Visit | | [address] [place] | | | | | | [address] [place], [place] | | | | | | [address] | | | | | | | | +--------+ + + + + + +------+--------+ + + | Name | Type | Priori | Associated Diagnoses | Order Schedule | | | | ty | | | + +------+--------+ + + | Basic Metabolic | Lab | Routin | Essential | Expected: | | Panel | | e | hypertension | 12/04/2019, Expires: | | | | | Secondary | 11/26/2020 | | | | | hyperparathyroidism | | | | | | (HCC) CKD (chronic | | | | | | kidney disease), | | | | | | stage III (HCC) At | | | | | | high risk for | | | | | | electrolyte | | | | | | imbalance | | + +------+--------+ + + | Protein/Creatinine | Lab | Routin | Essential | Expected: | | Ratio, Urine | | e | hypertension | 12/04/2019, Expires: | | | | | Secondary | 11/26/2020 | | | | | hyperparathyroidism | | | | | | (HCC) CKD (chronic | | | | | | kidney disease), | | | | | | stage III (HCC) At | | | | | | high risk for | | | | | | electrolyte | | | | | | imbalance | | + +------+--------+ + + | Basic Metabolic | Lab | Routin | Essential | Expected: | | Panel | | e | hypertension | 02/27/2020, Expires: | | | | | Secondary | 11/26/2020 | | | | | hyperparathyroidism | | | | | | (HCC) CKD (chronic | | | | | | kidney disease), | | | | | | stage III (HCC) At | | | | | | high risk for | | | | | | electrolyte | | | | | | imbalance | | + +------+--------+ + + | CBC with | Lab | Routin | Essential | Expected: | | Differential | | e | hypertension | 02/27/2020, Expires: | | | | | Secondary | 11/26/2020 | | | | | hyperparathyroidism | | | | | | (HCC) CKD (chronic | | | | | | kidney disease), | | | | | | stage III (HCC) At | | | | | | high risk for | | | | | | electrolyte | | | | | | imbalance | | + +------+--------+ + + | Renal Function Panel | Lab | Routin | Essential | Expected: | | | | e | hypertension | 05/29/2020, Expires: | | | | | Secondary | 11/26/2020 | | | | | hyperparathyroidism | | | | | | (HCC) CKD (chronic | | | | | | kidney disease), | | | | | | stage III (HCC) At | | | | | | high risk for | | | | | | electrolyte | | | | | | imbalance | | + +------+--------+ + + | CBC with | Lab | Routin | Essential | Expected: | | Differential | | e | hypertension | 05/29/2020, Expires: | | | | | Secondary | 11/26/2020 | | | | | hyperparathyroidism | | | | | | (HCC) CKD (chronic | | | | | | kidney disease), | | | | | | stage III (HCC) At | | | | | | high risk for | | | | | | electrolyte | | | | | | imbalance | | + +------+--------+ + + | Parathyroid Hormone, | Lab | Routin | Essential | Expected: | | Intact | | e | hypertension | 05/29/2020, Expires: | | | | | Secondary | 11/26/2020 | | | | | hyperparathyroidism | | | | | | (HCC) CKD (chronic | | | | | | kidney disease), | | | | | | stage III (HCC) At | | | | | | high risk for | | | | | | electrolyte | | | | | | imbalance | | + +------+--------+ + + | Protein/Creatinine | Lab | Routin | Essential | Expected: | | Ratio, Urine | | e | hypertension | 05/29/2020, Expires: | | | | | Secondary | 11/26/2020 | | | | | hyperparathyroidism | | | | | | (HCC) CKD (chronic | | | | | | kidney disease), | | | | | | stage III (HCC) At | | | | | | high risk for | | | | | | electrolyte | | | | | | imbalance | | + +------+--------+ + + documented as of this encounter Visit Diagnoses + + | Diagnosis | + + | Essential hypertension - Primary Unspecified essential hypertension | + + | Secondary hyperparathyroidism (HCC) Secondary hyperparathyroidism (of renal origin) | + + | CKD (chronic kidney disease), stage III (HCC) Chronic kidney disease, Stage III | | (moderate) | + + | At high risk for electrolyte imbalance | + + documented in this encounter"
--- OUTSIDE RECORDS SUMMARY | ~2020-01-04 | XMS | Encounter Summary ---
Demographics + + + | Address | [address] | | | [place] [address] | + + + | Home Phone | | + + + | Preferred Language | Unknown | + + + | Marital Status | | + + + | Pentecostal Affiliation | CHR | + + + | Race | White | + + + | Ethnic Group | Not or | + + + Author + + + | Author | [facility] | + + + | Organization | [facility] | + + + | Address | Unknown | + + + | Phone | Unavailable | + + + Support + + +---------+ + | Name | Relationship | Address | Phone | + + +---------+ + | Jose Minaya | ECON | Unknown | | + + +---------+ + Care Team Providers + +------+ + | Care Control Room Tender Name | Role | Phone | + [...] | | | | | Procedures | [facility] [place] | [place], [place] | | | | | REQUEST TO | [address] | [address] | | | | | SURGERY | Phone: | Phone: | | | | | TANK FARM GAUGER | [phone] | [phone] | | | | | MI REMV/REVS | Fax: | Fax: | | | | | SLING FOR | [phone] | [phone] | | | | | STRES | [...] Ave | | | | | | [place], [place] | [facility] [place] | | | | | | [address] | [address] | | | | | | Phone: | Phone: | | | | | | [phone] | [phone] | | | | | | Fax: | Fax: | | | | | | [phone] | [phone] | + +--------+ + + + + Encounter Details +--------+---------+ + + + | Date | Type | Department | Care Team | Description | +--------+---------+ + + + | 12/17/ | Office | Urology at [facility] | Seymour Cerrato MD | Urinary retention | | 2020 | Visit | [address] | [address] | (Primary Dx); | | | | [facility] for [facility] | [place], [place] | Bladder outlet | | | | and Healing, | [address] | obstruction | | | | Building | [phone] | | | | | Floor [place], [place] | | | | | | [address] | | | | | | [phone] | | | +--------+---------+ + + + [...] Seymour Cerrato MD - 12/18/2019 11:00 AM [id number] with pelvic organ prolapse and stress urin [...] | BSA 1.83 m Pelvic Exam (Female): Racecourse Barrier Attendant present: Linnea Douglas MA Suprapubic: incisions well-healed [...] be deferred until elective surgeries resume at [facility]. Will make this one a priority. Seymour Cerrato MD Mud Jack Nozzleman Female Pelvic Medicine, Reconstructive Urology, and Neurourology [...] [address] | | | | | | [place], [place] | | | | | | [address] | | | | | | [phone] | | | | | | | [...] + | [facility] | [address] | [place] [address] | | | [facility] | | | | + + + [...] | + + + + + | [facility] | [address] | [place] [address] | | | [facility] | [address]O [...] + + | [facility] | [address] [facility] | [place] [address] | | | OF CARE TESTS | | | | + + + + + documented in this encounter Visit Diagnoses + + | Diagnosis | + + | Urinary retention - Primary Retention of urine, unspecified | + + | Bladder outlet obstruction Urinary obstruction, unspecified | + + documented in this encounter
--- OUTSIDE RECORDS SUMMARY | ~2020-01-04 | XMS | Encounter Summary ---
Demographics + + + | Address | [address] [facility] [address] | | | [place] [address] | + + + | Home Phone | | + + + | Preferred Language | Unknown | + + + | Marital Status | | + + + | Yarsanism Affiliation | CHR | + + + | Race | White | + + + | Ethnic Group | Not or | + + + Author + + + | Author | [facility] | + + + | Organization | [facility] | + + + | Address | Unknown | + + + | Phone | Unavailable | + + + Support + + +---------+ + | Name | Relationship | Address | Phone | + + +---------+ + | Jose Minaya | ECON | Unknown | | + + +---------+ + Care Team Providers + +------+ + | Care Clinical Laboratory Technician Name | Role | Phone | + [...] + + + + | 12/31/ | Supervisor Operations | Preoperative | O Shavon Dhillon | Screening for viral | | 2019 | | Medicine Clinic at | MD Krystyna [address] | disease (Primary Dx) | | | | [facility] | [facility] | | | | | [address] | [place], [place] | | | | | [place] [facility] | [address] | | | | | and [facility] | [phone] | | | | | [address] [place], [place] | | | | | | [address] | | | | | | [phone] | | | +--------+ + + + [...] [address] | | | | | | [place], [place] | | | | | | [address] | | | | | | [phone] | | | | | | | [...] | | its performance characteristics determined by [facility] [employer]. It | | | has not been [...] [facility] | [address] | [place] [address] | | | MICROBIOLIGY LAB | [address] | | | + + + + + documented in this encounter Visit Diagnoses + + | Diagnosis | + + | Screening for viral disease - Primary Special screening examination for unspecified | | viral disease | + + documented in this encounter"
--- OUTSIDE RECORDS SUMMARY | ~2020-01-04 | XMS | Encounter Summary ---
Demographics + + + | Address | [address] [facility] [address] | | | [place] [address] | + + + | Home Phone | | + + + | Preferred Language | Unknown | + + + | Marital Status | | + + + | Samaritan Affiliation | 1013 | + + + | Race | Unknown | + + + | Ethnic Group | Unknown | + + + Author + + + | Author | [facility] | | | and [place] | + + + | Organization | [facility] | | | and [...] [place] | | | | | [address] | | + + + + + Care Team Providers + +------+ + | Care Oval Or Circular Glass Cutter Name | Role | Phone | + +------+ + PCP | Unavailable | + +------+ + Encounter Details +--------+ + + + + | Date | Type | Department | Care Team | Description | +--------+ + + + + | 06/21/ | Hospital | [facility] | | | | 1995 | Encounter | SYSTEM GENERIC OP | | | | | | CONVERSION [address] | | | | | | [address] [place] | | | | | | [address] | | | | | | [phone] | | | +--------+ + + + [...] | | | | | [place] [address] | | | | | | [phone] | | | | | | | | +--------+ + + + + | 01/10/ | Appointment | Respiratory Therapy | Deirdre Maharaj | | | 2019 | | | MD [address]ey [address], [place] | | | | | | [place] [address] | | | | | | [phone] | | | | | | | | +--------+ + + + + | 04/10/ | Office | Neurology | Deirdre Maharaj | | | 2019 | Visit | | MD [address], [place] | | | | | | [place] [address] | | | | | | [phone] | | | | | | | | +--------+ + + + + | 06/02/ | Office | Nephrology | Arslan Robertson MD | | | 2019 | Visit | | [address] [place] | | | | | | [address] [place] | | | | | | [address] | | | | | | | | +--------+ + + + + documented as of this encounter Visit Diagnoses Not on filedocumented in this encounter"
--- OUTSIDE RECORDS SUMMARY | ~2020-01-04 | XMS | Encounter Summary ---
Demographics + + + | Address | [address] | | | [place] [address] | + + + | Home Phone | | + + + | Preferred Language | Unknown | + + + | Marital Status | | + + + | Scientology Affiliation | 1013 | + + + | Race | Unknown | + + + | Ethnic Group | Unknown | + + + Author + + + | Author | [facility] | | | and [place] | + + + | Organization | [facility] | | [...] [place] | | | | | [address] | | + + + + + Care Team Providers + +------+ + | Care Mechanical Engineering Draftsperson Name | Role | Phone | + +------+ + | Shazia Tamayo MD | PCP | | + +------+ + Encounter Details +--------+ + + + + | Date | Type | Department | Care Team | Description | +--------+ + + + + | 04/04/ | Orders Only | [facility] | Provider, | Chronic kidney | | 2019 | | SYSTEM GENERIC OP | MD [address] | disease, stage III | | | | CONVERSION [address] | [address] | (moderate) (HCC); | | | | [address] [place], [place] | [place] [address] | Localized edema; | | | | [address] | | Hyperuricemia | | | | [phone] | | without signs of | | | | | | inflammatory | | | | | | arthritis and | | | | | | tophaceous disease; | | | | | | Tachycardia; | | | | | | Secondary | | | | | | hyperparathyroidism | | | | | | of renal origin | | | | | | (HCC); Essential | | | | | | (primary) | | | | | | hypertension; | | | | | | Chronic kidney | | | | | | disease, stage IV | | | | | | (severe) ([facility]); | | | | | | Vitamin [...] | | | | | [place] [address] | | | | | | [phone] | | | | | | | | +--------+ + + + + | 01/10/ | Appointment | Respiratory Therapy | Deirdre Maharaj | | | 2019 | | | MD [address], [place] | | | | | | [place] [address] | | | | | | [phone] | | | | | | | | +--------+ + + + + | 04/10/ | Office | Neurology | Deirdre Maharaj | | | 2019 | Visit | | MD [address], [place] | | | | | | [place] [address] | | | | | | [phone] | | | | | | | | +--------+ + + + + | 06/02/ | Office | Nephrology | Arslan Robertson MD | | | 2019 | Visit | | [address] [place] | | | | | | [address] [place], [place] | | | | | | [address] | | | | | | | | +--------+ + + + + + +------+--------+ + + | Name | Type | Priori | Associated Diagnoses | Order Schedule | | | | ty | | | + +------+--------+ + + | Renal Function Panel | Lab | Routin | Chronic kidney | Expected: | | | | e | disease, stage III | 01/22/2019, Expires: | | | | | (moderate) ([facility]) | 08/07/2020 | | | | | Localized edema | | | | | | Hyperuricemia | | | | | | without signs of | | | | | | inflammatory | | | | | | arthritis and | | | | | | tophaceous disease | | | | | | Tachycardia | | | | | | Secondary | | | | | | hyperparathyroidism | | | | | | of renal origin | | | | | | ([facility]) | | + +------+--------+ + + | CBC with | Lab | Routin | Chronic kidney | Expected: | | Differential | | e | disease, stage III | 01/22/2019, Expires: | | | | | (moderate) ([facility]) | 08/07/2020 | | | | | Localized edema | | | | | | Hyperuricemia | | | | | | without signs of | | | | | | inflammatory | | | | | | arthritis and | | | | | | tophaceous disease | | | | | | Tachycardia | | | | | | Secondary | | | | | | hyperparathyroidism | | | | | | of renal origin | | | | | | ([facility]) | | + +------+--------+ + + | Parathyroid Hormone, | Lab | Routin | Chronic kidney | Expected: | | Intact | | e | disease, stage III | 01/22/2019, Expires: | | | | | (moderate) ([facility]) | 08/07/2020 | | | | | Localized edema | | | | | | Hyperuricemia | | | | | | without signs of | | | | | | inflammatory | | | | | | arthritis and | | | | | | tophaceous disease | | | | | | Tachycardia | | | | | | Secondary | | | | | | hyperparathyroidism | | | | | | of renal origin | | | | | | (HCC) | | + +------+--------+ + + | Uric Acid | Lab | Routin | Chronic kidney | Expected: | | | | e | disease, stage III | 01/22/2019, Expires: | | | | | (moderate) ([facility]) | 08/07/2020 | | | | | Localized edema | | | | | | Hyperuricemia | | | | | | without signs of | | | | | | inflammatory | | | | | | arthritis and | | | | | | tophaceous disease | | | | | | Tachycardia | | | | | | Secondary | | | | | | hyperparathyroidism | | | | | | of renal origin | | | | | | ([facility]) | | + +------+--------+ + + | Urinalysis with | Lab | Routin | Chronic kidney | Expected: | | Microscopic if | | e | disease, stage III | 01/22/2019, Expires: | | Indicated | | | (moderate) ([facility]) | 08/07/2020 | | | | | Localized edema | | | | | | Hyperuricemia | | | | | | without signs of | | | | | | inflammatory | | | | | | arthritis and | | | | | | tophaceous disease | | | | | | Tachycardia | | | | | | Secondary | | | | | | hyperparathyroidism | | | | | | of renal origin | | | | | | ([facility]) | | + +------+--------+ + + | Microalbumin/Creatin | Lab | Routin | Chronic kidney | Expected: | | ine Ratio, Urine | | e | disease, stage III | 01/22/2019, Expires: | | | | | (moderate) ([facility]) | 08/07/2020 | | | | | Localized edema | | | | | | Hyperuricemia | | | | | | without signs of | | | | | | inflammatory | | | | | | arthritis and | | | | | | tophaceous disease | | | | | | Tachycardia | | | | | | Secondary | | | | | | hyperparathyroidism | | | | | | of renal origin | | | | | | (HCC) | | + +------+--------+ + + | Basic Metabolic | Lab | Routin | Chronic kidney | Expected: | | Panel | | e | disease, stage III | 01/27/2019, Expires: | | | | | (moderate) ([facility]) | 11/28/2019 | | | | | Secondary | | | | | | hyperparathyroidism | | | | | | of renal origin | | | | | | ([facility]) Essential | | | | | | (primary) | | | | | | hypertension | | + +------+--------+ + + | Protein/Creatinine | Lab | Routin | Chronic kidney | Expected: | | Ratio, Urine | | e | disease, stage III | 03/29/2019, Expires: | | | | | (moderate) ([facility]) | 11/28/2019 | | | | | Secondary | | | | | | hyperparathyroidism | | | | | | of renal origin | | | | | | ([facility]) Essential | | | | | | (primary) | | | | | | hypertension | | + +------+--------+ + + | Basic Metabolic | Lab | Routin | Chronic kidney | Expected: | | Panel | | e | disease, stage IV | 04/09/2019, Expires: | | | | | (severe) (HCC) | 02/08/2020 | | | | | Secondary | | | | | | hyperparathyroidism | | | | | | of renal origin | | | | | | (HCC) Essential | | | | | | (primary) | | | | | | hypertension | | + +------+--------+ + + | CBC with | Lab | Routin | Chronic kidney | Expected: | | Differential | | e | disease, stage IV | 04/09/2019, Expires: | | | | | (severe) (HCC) | 02/08/2020 | | | | | Secondary | | | | | | hyperparathyroidism | | | | | | of renal origin | | | | | | (HCC) Essential | | | | | | (primary) | | | | | | hypertension | | + +------+--------+ + + | CBC with | Lab | Routin | Chronic kidney | Expected: | | Differential | | e | disease, stage IV | 06/10/2019, Expires: | | | | | (severe) (HCC) | 02/08/2020 | | | | | Secondary | | | | | | hyperparathyroidism | | | | | | of renal origin | | | | | | (HCC) Essential | | | | | | (primary) | | | | | | hypertension | | + +------+--------+ + + | Renal Function Panel | Lab | Routin | Chronic kidney | Expected: | | | | e | disease, stage IV | 06/10/2019, Expires: | | | | | (severe) (HCC) | 02/08/2020 | | | | | Secondary | | | | | | hyperparathyroidism | | | | | | of renal origin | | | | | | (HCC) Essential | | | | | | (primary) | | | | | | hypertension | | + +------+--------+ + + | Parathyroid Hormone, | Lab | Routin | Chronic kidney | Expected: | | Intact | | e | disease, stage IV | 06/10/2019, Expires: | | | | | (severe) (HCC) | 02/08/2020 | | | | | Secondary | | | | | | hyperparathyroidism | | | | | | of renal origin | | | | | | (HCC) Essential | | | | | | (primary) | | | | | | hypertension | | + +------+--------+ + + | Uric Acid | Lab | Routin | Chronic kidney | Expected: | | | | e | disease, stage IV | 06/10/2019, Expires: | | | | | (severe) (HCC) | 02/08/2020 | | | | | Secondary | | | | | | hyperparathyroidism | | | | | | of renal origin | | | | | | (HCC) Essential | | | | | | (primary) | | | | | | hypertension | | + +------+--------+ + + | Vitamin D, | Lab | Routin | Chronic kidney | Expected: | | Deficiency Screen | | e | disease, stage IV | 06/10/2019, Expires: | | (25-Hydroxy) | | | (severe) (HCC) | 02/08/2020 | | | | | Secondary | | | | | | hyperparathyroidism | | | | | | of renal origin | | | | | | (HCC) Essential | | | | | | (primary) | | | | | | hypertension | | | | | | Vitamin D deficiency | | + +------+--------+ + + | Protein/Creatinine | Lab | Routin | Chronic kidney | Expected: | | Ratio, Urine | | e | disease, stage IV | 06/10/2019, Expires: | | | | | (severe) (HCC) | 02/08/2020 | | | | | Secondary | | | | | | hyperparathyroidism | | | | | | of renal origin | | | | | | (HCC) Essential | | | | | | (primary) | | | | | | hypertension | | + +------+--------+ + + documented as of this encounter Visit Diagnoses + + | Diagnosis | + + | Chronic kidney disease, stage III (moderate) (HCC) Chronic kidney disease, Stage III | | (moderate) | + + | Localized edema Edema | + + | Hyperuricemia without signs of inflammatory arthritis and tophaceous disease Other | | abnormal blood chemistry | + + | Tachycardia Tachycardia, unspecified | + + | Secondary hyperparathyroidism of renal origin (HCC) Secondary hyperparathyroidism (of | | renal origin) | + + | Essential (primary) hypertension Unspecified essential hypertension | + + | Chronic kidney disease, stage IV (severe) (HCC) Chronic kidney disease, Stage IV | | (severe) | + + | Vitamin D deficiency Unspecified vitamin D deficiency | + + documented in this encounter"
--- OUTSIDE RECORDS SUMMARY | ~2020-01-04 | XMS | Encounter Summary ---
Demographics + + + | Address | [address] | | | [place] [address] | + + + | Home Phone | | + + + | Preferred Language | Unknown | + + + | Marital Status | | + + + | Rastafari Affiliation | 1013 | + + + | Race | Unknown | + + + | Ethnic Group | Unknown | + + + Author + + + | Author | [facility] | | | and [place] | + + + | Organization | [facility] | | | and [...] [place] | | | | | [address] | | + + + + + Care Team Providers + +------+ + | Care Slip Cover Cutter Name | Role | Phone | + +------+ + PCP | Unavailable | + +------+ + Encounter Details +--------+ + + + + | Date | Type | Department | Care Team | Description | +--------+ + + + + | 07/26/ | Hospital | [facility] | Ovi Davis | | | 1996 - | Encounter | DOMINIC AMBRIZ | [address] | | | | | [address] | [place] | | | 07/28/ | | [place], [place] | [address] [place], [place] | | | 1996 | | [address] | [address] | | | | | [phone] | | | +--------+ + + + [...] | | | | | [place] [address] | | | | | | [phone] | | | | | | | | +--------+ + + + + | 01/10/ | Appointment | Respiratory Therapy | Deirdre Maharaj | | | 2019 | | | MD [address], [place] | | | | | | [place] [address] | | | | | | [phone] | | | | | | | | +--------+ + + + + | 04/10/ | Office | Neurology | Deirdre Maharaj | | | 2019 | Visit | | MD [address], [place] | | | | | | [place] [address] | | | | | | [phone] | | | | | | | | +--------+ + + + + | 06/02/ | Office | Nephrology | Arslan Robertson MD | | | 2019 | Visit | | [address] | | | | | | [address] [place], [place] | | | | | | [address] | | | | | | | | +--------+ + + + + documented as of this encounter Visit Diagnoses Not on filedocumented in this encounter"
--- OUTSIDE RECORDS SUMMARY | ~2020-01-04 | XMS | Clinical Summary ---
Demographics + + + | Address | [address] | | | [place] [address] | + + + | Home Phone | | + + + | Preferred Language | Unknown | + + + | Marital Status | | + + + | Restoration Affiliation | 1013 | + + + | Race | Unknown | + + + | Ethnic Group | Unknown | + + + Author + + + | Author | [facility] | | | and [place] | + + + | Organization | [facility] | | | and [place] | + + + | Address | Unknown | + + + | Phone | Unavailable | + + + Support + + + + + | Name | Relationship | Address | Phone | + + + + + | Jose Ariisidro | ECON | [address] | | | | | [place] | | | | | [address] | | + + + + + Care Team Providers + +------+ + | Care Lay Brother Name | Role | Phone | + +------+ + | Shazia Tamayo MD | PCP | | + +------+ + Allergies + [...] + + + + | Celecoxib | Hallucination | | 06/22/20 | | | | [...] + + + + + + | Gabapentin | Nausea And Vomiting | | 11/26/19 | | | | | | 20 | | + + + + + [...] e | + + + +---------+------+------+-------+ | cholecalciferol [...] e | + + + +---------+------+------+-------+ | montelukast [...] | | + + + +---------+------+------+-------+ | pramipexole | Take 1 mg by mouth 3 | | 0 | | | Activ | | (MIRAPEX) 1 MG | times daily. | | | | | e | | tablet | | | | | | | + + + +---------+------+------+-------+ | amitriptyline | TAKE 1 TABLET BY | | 4 | 05/ | | Activ | | (ELAVIL) 50 mg | MOUTH AT BEDTIME FOR | | | 20 | | e | | tablet | 90 DAYS | | | 19 | | | + + + +---------+------+------+-------+ | metOLazone 2.5 mg | Take 2.5 mg by mouth | | 3 | 04/ | | Activ | | tablet | Every 3 days. | | | 10/01 | | e | | | | | | 19 | | | + + + +---------+------+------+-------+ | torsemide | TAKE 1 TABLET BY | 180 | 3 | 09/0 | | Activ | | (DEMADEX) 100 mg | MOUTH TWICE DAILY | tablet | | 06/01 | | e | | tabletIndications: | | | | 19 | | | | CKD (chronic kidney | | | | | | | | disease) stage 4, | | | | | | | | GFR 15-29 ml/min | | | | | | | | (HCC), Bilateral leg | | | | | | | | edema | | | | | | | + + + +---------+------+------+-------+ | aMILoride | TAKE 2 TABLETS BY | 180 | 3 | 10/ | | Activ | | (MIDAMOR) 5 mg | MOUTH ONCE DAILY | tablet | | 5/20 | | e | | tabletIndications: | | | | 19 | | | | Essential | | | | | | | | hypertension, | | | | | | | | Secondary | | | | | | | | hyperparathyroidism | | | | | | | | (HCC), CKD (chronic | | | | | | | | kidney disease), | | | | | | | | stage III ([facility]), | | | | | | | | Vitamin D | | | | | | | | deficiency, | | | | | | | | Hyperuricemia | | | | | | | + + + +---------+------+------+-------+ | febuxostat | TAKE 2 TABLETS BY | 60 | 11 | 11/2 | | Activ | | (ULORIC) 40 mg | MOUTH ONCE DAILY | tablet | | 5/20 | | e | | TABSIndications: | | | | 19 | | | | Essential | | | | | | | | hypertension, | | | | | | | | Secondary | | | | | | | | hyperparathyroidism | | | | | | | | (HCC), CKD (chronic | | | | | | | | kidney disease), | | | | | | | | stage III ([facility]), | | | | | | | | Vitamin D | | | | | | | | deficiency, | | | | | | | | Hyperuricemia | | | | | | | + + + +---------+------+------+-------+ | POTASSIUM CHLORIDE | Take 40 mEq by mouth | | 0 | | | Activ | | EB ER PO | 4 times daily. | | | | | e | + + + +---------+------+------+-------+ | levothyroxine | TAKE 1 TABLET BY | | 0 | 03/1 | | Activ | | (SYNTHROID) 112 mcg | MOUTH ONCE DAILY IN | | | 8/20 | | e | | tablet | THE MORNING ON AN | | | 20 | | | | | EMPTY STOMACH FOR 90 | | | | | | | | DAYS | | | | | | + + + +---------+------+------+-------+ | OXYBUTYNIN | | | 0 | 04/0 | | Activ | | CHLORIDE ER PO | | | | 8/20 | | e | | | | | | 20 | | | + + + +---------+------+------+-------+ | levothyroxine | Take 125 mcg by | | 0 | | 04/1 | Disco | | (SYNTHROID) 125 mcg | mouth every morning | | | | 6/20 | ntinu | | tablet | (before breakfast). | | | | 20 | ed | | | | | | | | (Ther | | | | | | | | apy | | | | | | | | compl | | | | | | | | eted) | + + + +---------+------+------+-------+ Active Problems + + + | Problem | Noted Date | + + + | Post concussion syndrome | 12/27/2019 | + + + | At high [...] deficiency | 02/08/2018 | + + + Resolved Problems + + + + | Problem | Noted | Resolved | | | Date | Date | + + + + | Bilateral leg edema | 02/09/20 | | | | 18 | 0 | + + + + Encounters +--------+ + + + + | Date | Type | Specialty | Care Team | Description | +--------+ + + + + | 12/26/ | Office | Neurology | Deirdre Maharaj | Post concussion | | 2020 | Visit | | MD Ney | syndrome | +--------+ + + + + | 12/02/ | Orders Only | | Haely Paulino | Essential | | 2020 | | | I, 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; CKD | | | | | | (chronic kidney | | | | | | disease), stage III | | | | | | (HCC) | +--------+ + + + + | 11/27/ | Office | Cardiology | Camille Hernandez, | Essential | | 2019 | Visit | | | hypertension | | | | | | (Primary Dx); CKD | | | | | | (chronic kidney | | | | | | disease), stage III | | | | | | (HCC); Tachycardia | +--------+ + + + + | 11/26/ | Orders Only | Nephrology | Arslan Robertson MD | Essential | | 2020 | | | | hypertension | | | | | | (Primary Dx); | | | | | | Secondary | | | | | | hyperparathyroidism | | | | | | (HCC); CKD (chronic | | | | | | kidney disease), | | | | | | stage III (HCC); At | | | | | | high risk for | | | | | | electrolyte | | | | | | imbalance | +--------+ + + + + | 11/25/ | Office | Nephrology | Arslan Robertson MD | CKD (chronic kidney | | 2020 | Visit | | | disease), stage III | | | | | | ([facility]) (Primary Dx); | | | | | | Secondary | | | | | | hyperparathyroidism | | | | | | (HCC); Essential | | | | | | hypertension; | | | | | | Hypokalemia; | | | | | | Bilateral leg edema; | | | | | | At high risk for | | | | | | electrolyte | | | | | | imbalance; | | | | | | Hyperuricemia | +--------+ + + + + | 11/22/ | Documentati | Nephrology | Tomás | LOR (11/21/19) | | 2020 | on | | Elizabeth Moeller | | | | | | 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 [employer] | | +--------+ + + + + | 11/11/ | Telephone | Nephrology | Arslan Robertson MD | Other (Creatinine | | 2019 | | | | clearance question) | +--------+ + + + + from Last 3 Months Immunizations + + + + | Name | Administration Dates | Next Due | + + + + | INFLUENZA TRIV | 07/16/2010 | | | W/PRES(PED/ADOL/ADUL | | | | T),MULTIDOSE | | | + + + + | PNEUMOCOCCAL | 05/01/2018, 06/12/2010 | | | CONJUGATE 13-VALENT | | | | (PCV13) | | | + + + + | TDAP, (ADOL/ADULT) | 05/01/2018 | | + + + + | ZOSTER, 1 DOSE | 08/10/2011 | | | (ZOSTAVAX) | | | + + + + Family [...] | + + + | Female | 12/26/2019 9:23 AM PDT | + + + + + + [...] + + + | Blood Pressure | 106/59 | 12/27/2019 8:47 AM | | | | | PDT | | + + + + + | Pulse | 85 | 12/27/2019 8:47 AM | | | | | PDT | | + + + + + | Temperature | 36.5 C (97.7 F) | 06/22/2018 8:55 AM | | | | | PDT | | + + + + + | Respiratory Rate | 18 | 12/27/2019 8:47 AM | | | | | PDT | | + + + + + | Oxygen Saturation | 98% | 12/27/2019 8:47 AM | | | | | PDT | | + + + + + | Inhaled Oxygen | - | - | | | Concentration | | | | + + + + + | Weight | 77.7 kg (171 lb 3.2 | 12/27/2019 8:47 AM | | | | oz) | PDT | | + + + + + | Height | 149.9 cm (4' 11") | 12/27/2019 8:47 AM | | | | | PDT | | + + + + + | Body Mass Index | 34.58 | 12/27/2019 8:47 AM | | | | | PDT | | + + + + + Plan of Treatment +--------+ + + + + | Date | Type | Specialty | Care Team | Description | +--------+ + + + + | 01/10/ | Appointment | Radiology | Deirdre Maharaj | | | 2019 | | | MD [address], [place] | | | | | | [place] [address] | | | | | | [phone] | | | | | | | | +--------+ + + + + | 01/10/ | Appointment | Respiratory Therapy | Deirdre Maharaj | | | 2019 | | | MD N[address], [place] | | | | | | [place] [address] | | | | | | [phone] | | | | | | | | +--------+ + + + + | 04/10/ | Office | Neurology | Deirdre Maharaj | | | 2019 | Visit | | MD Ney [address] | | | | | | [place] [address] | | | | | | [place] [address] | | | | | | [phone] | | | | | | | | +--------+ + + + + | 06/02/ | Office | Nephrology | Arslan Robertson MD | | | 2019 | Visit | | [address] [place] | | | | | | [address] [place] | | | | | | [address] | | | | | | | | +--------+ + + + + + + + + + | Health Maintenance | Due Date | Last Done | Comments | + + + + + | Breast Cancer | | | | | Screening | 4 | | | + + + + + | Vaccine: Zoster (2 | | 08/10/2011 | | | of 3) | 2 | | | + + + + + | Adult Annual | | | | | Wellness Visit | 8 | | | + + + + + | Vaccine: | | 05/01/2018, 06/12/2010 | | | Pneumococcal 65+ (2 | 9 | | | | of 2 - PPSV23) | | | | + + + + + | Vaccine: Influenza | | 07/16/2010 | | | (Season Ended) | 0 | | | + + + + [...] | | + + + + + Procedures + +--------+ + + + | [...] | LABS - EXTERNAL SCAN | | 11/21/2019 | | Results for this | | | | 12:00 AM | | procedure are in the | | | | PDT | | results section. | + +--------+ + + + | LABS - EXTERNAL SCAN | | 11/21/2019 | | Results for this [...] section. | + +--------+ + + + from Last 3 Months Results Creatinine Clearance, Test (12/03/2019 11:53 AM [...] | | [facility] | | | | [address];[place] [address] | | LABORATORY | | + + + + + + + + | Specimen | + + | Urine | + + + + + + + | Performing | Address | City/State/Zipcode | Phone Number | | Organization | | | | + + + + + | REFERENCE LAB | [address] | [place] | [phone] | | [facility] | [address] | [address] | | | LABORATORY | | | | + + + + + | REFERENCE LAB | [address] | [place] | | | [facility] | [address] | [address] | | | LABORATORY | | | | + + + + + Vol/Time (12/03/2019 11:53 AM PDT) + + [...] | | | Volume | performed at [facility];[address] | | LAB | | | | [place] | | [facility] | | | | [address];[place] [address] | | LABORATORY | | + + + + + + + + | Specimen | + + | | + + + + + + + | Performing | Address | City/State/Zipcode | Phone Number | | Organization | | | | + + + + + | REFERENCE LAB | [address] | [place] | [phone] | | [facility] | [address] | [address] | | | LABORATORY | | | | + + + + + | REFERENCE LAB | [address] | [place] | | | [facility] | [address] | [address] | | | LABORATORY | | | | + + + + + ECG 12 lead (11/28/2019 12:07 PM PDT) [...] | | | | | | Camille Hernandez MD | | | | | | 5066) on 11/28/2019 | | | | | [...] +---------+ + + External Lab: PTH, Intact (11/21/2019) + + [...] | + + | | + + Vitamin D, 25-Hydroxy, LC/MS/MS [...] + + | Blood | + + LABS - EXTERNAL SCAN (11/21/2019 12:00 AM PDT)Only the most recent of 2 results within the time period is included. + + + | Narrative | Performed At | + + + | Ordered by an | | | unspecified provider. | | + + + CBC with Manual Differential (11/21/2019) [...] + + | Blood | + + from Last 3 Months Insurance + +--------+ +--------+ +---------+--------+ | Payer | Benefi | Subscriber | Effect | Phone | Address | Type | | | t Plan | ID | dinorah | | | | | | / | | Dates | | | | | | Group | | | | | | + +--------+ +--------+ +---------+--------+ | MEDICARE | MEDICA | [id number] | | [phone] | | Medica | | | RE | | 014-Pr | 5 | | re | | | PART A | | esent | | | | | | AND B | | | | | | + +--------+ +--------+ +---------+--------+ | MEDICARE SUPPLEMENT | MEDICA | [id number] | 02/11/20 | [phone] | | Indemn | | OTHER | RE | | 19-Pre | 0 | | ity | | | SUPPLE | | sent | | | | | | MENT | | | | | | | | OTHER | | | | | | + +--------+ +--------+ +---------+--------+ | MEDICARE | MEDICA | [id number] | | [phone] | | Medica | | | RE | | 014-Pr | 5 | | re | | | PART A | | esent | | | | | | AND B | | | | | | + +--------+ +--------+ +---------+--------+ | MEDICARE | MEDICA | [id number] | | [phone] | | Medica | | | RE | | 018-Pr | 5 | | re | | | PART A | | esent | | | | | | AND B | | | | | | + +--------+ +--------+ +---------+--------+ | AARP | AARP | [id number] | 09/12/19 | [phone] | | Indemn [...] + +--------+ +--------+ + + | Deirdre Minyaa | Person | Self [birth year] | [address] | | | al/Fam | | 1950 | [phone] | [place] | | | [place] | | | 6 (Home) | [address] | + +--------+ +--------+ + + | Deirdre Minaya | Person | Self | [birth year] | [address] | | | al/Fam | | 1950 | [phone] | [place] | | | [place] | | | 6 (Home) | [address] | + +--------+ +--------+ + + | Deirdre Minaya | Person | Self | [birth year] | [address] | | | al/Fam | | 1950 | [phone] | [place] | | | [place] | | | 6 ([place]) | [address] | + +--------+ +--------+ + + Advance Directives + + + + + | Type | Date Recorded | Patient | Explanation | | | | Child Life Specialist | | + + + + + | Power of | | | | | Papier Mache' Molder | | | | + + + + + | Advance | | | | | Directive | | | | + + + + +
--- OUTSIDE RECORDS SUMMARY | ~2020-01-04 | XMS | Encounter Summary ---
Demographics + + + | Address | [address] | | | [place] [address] | + + + | Home Phone | | + + + | Preferred Language | Unknown | + + + | Marital Status | | + + + | Gnosticist Affiliation | 1013 | + + + | Race | Unknown | + + + | Ethnic Group | Unknown | + + + Author + + + | Author | [facility] | | | and [place] | + + + | Organization | [facility] | | [...] [place] | | | | | [address] | | + + + + + Care Team Providers + +------+ + | Care Nuclear Radiologist Name | Role | Phone | + [...] Description | +--------+--------+ + + + | 05/20/ | Refill | [facility] | Arslan Robertson MD | Medication Refill | | 2018 | | NEPRHOLOGY [place] | [address] | | | | | [address] [place] | [address] [place], [place] | | | | | [address] [place], [place] | [address] | | | | | [address] | | | | | | [phone] | | | +--------+--------+ + + + [...] | | | | | [place] [address] | | | | | | [phone] | | | | | | | | +--------+ + + + + | 01/10/ | Appointment | Respiratory Therapy | Deirdre Maharaj | | | 2019 | | | MD Ney [address] | | [address] | | | [address], [place] | | | | | | [place] [address] | | | | | | [phone] | | | | | | | | +--------+ + + + + | 04/10/ | Office | Neurology | Deirdre Maharaj | | | 2019 | Visit | | MD Ney [address], [place] | | | | | | [place] [address] | | | | | | [phone] | | | | | | | | +--------+ + + + + | 06/02/ | Office | Nephrology | Arslan Robertson MD | | | 2019 | Visit | | [address] [place] | | | | | | [address] [place], [place] | | | | | | [address] | | | | | | | | +--------+ + + + + documented as of this encounter Visit Diagnoses + + | Diagnosis | + + | CKD (chronic kidney disease) stage 4, GFR 15-29 ml/min ([facility]) - Primary Chronic kidney | | disease, Stage IV (severe) | + + | Bilateral leg edema Edema | + + documented in this encounter"
--- OUTSIDE RECORDS SUMMARY | ~2020-01-04 | XMS | Encounter Summary ---
Demographics + + + | Address | [address] | | | [place] [address] | + + + | Home Phone | | + + + | Preferred Language | Unknown | + + + | Marital Status | | + + + | Buddhist Affiliation | 1013 | + + + | Race | Unknown | + + + | Ethnic Group | Unknown | + + + Author + + + | Author | [facility] | | | and [place] | + + + | Organization | [facility] | | | and [place] | + + + | Address | Unknown | + + + | Phone | Unavailable | + + + Support + + + + + | Name | Relationship | Address | Phone | + + + + + | Jose Ariisidro | ECON | [address] | | | | | [place] | | | | | [address] | | + + + + + Care Team Providers + +------+ + | Care Hand Splitter Name | Role | Phone | + +------+ + | Shazia Tamayo MD | PCP | | + +------+ + Encounter Details +--------+ + + + + | Date | Type | Department | Care Team | Description | +--------+ + + + + | 03/29/ | Orders Only | [facility] | Conversion | | | 2018 | | NEPHROLOGY [place] | Transaction, | | | | | [address] [place] | Provider Unknown | | | | | [address] [place], [place] | | | | | | [address] | (Fax) | | | | | [phone] | | | +--------+ + + + [...] | | | | | [place] [address] | | | | | | [phone] | | | | | | | | +--------+ + + + + | 01/10/ | Appointment | Respiratory Therapy | Deirdre Maharaj | | | 2019 | | | MD Ney [address], [place] | | | | | | [place] [address] | | | | | | [phone] | | | | | | | | +--------+ + + + + | 04/10/ | Office | Neurology | Deirdre Maharaj | | | 2019 | Visit | | MD Ney [address], [place] | | | | | | [place] [address] | | | | | | [phone] | | | | | | | | +--------+ + + + + | 06/02/ | Office | Nephrology | Arslan Robertson MD | | | 2019 | Visit | | [address] [place] | | | | | | [address] [place], [place] | | | | | | [address] | | | | | | | [...] for this | | | e | 3:10 PM | | procedure are in the | | | | PDT | | results section. | + +--------+ + + + | IRON AND IRON | Routin | 03/29/2018 | | Results for this | | BINDING CAPACITY | e | 3:10 PM | | procedure are in the | | | | PDT | | results section. | + +--------+ + + + | PHOSPHORUS | Routin | 03/29/2018 | | Results for this | | | e | 3:10 PM | | procedure are in the | | | | PDT | | results section. | + +--------+ + + + | PARATHYROID HORMONE, | Routin | 03/29/2018 | | Results for this | | INTACT | e | 3:10 PM | | procedure are in the | | | | PDT | | results section. | + +--------+ + + + | MAGNESIUM | Routin | 03/29/2018 | | Results for this | | | e | 3:10 PM | | procedure are in the | | | | PDT | | results section. | + +--------+ + + + | FERRITIN | Routin | 03/29/2018 | | Results for this | | | e | 3:10 PM | | procedure are in the | | | | PDT | | results section. | + +--------+ + + + | COMPREHENSIVE | Routin | 03/29/2018 | | Results for this | | METABOLIC PANEL | e | 3:10 PM | | procedure are in the | | | | PDT | | results section. | + +--------+ + + + documented in this encounter Results Iron and Iron Binding Capacity (03/29/2018 3:10 PM PDT) + + + + + + | Component | Value | Ref Range | Performed | Pathologist | | | | | At | Signature | + + + + + + | Iron | 62.09 | 37 - 160 | EXTERNAL | | | | | | LAB | | + + + + + + | Iron | 16.7 (A) | 20 - 55 | EXTERNAL | | | Saturation | | | LAB | | + + + + + + | TIBC | 371 | 245 - 400 | EXTERNAL | | | | | [...] + +---------+ + + External Lab: CBC (03/29/2018 3:10 PM PDT) + +-------+ + + + | Component | Value | Ref Range | Performed | Pathologist | | | | | At | Signature | + +-------+ + + + | WBC | 9.8 | 4.5 - 11.0 10 | EXTERNAL | | | | | | LAB | | + +-------+ + + + | Red Blood | 4.33 | 3.8 - 5.1 10 | EXTERNAL | | | Cells | | | LAB | | | Counted | | | | | + +-------+ + + + | Hemoglobin | 13.3 | 12 - 16 g/dL | EXTERNAL | | | | | | LAB | | + +-------+ + + + | Hematocrit, | 39.5 | 35 - 45 % | EXTERNAL | | | POC | | | LAB | | + +-------+ + + + | MCV | 91.2 | 81 - 99 fL | EXTERNAL [...] +-------+ + + + | Platelet | 222 | 140 - 440 K/ L | EXTERNAL | | | Count | | | LAB | | | Plasma | | | | | + +-------+ + + + | RDW-CV | 13.1 | 10.5 - 15.0 % | EXTERNAL [...] | | | + +---------+ + + Phosphorus (03/29/2018 3:10 PM PDT) + +-------+ + + + | Component | Value | Ref Range | Performed | Pathologist | | | | | At | Signature | + +-------+ + + + | PHOSPHORUS | 3.0 | 2.5 - 5.0 mg/dL | EXTERNAL [...] + +---------+ + + Parathyroid Hormone, Intact (03/29/2018 3:10 PM PDT) + + + + + + | Component | Value | Ref Range | Performed | Pathologist | | | | | At | Signature | + + + + + + | PTH INTACT | 72.48 (A) | 15 - 65 pg/mL | [...] | | | + +---------+ + + Magnesium (03/29/2018 3:10 PM PDT) + +-------+ + + + | Component | Value | Ref Range | Performed | Pathologist | | | | | At | Signature | + +-------+ + + + | Magnesium | 2.2 | 1.7 - 2.5 mg/dL | EXTERNAL | | | | [...] | | | + +---------+ + + Ferritin (03/29/2018 3:10 PM PDT) + + + + + + | Component | Value | Ref Range | Performed | Pathologist | | | | | At | Signature | + + + + + + | Ferritin, | 342.1 (A) | 13 - 150 ng/mL | EXTERNAL | | | External | [...] | | | + +---------+ + + Comprehensive Metabolic Panel (03/29/2018 3:10 PM PDT) + + + + + [...] + + + + | BUN | 43 (A) | 6 - 23 mg/dL | EXTERNAL | | | | | | LAB | | + + + + + + | Creatinine | 2.07 (A) | 0.7 - 1.25 | EXTERNAL | | | | | mg/dL | LAB | | + + + + + + | BUN/Creatin | 20.8 | 6.0 - 28.6 | EXTERNAL | | | ine Ratio | | | LAB | | + + + + + + | Calcium | 10 | 8.4 - 10.2 | EXTERNAL | | | | | mg/dL | LAB | | + + + + + + | Protein, | 7.5 | 6.0 - 8.3 g/dL | EXTERNAL | | | Total | | | LAB | | + + + + + + | Albumin | 4.4 | 3.5 - 5.0 | EXTERNAL | | | | | | LAB | | + + + + + + | Globulin | 3.1 | 1.8 - 3.5 | EXTERNAL | | | | | | LAB | | + + + + + + | A/G Ratio | 1.4 | 1.1 - 2.4 | EXTERNAL | | | | | | LAB | | + + + + + + | Bilirubin | 0.5 | 0.0 - 1.2 mg/dL | EXTERNAL | | | Total | | | LAB | | + + + + + + | ALP, | 124 | 31 - 130 | EXTERNAL | | | External | | | LAB | | + + + + + + | ALT | 56 (A) | 7 - 52 U/L | EXTERNAL | | | | | | LAB | | + + + + + + | AST | 45 (A) | 13 - 39 U/L | EXTERNAL | | | | | | LAB | | + + + + + + | Na | 137 | 132 - 143 | EXTERNAL | | | | | mmol/L | LAB | | + + + + + + | K | 3.5 (A) | 3.6 - 5.1 [...] + + + | Anion Gap | 15.5 | 7 - 21 mmol/L | EXTERNAL [...]
--- OUTSIDE RECORDS SUMMARY | ~2020-01-04 | XMS | Encounter Summary ---
Demographics + + + | Address | [address] | | | [place] [address] | + + + | Home Phone | | + + + | Preferred Language | Unknown | + + + | Marital Status | | + + + | Bahai Affiliation | CHR | + + + | Race | White | + + + | Ethnic Group | Not or | + + + Author + + + | Author | [facility] | + + + | Organization | [facility] | + + + | Address | Unknown | + + + | Phone | Unavailable | + + + Support + + +---------+ + | Name | Relationship | Address | Phone | + + +---------+ + | Jose Minaya | ECON | Unknown | | + + +---------+ + Care Team Providers + +------+ + | Care Preanalytics Team Lead Name | Role | Phone | + [...] Description | +--------+---------+ + + + | 01/02/ | Surgery | H INTRA OP | Yung Cerrato MD | TRANSVAGINAL SLING | | 2019 | | [facility] | [address] | INCISION | | | | and Healing Surgery | [place], [place] | | | | | Center Admitting | [address] | | | | | Desk Located on the | [phone] | | | | | 4th floor [address] | | | | | | [address] [place], | | | | | | [place] [address] | | | +--------+---------+ + + + [...] | | 2020 | Visit | | [address] | | | | | | [place], [place] | | | | | | [address] | | | | | | [phone] | | | | | | | [...] filedocumented in this encounter Administered Medications + +--------+---------+------+------+------+ [...] +---+---+ | | | +---+---+ + +-------+ +-------+---+ + | lidocaine-EPINEPHrine | Given | 01/03/20 | 10 mL | | Surgical | | (XYLOCAINE WITH EPINEPHRINE) 1 | | 20 12:09 | | | Site | | %-1:100,000 injection | | PM PDT | | | | | INTRAPROCEDURE PRN, Starting Ronel | | | | | | | 01/03/20 at 1209, Until Ronel | | | | | | | 01/03/20 at 1223 | | | | | | + +-------+ +-------+---+ + + +---+ | | | + +---+ [...]
--- OUTSIDE RECORDS SUMMARY | ~2020-01-04 | XMS | Encounter Summary ---
Demographics + + + | Address | [address] | | | [place] [address] | + + + | Home Phone | | + + + | Preferred Language | Unknown | + + + | Marital Status | | + + + | Pentecostalism Affiliation | 1013 | + + + | Race | Unknown | + + + | Ethnic Group | Unknown | + + + Author + + + | Author | [facility] | | | and [place] | + + + | Organization | [facility] | | | and [place] | + + + | Address | Unknown | + + + | Phone | Unavailable | + + + Support + + + + + | Name | Relationship | Address | Phone | + + + + + | Jose Ariisidro | ECON | [address] | | | | | [place] | | | | | [address] | | + + + + + Care Team Providers + +------+ + | Care Server Service Assistant Name | Role | Phone | + +------+ + | Shazia Tamayo MD | PCP | | + +------+ + Encounter Details +--------+ + + + + | Date | Type | Department | Care Team | Description | +--------+ + + + + | 05/13/ | Orders Only | [facility] | Arslan Robertson MD | | | 2018 | | NEPHROLOGY [place] | [address] [place] | | | | | [address] [place] | [address] [place], [place] | | | | | [address] [place], [place] | [address] | | | | | [address] | | | | | | [phone] | | | +--------+ + + + [...] | | | | | [place] [address] | | | | | | [phone] | | | | | | | | +--------+ + + + + | 01/10/ | Appointment | Respiratory Therapy | Deirdre Maharaj | | | 2020 | | | MD [address] | | | | | [address], [place] | | | | | | [place] [address] | | | | | | [phone] | | | | | | | | +--------+ + + + + | 04/10/ | Office | Neurology | Deirdre Maharaj | | | 2019 | Visit | | MD [address] | | | | [address], [place] | | | | | | [place] [address] | | | | | | [phone] | | | | | | | | +--------+ + + + + | 06/02/ | Office | Nephrology | Arslan Robertson MD | | | 2019 | Visit | | [address] | | | | | | [address] [place] | | | | | | [address] | | | | | | | | +--------+ + + + + documented as of this encounter Procedures + +--------+ + + + | Procedure Name | Priori | Date/Time | Associated Diagnosis | Comments | | | ty | | | | + +--------+ + + + | EXTERNAL LAB: CBC | Routin | 01/22/2019 | | Results for this | | | e | 7:49 AM | | procedure are in the | | | | PDT | | results section. | + +--------+ + + + | URIC ACID | Routin | 01/22/2019 | | Results for this | | | e | 7:49 AM | | procedure are in the | | | | PDT | | results section. | + +--------+ + + + | PARATHYROID HORMONE, | Routin | 01/22/2019 | | Results for this | | INTACT | e | 7:49 AM | | procedure are in the | | | | PDT | | results section. | + +--------+ + + + | RENAL FUNCTION PANEL | Routin | 01/22/2019 | | Results for this | | | e | 7:49 AM | | procedure are in the | | | | PDT | | results section. | + +--------+ + + + documented in this encounter Results External Lab: CBC (01/22/2019 7:49 AM PDT) + + + + + + | Component | Value | Ref Range | Performed | Pathologist | | | | | At | Signature | + + + + + + | WBC | 7.9 | 4.5 - 11.0 10 | EXTERNAL | | | | | | LAB | | + + + + + + | Red Blood | 4.27 | 3.8 - 5.1 10 | EXTERNAL | | | Cells | | | LAB | | | Counted | | | | | + + + + + + | Hemoglobin | 12.4 | 12.0 - 16.0 | EXTERNAL | | | | | g/dL | LAB | | + + + + + + | Hematocrit, | 37.7 | 35 - 45 % | EXTERNAL | | | POC | | | LAB | | + + + + + + | MCV | 88.3 | 81 - 99 fL | EXTERNAL [...] + + + + | Platelet | 264 | 140 - 440 K/ L | EXTERNAL | | | Count | | | LAB | | | Plasma | | | | | + + + + + + | RDW-CV | 15.2 (A) | 10.5 - 15.0 % | [...] + + + | % Segmented | 68.1 | 39 - 80 % | EXTERNAL | | | | | | LAB | | | Neutrophils | | | | | + + + + + + | % | 19.9 (A) | 24 - 44 % | EXTERNAL | | | Lymphocytes | | | LAB | | + + + + + + | % Monocytes | 7.2 | 0 - 12 % | EXTERNAL | | | | | | LAB | | + + + + + + | % | 3.5 | 0 - 6 % | EXTERNAL [...] | + +---------+ + + Uric Acid (01/22/2019 7:49 AM PDT) + +---------+ + + + | Component | Value | Ref Range | Performed | Pathologist | | | | | At | Signature | + +---------+ + + + | Uric Acid | 7.5 (A) | 2.3 - 6.6 | EXTERNAL [...] + +---------+ + + Parathyroid Hormone, Intact (01/22/2019 7:49 AM PDT) + + + + + + | Component | Value | Ref Range | Performed | Pathologist | | | | | At | Signature | + + + + + + | PTH INTACT | 96.77 (A) | 15 - 65 pg/mL | [...] + +---------+ + + Renal Function Panel (01/22/2019 7:49 AM PDT) + + + + + + | Component | Value | Ref Range | Performed | Pathologist | | | | | At | Signature | + + + + + + | Glucose, | 141 (A) | 70 - 100 mg/dL | EXTERNAL | | | Fasting | | | LAB | | + + + + + + | BUN | 26 (A) | 6 - 23 mg/dL | EXTERNAL | | | | | | LAB | | + + + + + + | Creatinine | 2.09 (A) | 0.70 - 1.25 | EXTERNAL | | | | | mg/dL | LAB | | + + + + + + | PHOSPHORUS | 3.6 | 2.5 - 5.0 mg/dL | EXTERNAL | | | | | | LAB | | + + + + + + | Albumin | 4.0 | 3.5 - 5.0 | EXTERNAL | | | | | | LAB | | + + + + + + | Na | 138 | 132 - 143 | EXTERNAL | | | | | mmol/L | LAB | | + + + + + + | K | 4.3 | 3.6 - 5.1 | EXTERNAL | | | | | mmol/L | LAB | | + + + + + + | Cl | 97 | 95 - 112 mmol/L | EXTERNAL | | | | | | LAB | | + + + + + + | CO2 | 30 | 19 - 31 mmol/L | EXTERNAL | | | | | | LAB | | + + + + + + | Anion Gap | 15.3 | 7 - 21 mmol/L | EXTERNAL | | | | | | LAB | | + + + + + + | eGFR if not | | | EXTERNAL | | | | | | LAB | | | TONGAN | | | | | + + + + + + | Phosphorus, | | | EXTERNAL | | | Inorganic | | | LAB | | + + + + + + | BUN/Creatin | 29.7 (A) | 6.0 - 28.6 | EXTERNAL | | | ine Ratio | | | LAB | | + + + + + + | Calcium | 10.2 | 8.5 - 10.3 | EXTERNAL | | | | | mg/dL | LAB | | + + + + + + | Estimated | 23 (A) | 60 - 140 mg/dL | [...]
--- OUTSIDE RECORDS SUMMARY | ~2020-01-04 | XMS | Encounter Summary ---
Demographics + + + | Address | [address] | | | [place] [address] | + + + | Home Phone | | + + + | Preferred Language | Unknown | + + + | Marital Status | | + + + | Yarsanism Affiliation | 1013 | + + + | Race | Unknown | + + + | Ethnic Group | Unknown | + + + Author + + + | Author | [facility] | | | and [place] | + + + | Organization | [facility] | | | [...] [place] | | | | | [address] | | + + + + + Care Team Providers + +------+ + | Care Subacute Nurse Name | Role | Phone | + [...] + + | 11/22/ | Documentati | [facility] | Tomás | LOR (11/21/19) | | 2020 | on | NEPHROLOGY [place] | [facility] | | | | | [address] | Communication Manager | | | | | [address] [address] | | | | | | [place] | | | | | | [address] | | | | | | [phone] | | | +--------+ + + + [...] | | | | | [place] [address] | | | | | | [phone] | | | | | | | | +--------+ + + + + | 01/10/ | Appointment | Respiratory Therapy | Deirdre Maharaj | | | 2019 | | | MD [address] | | | | | | [address], [place] | | | | | | [place] [address] | | | | | | [phone] | | | | | | | | +--------+ + + + + | 04/10/ | Office | Neurology | Deirdre Maharaj | | | 2019 | Visit | | MD [address] | [address], [place] | | | | | | [place] [address] | | | | | | [phone] | | | | | | | | +--------+ + + + + | 06/02/ | Office | Nephrology | Arslan Robertson MD | | | 2019 | Visit | | [address] [place] | | | | | | [address] [place], [place] | | | | | | [address] | | | | | | | [...]
--- OUTSIDE RECORDS SUMMARY | ~2020-01-04 | XMS | Encounter Summary ---
Demographics + + + | Address | [address] | | | [place] [address] | + + + | Home Phone | | + + + | Preferred Language | Unknown | + + + | Marital Status | | + + + | Church Affiliation | 1013 | + + + | Race | Unknown | + + + | Ethnic Group | Unknown | + + + Author + + + | Author | [facility] | | | and [place] | + + + | Organization | [facility] | | | [...] [place] | | | | | [address] | | + + + + + Care Team Providers + +------+ + | Care Conservation Or Heritage Architect Name | Role | Phone | + +------+ + | Shazia Tamayo MD | PCP | | + +------+ + Encounter Details +--------+ + + + + | Date | Type | Department | Care Team | Description | +--------+ + + + + | 04/04/ | Orders Only | [facility] | Provider, | Chronic kidney | | 2019 | | SYSTEM GENERIC OP | MD [address] | disease, stage III | | | | CONVERSION [address] | [address] | (moderate) (HCC); | | | | [address] [place], [place] | [place] [address] | Localized edema; | | | | [address] | | Hyperuricemia | | | | [phone] | | without signs of | | [...] | | | | (severe) ([facility]); | | | | | [...] | | | | | [place] [address] | | | | | | [phone] | | | | | | | | +--------+ + + + + | 01/10/ | Appointment | Respiratory Therapy | Deirdre Maharaj | | | 2019 | | | MD [address] | | | [address], [place] | | | | | | [place] [address] | | | | | | [phone] | | | | | | | | +--------+ + + + + | 04/10/ | Office | Neurology | Deirdre Maharaj | | | 2019 | Visit | | MD [address] | [address], [place] | | | | | | [place] [address] | | | | | | [phone] | | | | | | | | +--------+ + + + + | 06/02/ | Office | Nephrology | Arslan Robertson MD | | | 2019 | Visit | | [address] [place] | | | | | | [address] [place], [place] | | | | | | [address] | | | | | | | [...] | | | | (moderate) ([facility]) | 08/07/2020 | | | [...] | | | | | ([facility]) | | + +------+--------+ + + | CBC with | Lab | Routin | Chronic kidney | Expected: | | Differential | | e | disease, stage III | 01/22/2019, Expires: | | | | | (moderate) ([facility]) | 08/07/2020 | | | [...] | | | | | ([facility]) | | + +------+--------+ + + | Parathyroid Hormone, | Lab | Routin | Chronic kidney | Expected: | | Intact | | e | disease, stage III | 01/22/2019, Expires: | | | | | (moderate) ([facility]) | 08/07/2020 | | | [...] | | | | (moderate) ([facility]) | 08/07/2020 | | | [...] | | | | | ([facility]) | | + +------+--------+ + + | Urinalysis with | Lab | Routin | Chronic kidney | Expected: | | Microscopic if | | e | disease, stage III | 01/22/2019, Expires: | | Indicated | | | (moderate) ([facility]) | 08/07/2020 | | | [...] | | | | | ([facility]) | | + +------+--------+ + + | Microalbumin/Creatin | Lab | Routin | Chronic kidney | Expected: | | ine Ratio, Urine | | e | disease, stage III | 01/22/2019, Expires: | | | | | (moderate) ([facility]) | 08/07/2020 | | | [...] | | | | (moderate) ([facility]) | 11/28/2019 | | | | | Secondary | | | | | | hyperparathyroidism | | | | | | of renal origin | | | | | | ([facility]) Essential | | | | | | (primary) | | | | | | hypertension | | + +------+--------+ + + | Protein/Creatinine | Lab | Routin | Chronic kidney | Expected: | | Ratio, Urine | | e | disease, stage III | 03/29/2019, Expires: | | | | | (moderate) ([facility]) | 11/28/2019 | | | | | Secondary | | | | | | hyperparathyroidism | | | | | | of renal origin | | | | | | ([facility]) Essential | | | | [...]
--- OUTSIDE RECORDS SUMMARY | ~2020-01-04 | XMS | Encounter Summary ---
Demographics + + + | Address | [address] | | | [place] [address] | + + + | Home Phone | | + + + | Preferred Language | Unknown | + + + | Marital Status | | + + + | Congregation Affiliation | 1013 | + + + | Race | Unknown | + + + | Ethnic Group | Unknown | + + + Author + + + | Author | [facility] | | | and [place] | + + + | Organization | [facility] | | [...] [place] | | | | | [address] | | + + + + + Care Team Providers + +------+ + | Care Lead Rider Name | Role | Phone | + +------+ + | Shazia Tamayo MD | PCP | | + +------+ + Encounter Details +--------+---------+ + + + | Date | Type | Department | Care Team | Description | +--------+---------+ + + + | 06/04/ | Office | [facility] | Arslan Robertson MD | CKD (chronic kidney | | 2019 | Visit | NEPHROLOGY [place] | [address] [place] | disease), stage III | | | | [address] | [address] [place], [place] | (HCC) (Primary Dx); | | | | [address] | [address] | Essential | | | | [place], [place] | | hypertension; | | | | [address] | | Secondary | | | | [phone] | | hyperparathyroidism | | | | [...] concerns. Truly yours, Arslan Robertson MD FACP REPLACED BY [facility] documented in this enc ounter Plan [...] | | | | | [place] [address] | | | | | | [phone] | | | | | | | | +--------+ + + + + | 01/10/ | Appointment | Respiratory Therapy | Deirdre Maharaj | | | 2019 | | | MD [address] | | | | | | [place] | | | | | | [place] [address] | | | | | | [phone] | | | | | | | | +--------+ + + + + | 04/10/ | Office | Neurology | Deirdre Maharaj | | | 2019 | Visit | | MD [address] | | | | | | [place] | | | | | | [place] [address] | | | | | | [phone] | | | | | | | | +--------+ + + + + | 06/02/ | Office | Nephrology | Arslan Robertson MD | | | 2019 | Visit | | [address] [place] | | | | | | [address] [facility] | | | | | [address] | | | | | | | [...]
--- OUTSIDE RECORDS SUMMARY | ~2020-01-04 | XMS | Encounter Summary ---
Demographics + + + | Address | [address] | | | [place] [address] | + + + | Home Phone | | + + + | Preferred Language | Unknown | + + + | Marital Status | | + + + | Judaism Affiliation | 1013 | + + + | Race | Unknown | + + + | Ethnic Group | Unknown | + + + Author + + + | Author | [facility] | | | and [place] | + + + | Organization | [facility] | | | and [place] | + + + | Address | Unknown | + + + | Phone | Unavailable | + + + Support + + + + + | Name | Relationship | Address | Phone | + + + + + | Jose Ariisidro | ECON | [address] | | | | | [place] | | | | | [address] | | + + + + + Care Team Providers + +------+ + | Care District Branch Manager Name | Role | Phone | + +------+ + | Shazia Tamayo MD | PCP | | + +------+ + Encounter Details +--------+ + + + + | Date | Type | Department | Care Team | Description | +--------+ + + + + | 11/19/ | Orders Only | [facility] | Arslan Robertson MD | | | 2017 | | NEPHROLOGY [place] | [address] [place] | | | | | [address] [place] | [address] [place], [place] | | | | | [address] [place], [place] | [address] | | | | | [address] | | | | | | [phone] | | | +--------+ + + + [...] | | | | | [place] [address] | | | | | | [phone] | | | | | | | | +--------+ + + + + | 01/10/ | Appointment | Respiratory Therapy | Deirdre Maharaj | | | 2020 | | | MD [address], [place] | | | | | | [place] [address] | | | | | | [phone] | | | | | | | | +--------+ + + + + | 04/10/ | Office | Neurology | Deirdre Maharaj | | | 2019 | Visit | | MD [address], [place] | | | | | | [place] [address] | | | | | | [phone] | | | | | | | | +--------+ + + + + | 06/02/ | Office | Nephrology | Arslan Robertson MD | | | 2019 | Visit | | [address] | | | | | | [address] [place] | | | | | | [address] | | | | | | | | +--------+ + + + + documented as of this encounter Procedures + +--------+ + + + | Procedure Name | Priori | Date/Time | Associated Diagnosis | Comments | | | ty | | | | + +--------+ + + + | EXTERNAL LAB: CBC | Routin | 07/31/2018 | | Results for this | | | e | 12:00 AM | | procedure are in the | | | | PST | | results section. | + +--------+ + + + | URINALYSIS WITH | Routin | 07/31/2018 | | Results for this | | MICROSCOPIC IF | e | 12:00 AM | | procedure are in the | | INDICATED | | PST | | results section. | + +--------+ + + + | URIC ACID | Routin | 07/31/2018 | | Results for this | | | e | 12:00 AM | | procedure are in the | | | | PST | | results section. | + +--------+ + + + | PARATHYROID HORMONE, | Routin | 07/31/2018 | | Results for this | | INTACT | e | 12:00 AM | | procedure are in the | | | | PST | | results section. | + +--------+ + + + | RENAL FUNCTION PANEL | Routin | 07/31/2018 | | Results for this | | | e | 12:00 AM | | procedure are in the | | | | PST | | results section. | + +--------+ + + + documented in this encounter Results Urinalysis with Microscopic if Indicated (07/31/2018 12:00 AM PST) + + + + + + | Component | Value | Ref Range | Performed | Pathologist | | | | | At | Signature | + + + + + + | Color | Comment: STRAW | | EXTERNAL | | | | | | LAB | | + + + + + + | Clarity | Clear | | EXTERNAL | | | | | | LAB | | + + + + + + | Spec Grav, | 1.008 | 1.005 - 1.030 | [...] + + + + | Total | negative | | EXTERNAL | | | Protein [...] + + + + | Ketones | negative | | EXTERNAL | | | | [...] + +---------+ + + External Lab: CBC (07/31/2018 12:00 AM PST) + +-------+ + + + | Component | Value | Ref Range | Performed | Pathologist | | | | | At | Signature | + +-------+ + + + | WBC | 9.1 | 4.5 - 11 10 | EXTERNAL | | | | | | LAB | | + +-------+ + + + | Red Blood | 4.22 | 3.8 - 5.1 10 | EXTERNAL | | | Cells | | | LAB | | | Counted | | | | | + +-------+ + + + | Hemoglobin | 12.9 | 12 - 16 g/dL | EXTERNAL | | | | | | LAB | | + +-------+ + + + | Hematocrit, | 38.4 | 35 - 45 % | EXTERNAL | | | POC | | | LAB | | + +-------+ + + + | MCV | 91 | 81 - 99 fL | EXTERNAL [...] +-------+ + + + | RDW-CV | 14.5 | 10.5 - 15 % | EXTERNAL | | | | [...] | + +---------+ + + Uric Acid (07/31/2018 12:00 AM PST) + +---------+ + + + | Component | Value | Ref Range | Performed | Pathologist | | | | | At | Signature | + +---------+ + + + | Uric Acid | 9.6 (A) | 2.3 - 6.6 | EXTERNAL [...] + +---------+ + + Parathyroid Hormone, Intact (07/31/2018 12:00 AM PST) + + + + + + | Component | Value | Ref Range | Performed | Pathologist | | | | | At | Signature | + + + + + + | PTH INTACT | 129.4 (A) | 15 - 65 pg/mL | [...] + +---------+ + + Renal Function Panel (07/31/2018 12:00 AM PST) + + + + + [...] + + + + | BUN | 45 (A) | 6 - 23 mg/dL | EXTERNAL | | | | | | LAB | | + + + + + + | Creatinine | 1.92 (A) | 0.70 - 1.25 | EXTERNAL | | | | | mg/dL | LAB | | + + + + + + | PHOSPHORUS | 4.2 | 2.5 - 5.0 mg/dL | EXTERNAL | | | | | | LAB | | + + + + + + | Albumin | 4.1 | 3.5 - 5.0 | EXTERNAL | [...] + + + + | CO2 | 32 (A) | 19 - 31 mmol/L | EXTERNAL | | | | | | LAB | | + + + + + + | Anion Gap | 16.7 | 7 - 21 mmol/L | EXTERNAL | | | | | | LAB | | + + + + + + | eGFR if not | | | EXTERNAL | | | | | | LAB | | | GABONESE | | | | | + + + + + + | Phosphorus, | | | EXTERNAL | | | Inorganic | | | LAB | | + + + + + + | BUN/Creatin | 23.4 | 6 - 28.6 | EXTERNAL | | | ine Ratio | | | LAB | | + + + + + + | Calcium | 10 | 8.5 - 10.3 | EXTERNAL | | | | | mg/dL | LAB | | + + + + + + | Estimated | 26 | mg/dL | EXTERNAL | | | GFR [...]
--- OUTSIDE RECORDS SUMMARY | ~2020-01-04 | XMS | Encounter Summary ---
Demographics + + + | Address | [address] | | | [place] [address] | + + + | Home Phone | | + + + | Preferred Language | Unknown | + + + | Marital Status | | + + + | Mandaen Affiliation | CHR | + + + | Race | White | + + + | Ethnic Group | Not or | + + + Author + + + | Author | [facility] | + + + | Organization | [facility] | + + + | Address | Unknown | + + + | Phone | Unavailable | + + + Support + + +---------+ + | Name | Relationship | Address | Phone | + + +---------+ + | Jose Wallace | ECON | Unknown | | + + +---------+ + Care Team Providers + +------+ + | Care Manager Quantitative Name | Role | Phone | + [...] SACROSPINOUS | | 2019 | | [facility] | [address] | LIGAMENT FIXATION, | | | | [address] [facility] | [facility] [place] | ANTERIOR AND | | | | Hospital Admitting | [address] | POSTERIOR | | | | Desk Located on the | [phone] | COLPORRHAPHY, | | | | 9th floor | | [place], | | | | [place], [place] | | CYSTOSCOPY | | | | [address] | | | +--------+---------+ + + + [...] Hospital Course Deirdre Wallace was admitted to [facility] on 11/14/2019 for sacrospinous ligament fixation, ante [...] oral route. Other Discharge Orders and Instructions [facility] UROLOGY -- AFTERCARE FOR VAGINAL SURGERY Incision [...] PM Seymour Cerrato Urology at [facility] [phone] Urology See your PCP about your procedure/hospital stay for continuity of care. When to call: Inability to void Difficulty breathing or unusual shortness of breath Excessive bleeding, drainage at the operative site Fevers, chills, increased pain that is not relieved by pain medications Persistent nausea or vomiting For general questions, contact [facility] at # [phone] for questions For urgent issues that cannot wait until business hours, call the hospital at [phone] and ask for the adult urology resident operations associate Urology Follow Up We will call you [...] PM Seymour Cerrato Urology at [facility] [phone] Urology Outstanding labs/studies: None Discharging Physician: SILVANA [...] to Prevent Infection", log into y our [employer] account at [email or web address]. You can enter [email or web address] in the "[employer] y" search box. Not on [employer]? Review the MyChart section of your After Visit Summary for directions on liz yao to sign up. Current as of: August 30, 2018 Content Version: [id number] [employer]. Care instructions adapted under license by [facility] [employer]. If you have questions about a medical condition or this instr uction, always ask your healthcare professional. [employer] disclaims any marily anty or liability for [...] Physician: Seymour Cerrato MD Patient: DEIRDRE WALLACE [id number] ID: Deirdre Wallace is a 69 y.o. [...] PO 1.3L Medications, labs, imaging: reviewed in PSYCHIATRIC CBC with diff last 72 hours (or [...] [address] | | | | | | [place], [place] | | | | | | [address] | | | | | | [phone] | | | | | | | [...] | + + + + + | [facility] | [address] | [place] [address] | | | SERVICES CORE | PARK [...] | | | LABORATORY | | | EMIRATI | | | SERVICES, | | | [...] | + + + + + | [facility] | [address] | [place] [address] | | | DEMARCUS, RAGHAVENDRA | PARK [...] | + + + + + | [facility] | [address] | [place] [address] | | | SERVICES, CORE | PARK [...] | + + + + + | [facility] | [address] | [place] [address] | | | SERVICES, CORE | PRIETO [...] VERA | [address] | [place], [place] | | | [facility] | [address] | [address] | | | TESTS | | | [...] RADHA GAMEZ | [address] | [place], [place] | | | [facility] | [address] | [address] | | | TESTS | | | [...]
--- OUTSIDE RECORDS SUMMARY | ~2020-01-04 | XMS | Encounter Summary ---
Demographics + + + | Address | [address] | | | [place] [address] | + + + | Home Phone [...] | Jose Ariisidro | ECON | [address] | | | | | [place] | | | | | [address] | | + + + + + Care Team Providers + +------+ + | Care Leather Goods Assembler Name | Role | Phone | + +------+ + | Shazia Tamayo MD | PCP | | + +------+ + Encounter Details +--------+ + + + + | Date | Type | Department | Care Team | Description | +--------+ + + + + | 06/07/ | Abstract | [facility] | Provider, | | | 2017 | | GASTROENTEROLOGY | MD [address] | | | | | [address] [facility] | Vaibhav Hernandez | | | | | [address] [place] | [place] [address] | | | | | [address] | | | | | | [phone] | | | +--------+ + + + [...] | | | | | [place] [address] | | | | | | [phone] | | | | | | | | +--------+ + + + + | 01/10/ | Appointment | Respiratory Therapy | Deirdre Maharaj | | | 2019 | | | MD [address] | [address], [place] | | | | | | [place] [address] | | | | | | [phone] | | | | | | | | +--------+ + + + + | 04/10/ | Office | Neurology | Deirdre Maharaj | | | 2019 | Visit | | MD [address] | | | | | | [place] | | | | | | [place] [address] | | | | | | [phone] | | | | | | | | +--------+ + + + + | 06/02/ | Office | Nephrology | Arslan Robertson MD | | | 2019 | Visit | | [address] [place] | | | | | | [address] [place] | | | | | | [address] | | | | | | | | +--------+ + + + + documented as of this encounter Procedures + +--------+ + + + | Procedure Name | Priori | Date/Time | Associated Diagnosis | Comments | | | ty | | | | + +--------+ + + + | EXTERNAL LAB: BUN | Routin | 05/17/2018 | | Results for this | | | e | | | procedure are in the | | | | | | results section. | + +--------+ + + + | EXTERNAL LAB: | Routin | 05/17/2018 | | Results for this | | GLUCOSE | e | | | procedure are in the | | | | | | results section. | + +--------+ + + + | EXTERNAL LAB: | Routin | 05/17/2018 | | Results for this | | CALCIUM | e | | | procedure are in the | | | | | | results section. | + +--------+ + + + | EXTERNAL LAB: CARBON | Routin | 05/17/2018 | | Results for this | | DIOXIDE | e | | | procedure are in the | | | | | | results section. | + +--------+ + + + | EXTERNAL LAB: | Routin | 05/17/2018 | | Results for this | | CHLORIDE | e | | | procedure are in the | | | | | | results section. | + +--------+ + + + | EXTERNAL LAB: | Routin | 05/17/2018 | | Results for this | | POTASSIUM | e | | | procedure are in the | | | | | | results section. | + +--------+ + + + | EXTERNAL LAB: SODIUM | Routin | 05/17/2018 | | Results for this | | | e | | | procedure are in the | | | | | | results section. | + +--------+ + + + | EXTERNAL LAB: EGFR | Routin | 05/17/2018 | | Results for this | | | e | | | procedure are in the | | | | | | results section. | + +--------+ + + + | EXTERNAL LAB: | Routin | 05/17/2018 | | Results for this | | CREATININE | e | | | procedure are in the | | | | | | results section. | + +--------+ + + + | BASIC METABOLIC | Routin | 05/17/2018 | | Results for this | | PANEL | e | | | procedure are in the | | | | | | results section. | + +--------+ + + + documented in this encounter Results Basic Metabolic Panel (05/17/2018) + +-------+ + + + | Component | Value | Ref Range | Performed | Pathologist | | | | | At | Signature | + +-------+ + + + | Anion Gap | 19 | 7 - 21 mmol/L | | | + +-------+ + + + | BUN/Creatin | 16.9 | 6 - 28.6 | | | | ine Ratio | | | | | + +-------+ + + + + + | Specimen | + + | Blood | + + External Lab: BUN (05/17/2018) + +--------+ + + + | Component | Value | Ref Range | Performed | Pathologist | | | | | At | Signature | + +--------+ + + + | BUN, | 30 (A) | 6 - 23 | EXTERNAL | | | External | | | LAB | | + +--------+ + + + + +---------+ + + | Performing | Address | City/State/Zipcode | Phone Number | | Organization | | | | + +---------+ + + | EXTERNAL LAB | | | | + +---------+ + + External Lab: Glucose (05/17/2018) + +---------+ + + + | Component | Value | Ref Range | Performed | Pathologist | | | | | At | Signature | + +---------+ + + + | Glucose, | 116 (A) | 70 - 100 | EXTERNAL | | | External | | | LAB | | + +---------+ + + + + +---------+ + + | Performing | Address | City/State/Zipcode | Phone Number | | Organization | | | | + +---------+ + + | EXTERNAL LAB | | | | + +---------+ + + External Lab: Calcium (05/17/2018) + +-------+ + + + | Component | Value | Ref Range | Performed | Pathologist | | | | | At | Signature | + +-------+ + + + | Calcium, | 9.8 | 8.5 - 10.3 | EXTERNAL | | | External | | | LAB | | + +-------+ + + + + +---------+ + + | Performing | Address | City/State/Zipcode | Phone Number | | Organization | | | | + +---------+ + + | EXTERNAL LAB | | | | + +---------+ + + External Lab: Carbon Dioxide (05/17/2018) + +-------+ + + + | Component | Value | Ref Range | Performed | Pathologist | | | | | At | Signature | + +-------+ + + + | Carbon | 24 | 19 - 31 | EXTERNAL | [...] + +---------+ + + External Lab: Chloride (05/17/2018) + +-------+ + + + | Component | Value | Ref Range | Performed | Pathologist | | | | | At | Signature | + +-------+ + + + | Chloride, | 99 | 95 - 112 | EXTERNAL | | | External | | | LAB | | + +-------+ + + + + +---------+ + + | Performing | Address | City/State/Zipcode | Phone Number | | Organization | | | | + +---------+ + + | EXTERNAL LAB | | | | + +---------+ + + External Lab: Potassium (05/17/2018) + +-------+ + + + | Component | Value | Ref Range | Performed | Pathologist | | | | | At | Signature | + +-------+ + + + | Potassium, | 4.1 | 3.6 - 5.1 | EXTERNAL | | | External | | | LAB | | + +-------+ + + + + +---------+ + + | Performing | Address | City/State/Zipcode | Phone Number | | Organization | | | | + +---------+ + + | EXTERNAL LAB | | | | + +---------+ + + External Lab: Sodium (05/17/2018) + +-------+ + + + | Component | Value | Ref Range | Performed | Pathologist | | | | | At | Signature | + +-------+ + + + | Sodium, | 138 | 132 - 1,473 | EXTERNAL | | | External | | | LAB | | + +-------+ + + + + +---------+ + + | Performing | Address | City/State/Zipcode | Phone Number | | Organization | | | | + +---------+ + + | EXTERNAL LAB | | | | + +---------+ + + External Lab: eGFR (05/17/2018) + +--------+ + + + | Component | Value | Ref Range | Performed | Pathologist | | | | | At | Signature | + +--------+ + + + | eGFR, | 28 (A) | 60 - 54,999 | EXTERNAL | | | External | [...] + +---------+ + + External Lab: Creatinine (05/17/2018) + + + + + + | Component | Value | Ref Range | Performed | Pathologist | | | | | At | Signature | + + + + + + | Creatinine, | 1.77 (A) | 0.7 - 1.25 | EXTERNAL [...]
--- OUTSIDE RECORDS SUMMARY | ~2020-01-04 | XMS | Encounter Summary ---
Demographics + + + | Address | [address] | | | [place] [address] | + + + | Home Phone | | + + + | Preferred Language | Unknown | + + + | Marital Status | | + + + | Buddhism Affiliation | CHR | + + + | Race | White | + + + | Ethnic Group | Not or | + + + Author + + + | Author | [facility] | + + + | Organization | [facility] | + + + | Address | Unknown | + + + | Phone | Unavailable | + + + Support + + +---------+ + | Name | Relationship | Address | Phone | + + +---------+ + | Jose Minaya | ECON | Unknown | | + + +---------+ + Care Team Providers + +------+ + | Care Customer Care Assistant Name | Role | Phone | [...] Pharmacy | | | | | | [address] | | | | | | [address] [place], [place] | | | | | | [address] | | | | | | [phone] | | | +--------+ + + + [...] [facility] | | | | | | [place], [place] | | | | | | [address] | | | | | | [phone] | | | | | | | | +--------+---------+ + + + documented as of this encounter Visit Diagnoses Not on filedocumented in this encounter"
--- OUTSIDE RECORDS SUMMARY | ~2020-01-04 | XMS | Encounter Summary ---
Demographics + + + | Address | [address] | | | [place] [address] | + + + | Home Phone | | + + + | Preferred Language | Unknown | + + + | Marital Status | | + + + | Islam Affiliation | CHR | + + + | Race | White | + + + | Ethnic Group | Not or | + + + Author + + + | Author | [facility] | + + + | Organization | [facility] | + + + | Address | Unknown | + + + | Phone | Unavailable | + + + Support + + +---------+ + | Name | Relationship | Address | Phone | + + +---------+ + | Jose Minaya | ECON | Unknown | | + + +---------+ + Care Team Providers + +------+ + | Care Head Soft Sugar Operator Name | Role | Phone | [...] | | | 2020 | Event | [facility] | MD Antonette [address] | | | | | and He[facility] Surgery | [address] | | | | | Center Admitting | [place], [place] | | | | | Desk Located on the | [address] | | | | | 4th floor [address] | [phone] | | | | | [address] [place], | | | | | | [place] [address] | Chace [address] | | | | | | [facility] [address] | | | | | | [facility] | | | | | | [place], [place] | | | | | | [address] | | | | | | [phone] | | | | | | | [...] [facility] | | | | | | [place], [place] | | | | | | [address] | | | | | | [phone] | | | | | | | [...]
--- OUTSIDE RECORDS SUMMARY | ~2020-01-04 | XMS | Encounter Summary ---
Demographics + + + | Address | [address] | | | [place] [address] | + + + | Home Phone | | + + + | Preferred Language | Unknown | + + + | Marital Status | | + + + | Sabianist Affiliation | 1013 | + + + [...] [place] | | | | | [address] | | + + + + + Care Team Providers + +------+ + | Care Assistant Grocery Name | Role | Phone | + +------+ + | Shazia Tamayo MD | PCP | | + +------+ + Reason for Referral Diagnostic/Screening (Routine) + +--------+ + + + + | Status | Reason | Specialty | Diagnoses / | Referred By | Referred To | | | | | Procedures | Contact | Contact | + +--------+ + + + + | Authorized | | Radiology | Diagnoses | Nicko, | Cc Wgr Mri | | | | | Post | Deirdre Brewster, | [address] | | | | | concussion | MD [address] | | | | | syndrome | [address] | [place], [place] | | | | | Procedures | DRIVE, [place] | [address] | | | | | MRI Brain wo | [place], | Phone: | | | | | Contrast | [place] [address] | [phone] | | | | | | Phone: | Fax: | | | | | | [phone] | [phone] | | | | | | Fax: | | | | | | | [phone] | | + +--------+ + + + + Reason for Visit + + + | Reason | Comments | + + + | Establish Care | Post Concussion | + + + Evaluate & Treat (Urgent) +--------+--------+ + + + + | Status | Reason | Specialty | Diagnoses / | Referred By | Referred To | | | | | Procedures | Contact | Contact | +--------+--------+ + + + + | Closed | | Neurology | Diagnoses | Belkis, | Nicko, | | | | | Jaz | Shazia Casanova, | Deirdre Brewster, | | | | | without loss | MD [address] | MD [address] | | | | | of | [address] | [address], | | | | | consciousnes | BAM, | [place] | | | | | s, sequela | [place] | [place], [place] | | | | | ([facility]) | [address] | [address] Phone: | | | | | | Phone: | [phone] | | | | | | [phone] | Fax: | | | | | | Fax: | [phone] | | | | | | [phone] | | +--------+--------+ + + + + Encounter Details +--------+---------+ + + + | Date | Type | Department | Care Team | Description | +--------+---------+ + + + | 12/26/ | Office | [facility] | Deirdre Maharaj | Post concussion | | 2020 | Visit | [facility] | MD [address] | syndrome | | | | CLINIC [address] | [place] | | | | | DR [address]AB[address] [place], | [place] [address] | | | | | [place] [address] | [phone] | | | | | [phone] | | | +--------+---------+ + + + [...] in this encounter Patient Instructions Patient Instructions Deirdre Maharaj MD - 12/27/2019 9:15 AM PDTFormatting of this no te might be different from the original. You have the following tests/procedures ordered. At [facility] Neurotrax with the Neuro tech At [facility] Radiology : brain MRI no contrast EEG routine Decrease amitriptyline to 25 mg (1/2 tablet) at bedtime. Suggest reading newspapers, books, and magazines; perform word exercises such as crossword puzzles, Scrabble, and sudoku; try computer/mobile applications such as [employer] and [employer] *Any questions, please call Dr. Maharaj's office at Patient advised of their right to have diagnostic testing, health care treatment, and/or se rvices at a facility other than [facility]. Coping with Concussion Concussion is also known as mild traumatic brain injury (MTBI). It isoften caused by ab low to the head, or a fall. You may have been unconscious for a few seconds or minutes after the injury. Or maybe you were dazed, confused, or saw stars. After this, you thought you were OK. Now, weeks or months later, you re having symptoms that may be caused by a co ncussion. The good news is that, in most people, these symptoms will likely go away on the ir own. Most people with a concussion recover fully, with no need for treatment. A cold compress can help relieve a headache. What is a concussion? A concussion is a mild form of brain injury. In some cases, the effects of a concussion go away within days of the injury. In others, symptoms may continue for a few months. Fortunate ly, a concussion is temporary. Even when symptoms stay for months, they do go away over time . If they don't, or if your symptoms are worse, contact your healthcare provider. Symptoms of a concussion You may have noticed some of these symptoms: Headaches Irritability and other changes in behavior Problems remembering or concentrating Dizziness or lack of coordination Fatigue Problems sleeping Sensitivity to light and sound Vision changes NOTE: If you have severe symptoms or trouble functioning, talk with your healthcare provide r right away. If you had a more serious head injury than a concussion, you likely need treat ment. Be sure to see your healthcare provider for an evaluation. What you can do Since the effects of a concussion go away over time, there isn t a lot you need to do. Be assured that this problem is temporary. You ll likely have a full recovery. In the meanti me, talk with your healthcare provider about ways to relieve any symptoms that are bothering you. These tips may help: Don't return to sports or any activity that could cause you to hit your head until all s ymptoms are gone and you have been cleared by your doctor. A second head injury before fully recovering from the first one can lead to serious brain injury. Return to normal activities of daily living and normal social interaction is encouraged to speed recovery. Stress can make symptoms worse. Help calm yourself by resting in a quiet place and imagi kristopher a peaceful scene. Relax your muscles by soaking in a hot bath or taking a hot shower. Take fzga-zih-klenwkg acetaminophen to relieve headache pain. Take them as directed on the package. Don't take ibuprofen or aspirin after a head injury. If you become dizzy, sit or lie down in a safe place until the sensation passes. Don t drive when you feel dizzy or disoriented. If you re having trouble sleeping, try to keep a regular sleep schedule. Go to bed and get up at the same time each day. Avoid or limit caffeine and nicotine. Also don't drink al cohol. It may help you sleep at first, but your sleep will not be restful. Give yourself time to heal. Your recovery will take some time. When you have symptoms, r emember that you won t feel this way forever. In time the symptoms will go away and you ll be back to yourself. If you re not feeling better The effects of a concussion often go away in 7 to 10 days and the vast majority of people w ho have had a concussion have recovered after 3 months. If you re not feeling better as ti me passes, there may be something else going on. If your symptoms don t go away or you not ice new ones, talk with your healthcare provider. He or she can help you get the treatment y ou need. Date Last Reviewed: 09/12/201719992122-5979 The [employer]. [address] [place] [address]. All righ ts reserved. This information is not intended as a substitute for professional medical care. Always follow your healthcare professional's instructions. documented in this encounter Progress Notes Deirdre Maharaj MD - 12/27/2019 9:15 AM PDT Patient: Deirdre Minaya Medical Record: [id number] Date of Services: 12/27/2019 Referring Doctor: Shazia Tamayo MD Chief Complaint Patient presents with Establish Care Post Concussion HISTORY OF PRESENT ILLNESS: The patient is a 69-year-old female who is referred to me because of memory loss. She has had some mild memory issues after an acute illness that led to respiratory failure 3 years ago. At that time, she was in [place]. She was on a ventilator for quite some time and there was no diagnosis. She recovered from that illness but 9 months ago, while in [place], she tripped in the bath room and fell hitting her head on the steps of a marble bathtub. She did not lose consciousness nor incur a laceration. However, she did have a big hematom a over the right frontal region. A week later, she started noticing more memory and concentration issues. She found it diff icult to focus on things. She forgets appointments and chores. However, she is still able to perform activities of daily living such as using household ap pliances. She denies hallucinations or significant changes in behavior. She denies recurrent headach es or dizziness. She did have a head CT in August, the report of which I was able to review. It revealed no acute abnormalities. Her PCP placed her on amitriptyline but she does not find it helpful. She also complains t hat it causes sleepwalking. REVIEW OF SYSTEMS: General: No weight changes HEENT: Positive for sore throat Cardiovascular: Positive for shortness of breath on exertion Respiratory: No cough Gastrointestinal: No abdominal pain Musculoskeletal: Positive for joint pains and stiffness Skin: No rash Hematologic: Positive for bruising Neurologic: No headaches Psychiatric: The patient denies anxiety Genitourinary: Positive for nocturia Past Medical History: Diagnosis Date Abnormal blood level of uric acid Acquired hypothyroidism 02/08/2018 Allergy Anemia Arthritis Asthma Carpal tunnel syndrome right wrist Chest pain, unspecified Chronic kidney disease, stage III (moderate) ([facility]) CKD (chronic kidney disease), stage III (HCC) 02/08/2018 Convulsions ([facility]) Edema of both legs Elevated LFTs Fibromyalgia Hypertension Hyperuricemia 02/08/2018 Hypothyroidism Low serum potassium Lymphedema in adult patient Postmenopausal Primary fibromyalgia syndrome 04/18/2018 Primary insomnia Renal disease stage 3 Restless leg syndrome Sinus tachycardia Transaminitis Urinary incontinence Vitamin D deficiency 02/08/2018 Past Surgical History: Procedure Laterality Date APPENDECTOMY COLONOSCOPY 2014 FACIAL RECONSTRUCTION SURGERY 1986 HYSTERECTOMY, TOTAL ABDOMINAL 1972 PARTIAL OOPHORECTOMY KNEE ARTHROSCOPY KNEE JOINT REPLACEMENT Bilateral 2012 TONSILLECTOMY AND ADENOIDECTOMY UMBILICAL HERNIA REPAIR 2015 UTERINE SUSPENSION 1969 X2 Current Outpatient Medications Medication Sig Dispense Refill aMILoride (MIDAMOR) 5 [...] ONCE DAILY 60 tablet 11 levothyroxine (SYNTHROID) 112 mcg tablet TAKE 1 TABLET BY MOUTH ONCE DAILY IN THE [facility] ON AN EMPTY STOMACH FOR 90 DAYS Magnesium 500 MG CAPS Take 1 capsule by mouth Daily. metOLazone 2.5 mg tablet Take 2.5 mg by mouth Every 3 days. 3 metoprolol succinate (TOPROL-XL) 25 mg 24 hr tablet Take 25 mg by mouth Daily. montelukast (SINGULAIR) 10 mg tablet Take 10 mg by mouth nightly. OXYBUTYNIN CHLORIDE ER PO POTASSIUM CHLORIDE EB ER PO Take 40 mEq by mouth 4 times daily. pramipexole (MIRAPEX) 1 MG tablet Take 1 mg by mouth 3 times daily. Probiotic Product (PROBIOTIC DAILY PO) Take by mouth. torsemide (DEMADEX) 100 mg tablet TAKE 1 TABLET BY MOUTH TWICE DAILY 180 tablet 3 No current facility-administered medications for this visit. Allergies Allergen Reactions Contrast [Iodinated Diagnostic Agents] Anaphylaxis Shellfish Anaphylaxis Codeine Nausea And Vomiting and Other (See Comments) Nausea/vomiting Diazepam Other (See Comments) Nausea and vomiting in large doses Metronidazole Other (See Comments) Reaction: convulsions Tramadol Other (See Comments) Nausea/vomiting Adhesive & Tape Other (See Comments) Reaction: redness Celebrex [Celecoxib] Hallucination Gabapentin Nausea And Vomiting Iodine Other (See Comments) Reaction: Triggers Asthma Hydrocodone Nausea And Vomiting Morphine Nausea And Vomiting Oxycodone Nausea And Vomiting Social History Socioeconomic History Marital status: Spouse name: Not on file Number of children: Not on file Years of education: Not on file Highest education level: Not on file Occupational History Not on file Social Needs Financial resource strain: Not on file Food insecurity: Worry: Not on file Inability: Not on file Transportation needs: Medical: Not on file Non-medical: Not on file Tobacco Use Smoking status: Never Smoker Smokeless tobacco: Never Used Substance and Sexual Activity Alcohol use: No Drug use: No Comment: Drug use: No Sexual activity: Not on file Lifestyle Physical activity: Days per week: Not on file Minutes per session: Not on file Stress: Not on file Relationships Social connections: Talks on phone: Not on file Gets together: Not on file Attends uatsdin service: Not on file Active member of club or organization: Not on file Attends meetings of clubs or organizations: Not on file Relationship status: Not on file Intimate partner violence: Fear of current or ex partner: Not on file Emotionally abused: Not on file Physically abused: Not on file Forced sexual activity: Not on file Other Topics Concern Not on file Social History Narrative Not on file Family History Problem Relation Age of Onset Lung cancer Sister PHYSICAL EXAMINATION: BP 106/59 | Pulse 85 | Resp 18 | Ht 1.499 m (4' 11") | Wt 77.7 kg (171 lb 3.2 oz) | Sp O2 98% | BMI 34.58 kg/m General appearance: Well kept, well nourished, in no acute distress Neck is supple. Lungs are clear. Heart sounds are within normal limits. Abdomen is soft and non-tender, There is no extremity cyanosis. NEUROLOGIC EXAMINATION: MENTAL STATUS: The patient is awake, alert, and oriented to time, place, and person. Spee ch is fluent. Memory, attention, comprehension, and general fund of knowledge are intact. MMSE score is 30/30. CRANIAL NERVES: Funduscopy revealed distinct disc margins. There are no exudates or hemor rhages noted. Pupils are 3-4 mm, equal and reactive to light and accommodation. Extraocular muscle movements are intact. There are no visual field cuts. There is no nystagmus. There is no facial asymmetry. Facial sensation is intact. Palate elevates symmetrically. Streng th in the trapezius and sternocleidomastoid muscles is normal. Tongue is midline on protrusi on. MOTOR EXAMINATION: Strength is 5/5 throughout. Tone is normal. SENSORY EXAMINATION: Intact to light touch. DEEP TENDON REFLEXES: 2+ and symmetric. PLANTAR RESPONSES: Downgoing bilaterally GAIT: She walks with a rolling walker. CEREBELLAR EXAMINATION: There is no dysmetria on ggkkpi-[id number] test. IMPRESSION: Postconcussion syndrome consisting mainly of memory and concentration difficulties PLAN AND RECOMMENDATIONS: I reviewed the patient's medical records from her PCP as well as the head CT done last year . I explained to the patient that it is not uncommon for patients to have memory issues after head trauma whether or not they lose consciousness. Her deficits may remain stable or impr ove slowly over time. I would like her to have a better neuro imaging study. I am ordering a brain MRI. She fartun l also have an EEG and neurotrax testing, the latter third to give me a better assessment of her cognitive dysfunction. We discussed the use of medication such as Aricept or Namenda to improve her memory but the patient does not wish to start 1 at this time. I agree with her as she did so well on her MMSE. Since she does not find the amitriptyline helpful and it is causing sleepwalking, I have as ked her to decrease her dose to 25 mg at night. She may even eventually discontinue it if s he finds no changes in her symptoms. She was encouraged to keep her brain active. She does me that she is actively engaged. I will continue to follow her. She is to come back to see me in 3 months. More than 50% of this 45-minute visit was spent on ecbw-[id number]-kfoi with the patient, mayo abarca her on the symptoms, prognosis, and treatment of postconcussion syndrome. Thank you for the opportunity to participate in the care of this patient. Deirdre Maharaj MD 12/27/2019 9:23 AM Electronically signed This note was transcribed using voice recognition software. There may be speech recognitio n errors which escaped detection during review. documented in thi s encounter Plan of Treatment +--------+ + + [...] | | | | | [place] [address] | | | | | | [phone] | | | | | | | | +--------+ + + + + | 01/10/ | Appointment | Respiratory Therapy | Deirdre Maharaj | | | 2019 | | | MD [address] | | [address] | | | [address], [place] | | | | | | [place] [address] | | | | | | [phone] | | | | | | | | +--------+ + + + + | 04/10/ | Office | Neurology | Deirdre Maharaj | | | 2019 | Visit | | MD [address] | [address], [place] | | | | | | [place] [address] | | | | | | [phone] | | | | | | | | +--------+ + + + + | 06/02/ | Office | Nephrology | Arslan Robertson MD | | | 2019 | Visit | | [address] [facility] | | | | | | [address] [place], [place] | | | | | | [address] | | | | | | | | +--------+ + + + + + + +--------+ + + | Name | Type | Priori | Associated Diagnoses | Order Schedule | | | | ty | | | + + +--------+ + + | EEG awake or drowsy | Neurology | Routin | Post concussion | 1 Occurrences | | routine | | e | syndrome | starting 12/27/2019 | | | | | | until 12/26/2020 | + + +--------+ + + | MRI Brain wo | Imaging | Routin | Post concussion | Expected: | | Contrast | | e | syndrome | 12/27/2019, Expires: | | | | | | 12/26/2020 | + + +--------+ + + | NEUROTRAX: | Neurology | Today | Post concussion | Ordered: 12/27/2019 | | COMPUTERIZED | | | syndrome | | | NEUROCOGNATIVE | | | | | | TESTING | | | | | + + +--------+ + + documented as of this encounter Visit Diagnoses + + | Diagnosis | + + | Post concussion syndrome Postconcussion syndrome | + + documented in this encounter
--- OUTSIDE RECORDS SUMMARY | ~2020-01-04 | XMS | Encounter Summary ---
Demographics + + + | Address | [address] | | | [place] [address] | + + + | Home Phone | | + + + | Preferred Language | Unknown | + + + | Marital Status | | + + + | Zoroastrian Affiliation | 1013 | + + + | Race | Unknown | + + + | Ethnic Group | Unknown | + + + Author + + + | Author | [facility] | | | and [place] | + + + | Organization | [facility] | | | and [place] | + + + | Address | Unknown | + + + | Phone | Unavailable | + + + Support + + + + + | Name | Relationship | Address | Phone | + + + + + | Jose Ariisidro | ECON | [address] | | | | | [place] | | | | | [address] | | + + + + + Care Team Providers + +------+ + | Care Assistant Professor Of Education Name | Role | Phone | + +------+ + | Shazia Tamayo MD | PCP | | + +------+ + Encounter Details +--------+ + + + + | Date | Type | Department | Care Team | Description | +--------+ + + + + | 01/22/ | Orders Only | [facility] | Conversion | | | 2019 | | NEPHROLOGY [place] | Transaction, | | | | | [address] | Provider Unknown | | | | | [address] [place], [place] | | | | | | [address] | (Fax) | | | | | [phone] | | | +--------+ + + + [...] | | | | | [place] [address] | | | | | | [phone] | | | | | | | | +--------+ + + + + | 01/10/ | Appointment | Respiratory Therapy | Deirdre Maharaj | | | 2019 | | | MD [address] | | [address], [place] | | | | | | [place] [address] | | | | | | [phone] | | | | | | | | +--------+ + + + + | 04/10/ | Office | Neurology | Deirdre Maharaj | | | 2019 | Visit | | MD [address] | | | | | | [place] | | | | | | [place] [address] | | | | | | [phone] | | | | | | | | +--------+ + + + + | 06/02/ | Office | Nephrology | Arslan Robertson MD | | | 2019 | Visit | | [address] | | | | | | [address] [place] | | | | | | [address] | | | | | | | | +--------+ + + + + documented as of this encounter Procedures + +--------+ + + + | Procedure Name | Priori | Date/Time | Associated Diagnosis | Comments | | | ty | | | | + +--------+ + + + | MICROALBUMIN/CREATIN | Routin | 01/22/2019 | | Results for this | | INE RATIO, URINE | e | 7:49 AM | | procedure are in the | | TEST | | PDT | | results section. | + +--------+ + + + documented in this encounter Results Microalbumin/Creatinine Ratio, Urine (01/22/2019 7:49 AM PDT) + + + + + + | Component | Value | Ref Range | Performed | Pathologist | | | | | At | Signature | + + + + + + | ALBUMIN/CRE | Comment: Microalbumin | | EXTERNAL | | | ATININE | calculation is invalid | | LAB | | | RATIO.URINE | when Microalbumin is | | | | | .ORD.MG/G | less than 0.7 mg/dl | | | | | (BEAKER) | | | | | | | [...]
--- OUTSIDE RECORDS SUMMARY | ~2020-01-04 | XMS | Encounter Summary ---
Demographics + + + | Address | [address] | | | [place] [address] | + + + | Home Phone | | + + + | Preferred Language | Unknown | + + + | Marital Status | | + + + | Bahai Affiliation | 1013 | + + + [...] [place] | | | | | [address] | | + + + + + Care Team Providers + +------+ + | Care Time Clock Mechanic Name | Role | Phone | + +------+ + | Shazia Tamayo MD | PCP | | + +------+ + Encounter Details +--------+---------+ + + + | Date | Type | Department | Care Team | Description | +--------+---------+ + + + | 11/25/ | Office | [facility] | Arslan Robertson MD | CKD (chronic kidney | | 2020 | Visit | NEPHROLOGY [place] | [address] [place] | disease), stage III | | | | [address] | [address] [place], [place] | (HCC) (Primary Dx); | | | | [address] | [address] | Secondary | | | | [place], [place] | | hyperparathyroidism | | | | [address] | | (HCC); Essential | | | | [phone] | | hypertension; | | | | | | Hypokalemia; | | | | | | Bilateral leg edema; | | | | | | At high risk for | | | | | | electrolyte | | | | | | imbalance; | | | | | | Hyperuricemia | +--------+---------+ + + + Social History [...] + + + | Blood Pressure | 90/54 | 11/26/2019 12:53 PM | | | | | PDT | | + + + + + | Pulse | 89 | 11/26/2019 12:53 PM | | | | | PDT | | + + + + + | Temperature | - | - | | + + + + + | Respiratory Rate | - | - | | + + + + + | Oxygen Saturation | 96% | 11/26/2019 12:53 PM | | | | | PDT | | + + + + + | Inhaled Oxygen | - | - | | | Concentration | | | | + + + + + | Weight | 80.4 kg (177 lb 3.2 | 11/26/2019 12:53 PM | | | | oz) | PDT | | + + + + + | Height | 149.9 cm (4' 11") | 11/26/2019 12:53 PM | | | | | PDT | | + + + + + | Body Mass Index | 35.79 | 11/26/2019 12:53 PM | | | | | PDT | | + + + + + documented in this encounter Patient Instructions Patient Instructions Arslan Robertson MD - 11/26/2019 12:40 PM PDTDiscussions/Recommendations : I discussed today with Ms. [...] kinds of NSAIDs for analgesia. Also: I reduced her Metolazone to 2.5 mg every 3 days for now. I increased her Potassium Chloride to 40 mEq to take it 4 times a day. I sent her for a repeat BMP, in addition to a 24-hour collection for CrCl & total protei ns in 1 week. She will report back to me her [...] will have a RFP, CBC, intact PTH, UTPCR before she comes back in 6 months.Electronic ally signed by Arslan Robertson MD at 11/26/2019 1:50 PM PDT documented in this encounter Progress Notes Arslan Robertson MD - 11/26/2019 12:40 PM PDT Patient Active Problem List Diagnosis Date [...] stones; she has no foamy urine either. Her baseline Creatinine is 1.6. There is n o family history of renal genetic diseases such as PKD. She says that she feels 'fair ' today. She denies any blurred vision tinnitus, headache, f [...] Outpatient Medications: aMILoride (MIDAMOR) 5 mg tablet, TAKE 2 TABLETS BY MOUTH ONCE DAILY, Disp: 180 tablet, Rfl: 3 amitriptyline (ELAVIL) 50 mg tablet, [...] , Rfl: febuxostat (ULORIC) 40 mg TABS, TAKE 2 TABLETS BY MOUTH ONCE DAILY, Disp: 60 tablet, R fl: 11 levothyroxine (SYNTHROID) 125 mcg tablet, Take 125 [...] table t, Rfl: 3 Physical Exam: BP 90/54 | Pulse 89 | Ht 1.499 m (4' 11") | Wt 80.4 kg (177 lb 3.2 oz) | SpO2 96% | BM I 35.79 kg/m General appearance: Pleasant, not in acute [...] tenderness bilaterally. Extremities: Warm to touch with minimal pitting leg edema. There is no cyanosis.; no thig hs edema. Skin: There are no rashes, petechiae, or ecchymosis. Neurological: Awake, alert, and oriented to time, place, and person. Normal gross motor po wer. There is no asterixis. Psychiatric: The patient s behavior is normal. Judgment and thought content are normal. Lab Results Component Value Date HGB 11.8 (A) 11/21/2019 HGB 12.4 03/26/2019 NA 136 11/21/2019 K 3.4 (A) 11/21/2019 CL 94 (A) 11/21/2019 CO2 30 11/21/2019 CO2 31 05/01/2018 BUN 31 (A) 11/21/2019 CREA 1.50 (A) 11/21/2019 CREA 2.32 (A) 05/28/2019 CALCIUM 9.6 11/21/2019 CALCIUM 10.5 (A) 05/01/2018 ALBUMIN 3.9 11/21/2019 EGFR 34.0 (A) 11/21/2019 PTH 108.2 (A) 03/26/2019 LABPROT 7.3 01/09/2019 Assessment: Ms. Minaya is a 69 y.o. female patient with stage IIIB CKD on a background of a partially recovered ATN from 2012. RENAL FUNCTION: Stable GFR [...] kinds of NSAIDs for analgesia. Also: I reduced her Metolazone to 2.5 mg every 3 days for now. I increased her Potassium Chloride to 40 mEq to take it 4 times a day. I sent her for a repeat BMP, in addition to a 24-hour collection for CrCl & total protei ns in 1 week. She will report back to me her [...] will have a RFP, CBC, intact PTH, UTPCR before she comes back in 6 months. I spent more than 20 minutes of this 40-minute visit in education, counseling and answering all of her questions to her satisfaction. Thank you Dr Fishman for the opportunity to see this patient in F/U today. Please do not hes itate to call me at any time with questions or concerns. Truly yours, Arslan Robertson MD FAC FAHA documented in this enco unter Plan of Treatment +--------+ + + + + | Date | Type | Specialty | Care Team | Description | +--------+ + + + + | 01/10/ | Appointment | Radiology | Deirdre Maharaj | | | 2019 | | | MD [address] | | | | | | [place] | | | | | | [place] [address] | | | | | | [phone] | | | | | | | | +--------+ + + + + | 01/10/ | Appointment | Respiratory Therapy | Deirdre Maharaj | | | 2019 | | | MD [address] | | | | | | [place] | | | | | | [place] [address] | | | | | | [phone] | | | | | | | | +--------+ + + + + | 04/10/ | Office | Neurology | Deirdre Maharaj | | | 2019 | Visit | Quintin Brewster MD [address] | | | | | | [place] | | | | | | [place] [address] | | | | | | [phone] | | | | | | | | +--------+ + + + + | 06/02/ | Office | Nephrology | Arslan Robertson MD | | | 2019 | Visit | | [address] [place] | | | | | | [address] [place] | | | | | | [address] | | | | | | | | +--------+ + + + + documented as of this encounter Visit Diagnoses + + | Diagnosis | + + | CKD (chronic kidney disease), stage III (HCC) - Primary Chronic kidney disease, Stage | | III (moderate) | + + | Secondary hyperparathyroidism (HCC) Secondary hyperparathyroidism (of renal origin) | + + | Essential hypertension Unspecified essential hypertension | + + | Hypokalemia Hypopotassemia | + + | Bilateral leg edema Edema | + + | At high risk for electrolyte imbalance | + + | Hyperuricemia Other abnormal blood chemistry | + + documented in this encounter
--- OUTSIDE RECORDS SUMMARY | ~2020-01-04 | XMS | Encounter Summary ---
Demographics + + + | Address | [address] [address] | | | [place] [address] | + + + | Home Phone | | + + + | Preferred Language | Unknown | + + + | Marital Status | | + + + | Alevism Affiliation | 1013 | + + + | Race | Unknown | + + + | Ethnic Group | Unknown | + + + Author + + + | Author | [facility] | | | and [place] | + + + | Organization | [facility] | | | and [place] | + + + | Address | Unknown | + + + | Phone | Unavailable | + + + Support + + + + + | Name | Relationship | Address | Phone | + + + + + | Jose Ariisidro | ECON | [address] | | | | | [place] | | | | | [address] | | + + + + + Care Team Providers + +------+ + | Care Magnetic Doctor Name | Role | Phone | + +------+ + | Shazia Tamayo MD | PCP | | + +------+ + Encounter Details +--------+ + + + + | Date | Type | Department | Care Team | Description | +--------+ + + + + | 01/09/ | Orders Only | [facility] | Conversion | | | 2019 | | NEPHROLOGY [place] | Transaction, | | | | | [address] | Provider Unknown | | | | | [address] [place], [place] | | | | | | [address] | (Fax) | | | | | [phone] | | | +--------+ + + + [...] | | | | | [place] [address] | | | | | | [phone] | | | | | | | | +--------+ + + + + | 01/10/ | Appointment | Respiratory Therapy | Deirdre Maharaj | | | 2019 | | | MD [address] | | | | | | [address], [place] | | | | | | [place] [address] | | | | | | [phone] | | | | | | | | +--------+ + + + + | 04/10/ | Office | Neurology | Deirdre Maharaj | | | 2019 | Visit | | MD [address] | | | | | | [place] | | | | | | [place] [address] | | | | | | [phone] | | | | | | | | +--------+ + + + + | 06/02/ | Office | Nephrology | Arslan Robertson MD | | | 2019 | Visit | | [address] [place] | | | | | | [address] [place] | | | | | | [address] | | | | | | | | +--------+ + + + + documented as of this encounter Procedures + +--------+ + + + | Procedure Name | Priori | Date/Time | Associated Diagnosis | Comments | | | ty | | | | + +--------+ + + + | EXTERNAL LAB: CBC | Routin | 01/09/2019 | | Results for this | | | e | 12:00 AM | | procedure are in the | | | | PDT | | results section. | + +--------+ + + + | CULTURE, URINE | Routin | 01/09/2019 | | Results for this | | | e | 12:00 AM | | procedure are in the | | | | PDT | | results section. | + +--------+ + + + | COMPREHENSIVE | Routin | 01/09/2019 | | Results for this | | METABOLIC PANEL | e | 12:00 AM | | procedure are in the | | | | PDT | | results section. | + +--------+ + + + | URINALYSIS, | Routin | 01/07/2019 | | Results for this | | MICROSCOPIC ONLY | e | 12:00 AM | | procedure are in the | | | | PDT | | results section. | + +--------+ + + + documented in this encounter Results Culture, Urine (01/09/2019 12:00 AM PDT) + + | Specimen | + + | Urine specimen | | (specimen) | + + + + + | Narrative | Performed At | + + + | Specimen Description Urine CULTURE | EXTERNAL LAB | | No Growth at 18-24 hrs. REPORT | | | STATUS Final | | + + + + +---------+ + + | Performing | Address | City/State/Zipcode | Phone Number | | Organization | | | | + +---------+ + + | EXTERNAL LAB | | | | + +---------+ + + External Lab: CBC (01/09/2019 12:00 AM PDT) + + + + + + | Component | Value | Ref Range | Performed | Pathologist | | | | | At | Signature | + + + + + + | WBC | 7.7 | 4.5 - 11.0 10 | EXTERNAL | | | | | | LAB | | + + + + + + | Red Blood | 4.30 | 3.8 - 5.1 10 | EXTERNAL | | | Cells | | | LAB | | | Counted | | | | | + + + + + + | Hemoglobin | 12.6 | 12.0 - 16.0 | EXTERNAL | | | | | g/dL | LAB | | + + + + + + | Hematocrit, | 37.5 | 35 - 45 % | EXTERNAL | | | POC | | | LAB | | + + + + + + | MCV | 87.2 | 81 - 99 fL | EXTERNAL [...] + + + + | Platelet | 171 | 140 - 440 K/ L | EXTERNAL | | | Count | | | LAB | | | Plasma | | | | | + + + + + + | RDW-CV | 15.4 (A) | 10.5 - 15.0 % | [...] + + + | % Segmented | 73.7 | 39 - 80 % | EXTERNAL | | | | | | LAB | | | Neutrophils | | | | | + + + + + + | % | 15.2 (A) | 24 - 44 % | EXTERNAL | | | Lymphocytes | | | LAB | | + + + + + + | % Monocytes | 9.8 | 0 - 12 % | EXTERNAL | | | | | | LAB | | + + + + + + | % | 0.5 | 0 - 6 % | EXTERNAL | | | Eosinophils | | | LAB | | + + + + + + | % Basophils | 0.8 | 0 - 2 % | EXTERNAL [...] + +---------+ + + Comprehensive Metabolic Panel (01/09/2019 12:00 AM PDT) + + + + + + | Component | Value | Ref Range | Performed | Pathologist | | | | | At | Signature | + + + + + + | Glucose, | 98 | 70 - 100 mg/dL | EXTERNAL | | | Fasting | | | LAB | | + + + + + + | BUN | 46 (A) | 6 - 23 mg/dL | EXTERNAL | | | | | | LAB | | + + + + + + | Creatinine | 2.01 (A) | 0.70 - 1.25 | EXTERNAL | | | | | mg/dL | LAB | | + + + + + + | BUN/Creatin | 22.9 | 6.0 - 28.6 | EXTERNAL | | | ine Ratio | | | LAB | | + + + + + + | Calcium | 10 | 8.5 - 10.3 | EXTERNAL | | | | | mg/dL | LAB | | + + + + + + | Protein, | 7.3 | 6.0 - 8.3 g/dL | EXTERNAL | | | Total | | | LAB | | + + + + + + | Albumin | 4.3 | 3.5 - 5.0 | EXTERNAL | | | | | | LAB | | + + + + + + | Globulin | 3.0 | 1.8 - 3.5 | EXTERNAL | | | | | | LAB | | + + + + + + | A/G Ratio | 1.4 | 1.1 - 2.4 | EXTERNAL | | | | | | LAB | | + + + + + + | Bilirubin | 1.0 | 0.0 - 1.2 mg/dL | EXTERNAL | | | Total | | | LAB | | + + + + + + | ALP, | 182 (A) | 31 - 130 | EXTERNAL | | | External | | | LAB | | + + + + + + | ALT | 72 (A) | 7 - 52 U/L | EXTERNAL | | | | | | LAB | | + + + + + + | AST | 81 (A) | 13 - 39 U/L | [...] + + + | Anion Gap | 17.5 | 7 - 21 mmol/L | EXTERNAL | | | | | | LAB | | + + + + + + | Estimated | 25 (A) | 60 - 140 mg/dL | [...] + +---------+ + + Urinalysis, Microscopic Only (01/07/2019 12:00 AM PDT) + + + + + [...] + + + + | Specific | 1.005 | 1.005 - 1.030 | EXTERNAL | | | [place], | | | LAB | | | [...] + + + | pH, Urine | 8 | 5 - 9 | EXTERNAL | [...] Performed At | + + + | RBC: 0 WBC: 0 Epithelial: c Crystals: Negative Bacteria: d | EXTERNAL LAB | | Casts: Negative | | + + + + +---------+ + + | Performing | Address | City/State/Zipcode | Phone Number | | Organization | | | | + +---------+ + + | EXTERNAL LAB | | | | + +---------+ + + documented in this encounter Visit Diagnoses Not on filedocumented in this encounter"
--- OUTSIDE RECORDS SUMMARY | ~2020-01-04 | XMS | Encounter Summary ---
Demographics + + + | Address | [address] | | | [place] [address] | + + + | Home Phone | | + + + | Preferred Language | Unknown | + + + | Marital Status | | + + + | Gnosticist Affiliation | CHR | + + + [...] Team Providers + +------+ + | Care Reporting Analyst Name | Role | Phone | + +------+ + | Shazia Tamayo MD | PCP | | + +------+ + Encounter Details +--------+ + + + + | Date | Type | Department | Care Team | Description | +--------+ + + + + | 01/02/ | Pharmacy | Pharmacy @ [facility] | | | | 2019 | Visit | [address] | | | | | | [address] Mailcode: | | | | | | [facility] | | | | | | and Healing, | | | | | | [address] | | | | | | [place], [place] | | | | | | [address] | | | +--------+ + + + [...] | | | | | | [place] | | | | | | [address] | | | | | | [phone] | | | | | | | | +--------+---------+ + + + documented as of this encounter Visit Diagnoses Not on filedocumented in this encounter"
--- OUTSIDE RECORDS SUMMARY | ~2020-01-04 | XMS | Encounter Summary ---
Demographics + + + | Address | [address] [address] | | | [place] [address] | + + + | Home Phone | | + + + | Preferred Language | Unknown | + + + | Marital Status | | + + + | Oriental Orthodox Affiliation | 1013 | + + + | Race | Unknown | + + + | Ethnic Group | Unknown | + + + Author + + + | Author | [facility] | | | and [place] | + + + | Organization | [facility] | | | [...] [place] | | | | | [address] | | + + + + + Care Team Providers + +------+ + | Care Job Interviewer Name | Role | Phone | + +------+ + | Shazia Tamayo MD | PCP | | + +------+ + Encounter Details +--------+---------+ + + + | Date | Type | Department | Care Team | Description | +--------+---------+ + + + | 11/25/ | Office | [facility] | Arslan Robertson MD | CKD (chronic kidney | | 2020 | Visit | NEPHROLOGY [place] | [address] [place] | disease), stage III | | | | [address] | [address] [place], [place] | (HCC) (Primary Dx); | | | | [address] | [address] | Secondary | | | | [place], [place] | | hyperparathyroidism | | | | [address] | | (HCC); Essential | | | | [phone] | | hypertension; | | | | [...] | | | | | [place] [address] | | | | | | [phone] | | | | | | | | +--------+ + + + + | 01/10/ | Appointment | Respiratory Therapy | Deirdre Maharaj | | | 2019 | | | MD [address] | | | | | | [place] | | | | | | [place] [address] | | | | | | [phone] | | | | | | | | +--------+ + + + + | 04/10/ | Office | Neurology | Deirdre Maharaj | | | 2019 | Visit | Quintin Brewster MD [address] | | | | | | [place] | | | | | | [place] [address] | | | | | | [phone] | | | | | | | | +--------+ + + + + | 06/02/ | Office | Nephrology | Arslan Robertson MD | | | 2019 | Visit | | [address] [place] | | | | | | [address] [place] | | | | | | [address] | | | | | | | [...]
--- OUTSIDE RECORDS SUMMARY | ~2020-01-04 | XMS | Encounter Summary ---
Demographics + + + | Address | [address] [facility] [facility] [address] | | | [place] [address] | + + + | Home Phone | | + + + | Preferred Language | Unknown | + + + | Marital Status | | + + + | Jew Affiliation | 1013 | + + + | Race | Unknown | + + + | Ethnic Group | Unknown | + + + Author + + + | Author | [facility] | | | and [place] | + + + | Organization | [facility] | | | and [place] | + + + | Address | Unknown | + + + | Phone | Unavailable | + + + Support + + + + + | Name | Relationship | Address | Phone | + + + + + | Jose Ariisidro | ECON | [address] | | | | | [place] | | | | | [address] | | + + + + + Care Team Providers + +------+ + | Care Diving Coach Name | Role | Phone | + +------+ + | Shazia Tamayo MD | PCP | | + +------+ + Encounter Details +--------+ + + + + | Date | Type | Department | Care Team | Description | +--------+ + + + + | 03/26/ | Orders Only | [facility] | Conversion | | | 2019 | | NEPHROLOGY [place] | Transaction, | | | | | [address] | Provider Unknown | | | | | [address] [place], [place] | | | | | | [address] | (Fax) | | | | | [phone] | | | +--------+ + + + [...] | | | | | [place] [address] | | | | | | [phone] | | | | | | | | +--------+ + + + + | 01/10/ | Appointment | Respiratory Therapy | Deirdre Maharaj | | | 2019 | | | MD [address] | | | | | | [address], [place] | | | | | | [place] [address] | | | | | | [phone] | | | | | | | | +--------+ + + + + | 04/10/ | Office | Neurology | Deirdre Maharaj | | | 2019 | Visit | | MD [address] | | | | | | [place] | | | | | | [place] [address] | | | | | | [phone] | | | | | | | | +--------+ + + + + | 06/02/ | Office | Nephrology | Arslan Robertson MD | | | 2019 | Visit | | [address] [place] | | | | | | [address] [place] | | | | | | [address] | | | | | | | [...] | | | LAB | | | [facility] | | | | | + + [...]
--- OUTSIDE RECORDS SUMMARY | ~2020-01-04 | XMS | Encounter Summary ---
Demographics + + + | Address | [address] [facility] [address] | | | [place] [address] | + + + | Home Phone | | + + + | Preferred Language | Unknown | + + + | Marital Status | | + + + | Yazidi Affiliation | 1013 | + + + | Race | Unknown | + + + | Ethnic Group | Unknown | + + + Author + + + | Author | [facility] | | | and [place] | + + + | Organization | [facility] | | | and [place] | + + + | Address | Unknown | + + + | Phone | Unavailable | + + + Support + + + + + | Name | Relationship | Address | Phone | + + + + + | Jose Ariisidro | ECON | [address] | | | | | [place] | | | | | [address] | | + + + + + Care Team Providers + +------+ + | Care Material Loader Name | Role | Phone | + +------+ + | Shazia Tamayo MD | PCP | | + +------+ + Encounter Details +--------+ + + + + | Date | Type | Department | Care Team | Description | +--------+ + + + + | 06/05/ | Orders Only | [facility] | [facility], | | | 2019 | | GASTROENTEROLOGY | PATRICK [place] [address] | | | | | [address] [place] | [place] | | | | | [address] [place], [place] | [place], [place] | | | | | [address] | [address] | | | | | [phone] | | | +--------+ + + + [...] | | | | | [place] [address] | | | | | | [phone] | | | | | | | | +--------+ + + + + | 01/10/ | Appointment | Respiratory Therapy | Deirdre Maharaj | | | 2019 | | | MD [address] | | | [address], [place] | | | | | | [place] [address] | | | | | | [phone] | | | | | | | | +--------+ + + + + | 04/10/ | Office | Neurology | Deirdre Maharaj | | | 2019 | Visit | | MD [address] | | | | | | [place], [place] | | | | | | [place] [address] | | | | | | [phone] | | | | | | | | +--------+ + + + + | 06/02/ | Office | Nephrology | Arslan Robertson MD | | | 2019 | Visit | | [address] [place] | | | | | | [address] [place] | | | | | | [address] | | | | | | | | +--------+ + + + + documented as of this encounter Visit Diagnoses Not on filedocumented in this encounter"
--- OUTSIDE RECORDS SUMMARY | ~2020-01-04 | XMS | Encounter Summary ---
Demographics + + + | Address | [address] [facility] [address] | | | [place] [address] | + + + | Home Phone | | + + + | Preferred Language | Unknown | + + + | Marital Status | | + + + | Yarsani Affiliation | 1013 | + + + | Race | Unknown | + + + | Ethnic Group | Unknown | + + + Author + + + | Author | [facility] | | | and [place] | + + + | Organization | [facility] | | | and [place] | + + + | Address | Unknown | + + + | Phone | Unavailable | + + + Support + + + + + | Name | Relationship | Address | Phone | + + + + + | Jose Ariisidro | ECON | [address] | | | | | [place] | | | | | [address] | | + + + + + Care Team Providers + +------+ + | Care Reading Coach Name | Role | Phone | + +------+ + | Shazia Tamayo MD | PCP | | + +------+ + Encounter Details +--------+ + + + + | Date | Type | Department | Care Team | Description | +--------+ + + + + | 05/13/ | Orders Only | [facility] | Arslan Robertson MD | | | 2018 | | NEPHROLOGY [place] | [address] [place] | | | | | [address] [place] | [address] [place], [place] | | | | | [address] [place], [place] | [address] | | | | | [address] | | | | | | [phone] | | | +--------+ + + + [...] | | | | | [place] [address] | | | | | | [phone] | | | | | | | | +--------+ + + + + | 01/10/ | Appointment | Respiratory Therapy | Deirdre Maharaj | | | 2020 | | | MD [address] | [address], [place] | | | | | | [place] [address] | | | | | | [phone] | | | | | | | | +--------+ + + + + | 04/10/ | Office | Neurology | Deirdre Maharaj | | | 2019 | Visit | | MD [address] | [address], [place] | | | | | | [place] [address] | | | | | | [phone] | | | | | | | | +--------+ + + + + | 06/02/ | Office | Nephrology | Arslan Robertson MD | | | 2019 | Visit | | [address] [facility] [facility] [place] | | | | | | [address] [place] | | | | | | [address] | | | | | | | [...] | | | LAB | | | [place] | | | | | + + [...]
--- OUTSIDE RECORDS SUMMARY | ~2020-01-04 | XMS | Encounter Summary ---
Demographics + + + | Address | [address] [facility] [address] | | | [place] [address] | + + + | Home Phone [...] | Jose Ariisidro | ECON | [address] | | | | | [place] | | | | | [address] | | + + + + + Care Team Providers + +------+ + | Care Lease Out Worker Name | Role | Phone | + +------+ + | Shazia Tamayo MD | PCP | | + +------+ + Encounter Details +--------+ + + + + | Date | Type | Department | Care Team | Description | +--------+ + + + + | 08/20/ | Orders Only | [facility] | Arslan Robertson MD | | | 2017 | | NEPHROLOGY [place] | [address] [place] | | | | | [address] [place] | [address] [place], [place] | | | | | [address] [place], [place] | [address] | | | | | [address] | | | | | | [phone] | | | +--------+ + + + [...] | | | | | [place] [address] | | | | | | [phone] | | | | | | | | +--------+ + + + + | 01/10/ | Appointment | Respiratory Therapy | Deirdre Maharaj | | | 2020 | | | MD [address]ey [address], [place] | | | | | | [place] [address] | | | | | | [phone] | | | | | | | | +--------+ + + + + | 04/10/ | Office | Neurology | Deirdre Maharaj | | | 2019 | Visit | | MD [address], [place] | | | | | | [place] [address] | | | | | | [phone] | | | | | | | | +--------+ + + + + | 06/02/ | Office | Nephrology | Arslan Robertson MD | | | 2019 | Visit | | [address] [facility] | | | | | | [address] [facility] [place] | | | | | | [address] | | | | | | | [...] | | | LAB | | | [place] | | | | | + + [...]
--- OUTSIDE RECORDS SUMMARY | ~2020-01-04 | XMS | Encounter Summary ---
Demographics + + + | Address | [address] | | | [place] [address] | + + + | Home Phone [...] + + + | Author | [facility] | | | and [place] | + + + | Organization | [facility] | | | and [place] | + + + | Address | Unknown | + + + | Phone | Unavailable | + + + Support + + + + + | Name | Relationship | Address | Phone | + + + + + | Jose Ariisidro | ECON | [address] | | | | | [place] | | | | | [address] | | + + + + + Care Team Providers + +------+ + | Care Workers Compensation Analyst Name | Role | Phone | + +------+ + | Shazia Tamayo MD | PCP | | + +------+ + Encounter Details +--------+ + + + + | Date | Type | Department | Care Team | Description | +--------+ + + + + | 01/09/ | Orders Only | [facility] | Conversion | | | 2019 | | NEPHROLOGY [place] | Transaction, | | | | | [address] | Provider Unknown | | | | | [address] [place], [place] | | | | | | [address] | (Fax) | | | | | [phone] | | | +--------+ + + + [...] | | | | | [place] [address] | | | | | | [phone] | | | | | | | | +--------+ + + + + | 01/10/ | Appointment | Respiratory Therapy | Deirdre Maharaj | | | 2019 | | | MD [address] | | | | | | [address], [place] | | | | | | [place] [address] | | | | | | [phone] | | | | | | | | +--------+ + + + + | 04/10/ | Office | Neurology | Deirdre Maharaj | | | 2019 | Visit | | MD [address] | | | | | | [place] | | | | | | [place] [address] | | | | | | [phone] | | | | | | | | +--------+ + + + + | 06/02/ | Office | Nephrology | Arslan Robertson MD | | | 2019 | Visit | | [address] | | | | | | [address] [place] | | | | | | [address] | | | | | | | [...] - 1.030 | EXTERNAL | | | [place], | | | LAB | | | [...]
--- OUTSIDE RECORDS SUMMARY | ~2020-01-04 | XMS | Encounter Summary ---
Demographics + + + | Address | [address] | | | [place] [address] | + + + | Home Phone | | + + + | Preferred Language | Unknown | + + + | Marital Status | | + + + | Taoist Affiliation | CHR | + + + | Race | White | + + + | Ethnic Group | Not or | + + + Author + + + | Author | [facility] | + + + | Organization | [facility] | + + + | Address | Unknown | + + + | Phone | Unavailable | + + + Support + + +---------+ + | Name | Relationship | Address | Phone | + + +---------+ + | Jose Minaya | ECON | Unknown | | + + +---------+ + Care Team Providers + +------+ + | Care Advanced Manufacturing Associate Name | Role | Phone | [...] | Medicine Clinic at | ANP [address] | (Primary Dx); CKD | | | | [facility] | [address] | (chronic kidney | | | | [address] | [place], [place] | disease) stage 4, | | | | [facility] | [address] | GFR 15-29 ml/min | | | | and Healing Building | [phone] | (HCC); Essential | | | | [address] [place], [place] | | hypertension; | | | | [address] | | Acquired | | | | [phone] | | hypothyroidism; | | | | [...] | | Nghia Estevez CRNA; Endotracheal | MANAGER DOMESTIC | MANAGER DOMESTIC | | | Tube; 7; Oral; 11/14/19; [...] Admitting - [facility], ninth floor [place] Surgery Check in Time: you will receive a call 1-3 business days before your surgery confi rming your exact arrival/check-in time for your surgery day. We know that planning for surg iris can be stressful and involve a lot of family/friend/transportation coordination as well as hotel arrangements. The [facility] does not have access to check in ti [facility], and we encourage you to contact your [...] ch as Uber/Lyft), or public transportation. An Uber/Lyft/recycle driver does not count as the responsible [...] it is after office hours, call the [facility] c d still operator at [phone] and ask them to page him or [...] Cr >2 - Followed by nephrology in [place] - BMP drawn today Fibromyalgia/RLS - stable on duloxetine Hypothyroid - stable on levothyroxine High risk for IVANA - Pt. being treated for high blood pressure BMI>35 and Age>50 Prior celeste-operative or celeste-anesthesia complications: Intra-op hypotension leading to kid jenni injury Functional Capacity: Moderate (4-10 mets) Youth Liaison Officer or current activity: House work - able [...] HTN no electrolyte abnormalities no dialysi s Urology/Recoverer: MALE IMPERSONATOR conditions: Other: vaginal prolapse Endo: no Diabetes: [...] based on this patients comorbid conditions and wfr-qj-mcuokvu care coordination needs Medication management recommendations: The patient was advised to continue all usual med ications except as noted in Patient Instructions (After Visit Summary given to pt) HTN - well controlled on metoprolol and diuretics CKD stage IV - last GFR 20 with Cr >2 - Followed by nephrology in [place] - [facility] today with GFR 26 and Cr [...] patient's care. [facility] Building [address] [place] [address] [phone] (fax) do cumented in this encounter Plan of Treatment +--------+---------+ + + + | Date | Type | Specialty | Care Team | Description | +--------+---------+ + + + | 02/11/ | Office | Urology | Seymour Cerrato MD | | 2019 | Visit | | [address] [facility] [address] | | | | | | [place], [place] | | | | | | [address] | | | | | | [phone] | | | | | | | | +--------+---------+ + + + documented as of this encounter Procedures + +--------+ + + + | Procedure Name | Priori | Date/Time | Associated Diagnosis | Comments | | | ty | | | | + +--------+ + + + | FL COLLECTION VENOUS | Routin | 11/06/2019 | [...] | + + + + + | [facility] | [address] | [place] [address] | | | SERVICES, CORE | PRIETO [...] | | | LABORATORY | | | TOGOLESE | | | SERVICES, | | | [...] | + + + + + | [facility] | [address] [facility] | [place] [address] | | | DEMARCUS, RAGHAVENDRA | PRIETO [...] DEPT OF | [address] | [place], [place] | | | CARDIOLOGY | [address] | [address] | | + + + + + [...]
--- OUTSIDE RECORDS SUMMARY | ~2020-01-04 | XMS | Encounter Summary ---
Demographics + + + | Address | [address] [place] [address] | | | [place] [address] | + + + | Home Phone | | + + + | Preferred Language | Unknown | + + + | Marital Status | | + + + | Sikh Affiliation | CHR | + + + [...] +------+ + | Care Assistant Professor Of Business Name | Role | Phone | + [...] Authorized | | Urology | Diagnoses | Sajadi, | Sasadaf, | | | | | Vaginal | MD Seymour | MD Seym[place] | | | | | vault | [address] | [address] | | | | | prolapse | Ave | Ave | | | | | after | [place], [place] | [place] | | | | | hysterectomy | [address] | [address] | | | | | Cystocele, | Phone: | Phone: | | | | | midline | [phone] | [phone] | | | | | Rectocele | Fax: | Fax: | | | | | Female | [phone] | [phone] | | | | | stress | | | | | | | incontinence | | | | | | | Procedures | | | | | | | REQUEST TO | | | | | | | SURGERY | | | | | | | MOLDER FLOOR | | | | | | | NM COMBINED | | | | | | | ANT/POST | | | | | | | COLPORRHAPHY | | | | | | | NM REPR | | | | | | | VAGINAL | | | | | | | PROLAPSE,SAC | | | | | | | ROSP LIG NM | | | | | | | SLING OPER | | | | | | | STRES | | | | | | | INCONTINENCE | | | | | | | | | | | | | | SACROSPINOUS | | | | | | | LIGAMENT | | | | | | | FIXATION, | | | | | | | ANTERIOR AND | | | | | | | POSTERIOR | | | | | | | COLPORRHAPHY | | | | | | | , | | | | | | | MID-URETHRAL | | | | | | | SLING, | | | | | | | CYSTOSCOPY | | | + +--------+ + + + + Reason for Visit + + + | Reason | Comments | + + + | Appointment | | + + + Office Visit - E/M Services (Urgent) + +--------+ + + + + | Status | Reason | Specialty | Diagnoses / | Referred By | Referred To | | | | | Procedures | Contact | Contact | + +--------+ + + + + | Authorized | | Urology | Diagnoses | Elizabeth, | Blossom, | | | | | Bladder | Rajeev Brewster, | MD [place] | | | | | prolapse, | ST | [address] | | | | | female, | HEAVENLY | Ave | | | | | acquired | HOSPITAL | [place], [place] | | | | | Stress | OBSTETRICS | [address] | | | | | incontinence | AND | Phone: | | | | | (female) | GYNECOLOGY | [phone] | | | | | (male) | BAM, | Fax: | | | | | sudden | [place] [address] | [phone] | | | | | vaginal | Phone: | | | | | | prolapse | [phone] | | | | | | with urinary | Fax: | | | | | | | [phone] | | | | | | incontinence | | | | | | | and | | | | | | | retention | | | + +--------+ + + + + Encounter Details +--------+---------+ + + + | Date | Type | Department | Care Team | Description | +--------+---------+ + + + | 10/16/ | Office | Urology at [facility] | Seymour Cerrato MD | Vaginal vault | | 2020 | Visit | [address] | [address] | 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 | | | | [facility] | [place], [place] | hysterectomy | | | | and Healing, | [address] | (Primary Dx); | | | | | [phone] | Cystocele, midline; | | | | Floor [place], [place] | | Rectocele; Female | | | | [address] | | stress incontinence | | | | [phone] | | | +--------+---------+ + + + [...] + + + | Blood Pressure | 118/65 | 10/16/2019 3:37 PM | | | | | PST | | + + + + + | Pulse | 89 | 10/16/2019 3:37 PM | | | | | PST | | + + + + + | Temperature | - | - | | + + + + + | Respiratory Rate | 14 | 10/16/2019 3:37 PM | | | | | PST | | + + + + + | Oxygen Saturation | - | - | | + + + + + | Inhaled Oxygen | - | - | | | Concentration | | | | + + + + + | Weight | 79.4 kg (175 lb) | 10/16/2019 3:37 PM | | | | | PST | | + + + + + | Height | 149.9 cm (4' 11") | 10/16/2019 3:37 PM | | | | | PST | | + + + + + | Body Mass Index | 35.35 | 10/16/2019 3:37 PM | | | | | PST | | + + + + + documented in this encounter Progress Notes Seymour Cerrato MD - 10/16/2019 4:00 PM PST Female Pelvic Medicine, Reconstructive Urology and Neurourology 10/16/2019 Referring Physician: Rajeev Johnson MD [facility] [place] [address] History: CHIEF COMPLAINT: "My bladder has prolapsed" HPI: 69yo kindly referred for pelvic organ prolapse. She complains of abrupt onset 5-6 weeks ago of a vaginal bulge that is bothersome to see and feel. It was accompanied by voiding diffic ulty, having to lean forward to empty her bladder, has not tried splinting. She has urinary frequency but attributes this to drinking 1 gallon of fluid per day for her chronic kidney d isease. She feels worsening vaginal pressure during bowel movements, but no splinting, her c onstipation is usually well-controlled. She has not been sexually active since the bulge occ urs but was prior. She had bilateral total knee replacements in 2012, and had intraoperative hypotension with subsequent ICU stay and respiratory failure. She developed ATN with subsequent development o f chronic kidney disease. She had a Murillo catheter during her prolonged hospital stay and de veloped stress urinary incontinence following this. She continues to have stress urinary inc ontinence requiring 1 pad per day and 1 pad at night. No urgency or urgency urinary incontin ence. No gross hematuria. No UTIs. Last creatinine was 2.3mg/dL 05/28/2019. She walks with a walker due to vertigo. 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 Codeine Nausea and Vomiting and Unknown Nausea/vomiting Nausea/vomiting Diazepam Unknown Nausea and vomiting in large doses Nausea and vomiting in large doses Metronidazole Unknown Reaction: convulsions Penicillins Unknown Tramadol Unknown Nausea/vomiting Nausea/vomiting Celecoxib Unknown Iodine Unknown Reaction: Triggers Asthma Hydrocodone Nausea and Vomiting Morphine Nausea and Vomiting Oxycodone Nausea and Vomiting Medications: Current Outpatient Medications: albuterol (VENTOLIN HFA) 90 mcg/actuation inhalation HFA ae rosol inhaler, Ventolin HFA 90 mcg/actuation aerosol inhaler, Disp: , Rfl: allopurinoL 100 mg oral tablet, allopurinol 100 mg tablet, Disp: , Rfl: aMILoride 5 mg oral tablet, Take 10 mg by mouth once daily., Disp: , Rfl: amitriptyline 50 mg oral tablet, TAKE 1 TO 3 TABLETS BY MOUTH EVERY DAY AT BEDTIME FOR 90 D AYS, Disp: , Rfl: aspirin EC 81 mg oral tablet,delayed release (DR/EC), Take 81 mg by mouth., Disp: , Rfl: azelastine-fluticasone (DYMISTA) 137-50 mcg/spray nasal spray,non-aerosol, Dymista 137 mcg- 50 mcg/spray nasal spray Marston 1 spray twice a day by intranasal route., Disp: , Rfl: baclofen 10 mg oral tablet, baclofen 10 mg tablet, Disp: , Rfl: calcitrioL 0.25 mcg oral capsule, calcitriol 0.25 mcg capsule, Disp: , Rfl: Cetirizine (ZYRTEC) 10 mg oral capsule, Zyrtec 10 mg capsule Take by oral route., Disp: , Rfl: chlorthalidone 25 mg oral tablet, chlorthalidone 25 mg tablet, Disp: , Rfl: cyanocobalamin 1,000 mcg oral tablet, Take by mouth., Disp: , Rfl: docusate sodium 250 mg oral capsule, Take 400 mg by mouth., Disp: , Rfl: estradiol 1 mg oral tablet, estradiol 1 mg tablet, Disp: , Rfl: Febuxostat 40 mg oral tablet, TAKE 2 TABLETS BY MOUTH ONCE DAILY, Disp: , Rfl: gabapentin 300 mg oral capsule, Take 300 mg by mouth., Disp: , Rfl: levothyroxine 125 mcg oral tablet, Take by mouth., Disp: , Rfl: Magnesium 250 mg oral tablet, Take 250 mg by mouth., Disp: , Rfl: metOLazone 2.5 mg oral tablet, TAKE 1 TABLET BY MOUTH EVERY OTHER DAY, Disp: , Rfl: metoprolol succinate 25 mg oral tablet extended release 24 hr, Take 25 mg by mouth., Disp: , Rfl: montelukast 10 mg oral tablet, montelukast 10 mg tablet, Disp: , Rfl: potassium chloride SR 20 mEq oral tablet,ER particles/crystals, TAKE 2 TABLETS BY MOUTH 4 T IMES DAILY, Disp: , Rfl: pramipexole 1 mg oral tablet, pramipexole 1 mg tablet, Disp: , Rfl: temazepam 30 mg oral capsule, temazepam 30 mg capsule, Disp: , Rfl: torsemide 20 mg oral tablet, torsemide 20 mg tablet, Disp: , Rfl: Past Medical History: No date: Chronic kidney disease, stage 3 (HCC) No date: Fibromyalgia No date: Hypothyroidism No date: Osteoarthritis No date: Restless leg syndrome Past Surgical History: No date: APPENDECTOMY No date: CATARACT EXTRACT, EXTRACAPS, IRRIGN AND ASPIRATN, W/ PROSTH LENS INSERT, 1 STAGE, COMPLEX 1972: HYSTERECTOMY No date: TONSILLECTOMY No date: TOTAL KNEE REPLACEMENT No date: UMBILICAL HERNIA REPAIR No date: UTERINE SUSPENSION Family History: Non-contributory Social History: Tobacco: lifetime non-smoker Review of Systems: Review of Systems Constitutional: Positive for malaise/fatigue. HENT: Positive for congestion. Negative for ear discharge, ear pain, hearing loss, noseblee ds, sinus pain, sore throat and tinnitus. Eyes: Negative. Respiratory: Positive for cough and sputum production. Negative for stridor. Cardiovascular: Positive for claudication and leg swelling. Gastrointestinal: Positive for abdominal pain. Genitourinary: Positive for frequency. Musculoskeletal: Positive for back pain, joint pain, myalgias and neck pain. Skin: Positive for itching and rash. Neurological: Positive for dizziness, tingling and tremors. Negative for sensory change, sp eech change, focal weakness, seizures, loss of consciousness, weakness and headaches. Endo/Heme/Allergies: Positive for environmental allergies. Bruises/bleeds easily. Psychiatric/Behavioral: Positive for memory loss. The patient has insomnia. Physical Exam: BP 118/65 (BP Location: Left upper arm, Patient Position: Sitting) | Pulse 89 | Resp 14 | Ht 1.499 m (4' 11") | Wt 79.4 kg (175 lb) | BMI 35.35 kg/m | BSA 1.82 m General: NAD Neuro: Gait: normal HEENT: normocephalic Respiratory: normal effort, no retractions or purse-lip breathing. Cardiovascular: No extremity swelling varices, edema, pallor, or erythema. Skin: no rashes; good turgor Abdomen: soft; large midline infraumbilical scar Extremities: varicose veins, no edema Pelvic Exam (Female): Herbicide Sprayer present: Briana Wilks LPN External Genitalia: atrophic Urethra: no mass or diverticulum Urethral angle: hypermobile with prolapse reduced Bladder: large cystocele with loss of rugae Vagina: atrophic Uterus/Cervix: absent Anus/Perineum: very narrow perineum POP-Q: Aa +3 Ba +4 C 0 gh 6 pb 2 tvl 9 Ap 0 Bp 0 Positive supine stress test with prolapse reduced U/A: normal Post Void Residual (bladder scan): 56mL IMPRESSION: Stage 3 pelvic organ prolapse Stress urinary incontinence I discussed with Deirdre and her sister both pelvic organ prolapse and stress urinary inc ontinence, which while both common, are different entities. I reviewed with Mercedes the relevant anatomy and pathophysiology for her pelvic organ prolaps e, and we reviewed the treatment options, including observation, pessary, and surgical treat ment. She is too bothered for observation. I strongly encouraged her to consider a pessary, but she declines. For surgical options, she is not interested in a colpocleisis because she wants to retain t he ability to have penetrative intercourse. I recommend a transvaginal nooksack tissue repair using the sacrospinous ligament fixation, anterior and posterior colporrhaphy given her terrence rbidities, as I think the shortest and least invasive procedure would be best for her. I dis cussed the long-term success rates. We reviewed the surgical approach with illustrations, that the vaginal vault is suspended t o the sacrospinous ligament complex, and a concomitant anterior and posterior colporrhaphy a re typically performed to repair level 2 defects. We reviewed the risks of the procedure whi ch include but are not limited to bleeding including hemorrhage requiring transfusion and/or angiography, infection, rectal injury, bladder injury, ureteral obstruction, neuropraxia, b uttock pain, nerve injury, dyspareunia, prolapse recurrence, fistula, urinary incontinence, and need for other procedures. Given her history of stress urinary incontinence, and demonstrable stress urinary incontine nce today, I would also recommend a concomitant mid-urethral sling. I provided literature on the retropubic mid-urethral sling. I discussed the reasons why this is the gold standard fo r the surgical treatment of stress urinary incontinence. I discussed the surgical approach a nd used illustrations of the relevant anatomy. We discussed the risks of the procedure which include but are not limited to bleeding, infection, bladder injury, bladder outlet obstruct ion causing urinary retention, voiding dysfunction, dyspareunia, injury to bowel and/or vasc ulature which are very rare but extremely serious. We discussed that there are specific risk s associated with the use of permanent surgical mesh, including mesh extrusion causing vagin al and/or sexual symptoms, pain symptoms, and mesh perforation of organs requiring reconstru ctive surgery. The latter are very rare but very serious. PLAN: Plan for sacrospinous ligament fixation, anterior and posterior colporrhaphy, mid-urethral sling, cystoscopy Hold aspirin 5 days prior documented in this encounter Plan of Treatment +--------+---------+ + + + | Date | Type | Specialty | Care Team | Description | +--------+---------+ + + + | 02/11/ | Office | Urology | Seymour Cerrato MD | | | 2019 | Visit | | [address] | | | | | | [place], [place] | | | | | | [address] | | | | | | [phone] | | | | | | | | +--------+---------+ + + + + + +--------+ + + | Name | Type | Priori | Associated Diagnoses | Order Schedule | | | | ty | | | + + +--------+ + + | BLADDER SCAN - BACK | Procedures | Routin | Vaginal vault | Ordered: 10/16/2019 | | OFFICE | | e | 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 | | | | | | hysterectomy | | + + +--------+ + + documented as of this encounter Procedures + +--------+ + + + | Procedure Name | Priori | Date/Time | Associated Diagnosis | Comments | | | ty | | | | + +--------+ + + + | UA DIPSTICK 10 DIP | Routin | 10/16/2019 | Vaginal vault | Results for this | | W/O MICRO | e | 4:05 PM | 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 | procedure are in the | | (AUTOMATED), POC | | PST | hysterectomy | results section. | + +--------+ + + + documented in this encounter Results UA 10 DIP, POC (10/16/2019 4:05 PM PST) + + + + + + | Component | Value | Ref Range | Performed | Pathologist | | | | | At | Signature | + + + + + + | COLOR (UA | Light yellow | | [facility], | | [...] + + + + | LEUKOCYTES | Negative | Negative | [facility] [...] + + + | BLOOD (UA | Negative | Negative | [facility], | | | DIP), POC | | | POINT OF | | | | | | CARE TESTS | | + + + + + + | SPECIFIC | 1.015 | 1.005 - 1.030 | [facility] [...] + + | [facility] | [address] [facility] | [place] [address] | | | OF CARE TESTS | | | | + + + + + documented in this encounter Visit Diagnoses + + | Diagnosis | + + | Vaginal vault 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 hysterectomy - Primary Prolapse of vaginal vault after | | hysterectomy | + + | Cystocele, midline | + + | Rectocele | + + | Female stress incontinence | + + documented in this encounter
--- OUTSIDE RECORDS SUMMARY | ~2020-01-04 | XMS | Clinical Summary ---
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 | hypertension; CKD | | | | [...] III | | | | | | ([facility]) (Primary Dx); | | | | | [...] Moeller | | | | | | Crop Pest Control Specialist | | +--------+ + + + + [...] | | | | | [place] [address] | | | | | | [phone] | | | | | | | | +--------+ + + + + | 01/10/ | Appointment | Respiratory Therapy | Deirdre Maharaj | | | 2019 | | | MD [address] | | | | | | [address], [place] | | | | | | [place] [address] | | | | | | [phone] | | | | | | | | +--------+ + + + + | 04/10/ | Office | Neurology | Deirdre Maharaj | | | 2019 | Visit | | MD [address] | | | | | | [place] | | | | | | [place] [address] | | | | | | [phone] | | | | | | | | +--------+ + + + + | 06/02/ | Office | Nephrology | Arslan Robertson MD | | | 2019 | Visit | | [address] [place] | | | | | | [address] [place] | | | | | | [address] | | | | | | | [...] [facility] | | | | Blvd;[place] [address] | | LABORATORY | | + + + + + + + + | Specimen | + + | Urine | + + + + + + + | Performing | Address | City/State/Zipcode | Phone Number | | Organization | | | | + + + + + | REFERENCE LAB | [address] | [place] | [phone] | | [facility] | Blvd. | [address] | | | LABORATORY | | | | + + + + + | REFERENCE LAB | [address] [facility] | [place] | | | [facility] | Blvd. | [address] | | | LABORATORY | | | [...] | | | Volume | performed at [facility];[address] | | LAB | | | | [place] | | [facility] | | | | Bl[address];[place] [address] | | LABORATORY | | + + + + + + + + | Specimen | + + | | + + + + + + + | Performing | Address | City/State/Zipcode | Phone Number | | Organization | | | | + + + + + | REFERENCE LAB | [address] [facility] | [place] | [phone] | | [facility] | Bl[address]. | [address] | | | LABORATORY | | | | + + + + + | REFERENCE LAB | [address] | [place] | | | [facility] | Blvd. | [address] | | | LABORATORY | | | [...] MD | | | | | | 5060) on 11/28/2019 | | | | | [...] +--------+ +---------+--------+ | MEDICARE | MEDICA | [id number] | | [phone] | | Medica | | | RE | | 014-Pr | 5 | | re | | | PART A | | esent | | | | | | AND B | | | | | | + +--------+ +--------+ +---------+--------+ | MEDICARE SUPPLEMENT | MEDICA | [id number] | 02/11/20 | [phone] | | Indemn | | OTHER | RE | | 19-Pre | 0 | | ity | | | SUPPLE | | sent | | | | | | MENT | | | | | | | | OTHER | | | | | | + +--------+ +--------+ +---------+--------+ | MEDICARE | MEDICA | [id number] | | [phone] | | Medica | | | RE | | 014-Pr | 5 | | re | | | PART A | | esent | | | | | | AND B | | | | | | + +--------+ +--------+ +---------+--------+ | MEDICARE | MEDICA | [id number] | | [phone] | | Medica | | | RE | | 018-Pr | 5 | | re | | | PART A | | esent | | | | | | AND B | | | | | | + +--------+ +--------+ +---------+--------+ | AARP | AARP | [id number] | 09/12/19 | [phone] | | Indemn [...] | | al/Fam | | 1950 | [phone] | [place] | | | [place] | | | 6 (Home) | [address] | + +--------+ +--------+ + + | Deirdre Minaya | Person | Self | [birth year] | [address] | | | al/Fam | | 1950 | [phone] | [place] | | | [place] | | | 6 (Home) | [address] | + +--------+ +--------+ + + | Deirdre Minaya | Person | Self | [birth year] | [address] | | | al/Fam | | 1950 | [phone] | [place] | | | [place] | | | 6 ([place]) | [address] | + +--------+ +--------+ + + Advance Directives + + + + + | Type | Date Recorded | Patient | Explanation | | | | Home Furnishings Sales Representative | | + + + + + | Power of | | | | | Circular Ripsaw Operator | | | | + + + + + | Advance | | | | | Directive | | | | + + + + +
--- OUTSIDE RECORDS SUMMARY | ~2020-01-04 | XMS | Encounter Summary ---
Demographics + + + | Address | [address] [facility] [address] | | | [place] [address] | + + + | Home Phone | | + + + | Preferred Language | Unknown | + + + | Marital Status | | + + + | Adventist Affiliation | 1013 | + + + | Race | Unknown | + + + | Ethnic Group | Unknown | + + + Author + + + | Author | [facility] | | | and [place] | + + + | Organization | [facility] | | | and [...] [place] | | | | | [address] | | + + + + + Care Team Providers + +------+ + | Care Cold Roll Packer Sheet Iron Name | Role | Phone | + [...] | Telephone | [facility] | [facility], | Other (CT done, no | | 2018 | | GASTROENTEROLOGY | PATRICK [address] | ultrasound) | | | | [address] [place] | [place], [place] [address] | | | | | [address] [place], [place] | [place], [place] | | | | | [address] | [address] | | | | | [phone] | | | +--------+ + + + [...] | | | | | [place] [address] | | | | | | [phone] | | | | | | | | +--------+ + + + + | 01/10/ | Appointment | Respiratory Therapy | Deirdre Maharaj | | | 2019 | | | MD [address] | | | | | | [place] | | | | | | [place] [address] | | | | | | [phone] | | | | | | | | +--------+ + + + + | 04/10/ | Office | Neurology | Deirdre Maharaj | | | 2019 | Visit | | MD [address] | | | | | | [address] [place] | | | | | | [place] [address] | | | | | | [phone] | | | | | | | | +--------+ + + + + | 06/02/ | Office | Nephrology | Arslan Robertson MD | | | 2019 | Visit | | [address] [place] | | | | | | [address] [place] | | | | | | [address] | | | | | | | | +--------+ + + + + documented as of this encounter Visit Diagnoses Not on filedocumented in this encounter"
--- OUTSIDE RECORDS SUMMARY | ~2020-01-04 | XMS | Encounter Summary ---
Demographics + + + | Address | [address] [facility] | | | [place] [address] | + + + | Home Phone | | + + + | Preferred Language | Unknown | + + + | Marital Status | | + + + | Presybeterian Affiliation | 1013 | + + + | Race | Unknown | + + + | Ethnic Group | Unknown | + + + Author + + + | Author | [facility] | | | and [place] | + + + | Organization | [facility] | | | and [place] | + + + | Address | Unknown | + + + | Phone | Unavailable | + + + Support + + + + + | Name | Relationship | Address | Phone | + + + + + | Jose Ariisidro | ECON | [address] | | | | | [place] | | | | | [address] | | + + + + + Care Team Providers + +------+ + | Care Talent Scout Name | Role | Phone | + +------+ + | Shazia Tamayo MD | PCP | | + +------+ + Encounter Details +--------+ + + + + | Date | Type | Department | Care Team | Description | +--------+ + + + + | 12/10/ | Orders Only | [facility] | Arslan Robertson MD | | | 2017 | | NEPHROLOGY [place] | [address] [place] | | | | | [address] [place] | 160 [place], [place] | | | | | 160 [place], [place] | [address] | | | | | [address] | | | | | | [phone] | | | +--------+ + + + [...] | | | | | [place] [address] | | | | | | [phone] | | | | | | | | +--------+ + + + + | 01/10/ | Appointment | Respiratory Therapy | Deirdre Maharaj | | | 2020 | | | MD [address] | | | | | [address], [place] | | | | | | [place] [address] | | | | | | [phone] | | | | | | | | +--------+ + + + + | 04/10/ | Office | Neurology | Deirdre Maharaj | | | 2019 | Visit | | MD [address] | | | | | [address], [place] | | | | | | [place] [address] | | | | | | [phone] | | | | | | | | +--------+ + + + + | 06/02/ | Office | Nephrology | Arslan Robertson MD | | | 2019 | Visit | | [address] [facility] [place] | | | | | | [address] [place] | | | | | | [address] | | | | | | | [...]
--- OUTSIDE RECORDS SUMMARY | ~2020-01-04 | XMS | Encounter Summary ---
Demographics + + + | Address | [address] [facility] [address] | | | [place] [address] | + + + | Home Phone | | + + + | Preferred Language | Unknown | + + + | Marital Status | | + + + | Rastafarian Affiliation | CHR | + + + [...] Team Providers + +------+ + | Care Wave Soldering Machine Operator Name | Role | Phone | + +------+ + | Shazia Tamayo MD | PCP | | + +------+ + Encounter Details +--------+--------+ + + + | Date | Type | Department | Care Team | Description | +--------+--------+ + + + | 12/17/ | Travel | | | | | [...] [place] | | | | | | [place], [place] | | | | | | [address] | | | | | | [phone] | | | | | | | | +--------+---------+ + + + documented as of this encounter Visit Diagnoses Not on filedocumented in this encounter"
--- OUTSIDE RECORDS SUMMARY | ~2020-01-04 | XMS | Encounter Summary ---
Demographics + + + | Address | [address] [facility] [address] | | | [place] [address] | + + + | Home Phone | | + + + | Preferred Language | Unknown | + + + | Marital Status | | + + + | Taoism Affiliation | 1013 | + + + | Race | Unknown | + + + | Ethnic Group | Unknown | + + + Author + + + | Author | [facility] | | | and [place] | + + + | Organization | [facility] | | [...] [place] | | | | | [address] | | + + + + + Care Team Providers + +------+ + | Care Community Center Coordinator Name | Role | Phone | + +------+ + | Shazia Tamayo MD | PCP | | + +------+ + Reason for Visit +--------+ + | Reason | Comments | +--------+ + | Other | Creatinine clearance question | +--------+ + Encounter Details +--------+ + + + + | Date | Type | Department | Care Team | Description | +--------+ + + + + | 11/11/ | Telephone | [facility] | Arslan Robertson MD | Other (Creatinine | | 2020 | | NEPHROLOGY [place] | [address] [place] | clearance question) | | | | [address] [place] | [address] [place], [place] | | | | | 160 [place], [place] | [address] | | | | | [address] | | | | | | [phone] | | | +--------+ + + + [...] | | | | | [place] [address] | | | | | | [phone] | | | | | | | | +--------+ + + + + | 01/10/ | Appointment | Respiratory Therapy | Deirdre Maharaj | | | 2019 | | | MD [address] | | | [address], [place] | | | | | | [place] [address] | | | | | | [phone] | | | | | | | | +--------+ + + + + | 04/10/ | Office | Neurology | Deirdre Maharaj | | | 2019 | Visit | | MD [address] | | [address], [place] | | | | | | [place] [address] | | | | | | [phone] | | | | | | | | +--------+ + + + + | 06/02/ | Office | Nephrology | Arslan Robertson MD | | | 2020 | Visit | | [address] [facility] | | | | | | [address] [place] | | | | | | [address] | | | | | | | | +--------+ + + + + documented as of this encounter Visit Diagnoses Not on filedocumented in this encounter"
--- OUTSIDE RECORDS SUMMARY | ~2020-01-04 | XMS | Encounter Summary ---
Demographics + + + | Address | [address] [facility] [address] | | | [place] [address] | + + + | Home Phone | | + + + | Preferred Language | Unknown | + + + | Marital Status | | + + + | Roman Catholic Affiliation | CHR | + + + | Race | White | + + + | Ethnic Group | Not or | + + + Author + + + | Author | [facility] | + + + | Organization | [facility] | + + + | Address | Unknown | + + + | Phone | Unavailable | + + + Support + + +---------+ + | Name | Relationship | Address | Phone | + + +---------+ + | Jose Minaya | ECON | Unknown | | + + +---------+ + Care Team Providers + +------+ + | Care Hotel Custodian Name | Role | Phone | + [...] + + | 01/02/ | Hospital | [facility] | Yung Cerrato MD | | | 2020 | Encounter | [address] | [address] | | | | | Ave Mailcode: [facility] | [place], [place] | | | | | [facility] | [address] | | | | | [facility], | [phone] | | | | | [place] [address] | | | | | | [place], [place] | | | | | | [address] | | | | | | [phone] | | | +--------+ + + + [...] | | 2019 | Visit | | [address] | | | | | | [place], [place] | | | | | | [address] | | | | | | [phone] | | | | | | | [...]
--- OUTSIDE RECORDS SUMMARY | ~2020-01-04 | XMS | Encounter Summary ---
Demographics + + + | Address | [address] [facility] [address] | | | [place] [address] | + + + | Home Phone [...] [place] | | | | | [address] | | + + + + + Care Team Providers + +------+ + | Care Cyber Security Administrator Name | Role | Phone | + +------+ + | Shazia Tamayo MD | PCP | | + +------+ + Reason for Referral Evaluate & Treat (Routine) +--------+ + + + + + | Status | Reason | Specialty | Diagnoses / | Referred By | Referred To | | | | | Procedures | Contact | Contact | +--------+ + + + + + | Closed | Specialty | Gastroenterol | Diagnoses | | OP ST | | | Services | ogy | Elevated | [place], | HEAVENLY | | | Required | | liver | [facility] | | | | | enzymes | SHIP MATE [address] | [address] | | | | | Procedures | [place], [place] | AVE | | | | | [place], | [address] [place] | [place], [place] | | | | | ABDOM,B-SCAN | [place], [place] | [address] | | | | | &/OR REAL | [address] | Phone: | | | | | TIME,COMPLET | Phone: | [phone] | | | | | E | [phone] | Fax: | | | | | | Fax: | [phone] | | | | | | [phone] | | +--------+ + + + + + Reason for Visit + + + | Reason | Comments | + + + | Recall For Services | | | (DMST) | | + + + Encounter Details +--------+ + + + + | Date | Type | Department | Care Team | Description | +--------+ + + + + | 01/01/ | Telephone | [facility] [place] | [facility] | [facility] | | 2019 | | GASTROENTEROLOGY | PATRICK [place] [address] | (DMST) | | | | [address] [place] | [place], [place] [address] | | | | | [address] [place], [place] | [place], [place] | | | | | [address] | [address] | | | | | [phone] | | | +--------+ + + + [...] | | | | | [place] [address] | | | | | | [phone] | | | | | | | | +--------+ + + + + | 01/10/ | Appointment | Respiratory Therapy | Deirdre Maharaj | | | 2019 | | | MD [address] | | | | | | [address] [place] | | | | | | [place] [address] | | | | | | [phone] | | | | | | | | +--------+ + + + + | 04/10/ | Office | Neurology | Deirdre Maharaj | | | 2019 | Visit | | MD [address] | | | | | [address], [place] | | | | | | [place] [address] | | | | | | [phone] | | | | | | | | +--------+ + + + + | 06/02/ | Office | Nephrology | Arslan Robertson MD | | | 2019 | Visit | | [address] [place] | | | | | | [address] [place], [place] | | | | | | [address] | | | | | | | | +--------+ + + + + + +---------+--------+ + + | Name | Type | Priori | Associated Diagnoses | Order Schedule | | | | ty | | | + +---------+--------+ + + | Alpha Fetoprotein, | Lab | Routin | Elevated liver | 1 Occurrences | | Tumor Marker | | e | enzymes | starting 01/01/2019 | | | | | | until 05/01/2019 | + +---------+--------+ + + | CBC with | Lab | Routin | Elevated liver | 1 Occurrences | | Differential | | e | enzymes | starting 01/01/2019 | | | | | | until 05/01/2019 | + +---------+--------+ + + | Comprehensive | Lab | Routin | Elevated liver | 1 Occurrences | | Metabolic Panel | | e | enzymes | starting 01/01/2019 | | | | | | until 05/01/2019 | + +---------+--------+ + + | Protime INR | Lab | Routin | Elevated liver | 1 Occurrences | | | | e | enzymes | starting 01/01/2019 | | | | | | until 05/01/2019 | + +---------+--------+ + + | US Abdomen Limited | Imaging | Routin | Elevated liver | Expected: | | | | e | enzymes | 01/08/2019, Expires: | | | | | | 05/01/2019 | + +---------+--------+ + + + + +--------+ + + | Name | Type | Priori | Associated Diagnoses | Order Schedule | | | | ty | | | + + +--------+ + + | Referral ABDOMINAL | Outpatient | Routin | Elevated liver | Ordered: 01/01/2019 | | US [place]re[facility] | Referral | e | enzymes | | + + +--------+ + + documented as of this encounter Visit Diagnoses + + | Diagnosis | + + | Elevated liver enzymes - Primary Nonspecific elevation of levels of transaminase or | | lactic acid dehydrogenase (LDH) | + + documented in this encounter"
--- OUTSIDE RECORDS SUMMARY | ~2020-01-04 | XMS | Encounter Summary ---
Demographics + + + | Address | [address] | | | [place] [address] | + + + | Home Phone [...] | Josevenice Minaya | ECON | [address] | | | | | [place] | | | | | [address] | | + + + + + Care Team Providers + +------+ + | Care Bookkeeping Clerk Name | Role | Phone | + +------+ + | Shazia Tamayo MD | PCP | | + +------+ + Reason for Visit +--------+ + | Reason | Comments | +--------+ + | Other | Bladder problems | +--------+ + Encounter Details +--------+ + + + + | Date | Type | Department | Care Team | Description | +--------+ + + + + | 09/18/ | Telephone | [facility] | Arslan Robertson MD | Other (Bladder | | 2019 | | NEPHROLOGY [place] | [address] [place] | problems) | | | | [address] [place] | [address] [facility] [place] | | | | | [address] [facility] [place] | [address] | | | | | [address] | | | | | | [phone] | | | +--------+ + + + [...] | | | | | [place] [address] | | | | | | [phone] | | | | | | | | +--------+ + + + + | 01/10/ | Appointment | Respiratory Therapy | Deirdre Maharaj | | | 2019 | | | MD [address] | | | | | [address], [place] | | | | | | [place] [address] | | | | | | [phone] | | | | | | | | +--------+ + + + + | 04/10/ | Office | Neurology | Deirdre Maharaj | | | 2019 | Visit | | MD [address] | | [address], [place] | | | | | | [place] [address] | | | | | | [phone] | | | | | | | | +--------+ + + + + | 06/02/ | Office | Nephrology | Arslan Robertson MD | | | 2019 | Visit | | [address] [place] | | | | | | [address] [place], [place] | | | | | | [address] | | | | | | | | +--------+ + + + + documented as of this encounter Visit Diagnoses Not on filedocumented in this encounter"
--- OUTSIDE RECORDS SUMMARY | ~2020-01-04 | XMS | Encounter Summary ---
Demographics + + + | Address | [address] [facility] [address] | | | [place] [address] | + + + | Home Phone | | + + + | Preferred Language | Unknown | + + + | Marital Status | | + + + | Mu-Ism Affiliation | 1013 | + + + | Race | Unknown | + + + | Ethnic Group | Unknown | + + + Author + + + | Author | [facility] | | | and [place] | + + + | Organization | [facility] | [...] [place] | | | | | [address] | | + + + + + Care Team Providers + +------+ + | Care Software Test Engineer Name | Role | Phone | [...] Description | +--------+--------+ + + + | 06/26/ | Refill | [facility] | Arslan Robertson MD | Medication Refill | | 2019 | | NEPHROLOGY [place] | [address] [place] | | | | | [address] | [address] [facility] [place] | | | | | [facility] [address] | [address] | | | | | [place], [place] | | | | | | [address] | | | | | | [phone] | | | +--------+--------+ + + + [...] | | | | | [place] [address] | | | | | | [phone] | | | | | | | | +--------+ + + + + | 01/10/ | Appointment | Respiratory Therapy | Deirdre Maharaj | | | 2019 | | | MD [address] | | | | | [address], [place] | | | | | | [place] [address] | | | | | | [phone] | | | | | | | | +--------+ + + + + | 04/10/ | Office | Neurology | Deirdre Maharaj | | | 2019 | Visit | | MD [address] | [address] | | | [address], [place] | | | | | | [place] [address] | | | | | | [phone] | | | | | | | | +--------+ + + + + | 06/02/ | Office | Nephrology | Arslan Robertson MD | | | 2019 | Visit | | [address] [place] | | | | | | [address] [place], [place] | | | | | | [address] | | | | | | | [...]
--- OUTSIDE RECORDS SUMMARY | ~2020-01-04 | XMS | Encounter Summary ---
Demographics + + + | Address | [address] [facility] [address] | | | [place] [address] | + + + | Home Phone | | + + + | Preferred Language | Unknown | + + + | Marital Status | | + + + | Anabaptism Affiliation | 1013 | + + + [...] [place] | | | | | [address] | | + + + + + Care Team Providers + +------+ + | Care Pressing Machine Tender Name | Role | Phone | [...] + + | 05/31/ | Documentati | [facility] | Tomás, | Results (05/28/19) | | 2019 | on | NEPHROLOGY [place] | [facility] | | | | | [address] [place] | Geoscience Laboratory Technician | | | | | [address] [place] | | | | | | [address] | | | | | | [phone] | | | +--------+ + + + [...] | | | | | [place] [address] | | | | | | [phone] | | | | | | | | +--------+ + + + + | 01/10/ | Appointment | Respiratory Therapy | Deirdre Maharaj | | | 2019 | | | MD [address] | | [address], [place] | | | | | | [place] [address] | | | | | | [phone] | | | | | | | | +--------+ + + + + | 04/10/ | Office | Neurology | Deirdre Maharaj | | | 2019 | Visit | | [address] | [address] | | | [address], [place] | | | | | | [place] [address] | | | | | | [phone] | | | | | | | | +--------+ + + + + | 06/02/ | Office | Nephrology | Arslan Robertson MD | | | 2019 | Visit | | [address] [place] | | | | | | [address] [place], [place] | | | | | | [address] | | | | | | | [...] | | mL/min/1.73m2 | | | | PAKISTANI | | | [...]
--- OUTSIDE RECORDS SUMMARY | ~2020-01-04 | XMS | Encounter Summary ---
Demographics + + + | Address | [address] [facility] [address] | | | [place] [address] | + + + | Home Phone | | + + + | Preferred Language | Unknown | + + + | Marital Status | | + + + | Methodist Affiliation | 1013 | + + + | Race | Unknown | + + + | Ethnic Group | Unknown | + + + Author + + + | Author | [facility] | | | and [place] | + + + | Organization | [facility] | | | [...] [place] | | | | | [address] | | + + + + + Care Team Providers + +------+ + | Care Supervisor Money Room Name | Role | Phone | + [...] + + | 11/11/ | Telephone | [facility] | Arslan Robertson MD | Other (Creatinine | | 2020 | | NEPHROLOGY [place] | [address] [place] | clearance question) | | | | [address] [place] | [address] [place], [place] | | | | | 160 [place], [place] | [address] | | | | | [address] | | | | | | [phone] | | | +--------+ + + + [...] | | | | | [place] [address] | | | | | | [phone] | | | | | | | | +--------+ + + + + | 01/10/ | Appointment | Respiratory Therapy | Deirdre Maharaj | | | 2019 | | | [address] | | [address], [place] | | | | | | [place] [address] | | | | | | [phone] | | | | | | | | +--------+ + + + + | 04/10/ | Office | Neurology | Deirdre Maharaj | | | 2019 | Visit | | MD [address], [place] | | | | | | [place] [address] | | | | | | [phone] | | | | | | | | +--------+ + + + + | 06/02/ | Office | Nephrology | Arslan Robertson MD | | | 2020 | Visit | | [address] [facility] | | | | | | [address] | | | | | | [address] | | | | | | | | +--------+ + + + + documented as of this encounter Visit Diagnoses Not on filedocumented in this encounter"
--- OUTSIDE RECORDS SUMMARY | ~2020-01-04 | XMS | Encounter Summary ---
Demographics + + + | Address | [address] | | | [place] [address] | + + + | Home Phone | | + + + | Preferred Language | Unknown | + + + | Marital Status | | + + + | Christian Affiliation | 1013 | + + + | Race | Unknown | + + + | Ethnic Group | Unknown | + + + Author + + + | Author | [facility] | | | and [place] | + + + | Organization | [facility] | | | and [place] | + + + | Address | Unknown | + + + | Phone | Unavailable | + + + Support + + + + + | Name | Relationship | Address | Phone | + + + + + | Jose Ariisidro | ECON | [address] | | | | | [place] | | | | | [address] | | + + + + + Care Team Providers + +------+ + | Care Artificial Stone Applicator Name | Role | Phone | + +------+ + | Shazia Tamayo MD | PCP | | + +------+ + Encounter Details +--------+ + + + + | Date | Type | Department | Care Team | Description | +--------+ + + + + | 06/06/ | Abstract | [facility] | Provider, | | | 2017 | | GASTROENTEROLOGY | MD [address] | | | | | [address] [facility] | Vaibhav Hernandez | | | | | [address] | [place] [address] | | | | | [address] | | | | | | [phone] | | | +--------+ + + + [...] | | | | | [place] [address] | | | | | | [phone] | | | | | | | | +--------+ + + + + | 01/10/ | Appointment | Respiratory Therapy | Deirdre Maharaj | | | 2019 | | | MD [address] | | | | | | [address], [place] | | | | | | [place] [address] | | | | | | [phone] | | | | | | | | +--------+ + + + + | 04/10/ | Office | Neurology | Deirdre Maharaj | | | 2019 | Visit | | MD [address] | | | | | | [place] | | | | | | [place] [address] | | | | | | [phone] | | | | | | | | +--------+ + + + + | 06/02/ | Office | Nephrology | Arslan Robertson MD | | | 2019 | Visit | | [address] [place] | | | | | | [address] [place] | | | | | | [address] | | | | | | | [...] - 1.03 | EXTERNAL | | | [place], | | | LAB | | | [...] | eGFR, | 25 (A) | 60 999 | EXTERNAL | | | External | [...]
--- OUTSIDE RECORDS SUMMARY | ~2020-01-04 | XMS | Encounter Summary ---
Demographics + + + | Address | [address] | | | [place] [address] | + + + | Home Phone | | + + + | Preferred Language | Unknown | + + + | Marital Status | | + + + | Adventist Affiliation | CHR | + + + | Race | White | + + + | Ethnic Group | Not or | + + + Author + + + | Author | [facility] | + + + | Organization | [facility] | + + + | Address | Unknown | + + + | Phone | Unavailable | + + + Support + + +---------+ + | Name | Relationship | Address | Phone | + + +---------+ + | Jose Minaya | ECON | Unknown | | + + +---------+ + Care Team Providers + +------+ + | Care Planner/Scheduler Name | Role | Phone | + +------+ + | Shazia Tamayo MD | PCP | | + +------+ + Encounter Details +--------+ + + + + | Date | Type | Department | Care Team | Description | +--------+ + + + + | 11/13/ | Procedure | 6A Intra Op [id number] | | | | 2020 | Pass | [facility] | | | | | | [facility] | | | | | | Hospital Admitting | | | | | | Desk Located on the | | | | | | 9th floor | | | | | | [place], [place] | | | | | | [address] | | | +--------+ + + + [...] [address] | | | | | | [place], [place] | | | | | | [address] | | | | | | [phone] | | | | | | | | +--------+---------+ + + + documented as of this encounter Visit Diagnoses Not on filedocumented in this encounter"
--- OUTSIDE RECORDS SUMMARY | ~2020-01-04 | XMS | Encounter Summary ---
Demographics + + + | Address | [address] | | | [place] [address] | + + + | Home Phone [...] | Jose Ariisidro | ECON | [address] | | | | | [place] | | | | | [address] | | + + + + + Care Team Providers + +------+ + | Care Marine Plumber Name | Role | Phone | + +------+ + | Shazia Tamayo MD | PCP | | + +------+ + Encounter Details +--------+ + + + + | Date | Type | Department | Care Team | Description | +--------+ + + + + | 05/23/ | Orders Only | [facility] | Arslan Robertson MD | | | 2017 | | NEPHROLOGY [place] | [address] [place] | | | | | [address] [place] | [address] [place], [place] | | | | | [address] [place], [place] | [address] | | | | | [address] | | | | | | [phone] | | | +--------+ + + + [...] | | | | | [place] [address] | | | | | | [phone] | | | | | | | | +--------+ + + + + | 01/10/ | Appointment | Respiratory Therapy | Deirdre Maharaj | | | 2020 | | | MD [address] | | | | | | [address], [place] | | | | | | [place] [address] | | | | | | [phone] | | | | | | | | +--------+ + + + + | 04/10/ | Office | Neurology | Deirdre Maharaj | | | 2019 | Visit | | MD [address] | [address], [place] | | | | | | [place] [address] | | | | | | [phone] | | | | | | | | +--------+ + + + + | 06/02/ | Office | Nephrology | Arslan Robertson MD | | | 2019 | Visit | | [address] [facility] | | | | | | [address] [place] | | | | | | [address] | | | | | | | [...]
--- OUTSIDE RECORDS SUMMARY | ~2020-01-04 | XMS | Encounter Summary ---
Demographics + + + | Address | [address] [facility] [address] [facility] [address] | | | [place] [address] | + + + | Home Phone | | + + + | Preferred Language | Unknown | + + + | Marital Status | | + + + | Baptist Affiliation | CHR | + + + | Race | White | + + + | Ethnic Group | Not or | + + + Author + + + | Author | [facility] | + + + | Organization | [facility] | + + + | Address | Unknown | + + + | Phone | Unavailable | + + + Support + + +---------+ + | Name | Relationship | Address | Phone | + + +---------+ + | Jose Minaya | ECON | Unknown | | + + +---------+ + Care Team Providers + +------+ + | Care Firefighter Type One Name | Role | Phone | + [...] at | | | | | | [facility] | | | | | | [address] | | | | | | [facility] | | | | | | and Healing Building | | | | | | [address] [place], [place] | | | | | | [address] | | | | | | [phone] | | | +--------+ + + + [...] call the Preoperative Medicine Clinic ) immediately. [facility] has a process for determining what next steps you should take, and if there are concerns for possible Covid-19 infection, we will work to determine if it is safe to keep your surgery date. As part of [facility]'s efforts to keep patients and visitors safe, this is the current visitatio n policy--no visitors except in rare circumstances. If you are not having respiratory symptoms or concerning close contacts but would like to c ancel/postpone your surgery, please contact your surgeon directly. More information can be found here: [email or web address]. Pre-surgery "homework" If you have not already [...] [email or web address].[email or web address] ( ) or online at [email or web address] If you did not get a chance to watch it at the Pre-Op Clinic or want to watch it again, venice jacinto can view the home pump/nerve block instructions here - [email or web address] Surgery check-in location: [address] and [facility] 2, 1st Floor [facility] Surgery Check in Time: you will [...] ch as Uber/Lyft), or public transportation. An Uber/Lyft/chain saw driver does not count as the responsible [...] it is after office hours, call the [facility] jogger operator at [phone] and ask them to page him or h er. Service animals Not allowed in the following areas: ? 6A ? 11B PCU ? [facility] Pre/Post-op ? [facility] at [facility] During Covid-19 Operations: Visitor guidelines: No visitors [...] the Notes and Trans Encounter tab in [employer]. documented in this encounter Plan of Treatment +--------+---------+ + + + | Date | Type | Specialty | Care Team | Description | +--------+---------+ + + + | 02/11/ | Office | Urology | Seymour Cerrato MD | | 2019 | Visit | | [address] | | | | | | [place], [place] | | | | | | [address] | | | | | | [phone] | | | | | | | | +--------+---------+ + + + documented as of this encounter Visit Diagnoses + + | Diagnosis | + + | Pre-op evaluation - Primary Preoperative examination, unspecified | + + documented in this encounter
--- OUTSIDE RECORDS SUMMARY | ~2020-01-04 | XMS | Clinical Summary ---
Demographics + + + | Address | [address] | | | [place] [address] | + + + | Home Phone | | + + + | Preferred Language | Unknown | + + + | Marital Status | | + + + | Anabaptism Affiliation | 1013 | + + + | Race | Unknown | + + + | Ethnic Group | Unknown | + + + Author + + + | Author | [facility] (Historical as of | | | 04-28-19) | + + + | Organization | [facility] (Historical as of | | | 04-28-19) | + + + | Address | Unknown | + + + | Phone | Unavailable | + + + Support + + + + + | Name | Relationship | Address | Phone | + + + + + | Jose Wallace | ECON | [address] | | | | | [place] | | | | | [address] | | + + + + + Care Team Providers + +------+ + | Care Distance Education Teacher Name | Role | Phone | + [...] capsule by | 45 | 3 | 07/1 | | Activ | | (ROCALTROL) 0.25 [...] | | + + +---------+---------+------+------+-------+ | metolazone 2.5 MG | TAKE 1 TABLET BY | 45 | 3 | 06/1 | | Activ | | tablet | MOUTH EVERY OTHER | tablet | | 7/20 | | e | | | DAY | | | 19 | | | + + +---------+---------+------+------+-------+ | potassium chloride | TAKE 2 TABLETS BY | 240 | 11 | 07/0 | | Activ | | SA (K-DUR,BENOR-CON) | MOUTH 4 TIMES DAILY | tablet | | 1/20 | | e | | 20 MEQ | | | | 19 | | | | tabletIndications: | | | | | | | | CKD (chronic kidney | | | | | | | | disease), stage III | | | | | | | | ([facility]) | | | | | | | + + +---------+---------+------+------+-------+ Active [...] + + + | CKD (chronic kidney disease) stage 4, GFR 15-29 ml/min (HCC) | 02/08/2018 | + + + | Bilateral leg edema | 02/08/2018 | + + + | Hyperuricemia | 02/08/2018 | + + + | Tachycardia | 02/08/2018 | + + + | Secondary hyperparathyroidism (HCC) | 02/08/2018 | + + + | Vitamin D deficiency | 02/08/2018 | + + + | Acquired hypothyroidism | 02/08/2018 | + + + Immunizations + + + + | Name [...] + + + | Blood Pressure | 100/62 | 01/29/2019 2:39 PM PDT | + + + + | Pulse | 77 | 01/29/2019 2:39 PM PDT | + + + + | Temperature | 36.1 C (96.9 F) | 05/08/2018 10:02 AM PDT | + + + + | Respiratory Rate | - | - | + + + + | Oxygen Saturation | 98% | 01/29/2019 2:39 PM PDT | + + + + | Inhaled Oxygen | - | - | | Concentration | | | + + + + | Weight | 85 kg (187 lb 6.4 | 01/29/2019 2:39 PM PDT | | | oz) | | + + + + | Height | 149.9 cm (4' 11") | 01/29/2019 2:39 PM PDT | + + + + | Body Mass Index | 37.85 | 01/29/2019 2:39 PM PDT | + + + + Plan [...] filefrom Last 3 Months Insurance + +--------+ +------+-------+ + | Payer | Benefi | Subscriber | Type | Phone | Address | | | t Plan | ID | | | | | | / | | | | | | | Group | | | | | + +--------+ +------+-------+ + | MEDICARE | MEDICA | [id number] | | | [address] | | | RE | | | | [place], [place] [address] | | | IP-OP | | | | | + +--------+ +------+-------+ + | [facility] | UNITED | [id number] | | | | | | | [...] | Self [birth year] Home: | [address] | | | al/Fam | | 1950 | [phone] | [place] | | | roque | | | [phone] | [address] | + +--------+ +--------+ + +
--- OUTSIDE RECORDS SUMMARY | ~2020-01-04 | XMS | Encounter Summary ---
Demographics + + + | Address | [address] | | | [place] [address] | + + + | Home Phone | | + + + | Preferred Language | Unknown | + + + | Marital Status | | + + + | Anabaptist Affiliation | CHR | + + + [...] Team Providers + +------+ + | Care Fill Plant Operator Name | Role | Phone | [...] [address] | | | | | | [place], [place] | | | | | | [address] | | | | | | [phone] | | | | | | | | +--------+---------+ + + + documented as of this encounter Visit Diagnoses Not on filedocumented in this encounter"
--- OUTSIDE RECORDS SUMMARY | ~2020-01-04 | XMS | Encounter Summary ---
Demographics + + + | Address | [address] [facility] [address] | | | [place] [address] | + + + | Home Phone [...] | Jose Ariisidro | ECON | [address] | | | | | [place] | | | | | [address] | | + + + + + Care Team Providers + +------+ + | Care Shelf Stocker Name | Role | Phone | + +------+ + | Shazia Tamayo MD | PCP | | + +------+ + Encounter Details +--------+ + + + + | Date | Type | Department | Care Team | Description | +--------+ + + + + | 07/15/ | Orders Only | [facility] | Arslan Robertson MD | | | 2019 | | NEPHROLOGY [place] | [address] [place] | | | | | [address] [place] | [address] [place], [place] | | | | | [address] [place], [place] | [address] | | | | | [address] | | | | | | [phone] | | | +--------+ + + + [...] | | | | | [place] [address] | | | | | | [phone] | | | | | | | | +--------+ + + + + | 01/10/ | Appointment | Respiratory Therapy | Deirdre Maharaj | | | 2020 | | | MD [address] | [address] | | | [address], [place] | | | | | | [place] [address] | | | | | | [phone] | | | | | | | | +--------+ + + + + | 04/10/ | Office | Neurology | Dierdre Maharaj | | | 2019 | Visit | | MD [address] | | [address], [place] | | | | | | [place] [address] | | | | | | [phone] | | | | | | | | +--------+ + + + + | 06/02/ | Office | Nephrology | Arslan Robertson MD | | | 2019 | Visit | | [address] [facility] [place] | | | | | | [address] [place] | | | | | | [address] | | | | | | | [...]
--- OUTSIDE RECORDS SUMMARY | ~2020-01-04 | XMS | Encounter Summary ---
Demographics + + + | Address | [address] [facility] [address] | | | [place] [address] | + + + | Home Phone | | + + + | Preferred Language | Unknown | + + + | Marital Status | | + + + | Quaker Affiliation | 1013 | + + + [...] | Jose Ariisidro | ECON | [address] | | | | | [place] | | | | | [address] | | + + + + + Care Team Providers + +------+ + | Care Chief Concierge Name | Role | Phone | + +------+ + | Shazia Tamayo MD | PCP | | + +------+ + Encounter Details +--------+ + + + + | Date | Type | Department | Care Team | Description | +--------+ + + + + | 09/05/ | Orders Only | [facility] | Arslan Robertson MD | | | 2017 | | NEPHROLOGY [place] | [address] [place] | | | | | [address] [place] | [address] [place], [place] | | | | | [address] [place], [place] | [address] | | | | | [address] | | | | | | [phone] | | | +--------+ + + + [...] | | | | | [place] [address] | | | | | | [phone] | | | | | | | | +--------+ + + + + | 01/10/ | Appointment | Respiratory Therapy | Deirdre Maharaj | | | 2020 | | | MD [address] | | [address], [place] | | | | | | [place] [address] | | | | | | [phone] | | | | | | | | +--------+ + + + + | 04/10/ | Office | Neurology | Deirdre Maharaj | | | 2019 | Visit | | MD [address] | | | [address], [place] | | | | | | [place] [address] | | | | | | [phone] | | | | | | | | +--------+ + + + + | 06/02/ | Office | Nephrology | Arslan Robertson MD | | | 2019 | Visit | | [address] [facility] | | | | | | [address] [place] | | | | | | [address] | | | | | | | [...] this | | PANEL | e | 2:30 PM | | procedure are in the | | | | PDT | | results section. | + +--------+ + + + documented in this encounter Results Basic Metabolic Panel (05/17/2018 2:30 PM PDT) + + + + + + | Component | Value | Ref Range | Performed | Pathologist | | | | | At | Signature | + + + + + + | Glucose, | 116 (A) | 70 - 100 mg/dL | EXTERNAL | | | Fasting | | | LAB | | + + + + + + | BUN | 30 (A) | 6 - 23 mg/dL | EXTERNAL | | | | | | LAB | | + + + + + + | Creatinine | 1.77 (A) | 0.7 - 1.25 | EXTERNAL | | | | | mg/dL | LAB | | + + + + + + | BUN/Creatin | 16.9 | 6.0 - 28.6 | EXTERNAL | [...] + + + + | K | 4.1 | 3.6 - 5.1 | EXTERNAL | | | | | mmol/L | LAB | | + + + + + + | Cl | 99 | 95 - 112 mmol/L | EXTERNAL | | | | | | LAB | | + + + + + + | CO2 | 24 | 19 - 31 mmol/L | EXTERNAL | | | | | | LAB | | + + + + + + | Anion Gap | 19.1 | 7 - 21 mmol/L | EXTERNAL | | | | | | LAB | | + + + + + + | Estimated | 28 (A) | 60 mg/dL | EXTERNAL | [...]
--- OUTSIDE RECORDS SUMMARY | ~2020-01-04 | XMS | Encounter Summary ---
Demographics + + + | Address | [address] [facility] [address] | | | [place] [address] | + + + | Home Phone [...] Team Providers + +------+ + | Care Legal Billing Coordinator Name | Role | Phone | [...] [address] | | | | | | [place] | | | | | | [address] | | | | | | [phone] | | | | | | | | +--------+---------+ + + + documented as of this encounter Visit Diagnoses Not on filedocumented in this encounter"
--- OUTSIDE RECORDS SUMMARY | ~2020-01-04 | XMS | Encounter Summary ---
Demographics + + + | Address | [address] [facility] [address] | | | [place] [address] | + + + | Home Phone [...] [place] | | | | | [address] | | + + + + + Care Team Providers + +------+ + | Care Steam Box Tender Name | Role | Phone | [...] | | [address] | [address] [facility] [place] | | | | | [facility] [address] | [address] | | | | | [place], [place] | | | | | | [address] | | | | | | [phone] | | | +--------+--------+ + + + [...] | | | | | [place] [address] | | | | | | [phone] | | | | | | | | +--------+ + + + + | 01/10/ | Appointment | Respiratory Therapy | Deirdre Maharaj | | | 2019 | | | MD [address] | | [address], [place] | | | | | | [place] [address] | | | | | | [phone] | | | | | | | | +--------+ + + + + | 04/10/ | Office | Neurology | Deirdre Maharaj | | | 2019 | Visit | | MD [address] | | [address], [place] | | | | | | [place] [address] | | | | | | [phone] | | | | | | | | +--------+ + + + + | 06/02/ | Office | Nephrology | Arslan Robertson MD | | | 2019 | Visit | | [address] [place] | | | | | | [address] [place], [place] | | | | | | [address] | | | | | | | [...]
--- OUTSIDE RECORDS SUMMARY | ~2020-01-04 | XMS | Encounter Summary ---
Demographics + + + | Address | [address] [facility] [address] | | | [place] [address] | + + + | Home Phone [...] Team Providers + +------+ + | Care Rn Surgical Pcu Name | Role | Phone | + [...] [address] | | | | | | [place], [place] | | | | | | [address] | | | | | | [phone] | | | | | | | | +--------+---------+ + + + documented as of this encounter Visit Diagnoses Not on filedocumented in this encounter"
--- OUTSIDE RECORDS SUMMARY | ~2020-01-04 | XMS | Encounter Summary ---
Demographics + + + | Address | [address] [facility] [address] | | | [place] [address] | + + + | Home Phone | | + + + | Preferred Language | Unknown | + + + | Marital Status | | + + + | Voodoo Affiliation | 1013 | + + + [...] [place] | | | | | [address] | | + + + + + Care Team Providers + +------+ + | Care Train Controller Name | Role | Phone | + [...] + + | 05/20/ | Refill | [facility] | Arslan Robertson MD | Medication Refill | | 2018 | | NEPRHOLOGY [place] | [address] | | | | | [address] | [address] [place], [place] | | | | | [address] [place], [place] | [address] | | | | | [address] | | | | | | [phone] | | | +--------+--------+ + + + [...] | | | | | [place] [address] | | | | | | [phone] | | | | | | | | +--------+ + + + + | 01/10/ | Appointment | Respiratory Therapy | Deirdre Maharaj | | | 2019 | | | MD [address] | | [address], [place] | | | | | | [place] [address] | | | | | | [phone] | | | | | | | | +--------+ + + + + | 04/10/ | Office | Neurology | Deirdre Maharaj | | | 2019 | Visit | | [address] | | [address], [place] | | | | | | [place] [address] | | | | | | [phone] | | | | | | | | +--------+ + + + + | 06/02/ | Office | Nephrology | Arslan Robertson MD | | | 2019 | Visit | | [address] [place] | | | | | | [address] [place], [place] | | | | | | [address] | | | | | | | | +--------+ + + + + documented as of this encounter Visit Diagnoses + + | Diagnosis | + + | CKD (chronic kidney disease) stage 4, GFR 15-29 ml/min ([facility]) - Primary Chronic kidney | | disease, Stage IV (severe) | + + | Bilateral leg edema Edema | + + documented in this encounter"
--- OUTSIDE RECORDS SUMMARY | ~2020-01-04 | XMS | Encounter Summary ---
Demographics + + + | Address | [address] [facility] [address] | | | [place] [address] | + + + | Home Phone | | + + + | Preferred Language | Unknown | + + + | Marital Status | | + + + | Jewish Affiliation | 1013 | + + + | Race | Unknown | + + + | Ethnic Group | Unknown | + + + Author + + + | Author | [facility] | | | and [place] | + + + | Organization | [facility] | | | and [place] | + + + | Address | Unknown | + + + | Phone | Unavailable | + + + Support + + + + + | Name | Relationship | Address | Phone | + + + + + | Jose Ariisidro | ECON | [address] | | | | | [place] | | | | | [address] | | + + + + + Care Team Providers + +------+ + | Care Frame Assembler Name | Role | Phone | + +------+ + | Shazia Tamayo MD | PCP | | + +------+ + Encounter Details +--------+ + + + + | Date | Type | Department | Care Team | Description | +--------+ + + + + | 09/05/ | Orders Only | [facility] | Arslan Robertson MD | | | 2017 | | NEPHROLOGY [place] | [address] [place] | | | | | [address] [place] | [address] [place], [place] | | | | | [address] [place], [place] | [address] | | | | | [address] | | | | | | [phone] | | | +--------+ + + + [...] | | | | | [place] [address] | | | | | | [phone] | | | | | | | | +--------+ + + + + | 01/10/ | Appointment | Respiratory Therapy | Deirdre Maharaj | | | 2020 | | | MD [address], [place] | | | | | | [place] [address] | | | | | | [phone] | | | | | | | | +--------+ + + + + | 04/10/ | Office | Neurology | Deirdre Maharaj | | | 2019 | Visit | | [address], [place] | | | | | | [place] [address] | | | | | | [phone] | | | | | | | | +--------+ + + + + | 06/02/ | Office | Nephrology | Arslan Robertson MD | | | 2019 | Visit | | [address] [facility] | | | | | | [address] [place] | | | | | | [address] | | | | | | | [...]
--- OUTSIDE RECORDS SUMMARY | ~2020-01-04 | XMS | Encounter Summary ---
Demographics + + + | Address | [address] | | | [place] [address] | + + + | Home Phone | | + + + | Preferred Language | Unknown | + + + | Marital Status | | + + + | Zoroastrianism Affiliation | 1013 | + + + | Race | Unknown | + + + | Ethnic Group | Unknown | + + + Author + + + | Author | [facility] | | | and [place] | + + + | Organization | [facility] | | | and [place] | + + + | Address | Unknown | + + + | Phone | Unavailable | + + + Support + + + + + | Name | Relationship | Address | Phone | + + + + + | Jose Ariisidro | ECON | [address] | | | | | [place] | | | | | [address] | | + + + + + Care Team Providers + +------+ + | Care Manifest/Order Organizer Print Orders Name | Role | Phone | + +------+ + | Shazia Tamayo MD | PCP | | + +------+ + Encounter Details +--------+ + + + + | Date | Type | Department | Care Team | Description | +--------+ + + + + | 11/19/ | Orders Only | [facility] | Arslan Robertson MD | | | 2017 | | NEPHROLOGY [place] | [address] [place] | | | | | [address] [place] | [address] [place], [place] | | | | | [address] [place], [place] | [address] | | | | | [address] | | | | | | [phone] | | | +--------+ + + + [...] | | | | | [place] [address] | | | | | | [phone] | | | | | | | | +--------+ + + + + | 01/10/ | Appointment | Respiratory Therapy | Deirdre Maharaj | | | 2020 | | | MD [address] | | | | | | [address], [place] | | | | | | [place] [address] | | | | | | [phone] | | | | | | | | +--------+ + + + + | 04/10/ | Office | Neurology | Deirdre Maharaj | | | 2019 | Visit | | MD [address] | | | | | | [address], [place] | | | | | | [place] [address] | | | | | | [phone] | | | | | | | | +--------+ + + + + | 06/02/ | Office | Nephrology | Arslan Robertson MD | | | 2019 | Visit | | [address] [facility] [place] | | | | | | [address] [place] | | | | | | [address] | | | | | | | [...] | | | LAB | | | [facility] | | | | | + + [...]
--- OUTSIDE RECORDS SUMMARY | ~2020-01-04 | XMS | Encounter Summary ---
Demographics + + + | Address | [address] [facility] [address] | | | [place] [address] | + + + | Home Phone [...] Jose Ariisidro | ECON | [address] | | | | | [place] | | | | | [address] | | + + + + + Care Team Providers + +------+ + | Care Neurology Physician Assistant Name | Role | Phone | + +------+ + | Shazia Tamayo MD | PCP | | + +------+ + Encounter Details +--------+ + + + + | Date | Type | Department | Care Team | Description | +--------+ + + + + | 02/18/ | Orders Only | [facility] | Conversion | | | 2019 | | NEPHROLOGY [place] | Transaction, | | | | | [address] | Provider Unknown | | | | | [address] [place], [place] | | | | | | [address] | (Fax) | | | | | [phone] | | | +--------+ + + + [...] | | | | | [place] [address] | | | | | | [phone] | | | | | | | | +--------+ + + + + | 01/10/ | Appointment | Respiratory Therapy | Deirdre Maharaj | | | 2019 | | | MD [address] | | | | | [address], [place] | | | | | | [place] [address] | | | | | | [phone] | | | | | | | | +--------+ + + + + | 04/10/ | Office | Neurology | Deirdre Maharja | | | 2019 | Visit | | MD [address] | | | | | | [place] | | | | | | [place] [address] | | | | | | [phone] | | | | | | | | +--------+ + + + + | 06/02/ | Office | Nephrology | Arslan Robertson MD | | | 2019 | Visit | | [address] [place] | | | | | | [address] [place] | | | | | | [address] | | | | | | | [...] - 1.030 | EXTERNAL | | | [place], | | | LAB | | | [...] | | | LAB | | | AF[place]AN | | | | | + + [...]
--- OUTSIDE RECORDS SUMMARY | ~2020-01-04 | XMS | Encounter Summary ---
Demographics + + + | Address | [address] [facility] [address] | | | [place] [address] | + + + | Home Phone | | + + + | Preferred Language | Unknown | + + + | Marital Status | | + + + | Yarsani Affiliation | CHR | + + + [...] Team Providers + +------+ + | Care Pierogi Maker Name | Role | Phone | + [...] [address] | | | | | | [place], [place] | | | | | | [address] | | | | | | [phone] | | | | | | | | +--------+---------+ + + + documented as of this encounter Visit Diagnoses Not on filedocumented in this encounter"
--- OUTSIDE RECORDS SUMMARY | ~2020-01-04 | XMS | Encounter Summary ---
Demographics + + + | Address | [address] [facility] [address] | | | [place] [address] | + + + | Home Phone | | + + + | Preferred Language | Unknown | + + + | Marital Status | | + + + | Scientology Affiliation | 1013 | + + + | Race | Unknown | + + + | Ethnic Group | Unknown | + + + Author + + + | Author | [facility] | | | and [place] | + + + | Organization | [facility] | | | [...] [place] | | | | | [address] | | + + + + + Care Team Providers + +------+ + | Care Russian Language Instructor Name | Role | Phone | [...] | | Required | | liver | [facility] | | | | | enzymes | DIALYSIS NURSE [address] | [address] | | | | | Procedures | [place], [place] | AVE | | | | | [place], | [address] [place] | [place], [place] | | | | | ABDOM,B-SCAN | [place], [place] | [address] | | | | | &/OR REAL | [address] | Phone: | | | | | TIME,COMPLET | Phone: | [phone] | | | | | E | [phone] | Fax: | | | | | | Fax: | [phone] | | | | | | [phone] | | +--------+ + + + + [...] | Telephone | [facility] [place] | [facility] | [facility] | | 2019 | | GASTROENTEROLOGY | PATRICK Livingston [address] | (DMST) | | | | [address] [place] | [place], [place] [address] | | | | | [address] [place], [place] | [place], [place] | | | | | [address] | [address] | | | | | [phone] | | | +--------+ + + + [...] | | | | | [place] [address] | | | | | | [phone] | | | | | | | | +--------+ + + + + | 01/10/ | Appointment | Respiratory Therapy | Deirdre Maharaj | | | 2019 | | | MD [address] | | | | | | [address] [place] | | | | | | [place] [address] | | | | | | [phone] | | | | | | | | +--------+ + + + + | 04/10/ | Office | Neurology | Deirdre Maharaj | | | 2019 | Visit | | MD [address] | [address] | | | [address], [place] | | | | | | [place] [address] | | | | | | [phone] | | | | | | | | +--------+ + + + + | 06/02/ | Office | Nephrology | Arslan Robertson MD | | | 2019 | Visit | | [address] [place] | | | | | | [address] [place], [place] | | | | | | [address] | | | | | | | [...]
--- OUTSIDE RECORDS SUMMARY | ~2020-01-04 | XMS | Encounter Summary ---
Demographics + + + | Address | [address] | | | [place] [address] | + + + | Home Phone | | + + + | Preferred Language | Unknown | + + + | Marital Status | | + + + | Voodoo Affiliation | CHR | + + + | Race | White | + + + | Ethnic Group | Not or | + + + Author + + + | Author | [facility] | + + + | Organization | [facility] | + + + | Address | Unknown | + + + | Phone | Unavailable | + + + Support + + +---------+ + | Name | Relationship | Address | Phone | + + +---------+ + | Jose Minaya | ECON | Unknown | | + + +---------+ + Care Team Providers + +------+ + | Care Teasel Gig Operator Name | Role | Phone | [...] [address] | | | | | [facility] | [place], [place] | | | | | and [place], | [address] | | | | | Building | [phone] | | | | | Floor [place], [place] | | | | | | [address] | | | | | | [phone] | | | +--------+ + + + [...] 02/11/ | Office | Urology | Seymour Cerraot MD | | | 2020 | Visit | | [address] | | | | | | [place] | | | | | | [address] | | | | | | [phone] | | | | | | | | +--------+---------+ + + + documented as of this encounter Visit Diagnoses Not on filedocumented in this encounter"
--- OUTSIDE RECORDS SUMMARY | ~2020-01-04 | XMS | Encounter Summary ---
Demographics + + + | Address | [address] [facility] [address] | | | [place] [address] | + + + | Home Phone | | + + + | Preferred Language | Unknown | + + + | Marital Status | | + + + | Orthodoxy Affiliation | 1013 | + + + | Race | Unknown | + + + | Ethnic Group | Unknown | + + + Author + + + | Author | [facility] | | | and [place] | + + + | Organization | [facility] | | | and [place] | + + + | Address | Unknown | + + + | Phone | Unavailable | + + + Support + + + + + | Name | Relationship | Address | Phone | + + + + + | Jose Ariisidro | ECON | [address] | | | | | [place] | | | | | [address] | | + + + + + Care Team Providers + +------+ + | Care Disbursing Agent Name | Role | Phone | + +------+ + | Shazia Tamayo MD | PCP | | + +------+ + Encounter Details +--------+ + + + + | Date | Type | Department | Care Team | Description | +--------+ + + + + | 03/29/ | Orders Only | [facility] | Conversion | | | 2018 | | NEPHROLOGY [place] | Transaction, | | | | | [address] | Provider Unknown | | | | | [address] [place], [place] | | | | | | [address] | (Fax) | | | | | [phone] | | | +--------+ + + + [...] | | | | | [place] [address] | | | | | | [phone] | | | | | | | | +--------+ + + + + | 01/10/ | Appointment | Respiratory Therapy | Deirdre Maharaj | | | 2019 | | | MD [address] | | | | | | [address], [place] | | | | | | [place] [address] | | | | | | [phone] | | | | | | | | +--------+ + + + + | 04/10/ | Office | Neurology | Deirdre Maharaj | | | 2019 | Visit | | MD [address] | [address] | | | [address], [place] | | | | | | [place] [address] | | | | | | [phone] | | | | | | | | +--------+ + + + + | 06/02/ | Office | Nephrology | Arslan Robertson MD | | | 2019 | Visit | | [address] [facility] [address] | | | | | | [address] [place], [place] | | | | | | [address] | | | | | | | [...]
--- OUTSIDE RECORDS SUMMARY | ~2020-01-04 | XMS | Encounter Summary ---
Demographics + + + | Address | [address] [facility] [address] | | | [place] [address] | + + + | Home Phone [...] Team Providers + +------+ + | Care Eyeglass Lens Cutter Name | Role | Phone | [...] | | | and Healing Surgery | [place], [place] | | | | | Center Admitting | [address] | | | | | Desk Located on the | [phone] | | | | | 4th floor [address] | | | | | | [address] [place], | | | | | | [place] [address] | | | +--------+---------+ + + + [...] | | 2020 | Visit | | [address] | | | | | | [place], [place] | | | | | | [address] | | | | | | [phone] | | | | | | | [...]
--- OUTSIDE RECORDS SUMMARY | ~2020-01-04 | XMS | Encounter Summary ---
Demographics + + + | Address | [address] [facility] [address] | | | [place] [address] | + + + | Home Phone [...] Team Providers + +------+ + | Care Subassembly Supervisor Name | Role | Phone | + [...] 2020 | Visit | | [address] | | | | | | [address] [place] | | | | | | [address] | | | | | | [phone] | | | | | | | | +--------+---------+ + + + documented as of this encounter Visit Diagnoses Not on filedocumented in this encounter"
--- OUTSIDE RECORDS SUMMARY | ~2020-01-04 | XMS | Encounter Summary ---
Demographics + + + | Address | [address] [facility] [address] | | | [place] [address] | + + + | Home Phone | | + + + | Preferred Language | Unknown | + + + | Marital Status | | + + + | Restorationism Affiliation | CHR | + + + | Race | White | + + + | Ethnic Group | Not or | + + + Author + + + | Author | [facility] | + + + | Organization | [facility] | + + + | Address | Unknown | + + + | Phone | Unavailable | + + + Support + + +---------+ + | Name | Relationship | Address | Phone | + + +---------+ + | Jose Minaya | ECON | Unknown | | + + +---------+ + Care Team Providers + +------+ + | Care Site Supervising Technical Operator Name | Role | Phone | + +------+ + | Shazia Tamayo MD | PCP | | + +------+ + Encounter Details +--------+ + + + + | Date | Type | Department | Care Team | Description | +--------+ + + + + | 01/02/ | Procedure | [facility] | | | | 2020 | Pass | [facility] | | | | | | and Healing Surgery | | | | | | Center Admitting | | | | | | Desk Located on the | | | | | | 4th floor [address] | | | | | | [address] [place], | | | | | | [place] [address] | | | +--------+ + + + [...] [place] | | | | | | [place], [place] | | | | | | [address] | | | | | | [phone] | | | | | | | | +--------+---------+ + + + documented as of this encounter Visit Diagnoses Not on filedocumented in this encounter"
--- OUTSIDE RECORDS SUMMARY | ~2020-01-04 | XMS | Encounter Summary ---
Demographics + + + | Address | [address] [facility] [address] | | | [place] [address] | + + + | Home Phone [...] [place] | | | | | [address] | | + + + + + Care Team Providers + +------+ + | Care Airline Radio Operator Name | Role | Phone | [...] | | [address] | I, Material Hauler | hypertension; CKD | | | | [place], [place] | | (chronic kidney | | | | [address] | | disease), stage III | | | | [phone] | | (HCC) | +--------+ + + [...] | | | | | [place] [address] | | | | | | [phone] | | | | | | | | +--------+ + + + + | 01/10/ | Appointment | Respiratory Therapy | Deirdre Maharaj | | 2019 | | | MD [address] | [address] | | [address], [place] | | | | | | [place] [address] | | | | | | [phone] | | | | | | | | +--------+ + + + + | 04/10/ | Office | Neurology | Deirdre Maharaj | | | 2019 | Visit | | MD [address] | | [address] | | | [address], [place] | | | | | | [place] [address] | | | | | | [phone] | | | | | | | | +--------+ + + + + | 06/02/ | Office | Nephrology | Arslan Robertson MD | | | 2019 | Visit | | [address] [facility] [address] | | | | | | [address] [place] | | | | | | [address] | | | | | | | [...] | | | Volume | performed at [facility];[address] | | LAB | | | | [place] | | [facility] | | | | [address];[place] [address] | | LABORATORY | | + + + + + + + + | Specimen | + + | | + + + + + + + | Performing | Address | City/State/Zipcode | Phone Number | | Organization | | | | + + + + + | REFERENCE LAB | [address] [place] [address] | [place], [place] | [phone] | | [facility] | [address] | [address] | | | LABORATORY | | | | + + + + + | REFERENCE LAB | [address] [place] [address] | [place], [place] | | | [facility] | Blvd[address] | [address] | | | LABORATORY | | | [...] | [facility] | | | | Blvd;[place] [id number] | | LABORATORY | | + + + + + + + + | Specimen | + + | Urine | + + + + + + + | Performing | Address | City/State/Zipcode | Phone Number | | Organization | | | | + + + + + | REFERENCE LAB | [address] [facility] | [place] | [phone] | | [facility] | [address] | [address] | | | LABORATORY | | | | + + + + + | REFERENCE LAB | [address] [facility] | [place], [place] | | | [facility] | [address] | [address] | | | LABORATORY | | | [...]
--- OUTSIDE RECORDS SUMMARY | ~2020-01-04 | XMS | Encounter Summary ---
Demographics + + + | Address | [address] [facility] [address] | | | [place] [address] | + + + | Home Phone [...] + | Author | [facility] | | | and [place] | + + + | Organization | [facility] | | | and [...] [place] | | | | | [address] | | + + + + + Care Team Providers + +------+ + | Care Camouflage Assembler Name | Role | Phone | [...] | Procedures | DRIVE, [place] | [address] | | | | | MRI Brain wo | [place], | Phone: | | | | | Contrast | [place] [address] | [phone] | | | | | | Phone: | Fax: | | | | | | [phone] | [phone] | | | | | | Fax: | | | | | | | [phone] | | + +--------+ + + + [...] [place], [place] | | | | | ([facility]) | [address] | [address] Phone: | | | | | | Phone: | [phone] | | | | | | [phone] | Fax: | | | | | | Fax: | [phone] | | | | | | [phone] | | +--------+--------+ + + + + [...] DR ISABEL [address] [place], | [place] [address] | | | | | [place] [address] | [phone] | | | | | [phone] | | | +--------+---------+ + + + [...] You have the following tests/procedures ordered. At [facility] Neurology Clinic Neurotrax with the Neuro tech At [facility] Radiology : brain MRI no contrast EEG routine Decrease amitriptyline to 25 mg (1/2 tablet) at bedtime. Suggest reading newspapers, books, and magazines; perform word exercises such as crossword puzzles, Scrabble, and sudoku; try computer/mobile applications such as SigFig and Fandium *Any questions, please call Dr. Maharaj's office at Patient advised of their right to have diagnostic testing, health care treatment, and/or se rvices at a facility other than [facility]. Coping with Concussion Concussion is also known [...] bath or taking a hot shower. Take wzlc-avz-odpclps acetaminophen to relieve headache pain. Take them [...] treatment y ou need. Date Last Reviewed: 09/12/201719997549-6669 The [employer]. [address] [place] [address]. All righ ts reserved. This information is not intended as a substitute for professional medical care. Always follow your healthcare professional's instructions. documented in this encounter Progress Notes Deirdre Maharaj MD - 12/27/2019 9:15 AM PDT Patient: Deirdre Minaya Medical Record: [id number] Date of Services: 12/27/2019 Referring Doctor: Shazia Tamayo MD Chief Complaint Patient presents with Establish Care Post Concussion HISTORY OF PRESENT ILLNESS: The patient is a 69-year-old female who is referred to me because of memory loss. She has had some mild memory issues after an acute illness that led to respiratory failure 3 years ago. At that time, she was in [place]. She was on a ventilator for quite some time and there was no diagnosis. She recovered from that illness but 9 months ago, while in [place], she tripped in the bath room and [...] unspecified Chronic kidney disease, stage III (moderate) ([facility]) CKD (chronic kidney disease), stage III (HCC) 02/08/2018 Convulsions ([facility]) Edema of both legs Elevated [...] TABLET BY MOUTH ONCE DAILY IN THE [facility] ON AN EMPTY STOMACH FOR 90 DAYS [...] file Gets together: Not on file Attends druze service: Not on file Active member of [...] CEREBELLAR EXAMINATION: There is no dysmetria on txifuq-cw-eojg test. IMPRESSION: Postconcussion syndrome consisting mainly of [...] of this 45-minute visit was spent on vtpu-qf-rjpa with the patient, mayo abarca her on [...] | | | | | [place] [address] | | | | | | [phone] | | | | | | | | +--------+ + + + + | 01/10/ | Appointment | Respiratory Therapy | Deirdre Maharaj | | | 2019 | | | MD [address] | | [address], [place] | | | | | | [place] [address] | | | | | | [phone] | | | | | | | | +--------+ + + + + | 04/10/ | Office | Neurology | Deirdre Maharaj | | | 2019 | Visit | | MD [address] | | | | | [address], [place] | | | | | | [place] [address] | | | | | | [phone] | | | | | | | | +--------+ + + + + | 06/02/ | Office | Nephrology | Arslan Robertson MD | | | 2019 | Visit | | [address] [facility] | | | | | | [address] [place], [place] | | | | | | [address] | | | | | | | [...]
--- OUTSIDE RECORDS SUMMARY | ~2020-01-04 | XMS | Encounter Summary ---
Demographics + + + | Address | [address] [facility] [address] | | | [place] [address] | + + + | Home Phone | | + + + | Preferred Language | Unknown | + + + | Marital Status | | + + + | Zoroastrian Affiliation | CHR | + + + | Race | White | + + + | Ethnic Group | Not or | + + + Author + + + | Author | [facility] | + + + | Organization | [facility] | + + + | Address | Unknown | + + + | Phone | Unavailable | + + + Support + + +---------+ + | Name | Relationship | Address | Phone | + + +---------+ + | Jose Minaya | ECON | Unknown | | + + +---------+ + Care Team Providers + +------+ + | Care Push Bench Operator Helper Name | Role | Phone | + [...] floor | | | | | | [place], [place] | | | | | | [address] | | | +--------+ + + + [...] [address] | | | | | | [place], [place] | | | | | | [address] | | | | | | [phone] | | | | | | | | +--------+---------+ + + + documented as of this encounter Visit Diagnoses Not on filedocumented in this encounter"
--- OUTSIDE RECORDS SUMMARY | ~2020-01-04 | XMS | Clinical Summary ---
Demographics + + + | Address | [address] | | | [place] [address] | + + + | Home Phone | | + + + | Preferred Language | Unknown | + + + | Marital Status | | + + + | Yarsani Affiliation | CHR | + + + | Race | White | + + + | Ethnic Group | Not or | + + + Author + + + | Author | [facility] | + + + | Organization | [facility] | + + + | Address | Unknown | + + + | Phone | Unavailable | + + + Support + + +---------+ + | Name | Relationship | Address | Phone | + + +---------+ + | Jose Minaya | ECON | Unknown | | + + +---------+ + Care Team Providers + +------+ + | Care Manager Of Administration Name | Role | Phone | + +------+ + | Shazia Tamayo MD | PCP | | + +------+ + Source Comments [facility] is fully live on both [facility] Ambulatory and [facility] InPatient.[facility] Allergies + + + + + + | Active Allergy | Reactions | Severity | Noted | Comments | | | | | Date | | + + + + + + | Adhesive Tape | Unknown | Medium | 03/06/20 | All antibiotics | | | | | 13 | cause full body | | | | | | yeast infection | | | | | | Blisters and pulls | | | | | | skin off. | + + + + + + | Celecoxib | Unknown | | 06/22/20 | | | | | | 18 | | + + + + + + | Codeine | Nausea and Vomiting, | Medium | 03/14/20 | Nausea/vomiting | | | Unknown | | 13 | Nausea/vomiting | + + + + + + | Diazepam | Unknown | Medium | 03/14/20 | Nausea and | | | | | 13 | vomiting in large | | | | | | doses Nausea and | | | | | | vomiting in large | | | | | | doses | + + + + + + | Gabapentin | Agitation | | 11/06/19 | | | | | | 20 | | + + + + + + | Hydrocodone | Nausea and Vomiting | Low | 07/17/20 | | | | | | 13 | | + + + + + + | Iodinated Contrast | Anaphylaxis | High | 03/06/20 | | | Media | | | 13 | | + + + + + + | Iodine | Unknown | | 06/06/20 | Reaction: Triggers | | | | | 18 | Asthma | + + + + + + | Metronidazole | Unknown | Medium | 06/06/20 | Reaction: | [...] + + + + + | Shellfish Containing | Anaphylaxis | High | 06/06/20 | | | Products | | | 18 | | + + + + + + | Tramadol | Unknown | Medium | 03/14/20 | Nausea/vomiting | | | | | 13 | Nausea/vomiting | + + + + + + Medications + + + +---------+------+------+-------+ | Medication | Sig | Dispensed | Refills | Star | End | Statu | | | | | | t | Date | s | | | | | | Date | | | + + + +---------+------+------+-------+ | torsemide 20 mg | torsemide 20 mg | | 0 | | | Activ | | oral tablet | tablet | | | | | e | + + + +---------+------+------+-------+ | pramipexole 1 mg | pramipexole 1 mg | | 0 | | | Activ | | oral tablet | tablet | | | | | e | + + + +---------+------+------+-------+ | potassium chloride | TAKE 2 TABLETS BY | | 0 | 07/0 | | Activ | | SR 20 mEq oral | MOUTH 4 TIMES DAILY | | | 1/20 | | e | | tablet,ER | | | | 19 | | | | particles/crystals | | | | | | | + + + +---------+------+------+-------+ | montelukast 10 mg | montelukast 10 mg | | 0 | | | Activ | | oral tablet | tablet | | | | | e | + + + +---------+------+------+-------+ | metoprolol | Take 25 mg by mouth | | 0 | | | Activ | | succinate 25 mg oral | once daily. | | | | | e | | tablet extended | | | | | | | | release 24 hr | | | | | | | + + + +---------+------+------+-------+ | metOLazone 2.5 mg | Take 2.5 mg by mouth | | 0 | 12/1 | | Activ | | oral tablet | every -two | | | 3/20 | | e | | | hours. | | | 19 | | | + + + +---------+------+------+-------+ | Magnesium 250 mg | Take 250 mg by | | 0 | | | Activ | | oral tablet | mouth. | | | | | e | + + + +---------+------+------+-------+ | levothyroxine 125 | Take 125 mcg by | | 0 | | | Activ | | mcg oral tablet | mouth before | | | | | e | | | breakfast. | | | | | | + + + +---------+------+------+-------+ | Febuxostat 40 mg | TAKE 2 TABLETS BY | | 0 | 11/2 | | Activ | | oral tablet | MOUTH ONCE DAILY | | | 6/20 | | e | | | | | | 18 | | | + + + +---------+------+------+-------+ | cyanocobalamin | Take by mouth. | | 0 | | | Activ | | 1,000 mcg oral | | | | | | e | | tablet | | | | | | | + + + +---------+------+------+-------+ | Cetirizine | Zyrtec 10 mg capsule | | 0 | | | Activ | | (ZYRTEC) 10 mg oral | Take by oral route. | | | | | e | | capsule | | | | | | | + + + +---------+------+------+-------+ | aspirin EC 81 mg | Take 81 mg by mouth. | | 0 | | | Activ | | oral tablet,delayed | | | | | | e | | release (DR/EC) | | | | | | | + + + +---------+------+------+-------+ | amitriptyline 50 | TAKE 1 TO 3 TABLETS | | 0 | 01/0 | | Activ | | mg oral tablet | BY MOUTH EVERY DAY | | | 4/20 | | e | | | AT BEDTIME FOR 90 | | | 20 | | | | | DAYS | | | | | | + + + +---------+------+------+-------+ | aMILoride 5 mg | Take 10 mg by mouth | | 0 | 01/1 | | Activ | | oral tablet | once daily. | | | 4/20 | | e | | | | | | 20 | | | + + + +---------+------+------+-------+ | albuterol | Ventolin HFA 90 | | 0 | | | Activ | | (VENTOLIN HFA) 90 | mcg/actuation | | | | | e | | mcg/actuation | aerosol inhaler | | | | | | | inhalation HFA | | | | | | | | aerosol inhaler | | | | | | | + + + +---------+------+------+-------+ | acetaminophen 500 | Take 2 tablets by | | 0 | 03/0 | | Activ | | mg oral tablet | mouth three times | | | 5/20 | | e | | | daily. | | | 20 | | | + + + +---------+------+------+-------+ | HYDROmorphone 2 mg | Take 1-2 tablets by | 12 | 0 | 03/0 | | Activ | | oral tablet | mouth every four | tablet | | 5/20 | | e | | | hours as needed for | | | 20 | | | | | moderate pain. | | | | | | + + + +---------+------+------+-------+ | Catheter 12 FR-16" | Disp 12fr | 90 each | 11 | 03 | | Activ | | miscellaneous | prelubricated | | | 03/01 | | e | | (misc) misc | straight | | | 20 | | | | | catheters.Duration: | [...] | R33.9 | | | | | | + + + +---------+------+------+-------+ | benzalkonium | Apply 1 each to | 4 Box | 11 | 11/10 | | Activ | | chloride 0.115 % | affected area Use as | | | 20 | | e | | topical towelette | directed. Use 1 | | | 20 | | | | | towelette to clean | | | | | | | | prior to | | | | | | | | catheterizing. | | | | | | + + + +---------+------+------+-------+ | oxybutynin CR 10 | Take 1 tablet by | 30 | 1 | 04/0 | | Activ | | mg oral tablet | mouth once daily. | tablet | | 7/20 | | e | | extended release | Indications: | | | 20 | | | | 24hrIndications: | overactive bladder | | | | | | | bladder | | | | | | | | hyperactivity | | | | | | | + + + +---------+------+------+-------+ | cyclobenzaprine 5 | Take 5 mg by mouth | | 0 | | | Activ | | mg oral tablet | as needed. Do not | | | | | e | | | use longer than 2-3 | | | | | | | | weeks. | | | | | | + + + +---------+------+------+-------+ | HYDROmorphone 2 mg | Take 1 tablet by | 8 | 0 | 04/2 | | Activ | | oral tablet | mouth every six | tablet | | 3/20 | | e | | | hours as needed for | | | 20 | | | | | severe pain. | | | | | | + + + +---------+------+------+-------+ Active Problems + + + | Problem | Noted Date | + + + | Obese | 11/06/2019 | + + + | Essential hypertension | 04/18/2018 | + + + | Primary fibromyalgia syndrome | 04/18/2018 | + + + | CKD (chronic kidney disease) stage 4, GFR 15-29 ml/min | 02/08/2018 | + + + | Acquired hypothyroidism | 02/08/2018 | + + + | Secondary hyperparathyroidism | 02/08/2018 | + + + Encounters +--------+ + + + + | Date | Type | Specialty | Care Team | Description | +--------+ + + + + | 01/02/ | Surgery | Surgery | Seymour Cerrato MD | TRANSVAGINAL SLING | | 2019 | | | | INCISION | +--------+ + + + + | 01/02/ | Anesthesia | Surgery | Ciara Wilks | | | 2019 | Event | | MD Skyler Whitman, | | | | | | MD Mas DMD | | +--------+ + + + + | 01/02/ | Hospital | Surgery | Seymour Cerrato MD | | | 2019 | Encounter | | | | +--------+ + + + + | 01/02/ | Pharmacy | Pharmacy Services | | | | 2019 | Visit | | | | +--------+ + + + + | 01/02/ | Travel | | | | | 2019 | | | | | +--------+ + + + + | 01/02/ | Procedure | Surgery | | | | 2019 | Pass | | | | +--------+ + + + + | 12/31/ | Telephone-S | Pre-operative | | Pre-op evaluation | | 2020 | cheduled | Medicine | | | +--------+ + + + + | 12/31/ | Clinical | Pre-operative | | | | 2020 | Support | Medicine | | | | | Staff | | | | +--------+ + + + + | 12/31/ | Manager Of Learning | Pre-operative | O Shavon Dhillon | Screening for viral | | 2020 | | Medicine | MD Krystyna | disease (Primary Dx) | +--------+ + + + + | 12/31/ | Travel | | | | | 2020 | | | | | +--------+ + + + + | 12/17/ | Office | Urology | Seymour Cerrato MD | Urinary retention | | 2019 | Visit | | | (Primary Dx); | | | | | | Bladder outlet | | | | | | obstruction | +--------+ + + + + | 12/17/ | Travel | | | | | 2019 | | | | | +--------+ + + + + | 12/16/ | Telephone | Urology | Seymour Cerrato MD | Screening | | 2019 | | | | | +--------+ + + + + | 11/25/ | Telephone | Urology | Seymour Cerrato MD | | | 2020 | | | | | +--------+ + + + + | 11/20/ | Telephone | Urology | Seymour Cerrato MD | Urinary retention | | 2019 | | | | | +--------+ + + + + | 11/19/ | Clinical | Urology | Rn, Zeferino | Nurse Visit | | 2019 | Support | | | | | | Staff | | | | +--------+ + + + + | 11/19/ | Travel | | | | | 2019 | | | | | +--------+ + + + + | 11/14/ | Pharmacy | | | | | 2019 | Visit | | | | +--------+ + + + + | 11/13/ | Anesthesia | Surgery | Gregg Thomason MD | | | 2019 | Event | | Carlotta Clay ANP | | +--------+ + + + + | 11/13/ | Surgery | Surgery | Seymour Cerrato MD | SACROSPINOUS | | 2019 | | | | LIGAMENT FIXATION, | | | | | | ANTERIOR AND | | | | | | POSTERIOR | | | | | | COLPORRHAPHY, | | | | | | MID-URETHRAL SLING, | | | | | | CYSTOSCOPY | +--------+ + + + + | 11/13/ | Hospital | | Seymour Cerrato MD | | | 2019 - | Encounter | | | | | | | | | | | 11/14/ | | | | | | 2019 | | | | | +--------+ + + + + | 11/13/ | Travel | | | | | 2019 | | | | | +--------+ + + + + | 11/13/ | Procedure | Surgery | | | | 2019 | Pass | | | | +--------+ + + + + | 11/06/ | Office | Pre-operative | Carlotta Clay, | Pre-op evaluation | | 2019 | Visit | Medicine | ANP | (Primary Dx); CKD | | | | | | (chronic kidney | | | | | | disease) stage 4, | | | | | | GFR 15-29 ml/min | | | | | | (HCC); Essential | | | | | | hypertension; | | | | | | Acquired | | | | | | hypothyroidism; | | | | | | Primary fibromyalgia | | | | | | syndrome; Preop | | | | | | examination | +--------+ + + + + | 11/06/ | Travel | | | | | 2019 | | | | | +--------+ + + + + | 10/16/ | Office | Urology | Seymour Cerrato MD | 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 | | | 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 | | | | | | hysterectomy | | | | | | (Primary Dx); | | | | | | Cystocele, midline; | | | | | | Rectocele; Female | | | | | | stress incontinence | +--------+ + + + + | 10/16/ | Travel | | | | | 2020 | | | | | +--------+ + + + + from Last 3 Months Family History + + +------+ + | Medical History | Relation | Name | Comments | + + +------+ + | Cancer | Other | | Asbestos - Lunch cancer | + + +------+ + | Diabetes | Other | | | + + +------+ + | problems | Other | | | + + +------+ + | Hypertension | Other | | | + + +------+ + + +------+--------+ + | Relation | Name | Status | Comments | + +------+--------+ + | Other | | | | + +------+--------+ + Social History + +-------+ +--------+------+ | [...] | | | + + + + Last Filed Vital Signs [...] [address] | | | | | | [place], [place] | | | | | | [address] | | | | | | [phone] | | | | | | | | +--------+---------+ + + + + + + + + | Health Maintenance | Due Date | Last Done | Comments | + + + + + | Influenza (Flu) | | 09/26/2018, 07/16/2010 | | | vaccination (#1) | 9 | | | + + + + + | Pneumococcal | Completed | 06/27/2019, 05/01/2018, | | | vaccination | | 06/12/2010 | | + + + + + Implants + +------+--------+ +--------+--------+--------+ | Implanted | Type | Area | Manufacture | Device | Shelf | Model | | | | | r | | Expira | / | | | | | | Identi | tion | Serial | | | | | | fier | Date | / Lot | + +------+--------+ +--------+--------+--------+ | Tape Meshed Trocar Long | | N/A: | ANGLE & | | 06/11/ | TVTRL | | Gynecare Tvt Secur Stress | | Pelvis | ANGLE | | 2019 | / | | Urinary Incontinence | | | HEALTHCARE | | | /[id number] | | Retropubic - | | | | | | 70 | | [id number]: Qty: 1 on | | | | | | | | 11/14/2019 by Blossom | | | | | | | | MD Seymour at [facility] | | | | | | | | REV LOC | | | | | | | + +------+--------+ +--------+--------+--------+ Procedures + +--------+ + + + | [...] | + +--------+ + + + | [place] COLLECTION VENOUS | Routin | 11/06/2019 | [...] + + from Last 3 Months Results ETT (01/03/2020 11:54 AM PDT) + [...] with ETT. | | + + + INTRAPROCEDURE IMAGING (01/03/2020 8:49 AM PDT)Only the most recent of 2 results within e time period is included. + + | Specimen | + + [...] | | | + +---------+ + + COVID-19 (01/01/2020 9:32 AM PDT) + + [...] characteristics determined by [facility]. It | | | has not been [...] [facility] MOLECULAR | [address] | [place] [address] | | | MICROBIOLIGY LAB | [address] | | | + + + + + URINE CULTURE WORKUP (12/18/2019 11:45 AM PDT) [...] + | [facility] - | [address] | [place] [address] | | | [place] | | | | + + + [...] + + | [facility] LABORATORY | [address] | [place] [address] | | | SERVICES, [place] | [address] | | | + + + + + UA 10 MITCH DELVALLE (12/18/2019 11:20 AM PDT)Only the most recent of 2 results within the time sakshi lund is included. + + + + + + | [...] + + + + + | [facility] | [address] | [place] [address] | | | OF CARE TESTS | | | | + + + + + PROCEDURE NOTE (11/15/2019 7:05 PM PST)CBC (HEMOGRAM) ONLY (11/15/2019 4:53 AM PST)Only t he most recent of 2 results within the time period is included. + + + + + + | [...] | + + + + + | [facility] | [address] | [place] [address] | | | SERVICES, CORE | [address] | | | + + + + + BASIC METABOLIC SET (NA, K, CL, TCO2, BUN, CR, GLU, CA) (11/15/2019 4:53 AM [facility])Only the m ross recent of 2 results within the time period is included. + + + + + + | [...] | | | LABORATORY | | | [facility] | | | SERVICES, | | | [...] MDRD equation recommended by the National | [facility] | | Kidney Disease Education Program. Estimated [...] | + + + + + | [facility] | [address] | [place] [address] | | | SERVICES, CORE | PARK [...] + + + + + | [facility] | [address] | [place] [address] | | | SERVICES, CORE | [address] | | | + + + + + MAGNESIUM, PLASMA (11/15/2019 4:53 AM PST) + +-------+ + + + | Component | Value | Ref Range | Performed | Pathologist | | | | | At | Signature | + +-------+ + + + | MAGNESIUM,P | 2.4 | 1.6 - 2.6 mg/dL | [facility] | | | LASMA | | | [...] + + | [facility] | [address] | [place] [address] | | | SERVICES, [facility] | [address] | | | + + + + + CAPILLARY BLOOD GLUCOSE (NO CHG), POC (11/14/2019 7:27 PM PST)Only the most recent of 2 re sults within the time period is included. + +---------+ + + + | Component | Value | Ref Range | Performed | Pathologist | | | | | At | Signature | + +---------+ + + + | BLOOD | 157 (H) | 70 - 99 mg/dL | [facility] - | | | GLUCOSE, | | [...] [facility] | [address] | [place], [place] | | | [place] [place] | [address] | [address] | | | TESTS | | | | + + + + + ETT (11/14/2019 3:39 PM PST) + + [...] Estevez CRNA | | + + + CARDIOLOGY (11/14/2019 12:00 AM PST) + + + | Narrative | Performed At | + + + | | | + + + 12 LEAD ECG (11/06/2019 [...] DEPT OF | [address] | [place], [place] | | | CARDIOLOGY | [address] | [address] | | + + + + + from Last 3 Months Insurance + +--------+ +--------+ + +--------+ | Payer | Benefi | Subscriber | Effect | Phone | Address | Type | | | t Plan | ID | dinorah | | | | | | / | | Dates | | | | | | Group | | | | | | + +--------+ +--------+ + +--------+ | MEDICARE | MEDICA | xxxxxxxxxxx | | [phone] | [address] | | | RE A & | | [phone] | [address] | | | [address] | | esent | | [place], [place] | | | | | | | | [address] | | + +--------+ +--------+ + +--------+ | COMMERCIAL | INDIVI | xxxxxxxxx | 09/12/19 | | | Indemn | | INDIVIDUAL | DUAL | | 20-Pre | | | ity | | | COMMER | | sent | | | | | | CIAL | | | | | | + +--------+ +--------+ + +--------+ + +--------+ +--------+ + + | Guarantor [...] | | al/Fam | | 1950 | [phone] | [place] | | | roque | | | 6 (Home) | [id number] | + +--------+ +--------+ + + Advance Directives + + + + + | Code Status | Date | Date | Comments | | | Activated | Inactivated | | + + + + + | Full Code | 01/03/2020 | 01/03/2020 | | | | 8:49 AM | 11:01 PM | | + + + + + + + + +---+ | | | | | + + + +---+ | Full Code | 11/15/2019 | 11/16/2019 | | | | 7:10 AM | 1:33 AM | | + + + +---+ + + + +---+ | | | | | + + + +---+ | Full Code | 11/14/2019 | 11/14/2019 | | | | 11:46 AM | 10:44 PM | | + + + +---+
--- OUTSIDE RECORDS SUMMARY | ~2020-01-04 | XMS | Encounter Summary ---
Demographics + + + | Address | [address] | | | [place] [address] | + + + | Home Phone | | + + + | Preferred Language | Unknown | + + + | Marital Status | | + + + | Pentecostalism Affiliation | 1013 | + + + | Race | Unknown | + + + | Ethnic Group | Unknown | + + + Author + + + | Author | [facility] | | | and [place] | + + + | Organization | [facility] | | | [...] [place] | | | | | [address] | | + + + + + Care Team Providers + +------+ + | Care Software Configuration Manager Name | Role | Phone | [...] + + | 07/19/ | Telephone | [facility] | [facility], | Lab Results | | 2018 | | GASTROENTEROLOGY | PATRICK [address] [address] | | | | | [address] [place] | [place] | | | | | [address] [place], [place] | [place], [place] | | | | | [address] | [address] | | | | | [phone] | | | +--------+ + + + [...] | | | | | [place] [address] | | | | | | [phone] | | | | | | | | +--------+ + + + + | 01/10/ | Appointment | Respiratory Therapy | Deirdre Maharaj | | | 2019 | | | MD [place] [address], [place] | | | | | | [place] [address] | | | | | | [phone] | | | | | | | | +--------+ + + + + | 04/10/ | Office | Neurology | Deirdre Maharaj | | | 2019 | Visit | | MD [address], [place] | | | | | | [place] [address] | | | | | | [phone] | | | | | | | | +--------+ + + + + | 06/02/ | Office | Nephrology | Arslan Robertson MD | | | 2019 | Visit | | [address] [place] | | | | | | [address] [place], [place] | | | | | | [address] | | | | | | | | +--------+ + + + + documented as of this encounter Visit Diagnoses Not on filedocumented in this encounter"
--- OUTSIDE RECORDS SUMMARY | ~2020-01-04 | XMS | Encounter Summary ---
Demographics + + + | Address | [address] | | | [place] [address] | + + + | Home Phone | | + + + | Preferred Language | Unknown | + + + | Marital Status | | + + + | Islam Affiliation | 1013 | + + + | Race | Unknown | + + + | Ethnic Group | Unknown | + + + Author + + + | Author | [facility] | | | and [place] | + + + | Organization | [facility] | | [...] [place] | | | | | [address] | | + + + + + Care Team Providers + +------+ + | Care Creative Coordinator Name | Role | Phone | + +------+ + PCP | Unavailable | + +------+ + Encounter Details +--------+ + + + + | Date | Type | Department | Care Team | Description | +--------+ + + + + | 06/21/ | Hospital | [facility] | | | | 1995 | Encounter | SYSTEM GENERIC OP | | | | | | CONVERSION [address] | | | | | | [address] [place] | | | | | | [address] | | | | | | [phone] | | | +--------+ + + + [...] | | | | | [place] [address] | | | | | | [phone] | | | | | | | | +--------+ + + + + | 01/10/ | Appointment | Respiratory Therapy | Deirdre Maharaj | | | 2019 | | | MD [address], [place] | | | | | | [place] [address] | | | | | | [phone] | | | | | | | | +--------+ + + + + | 04/10/ | Office | Neurology | Deirdre Maharaj | | | 2019 | Visit | | MD [address], [place] | | | | | | [place] [address] | | | | | | [phone] | | | | | | | | +--------+ + + + + | 06/02/ | Office | Nephrology | Arslan Robertson MD | | | 2019 | Visit | | [address] [place] | | | | | | [address] [place] | | | | | | [address] | | | | | | | | +--------+ + + + + documented as of this encounter Visit Diagnoses Not on filedocumented in this encounter"
--- OUTSIDE RECORDS SUMMARY | ~2020-01-04 | XMS | Encounter Summary ---
Demographics + + + | Address | [address] | | | [place] [address] | + + + | Home Phone | | + + + | Preferred Language | Unknown | + + + | Marital Status | | + + + | Denominational Affiliation | 1013 | + + + [...] [place] | | | | | [address] | | + + + + + Care Team Providers + +------+ + | Care Matcher Leather [employer] Name | Role | Phone | + +------+ + | Shazia Tamayo MD | PCP | | + +------+ + Encounter Details +--------+ + + + + | Date | Type | Department | Care Team | Description | +--------+ + + + + | 11/26/ | Orders Only | [facility] | Arslan Robertson MD | Essential | | 2020 | | NEPHROLOGY [place] | [address] [place] | hypertension | | | | [address] | [address] [place], [place] | (Primary Dx); | | | | [address] | [address] | Secondary | | | | [place], [place] | | hyperparathyroidism | | | | [address] | | (HCC); CKD (chronic | | | | [phone] | | kidney disease), | | | [...] | | | | | [place] [address] | | | | | | [phone] | | | | | | | | +--------+ + + + + | 01/10/ | Appointment | Respiratory Therapy | Deirdre Maharaj | | | 2019 | | | MD [place], [place] | | | | | | [place] [address] | | | | | | [phone] | | | | | | | | +--------+ + + + + | 04/10/ | Office | Neurology | Deirdre Maharaj | | | 2019 | Visit | | MD [address], [place] | | | | | | [place] [address] | | | | | | [phone] | | | | | | | | +--------+ + + + + | 06/02/ | Office | Nephrology | Arslan Robertson MD | | | 2019 | Visit | | [address] [place] | | | | | | [address] [place], [place] | | | | | | [address] | | | | | | | [...]
--- OUTSIDE RECORDS SUMMARY | ~2020-01-04 | XMS | Encounter Summary ---
Demographics + + + | Address | [address] [place] | | | [place] [address] | + + + | Home Phone | | + + + | Preferred Language | Unknown | + + + | Marital Status | | + + + | Gnosticism Affiliation | CHR | + + + [...] Providers + +------+ + | Care [employer] Media Specialist Name | Role | Phone | + +------+ + | Shazia Tamayo MD | PCP | | + +------+ + Encounter Details +--------+ + + + + | Date | Type | Department | Care Team | Description | +--------+ + + + + | 01/02/ | Pharmacy | Pharmacy @ [facility] | | | | 2019 | Visit | [address] | | | | | | Emre Rhodes Mailcode: | | | | | | [facility] | | | | | | [facility] Healing, | | | | | | [address] | | | | | | [place], [place] | | | | | | [address] | | | +--------+ + + + [...] Rhodes | | | | | | [place] | | | | | | [address] | | | | | | [phone] | | | | | | | | +--------+---------+ + + + documented as of this encounter Visit Diagnoses Not on filedocumented in this encounter"
--- OUTSIDE RECORDS SUMMARY | ~2020-01-04 | XMS | Encounter Summary ---
Demographics + + + | Address | [address] | | | [place] [address] | + + + | Home Phone | | + + + | Preferred Language | Unknown | + + + | Marital Status | | + + + | Spiritism Affiliation | 1013 | + + + | Race | Unknown | + + + | Ethnic Group | Unknown | + + + Author + + + | Author | [facility] | | | and [place] | + + + | Organization | [facility] | | | [...] [place] | | | | | [address] | | + + + + + Care Team Providers + +------+ + | Care Churn Driller Name | Role | Phone | + [...] + + | 09/18/ | Telephone | [facility] | Arslan Robertson MD | Other (Bladder | | 2019 | | NEPHROLOGY [place] | [address] [place] | problems) | | | | [address] [place] | [address] [facility] [place] | | | | | [address] [facility] [place] | [address] | | | | | [address] | | | | | | [phone] | | | +--------+ + + + [...] | | | | | [place] [address] | | | | | | [phone] | | | | | | | | +--------+ + + + + | 01/10/ | Appointment | Respiratory Therapy | Deirdre Maharaj | | | 2019 | | | MD Ney [address] | | [address], [place] | | | | | | [place] [address] | | | | | | [phone] | | | | | | | | +--------+ + + + + | 04/10/ | Office | Neurology | Deirdre Maharaj | | | 2019 | Visit | | MD N[address], [place] | | | | | | [place] [address] | | | | | | [phone] | | | | | | | | +--------+ + + + + | 06/02/ | Office | Nephrology | Arslan Robertson MD | | | 2019 | Visit | | [address] [place] | | | | | | [address] [place], [place] | | | | | | [address] | | | | | | | | +--------+ + + + + documented as of this encounter Visit Diagnoses Not on filedocumented in this encounter"
--- OUTSIDE RECORDS SUMMARY | ~2020-01-04 | XMS | Encounter Summary ---
Demographics + + + | Address | [address] | | | [place] [address] | + + + | Home Phone | | + + + | Preferred Language | Unknown | + + + | Marital Status | | + + + | Hinduism Affiliation | 1013 | + + + | Race | Unknown | + + + | Ethnic Group | Unknown | + + + Author + + + | Author | [facility] | | | and [place] | + + + | Organization | [facility] | | [...] [place] | | | | | [address] | | + + + + + Care Team Providers + +------+ + | Care Social Media Job Titles Name | Role | Phone | + [...] | LFTs | MD [address] | DELIVERY OF [employer] [address] | | | | | Procedures | [place] | [place] | | | | | OFFICE | [place], | [address] [place] | | | | | | [place] | [place] | | | | | | [address] | [address] Phone: | | | | | | Phone: | [phone] | | | | | | [phone] | Fax: | | | | | | Fax: | [phone] | | | | | | [phone] | | +--------+--------+ + + + + Encounter Details +--------+---------+ + + + | Date | Type | Department | Care Team | Description | +--------+---------+ + + + | 06/22/ | Office | [facility] [place] | [facility], | Elevated liver | | 2018 | Visit | GASTROENTEROLOGY | PATRICK Livingston [address] | enzymes (Primary | | | | [address] [place] | [place], [place] [address] | Dx); Secondary | | | | [address] [place], [place] | [place], [place] | hyperparathyroidism | | | | [address] | [address] | (HCC); CKD (chronic | | | | [phone] | | kidney disease), | | | [...] She is followed by nephdavion lim from [facility]. Dr Robertson. Patient was recently told [...] She has had diuretic adjustments done by service order dispatcher chief. Denies jaundice, hematemesis, sleep changes, or confusion. [...] 0 0 - 4 Final UA Specific Leroy, External 05/01/2018 1.006 1.005 - 1.03 Final [...] 2.4 Final Assessment: 1. Elevated liver enzymes Lkpbf-6-Kzwgndloorr, Total Mitochondrial Ab, M2 Antinuclear Ab, Titer [...] | | | | | [place] [address] | | | | | | [phone] | | | | | | | | +--------+ + + + + | 01/10/ | Appointment | Respiratory Therapy | Deirdre Maharaj | | | 2019 | | | MD [address] | | | | | | [address] [place] | | | | | | [place] [address] | | | | | | [phone] | | | | | | | | +--------+ + + + + | 04/10/ | Office | Neurology | Deirdre Maharaj | | | 2019 | Visit | Quintin Brewster MD [address] | | | | | | [place] | | | | | | [place] [address] | | | | | | [phone] | | | | | | | | +--------+ + + + + | 06/02/ | Office | Nephrology | Arslan Robertson MD | | | 2019 | Visit | | [address] | | | | | | [address] [place] | | | | | | [address] | | | | | | | | +--------+ + + + + + +------+--------+ + + | Name | Type | Priori | Associated Diagnoses | Order Schedule | | | | ty | | | + +------+--------+ + + | Aercq-6-Thffastmafk, | Lab | Routin | Elevated liver [...]
--- OUTSIDE RECORDS SUMMARY | ~2020-01-04 | XMS | Encounter Summary ---
Demographics + + + | Address | [address] | | | [place] [address] | + + + | Home Phone [...] + + + | Author | [facility] | | | and [place] | + + + | Organization | [facility] | | | and [place] | + + + | Address | Unknown | + + + | Phone | Unavailable | + + + Support + + + + + | Name | Relationship | Address | Phone | + + + + + | Jose Ariisidro | ECON | [address] | | | | | [place] | | | | | [address] | | + + + + + Care Team Providers + +------+ + | Care Engineer Automated Equipment Name | Role | Phone | + +------+ + | Shazia Tamayo MD | PCP | | + +------+ + Encounter Details +--------+ + + + + | Date | Type | Department | Care Team | Description | +--------+ + + + + | 01/22/ | Orders Only | [facility] | Conversion | | | 2019 | | NEPHROLOGY [place] | Transaction, | | | | | [address] | Provider Unknown | | | | | [address] [place], [place] | | | | | | [address] | (Fax) | | | | | [phone] | | | +--------+ + + + [...] | | | | | [place] [address] | | | | | | [phone] | | | | | | | | +--------+ + + + + | 01/10/ | Appointment | Respiratory Therapy | Deirdre Maharaj | | | 2019 | | | MD [address] | | [address], [place] | | | | | | [place] [address] | | | | | | [phone] | | | | | | | | +--------+ + + + + | 04/10/ | Office | Neurology | Deirdre Maharaj | | | 2019 | Visit | | MD [address] | | | | | | [place] | | | | | | [place] [address] | | | | | | [phone] | | | | | | | | +--------+ + + + + | 06/02/ | Office | Nephrology | Arslan Robertson MD | | | 2019 | Visit | | [address] [place] | | | | | | [address] [place] | | | | | | [address] | | | | | | | [...]
--- OUTSIDE RECORDS SUMMARY | ~2020-01-04 | XMS | Encounter Summary ---
Demographics + + + | Address | [address] | | | [place] [address] | + + + | Home Phone [...] Jose Ariisidro | ECON | [address] | | | | | [place] | | | | | [address] | | + + + + + Care Team Providers + +------+ + | Care Teacher Education Director Name | Role | Phone | + +------+ + | Shazia Tamayo MD | PCP | | + +------+ + Encounter Details +--------+ + + + + | Date | Type | Department | Care Team | Description | +--------+ + + + + | 06/07/ | Abstract | [facility] | Provider, | | | 2017 | | GASTROENTEROLOGY | MD [address] | | | | | [address] [facility] | Vaibhav Hernandez | | | | | [address] | [place] [address] | | | | | [address] | | | | | | [phone] | | | +--------+ + + + [...] | | | | | [place] [address] | | | | | | [phone] | | | | | | | | +--------+ + + + + | 01/10/ | Appointment | Respiratory Therapy | Deirdre Maharaj | | | 2019 | | | MD [address] | | [address], [place] | | | | | | [place] [address] | | | | | | [phone] | | | | | | | | +--------+ + + + + | 04/10/ | Office | Neurology | Deirdre Maharaj | | | 2019 | Visit | | MD [address] | | | | | | [place] | | | | | | [place] [address] | | | | | | [phone] | | | | | | | | +--------+ + + + + | 06/02/ | Office | Nephrology | Arslan Robertson MD | | | 2019 | Visit | | [address] [place] | | | | | | [address] [place] | | | | | | [address] | | | | | | | [...] eGFR, | 28 (A) | 60 - 53,999 | EXTERNAL | | | External | [...]
--- OUTSIDE RECORDS SUMMARY | ~2020-01-04 | XMS | Encounter Summary ---
Demographics + + + | Address | [address] | | | [place] [address] | + + + | Home Phone [...] + + + | Author | [facility] | + + + | Organization | [facility] | + + + | Address | Unknown | + + + | Phone | Unavailable | + + + Support + + +---------+ + | Name | Relationship | Address | Phone | + + +---------+ + | Jose Minaya | ECON | Unknown | | + + +---------+ + Care Team Providers + +------+ + | Care Aboriginal Education Worker Coordinator Name | Role | Phone | [...] | | | | | after | [place], [place] | [place], [place] | | | | | hysterectomy | [address] | [address] | | | | | Cystocele, | Phone: | Phone: | | | | | midline | [phone] | [phone] | | | | | Rectocele | Fax: | Fax: | | | | | Female | [phone] | [phone] | | | | | stress | | | | | | | incontinence | | | | | | | Procedures | | | | | | | REQUEST TO | | | | | | | SURGERY | | | | | | | CUT PLUG PACKER | | | | | | | OK COMBINED | | | | | | | ANT/POST | | | | | | | COLPORRHAPHY | | | | | | | OK REPR | | | | | | | VAGINAL | | | | | | | PROLAPSE,SAC | | | | | | | ROSP LIG [place] | | | | | | | [...] | | | | Bladder | Rajeev Brewtser, | MD [place] | | | | | prolapse, | ST | [address] | | | | | female, | HEAVENLY | Ave | | | | | acquired | HOSPITAL | [place], [place] | | | | | Stress | OBSTETRICS | [address] | | | | | incontinence | AND | Phone: | | | | | (female) | GYNECOLOGY | [phone] | | | | | (male) | [place]AM, | Fax: | | | | | sudden | [place] [address] | [phone] | | | | | vaginal | Phone: | | | | | | prolapse | [phone] | | | | | | with urinary | Fax: | | | | | | | [phone] | | | | | | incontinence | | | | | | | and | | | | | | | retention | | | + +--------+ + + + + Encounter Details +--------+---------+ + + + | Date | Type | Department | Care Team | Description | +--------+---------+ + + + | 10/16/ | Office | [facility]rology at [facility] | Seymour Cerrato MD | Vaginal vault | | 2020 | Visit | [address] | [address] | 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 | | | | [facility] | [place], [place] | hysterectomy | | | | and Healing, | [address] | (Primary Dx); | | | | | [phone] | Cystocele, midline; | | | | Floor [place], [place] | | Rectocele; Female | | | | [address] | | stress incontinence | | | | [phone] | | | +--------+---------+ + + + [...] Neurourology 10/16/2019 Referring Physician: Rajeev Johnson MD [facility] OBSTET[facility] [address] History: CHIEF COMPLAINT: "My bladder has prolapsed" [...] walks with a walker due to vertigo. Surgery Scheduler: G 1 P 1, traumatic delivery of [...] Dymista 137 mcg- 50 mcg/spray nasal spray [place] 1 spray twice a day by intranasal [...] varicose veins, no edema Pelvic Exam (Female): Juvenile Court Judge present: Briana Wilks LPN External Genitalia: atrophic [...] have penetrative intercourse. I recommend a transvaginal orutsararmiut tissue repair using the sacrospinous ligament fixation, [...] [place] | | | | | | [place], [place] | | | | | | [address] | | | | | | [phone] | | | | | | | [...] + + | LELAND KHAN | [address] | [place] [address] | | | OF CARE TESTS | [...]
--- OUTSIDE RECORDS SUMMARY | ~2020-01-04 | XMS | Encounter Summary ---
Demographics + + + | Address | [address] | | | [place] [address] | + + + | Home Phone | | + + + | Preferred Language | Unknown | + + + | Marital Status | | + + + | Uatsdin Affiliation | 1013 | + + + | Race | Unknown | + + + | Ethnic Group | Unknown | + + + Author + + + | Author | [facility] | | | and [place] | + + + | Organization | [facility] | | | [...] [place] | | | | | [address] | | + + + + + Care Team Providers + +------+ + | Care Farm Truck Driver Name | Role | Phone | + [...] [place] | | | 07/[birth year]/ | | [place], [place] | [address] [place], [place] | | | 1996 | | [address] | [address] | | | | | [phone] | | | +--------+ + + + [...] | | | | | [place] [address] | | | | | | [phone] | | | | | | | | +--------+ + + + + | 01/10/ | Appointment | Respiratory Therapy | Deirdre Maharaj | | | 2019 | | | MD [address] | | [address], [place] | | | | | | [place] [address] | | | | | | [phone] | | | | | | | | +--------+ + + + + | 04/10/ | Office | Neurology | Deirdre Maharaj | | | 2019 | Visit | | MD [address] | | [address], [place] | | | | | | [place] [address] | | | | | | [phone] | | | | | | | | +--------+ + + + + | 06/02/ | Office | Nephrology | Arslan Robertson MD | | | 2019 | Visit | | [address] | | | | | | [address] [place], [place] | | | | | | [address] | | | | | | | | +--------+ + + + + documented as of this encounter Visit Diagnoses Not on filedocumented in this encounter"
--- OUTSIDE RECORDS SUMMARY | ~2020-01-04 | XMS | Encounter Summary ---
Demographics + + + | Address | [address] | | | [place] [address] | + + + | Home Phone | | + + + | Preferred Language | Unknown | + + + | Marital Status | | + + + | Denominational Affiliation | CHR | + + + | Race | White | + + + | Ethnic Group | Not or | + + + Author + + + | Author | [facility] | + + + | Organization | [facility] | + + + | Address | Unknown | + + + | Phone | Unavailable | + + + Support + + +---------+ + | Name | Relationship | Address | Phone | + + +---------+ + | Jose Minaya | ECON | Unknown | | + + +---------+ + Care Team Providers + +------+ + | Care Assistant Operator Name | Role | Phone | + +------+ + | Shazia Tamayo MD | PCP | | + +------+ + Reason for Visit + + + | Reason | Comments | + + + | Nurse Visit | | + + + Global Period - Transplant (Routine) + +--------+ + + + + | Status | Reason | Specialty | Diagnoses / | Referred By | Referred To | | | | | Procedures | Contact | Contact | + +--------+ + + + + | Authorized | | Urology | | Blossom, | Blossom | | | | | | MD Seymour | MD Seymour | | | | | | [address] | [address] | | | | | | Ave | Ave | | | | | | [place], [place] | [facility] [place] | | | | | | [address] | [address] | | | | | | Phone: | Phone: | | | | | | [phone] | [phone] | | | | | | Fax: | Fax: | | | | | | [phone] | [phone] | + +--------+ + + + + Encounter Details +--------+ + + + + | Date | Type | Department | Care Team | Description | +--------+ + + + + | 11/19/ | Clinical | Urology at [facility] | Rn, U[address] | Nurse Visit | | 2020 | Support | [address] | [facility] | | | | Staff | [facility] | Road [place], [place] | | | | | and Healing, | [address] | | | | | Building | | | | | | Floor [facility] [place] | | | | | | [address] | | | | | | [phone] | | | +--------+ + + + [...] of this encounter Patient Instructions Patient Instructions Briana Wilks LPN - 11/20/2019 2:00 PM PDT Increase non alcoholic fluid intake (water, juice etc.) for the next 2 to 3 days now that t he catheter is out. You may want to wear incontinence pads for the next few days to collect any leaking urine You may see pink colored urine for the next few days and possibly some small blood clots in your urine. A few weeks after the procedure do not be alarmed if you experience an episode of blood, sc ar tissue and clots in the urine. This can be a normal occurrence. Call or contact us as needed or go to the emergency department if unable to urinate after 4 to 6 hours of trying. Call or contact us as needed or go to the emergency department if you experience urinary tr act infections signs or symptoms such as urinary urgency, frequency, bladder pain, fevers, c hills, foul smelling urine or cloudy urine. Our phone number is [phone] or after hours [phone]. Clean intermittent catheterization (CIC) every evening just before going to bed and in the A.M. after getting out of bed using a 12 andorran, 16 inch straight catheter. What is CIC? Clean intermittent catheterization (CIC) is a way of emptying the bladder with a small tube (catheter) at regular times during the day. Why CIC? CIC is used to help keep your bladder empty. This will promote a healthy urinary tract (ki dneys, ureters, bladder and urethra). Clean intermittent self-catheterization helps you to remain dry, uninfected, and in control of your urinary function. Your order for catheters and supplies has been faxed to [employer] and the suppli es will be sent to your home. [employer] will contact you shortly and confirm your mailing addre ss and billing information. Your supplies will often be delivered to your home with in 5 days. [employer]. [address] [place] [address] STEPS for Self Lubricated Catheter (Hydrophilic): Self lubricated/prelubricated catheter: Your catheter is a self lubricated "hydrophilic" c atheter. This is a one time use only catheter. 1. Gather supplies. 2. Wash your hands with soap and water or hand mems integration engineer. Clean the tip of the penis with water or baby wipes. DO NOT clean the tip of the penis with soap. 3. Place catheter in a easy to reach position. 4. Stand or sit on the toilet or a chair. 5. For males, grasp the penis, retracting the foreskin if necessary, and hold it up and out from the body. 6. Insert the tip of the catheter gently but firmly. You will meet some resistance about h shelter way in. Take a deep breath and relax and it will pass. (If you are using a catheter wit h a curved tip, the curve points toward your nose.) 8. Continue passing the catheter until urine begins to flow. Go 1 further and while hol ding the catheter in place, allow all the urine to drain from the bladder. 9. Remove the catheter slowly, allowing any other urine to drain. Pull down the foreskin i f uncircumcised. 10. If you have been asked to keep a Voiding Log, measure the urine in the container and write it down. 11. Wash your hands. STEPS for Reusable Catheter: 1. Gather supplies. 2. Wash your hands with soap and water or hand mems integration engineer. Clean the tip of the penis with water or baby wipes. DO NOT clean the tip of the penis with soap. 3. Lay out supplies on a clean cloth or paper towel so they are in easy reach. 4. Lubricate the tip and first few inches of the catheter. 5. Stand or sit on the toilet or a chair. 6. Grasp the penis, retracting the foreskin if necessary, and hold it up and out from the b cory (see picture). 7. Insert the lubricated tip of the catheter gently but firmly. You will meet some resista nce about half way in. Take a deep breath and relax and it will pass. (If you are using a c atheter with a curved tip, the curve points toward your nose.) 8. Continue passing the catheter until urine begins to flow. Go 1 further and while hol ding the catheter in place, allow all the urine to drain from the bladder. 9. Remove the catheter slowly, allowing any other urine to drain. Pull down the foreskin i f uncircumcised. 10. If you have been asked to keep a Voiding Log, measure the urine in the container and write it down. 11. Wash your hands and the catheter (if you are reusing the catheter) with soap and water (See Cleaning). CLEANING OF CATHETER: 1. Wash the catheter inside and out with disinfectant soap and water after each use or a vinegar and water solution. 2. Use a syringe to wash, rinse, and dry the inside of the catheter (Optional). 3. Rinse well inside and outside with clean water. 4. Allow the catheter to air dry on a towel. Take the syringe apart to dry also. 5. Store the catheter after it dries. 6. If you are reusing the same catheter over and over, the catheter should be replaced abou t every week - until your supply of catheters arrives to your home, then there will be an am ple supply of single-use catheters; Use it and throw it away! If a catheter appears rough, stiff, discolored, damaged, or if you develop an infection, throw it away and use a new one. 7. Also wash and rinse the container after each use. Supplies for reusable catheter: 1. Catheter 2. Lubricant (water soluble) i.e. KY jelly 3. Container 4. Cloth or paper towel. HAVE YOUR URINE CHECKED OR CALL YOUR DOCTOR IF: Urine is cloudy and smelly Go to the emergency department or urgent care or contact PCP or call us at [phone] or after hours at [phone] for signs or symptoms of UTI. Urinary frequency, burning, urge ncy, fever, chills, cloudy or foul smelling urine, confusion, or other related concerns. Fever above 100.5 F Aching in the bladder area or in the back New or increased leakage between catheterizations New or increased discomfort between catheterizations Difficulty in passing the catheter or not able to pass the catheter. HINTS: * It is normal to see a little blood on the catheter from time to time. * Be sure to drink 6-8 glasses of clear fluid each day. * The most important times to cath are in the morning when you get up and at night before b ed. Follow your doctor s recommendations. * When away from home, be sure to take extra cathing supplies. You may wish to store them in a toiletry bag or suleiman pack. Baby wipes are handy when soap and water are not available . * When a catheter is used away from home, it is best to put the used catheter in a separate plastic bag and wash it at home later. Presoaking before washing helps to clean the cathet er better. documented in this encounter Progress Notes Briana Wilks LPN - 11/20/2019 2:00 PM PDTSent patient order for catheters to [facility] for 12 Fr. Prelubricated straight catheters, x3/day. Briana Wilks LPN Seymour Wright MD - 11/20/2019 2:00 PM PDTDeirdre Rei is to continue CIC 3 times per day with a 12 Fr. pre-lubricated straight catheter for urinary retention that is not expected to be medically or surgically corrected within 3 months. Seymour Cerrato MD Obstetrics And Gynecology Professor Female Pelvic Medicine, Reconstructive Urology, and Neurourology Department of Urology Briana Yu LPN - 11/20/2019 2:00 PM PDTDeirdre Rei comes in today for a urinary voiding trial. She has a catheter post-operatively. On 11/14/19 Mrs. Minaya had a SACROSPINOUS LIGAMENT FIXATION, ANTERIOR AND POSTERIOR COLPO RRHAPHY, MID-URETHRAL SLING, CYSTOSCOPY with Dr. Cerrato. Prior to beginning the procedure, patient identity was verified, as well as the procedure t o be performed and the site. All equipment required was ready and available. The patient wa s positioned appropriately. Verbal permission to proceed given by Dr. Cerrato. He is presen t and available in clinic during the entire visit. The bladder was infused via the urinary catheter with 180 mL's of normal saline. At this p oint Ms. Minaya felt the sensation to void. The balloon was deflated of 9 mL's of clear liq uid and the catheter was withdrawn with some mild resistance. She was able to void 100 mL's . Ms. Minaya tolerated the procedure well. Ms. Minaya was instructed in CIC technique. She understands to seek care at her local [facility] or contact us if she cannot pass the catheter. Ms. Minaya was able to successfully perform CIC and got a return of 200 mL's of urine. Urology Patient Instructions In Clean Intermittent Catheterization: Patient/family was instructed to perform CIC 2 or more time per day to empty bladder using a 12fr straight 16 inch catheter. Instruction regarding cleaning and replacement of catheter were reviewed. Printed instruc tions were provided. Patient/family was advised to contact his medical care provider if any of the following occ ur: signs and symptoms of possible urinary tract infection develop, inability to pass cathet er and any other questions or concerns. Plan: Ms. Minaya was instructed to follow up as scheduled. Ms. Minaya was advised to go to the emergency department or urgent care or contact her PCP or call us at [phone] or after hours at [phone] for signs or symptoms of UTI (uri nary frequency, burning, hematuria, urgency, fever, chills, cloudy or foul smelling urine, c onfusion), difficulty or inability to perform CIC, or for other concerns. The total EIGHT SECTION BLOWER time spent with Ms. Minaya was 60 minutes. - - - - - - - - - - - - - - - - - - - - - - - - - - - - - - - - - - - - - - - - - - - - - - - - - - - - - - - - Two patient identifiers verified: yes ASSESSMENT As above Concerns: As above PLAN As above Backup plan and/or next steps: As above NURSING OUTCOME EVALUATION Previous nursing concern(s): no previous concern(s). The primary barriers to care identified are: None I believe this patient's NURSING STABILITY is Moderately Stable. During this encounter, patient/caregiver verbalizes or demonstrates understanding of educat ion provided, verbalizes agreement with the plan, demonstrates ability to perform skill and was active participant/motivated. Notified LIP via verbal conversation Briana Wilks LPN [facility] UROLOGY AT [facility] [address] [place] [address] [phone] signed by Briana Wilks LPN at 11/20/2019 3:16 PM Nahum moreira in this encounter Plan of Treatment +--------+---------+ + + + | Date | Type | Specialty | Care Team | Description | +--------+---------+ + + + | 02/11/ | Office | Urology | Seymour Cerrato MD | | | 2019 | Visit | | [address] | | | | | | [place], [place] | | | | | | [address] | | | | | | [phone] | | | | | | | | +--------+---------+ + + + documented as of this encounter Visit Diagnoses + + | Diagnosis | + + | 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
--- OUTSIDE RECORDS SUMMARY | ~2020-01-04 | XMS | Encounter Summary ---
Demographics + + + | Address | [address] | | | [place] [address] | + + + | Home Phone | | + + + | Preferred Language | Unknown | + + + | Marital Status | | + + + | Baptism Affiliation | CHR | + + + | Race | White | + + + | Ethnic Group | Not or | + + + Author + + + | Author | [facility] | + + + | Organization | [facility] | + + + | Address | Unknown | + + + | Phone | Unavailable | + + + Support + + +---------+ + | Name | Relationship | Address | Phone | + + +---------+ + | Jose Minaya | ECON | Unknown | | + + +---------+ + Care Team Providers + +------+ + | Care Media Relations Intern Name | Role | Phone | + [...] | 2020 | Event | [facility] | [address] | | | | | [facility] | [facility] | | | | | [facility] | [place] [address] | | | | | Desk Located on the | [phone] | | | | | 9th floor | | | | | | [place], [place] | | | | | | [address] | | | +--------+ + + + [...] Kelechi Estevez, | | | G Herb, PROPERTY MANAGEMENT ASSISTANT; Endotracheal | PROPERTY MANAGEMENT ASSISTANT | PROPERTY MANAGEMENT ASSISTANT | | | Tube; 7; Oral; 11/14/19; [...] | | | | | | [place], [place] | | | | | | [address] | | | | | | [phone] | | | | | | | [...]
--- OUTSIDE RECORDS SUMMARY | ~2020-01-04 | XMS | Encounter Summary ---
Demographics + + + | Address | [address] | | | [place] [address] | + + + | Home Phone | | + + + | Preferred Language | Unknown | + + + | Marital Status | | + + + | Shinto Affiliation | CHR | + + + | Race | White | + + + | Ethnic Group | Not or | + + + Author + + + | Author | [facility] | + + + | Organization | [facility] | + + + | Address | Unknown | + + + | Phone | Unavailable | + + + Support + + +---------+ + | Name | Relationship | Address | Phone | + + +---------+ + | Jose Minaya | ECON | Unknown | | + + +---------+ + Care Team Providers + +------+ + | Care Set Up Mechanic Automatic Line Name | Role | Phone | [...] [address] | | | | | | [place], [place] | [facility] [place] | | | | | | [address] | [address] | | | | | | Phone: | Phone: | | | | | | [phone] | [phone] | | | | | | Fax: | Fax: | | | | | | [phone] | [phone] | + +--------+ + + + + Encounter Details +--------+ + + + + | Date | Type | Department | Care Team | Description | +--------+ + + + + | 11/19/ | Clinical | Urology at [facility] | Rn, U[address] | Nurse Visit | | 2020 | Support | [address] | [facility] | | | | Staff | [facility] | Road [place], [place] | | | | | and Healing, | [address] | | | | | Building | | | | | | Floor [facility] [place] | | | | | | [address] | | | | | | [phone] | | | +--------+ + + + [...] or cloudy urine. Our phone number is [phone] or after hours [phone]. Clean intermittent catheterization (CIC) every evening just before going to bed and in the A.M. after getting out of bed using a 12 south sudanese, 16 inch straight catheter. What is CIC? [...] catheters and supplies has been faxed to [employer] and the suppli es will be sent to your home. [employer] will contact you shortly and confirm your mailing addre ss and billing information. Your supplies will often be delivered to your home with in 5 days. [employer]. [address] [place] [address] STEPS for Self Lubricated Catheter (Hydrophilic): Self lubricated/prelubricated catheter: Your catheter is a self lubricated "hydrophilic" c atheter. This is a one time use only catheter. 1. Gather supplies. 2. Wash your hands with soap and water or hand emergency technician. Clean the tip of the penis with [...] You will meet some resistance about h skilled nursing way in. Take a deep breath and [...] hands with soap and water or hand emergency technician. Clean the tip of the penis with [...] or contact PCP or call us at [phone] or after hours at [phone] for signs or symptoms of UTI. Urinary [...] PM PDTSent patient order for catheters to [facility] for 12 Fr. Prelubricated straight catheters, x3/day. Briana Wilks LPN Seymour Wright MD - 11/20/2019 2:00 PM PDTDeirdre Rei is to continue CIC 3 times per day with a 12 Fr. pre-lubricated straight catheter for urinary retention that is not expected to be medically or surgically corrected within 3 months. Seymour Cerrato MD Student Life Coordinator Female Pelvic Medicine, Reconstructive Urology, and Neurourology [...] understands to seek care at her [facility] or contact us if she cannot [...] contact her PCP or call us at [phone] or after hours at [phone] for signs or symptoms of UTI (uri nary frequency, burning, hematuria, urgency, fever, chills, cloudy or foul smelling urine, c onfusion), difficulty or inability to perform CIC, or for other concerns. The total JIG GRINDER time spent with Ms. 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
--- OUTSIDE RECORDS SUMMARY | ~2020-01-04 | XMS | Encounter Summary ---
Demographics + + + | Address | [address] | | | [place] [address] | + + + | Home Phone | | + + + | Preferred Language | Unknown | + + + | Marital Status | | + + + | Spiritism Affiliation | CHR | + + + | Race | White | + + + | Ethnic Group | Not or | + + + Author + + + | Author | [facility] | + + + | Organization | [facility] | + + + | Address | Unknown | + + + | Phone | Unavailable | + + + Support + + +---------+ + | Name | Relationship | Address | Phone | + + +---------+ + | Jose Minaya | ECON | Unknown | | + + +---------+ + Care Team Providers + +------+ + | Care Employee Communications Specialist Name | Role | Phone | + +------+ + | Shaiza Tamayo MD | PCP | | + +------+ + Encounter Details +--------+ + + + + | Date | Type | Department | Care Team | Description | +--------+ + + + + | 11/25/ | Telephone | Urology at [facility] | Seymour Cerrato MD | | | 2019 | | [address] | [address] | | | | | [facility] | [place], [place] | | | | | and Healing, | [address] | | | | | | [phone] | | | | | Floor [place], [place] | | | | | | [address] | | | | | | [phone] | | | +--------+ + + + [...] [address] | | | | | | [place], [place] | | | | | | [address] | | | | | | [phone] | | | | | | | | +--------+---------+ + + + documented as of this encounter Visit Diagnoses Not on filedocumented in this encounter"
--- OUTSIDE RECORDS SUMMARY | ~2020-01-04 | XMS | Encounter Summary ---
Demographics + + + | Address | [address] | | | [place] [address] | + + + | Home Phone [...] Author + + + | Author | [facility] | + + + | Organization | [facility] | + + + | Address | Unknown | + + + | Phone | Unavailable | + + + Support + + +---------+ + | Name | Relationship | Address | Phone | + + +---------+ + | Jose Minaya | ECON | Unknown | | + + +---------+ + Care Team Providers + +------+ + | Care Finisher Plate Name | Role | Phone | + [...] | | | | | Staff | [facility] | | | | | | [address] | | | | | | [facility] | | | | | | and Healing Building | | | | | | [address] [place], [place] | | | | | | [address] | | | | | | [phone] | | | +--------+ + + + [...] [address] | | | | | | [place], [place] | | | | | | [address] | | | | | | [phone] | | | | | | | [...] | | its performance characteristics determined by [facility] [employer]. It | | | has not been [...] + + | Performing | Address | City/[facility] | Phone Number | | Organization | | | | + + + + + | [facility] | [address] | [place] [address] | | | [facility] | [address] | | | + + + + + documented in this encounter Visit Diagnoses + + | Diagnosis | + + | Screening for viral disease Special screening examination for unspecified viral | | disease | + + documented in this encounter"
--- OUTSIDE RECORDS SUMMARY | ~2020-01-04 | XMS | Encounter Summary ---
Demographics + + + | Address | [address] | | | [place] [address] | + + + | Home Phone | | + + + | Preferred Language | Unknown | + + + | Marital Status | | + + + | Judaism Affiliation | 1013 | + + + | Race | Unknown | + + + | Ethnic Group | Unknown | + + + Author + + + | Author | [facility] | | | and [place] | + + + | Organization | [facility] | | | [...] [place] | | | | | [address] | | + + + + + Care Team Providers + +------+ + | Care Asphalt Dauber Name | Role | Phone | + [...] + + | 11/27/ | Office | [facility] | Camille Webster, | Essential | | 2020 | Visit | CARDIOLOGY BAM | [address] | hypertension | | | | [address] | [place], [place] | (Primary Dx); CKD | | | | [address] | [address] | (chronic kidney | | | | [place] | | disease), stage III | | | | [address] | | (HCC); Tachycardia | | | | [phone] | | | +--------+---------+ + + + [...] + documented in this encounter Progress Notes aCmille Webster MD - 11/28/2019 11:45 AM PDTFormatting [...] show any significant arrhythmia. Recently evaluated in [facility], on February 08, 2018 patient was visiting with Dr. Tomlinson fish cutter for evaluation of chronic kidney disease at [...] rhythm, on EKG. Last Echo: 11/03/2016 From [place], reported with normal LV size and function EF 77%. Normal RV size and function . No significant valvular pathology was reported. Last Stress test:12/01/2017 From [place] reported with normal perfusion and no evidence [...] | | | | | [place] [address] | | | | | | [phone] | | | | | | | | +--------+ + + + + | 01/10/ | Appointment | Respiratory Therapy | Deirdre Maharaj | | | 2019 | | | MD [address] | [address], [place] | | | | | | [place] [address] | | | | | | [phone] | | | | | | | | +--------+ + + + + | 04/10/ | Office | Neurology | Deirdre Maharaj | | | 2019 | Visit | | MD [address], [place] | | | | | | [place] [address] | | | | | | [phone] | | | | | | | | +--------+ + + + + | 06/02/ | Office | Nephrology | Arslan Robertson MD | | | 2019 | Visit | | [address] [facility] [place] | | | | | | [address] [place], [place] | | | | | | [address] | | | | | | | [...] MD | | | | | | ([id number]) on 11/28/2019 | | | | | [...]
--- OUTSIDE RECORDS SUMMARY | ~2020-01-04 | XMS | Clinical Summary ---
Demographics + + + | Address | [address] | | | [place] [address] | + + + | Home Phone | | + + + | Preferred Language | Unknown | + + + | Marital Status | | + + + | Protestant Affiliation | CHR | + + + [...] Team Providers + +------+ + | Care Refrigeration Operator Name | Role | Phone | + +------+ + | Shazia Tamayo MD | PCP | | + +------+ + Source Comments RADHA is fully live on both [facility] and [facility] Allergies + + + + + [...] + + + + | 12/31/ | Hockey Instructor | Pre-operative | O Shavon Dhillon | [...] [address] | | | | | | [place], [place] | | | | | | [address] | | | | | | [phone] | | | | | | | [...] | | | HEALTHCARE | | | /[id number] | | Retropubic - | | | | | | 70 | | [id number]: Qty: 1 on | | | | | | | | 11/14/2019 by Blossom | | | | | | | | MD [facility] at [facility] | | | | | | [...] | + +--------+ + + + | CO COLLECTION VENOUS | Routin | 11/06/2019 | [...] | | its performance characteristics determined by [facility]. It | | | has not been [...] | + + + + + | [facility] | [address] | [place] [address] | | | MICROBIOLIGY LAB | Park [...] + | LEOS - AIRPORT - | [address] | [place] [address] | | | [place] | | | | + + + [...] | + + + + + | [facility] | [address] | [place] [address] | | | SERVICES, RAGHAVENDRA | [address] [...] [facility] - [place], POINT | [address] | [place] [address] | | | OF CARE TESTS | [...] | + + + + + | [facility] | [address] | [place] [address] | | | SERVICES, CORE | [address] | | | + + + + + BASIC METABOLIC SET (NA, K, CL, TCO2, BUN, CR, GLU, CA) (11/15/2019 4:53 AM [facility])Only the m ross recent of 2 results [...] | | | LABORATORY | | | [place] | | | SERVICES, | | | [...] MDRD equation recommended by the National | VASU | | Kidney Disease Education Program. Estimated [...] | + + + + + | Nephros | [address] | [place] [address] | | | SERVICES, CORE | [address] [...] [facility] | [address] | [place] [address] | | | SERVICES, CORE | PRIET[address] [...] | + + + + + | [facility] | [address] | [place] [address] | | | SERVICES, [facility] | [address] | | | + [...] (H) | 70 - 99 mg/dL | [facility] - | | | GLUCOSE, | | [...] [facility] | [address] | [place], [place] | | | [facility] | [address] | [address] | | | TESTS | | | [...] DEPT OF | [address] | [place], [place] | | | CARDIOLOGY | [address] | [address] | | + + + + + [...] | | | | | | | [address] | | + +--------+ +--------+ + +--------+ [...] [place] | | | 6 (Home) | [address] | + +--------+ +--------+ + + Advance [...]
--- OUTSIDE RECORDS SUMMARY | ~2020-01-04 | XMS | Clinical Summary ---
Demographics + + + | Address | [address] | | | [place] [address] | + + + | Home Phone | | + + + | Preferred Language | Unknown | + + + | Marital Status | | + + + | Lutheran Affiliation | 1013 | + + + | Race | Unknown | + + + | Ethnic Group | Unknown | + + + Author + + + | Author | [employer] (Historical as of | | | 04-28-19) | + + + | Organization | [facility] [employer] (Historical as of | | | 04-28-19) [...] [place] | | | | | [address] | | + + + + + Care Team Providers + +------+ + | Care Contact Center Director Name | Role | Phone | [...] | | | | | | | ([facility]) | | | | | | | [...] +------+-------+ + | MEDICARE | MEDICA | [id number] | | | [address] | | | RE | | | | [place], [place] [address] | | | IP-OP | | | | | + +--------+ +------+-------+ + | [facility] | UNITED | [id number] | | | | | | | [...] Self | [birth year] Home: | [address] | | | al/Fam | | 1950 | [phone] | [place] | | | [place] | | | [phone] | [address] | + +--------+ +--------+ + +
[~2020-01-04 22:18] MED LIST changes: +AMITRIPTYLINE H50 MG PO; +METOPROLOL SUCC25 MG PO; +NEURONTIN300 MG PO
--- OUTSIDE RECORDS SUMMARY | 2020-01-04 22:20 | XMS ---
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 CRITERIA MET - Group Notification - [facility] - Has Care Guidelines - PDMP CARE PROVIDERS IAM KRAMER Internal Medicine: Pulmonary Disease 01/09/2019-Current PHONE: Unknown Venessa has no Care Guidelines for this patient. Care History Medical/Surgical 01/09/2019 [facility] - Patient is currently established with [facility]. If patient is seen in the ED during business hours. Please contact [facility] at [facility]. Care Recommendation: This patient has had 5 or more Emergency Department visits in the last 12 months.\T\nbsp; Patient requires education on the scope and purpose of the ED as an acute care provider not a Primary Care Provider and should not be utilized for chronic conditions.\T\nbsp; These are guidelines and the provider should exercise clinical judgment when providing care. E.D. VISIT COUNT (12 MO.) [address] [facility]. TOTAL 2 NOTE: Visits indicate total known visits. 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
== END 2020-01-05 02:17 | disposition short-term general hospital (02) ==
LOC: ED 22:18
DX: N17.9 Acute kidney failure, unspecified (principal); N39.0 Urinary tract infection, site not specified; J45.909 Unspecified asthma, uncomplicated; Z88.5 Allergy status to narcotic agent; Z88.8 Allergy status to other drugs, medicaments and biological substances; Z79.899 Other long term (current) drug therapy
CPT/HCPCS: 80053; 81001; 83735; 84550; 85025; 87088; 96365; 96375; 96376; 99284-25; J0696; J1170; J1815; J2405; J3010; J7030

== ENCOUNTER 2020-09-18 17:49 | Emergency (ER) | payer MEDICARE, OTHER ==
[~2020-09-18] VITALS: Ht 149.9 cm; Wt 77.1 kg
--- OUTSIDE RECORDS SUMMARY | 2020-09-18 17:52 | XMS ---
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 Care History Medical/Surgical 01/09/2019 [facility] - Patient is currently established with [facility]. If patient is seen in the ED during business hours. Please contact CHWs at [facility]. Care Recommendation: If this patient has had 5 or more Emergency Department visits in the last 12 months.\T\nbsp; Patient will require education on the scope and purpose of the ED as an acute care provider not a Primary Care Provider and should not be utilized for chronic conditions.\T\nbsp; These are guidelines and the provider should exercise clinical judgment when providing care. E.D. VISIT COUNT (12 MO.) 1 [facility] 2 [facility]. TOTAL 3 NOTE: Visits indicate total known visits. ED/UCC VISIT TRACKING (12 MO.) 09/18/2020 17:49 [facility] TYPE: Emergency COMPLAINT: - ABD PAIN 01/05/2020 04:49 [facility] TYPE: Emergency DIAGNOSES: 72722. post op problem [id number]. Joint Swelling . Acute kidney failure, unspecified . Pain in unspecified hand . Urinary tract infection, site not specified . Pain in unspecified foot . 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 Urinary tract infection, site not specified 38338. Pain in unspecified hand 45497. Pain in unspecified foot 41920. Acute kidney failure, unspecified 25204. Retention of urine, unspecified [email or web address]
== END 2020-09-18 20:46 | disposition left against medical advice (07) ==
LOC: ED 17:49
DX: Z53.21 Procedure and treatment not carried out due to patient leaving prior to being seen by health care provider (principal)

== ENCOUNTER 2021-06-03 08:22 | Emergency (ER) | payer MEDICARE, OTHER ==
[~2021-06-03] VITALS: Ht 149.9 cm; Wt 77.1 kg
--- OUTSIDE RECORDS SUMMARY | 2021-06-03 08:32 | XMS ---
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 CRITERIA MET - Group Notification CARE PROVIDERS IAM KRAMER Internal Medicine: Pulmonary Disease 01/09/2019-Current PHONE: Unknown Venessa has no Care Guidelines for this patient. Care History Medical/Surgical 01/09/2019 [facility] - Patient is currently established with [facility]. If patient is seen in the ED during business hours. Please contact CHWs at [facility]. Care Recommendation: If this patient has had [...] care. E.D. VISIT COUNT (12 MO.) [address] [place] [address] [facility] TOTAL 3 NOTE: Visits indicate total known visits. ED/UCC VISIT TRACKING (12 MO.) 06/03/2021 08:24 [facility] [place] TYPE: Emergency COMPLAINT: - DIFFICULTY BREATHING, FEVER, COUGH 09/18/2020 22:29 [facility] TYPE: Emergency DIAGNOSES: - Left upper quadrant pain - Nausea - Hyperglycemia, unspecified - Other acute pancreatitis without necrosis or infection - Acute kidney failure, unspecified - Chronic kidney disease, stage 3 unspecified - Hypo-osmolality and hyponatremia - Abdominal Pain 09/18/2020 17:49 [facility] TYPE: Emergency COMPLAINT: - ABD PAIN DIAGNOSES: - Procedure and treatment not carried out due to patient leaving prior to being seen by health care provider INPATIENT VISIT TRACKING (12 MO.) [facility]18[facility]2020 [facility] TYPE: Internal Medicine DIAGNOSES: - Hyperglycemia, unspecified - Hypo-osmolality and hyponatremia - Left upper quadrant pain - Other acute pancreatitis without necrosis or infection - Chronic kidney disease, stage 3 unspecified - Hyperkalemia - Essential (primary) hypertension - Acute kidney failure, unspecified [email or web address]
[2021-06-03] MEDS ORDERED: ROPINIROLE HCL1 MG PO (08:50)
[2021-06-03] MEDS ORDERED: VITAMIN B COMP1 EAC1 PO (08:50)
[2021-06-03] MEDS ORDERED: FEBUXOSTAT40 MG PO (08:51)
[2021-06-03] MEDS ORDERED: HYDROCODON-ACE1 EA11 PO (08:52)
[2021-06-03] MEDS ORDERED: ONDANSETRON HCL8 MG PO (08:52)
[2021-06-03] MEDS ORDERED: ATORVASTATIN CA20 MG PO (08:53)
[2021-06-03] MEDS ORDERED: ZITHROMAX250 MG PO (10:05)
[2021-06-03] MEDS ORDERED: DIFLUCAN150 MG PO (10:15)
--- NOTE | 2021-06-04 15:49 | EKG ---
[facility] [address] [place], [place] [address] Signed Normal sinus rhythm Normal ECG When compared with ECG of 07-JAN-2019 19:00, No significant change was found Confirmed by RIMA CASPER MD ([id number]) on 06/04/2021 3:49:04 PM Electronically Signed By: RIMA CASPER MD 06/04/21 1549 PATIENT NAME: JUDY WALLACE Electrocardiogram DATE OF : 48 PHYSICIAN: RIMA CASPER MD REPORT #: [id number] REPORT IS CONFIDENTIAL AND NOT TO BE RELEASED WITHOUT AUTHORIZATION
== END 2021-06-03 10:20 | disposition home or self-care (01) ==
LOC: ED 08:22
DX: J45.901 Unspecified asthma with (acute) exacerbation (principal); N18.30 Chronic kidney disease, stage 3 unspecified; G25.81 Restless legs syndrome; Z20.822 Contact with and (suspected) exposure to COVID-19; Z88.5 Allergy status to narcotic agent; Z91.041 Radiographic dye allergy status; Z91.013 Allergy to seafood; Z91.048 Other nonmedicinal substance allergy status; Z88.8 Allergy status to other drugs, medicaments and biological substances; Z79.899 Other long term (current) drug therapy; Z79.82 Long term (current) use of aspirin
CPT/HCPCS: 71045; 80053; 84443; 85025; 93005; 93010; 99285-25; U0003

== ENCOUNTER 2025-01-11 17:09 | Emergency (ER) | payer MEDICARE, OTHER ==
[~2025-01-11] VITALS: Ht 149.9 cm; Wt 72.9 kg
[~2025-01-11 17:09] MED LIST changes: +ACETAMINOPHEN500 MG PO; +ATORVASTATIN CA20 MG PO; +CEREFOLIN TABL1 EACH PO; +DIFLUCAN150 MG PO; +DIPYRIDAMOLE50 MG PO; +FEBUXOSTAT40 MG PO; +HYDROCODON-ACE1 EA11 PO; +IBUPROFEN600 MG PO; +JARDIANCE25 MG PO; +LANTUS SOL100 UNIT/1 SUB-Q; +ONDANSETRON HCL8 MG PO; +ROPINIROLE HCL1 MG PO; +SENNA-PLUS TAB1 EACH PO; +SLOW-MAG71.5 MG PO; +VITAMIN B COMP1 EAC1 PO; +ZINC50 MG PO; +ZITHROMAX250 MG PO
[2025-01-11] MEDS ORDERED: diazePAM 5 MG TAB PO ONE (18:15)
[2025-01-11 19:22] LABS: BASOPHILS 0.5 % (0-2); EOSINOPHILS 2.7 % (0-6); HEMATOCRIT 37.6 % (35.0-50.0); LYMPHOCYTES 14.1 % (24-44); MCH 30.5 (27-36); MCHC 34.6 g/dl (30-36); MCV 88.3 fl (81-99); MONOCYTES 7.5 % (0-12); NEUTROPHILS 75.2 % (39-80); PLATELET COUNT 162 K/uL (140-440); RBC 4.25 M/ul (4.3-5.7); RDW 14.5 (10.5-15.0)
[2025-01-11 19:43] LABS: ALBUMIN 3.9 g/dL (3.4-5.0); ALBUMIN/GLOBULIN RATIO 1.03 (1.1-2.4); ANION GAP 12.3 (7-21); BILIRUBIN, TOTAL 0.5 mg/dL (0.2-1.0); BUN/CREATININE RATIO 22.88 (6.0-28.6); CALCIUM 9.8 mg/dL (8.5-10.1); CREATININE, SERUM 3.54 mg/dL (0.55-1.02); POTASSIUM 4.3 mmol/L (3.5-5.1); PROTEIN, TOTAL 7.7 g/dL (6.4-8.2)
[2025-01-11 20:15] VITALS: BP 104/63
--- NOTE | 2025-01-12 08:27 | EKG ---
[facility] [address] [place] [address] Signed Normal sinus rhythm Low voltage QRS Borderline ECG When compared with ECG of 23-NOV-2023 08:52, No significant change was found Confirmed by Tiara Young MD ([id number]) on 01/12/2025 8:27:44 AM Electronically Signed By: TIARA YOUNG MD 01/12/25826 PATIENT NAME: JUDY WALLACE Electrocardiogram DATE OF : 48 PHYSICIAN: TIARA YOUNG MD REPORT #: [id number] REPORT IS CONFIDENTIAL AND NOT TO BE RELEASED WITHOUT AUTHORIZATION
== END 2025-01-11 20:15 | disposition home or self-care (01) ==
LOC: ED 17:09
PROVIDERS: Emergency Medicine
DX: F41.9 Anxiety disorder, unspecified (principal); J45.909 Unspecified asthma, uncomplicated; Z79.82 Long term (current) use of aspirin; Z79.4 Long term (current) use of insulin; Z91.041 Radiographic dye allergy status; Z91.013 Allergy to seafood; Z91.048 Other nonmedicinal substance allergy status; Z88.5 Allergy status to narcotic agent; Z88.8 Allergy status to other drugs, medicaments and biological substances
CPT/HCPCS: 36415; 71045; 80053; 83880; 84484; 85025; 93005; 93010; 99285-25

== ENCOUNTER 2025-08-24 23:56 | Inpatient (IN) | payer MEDICARE, OTHER ==
[~2025-08-24] VITALS: Ht 149.9 cm; Wt 71.5 kg
--- NOTE | ~2025-08-24 | EKG ---
[facility] [address] [facility] [address] [facility] [place], [place] [address] Draft EK completed, results pending confirmation PATIENT NAME: JUDY WALLACE Electrocardiogram DATE OF : 48 PHYSICIAN: PRELIMINARY REPORT #: [id number] REPORT IS CONFIDENTIAL AND NOT TO BE RELEASED WITHOUT AUTHORIZATION
--- NOTE | ~2025-08-24 | DS ---
[facility] [address] [place], [place] [address] Draft ADMISSION DATE: 08/25/2025 DISCHARGE DATE: 08/27/2025 REASON FOR ADMISSION: Obstructive jaundice, toxic cholangitis and acute cholecystitis. HISTORY OF PRESENT ILLNESS: This 75-year-old woman is a patient of Dr. Tamayo with numerous medical problems and known to me from the past having undergone right central partial mastectomy and sentinel lymph node biopsy in November 2023, subsequently followed by total mastectomy and breast reconstruction elsewhere. She presented late night to the emergency room with weakness and confusion. Her daughter accompanying her was thought she was having a stroke. The patient was evaluated thoroughly and found to have epigastric and right subcostal tenderness and evaluation ultimately included an ultrasound approximately 3:00 a.m. showing heterogeneous echotexture of the liver without mass and mild gallbladder wall thickening. A CT scan was performed because she had elevated liver enzymes and elevated bilirubin, which showed a distended gallbladder with pericholecystic edema, suspicious for acute cholecystitis. Lab studies showed a bilirubin of 3, alkaline phosphatase of 666, ALT 404, AST 437. Lactic acid was elevated as well. She is admitted to Intensive Care Unit for further management. PERTINENT PHYSICAL EXAMINATION: GENERAL: Showed a relatively short but somewhat brantley white woman with a BMI of 31.8. HEENT: Trachea was midline. Mucous membranes were somewhat dry. She was improved regarding her mental status after fluid administration. ABDOMEN: Mildly distended and is obese with marked tenderness in the epigastric and right subcostal area. A Murillo catheter that was placed induced the patient into peripheral extremity spasms; she has underlying restless legs syndrome. HOSPITAL COURSE: She was admitted and thought likely to have cholangitis and given her mental status changes, toxic cholangitis. She was relatively hypotensive. There was noted to have a higher blood pressure in the right arm indicative of left-sided atherosclerotic narrowing most likely. After appropriate evaluation including assessment of troponin and so forth and mindful of underlying renal failure and somewhat sluggish response to fluid resuscitation, she was deemed most appropriate to have source control of her sepsis, which was considered related to cholecystitis. On August 25, she underwent laparoscopy with laparoscopic lysis of adhesions due to prior adhesions related to other operations. Cholecystectomy and cholangiogram were performed and a transcystic duct common duct exploration with extraction of obstructing debris and distal common duct material was undertaken. Flexible choledochoscopy was undertaken as well ultimately PATIENT NAME: JUDY WALLACE DISCHARGE SUMMARY DATE OF : 48 REPORT #: [id number] PHYSICIAN: MARY KATE BYRNES MD PCP: TREVA TAMAYO MD REPORT IS CONFIDENTIAL AND NOT TO BE RELEASED WITHOUT AUTHORIZATION [facility] [address] [place], [place] [address] Draft passing the scope into the duodenum proper. A drain was placed. Postoperatively, she had marked improvement. It was notable that sequential compression device stockings that were used during the course of perioperative care did settle her restless legs down quite markedly; this is highly consistent with one theory of restless leg, that of venous hypertension. In any case, she was given advice to wear such device can be obtained upon discharge. She had progressive improvement including her lab studies. On the 2nd postoperative day, her white count was markedly diminished to 13.4 platelets 162,000. Chem profile showing a creatinine of 2.7, which is better than usual. A total bilirubin of 2.4 and alkaline phosphatase of 410, ALT of 230 and AST of 132, all of them improving. At this point, she was tolerating regular diet. The drain that was placed in the subhepatic space had never shown any bile leak or other problems and it was removed. She is discharged home in care of her at this point. The patient is advised to lift no more than 20 pounds for the next two weeks. She should walk daily. She will resume her usual medications. It is noted that she is on a "pain schedule" with Dilaudid which will suffice as her opiate for discharge. DISCHARGE MEDICATIONS: Will include" 1. Amiloride 5 mg tablet two tablets p.o. daily. 2. Aspirin 81 mg p.o. daily. 3. Synthroid 100 mcg p.o. daily. 4. Metolazone 2.5 mg every other day. 5. Montelukast 10 mg daily. 6. Uloric 40 mg p.o. daily. 7. Albuterol inhaler 2 to 4 puffs q.4 hours as needed for shortness of breath. 8. Torsemide mg tablet one p.o. b.i.d. except Tuesday and in which case one only. 9. Zofran 8 mg sublingual b.i.d. as needed for nausea. 10. Atorvastatin 20 mg p.o. daily. 11. Magnesium chloride daily. 12. Vitamin D12 and multivitamin. 13. Zinc gluconate 50 mg daily. 14. Sennosides, use docusate one daily for constipation. 15. Insulin glargine Lantus SoloStar 16 units subcutaneously daily. 16. Ibuprofen 600 mg q.6 as needed for pain. 17. Tylenol 500 mg two tablets p.o. 6 hours as needed for pain. 18. Levetiracetam 75 mg at bedtime to be increased to four tablets at bedtime. 19. Cyclosporine ophthalmic drops one in each eye two times daily. PATIENT NAME: JUDY WALLACE DISCHARGE SUMMARY DATE OF : 48 REPORT #: [id number] PHYSICIAN: MARY KATE BYRNES MD PCP: TREVA TAMAYO MD REPORT IS CONFIDENTIAL AND NOT TO BE RELEASED WITHOUT AUTHORIZATION [facility] [address] [place] [id number] Draft 20. Potassium chloride 20 mEq p.o. five times per day. 21. Dilaudid 2 mg q.6 hours as needed for "pain". 22. Famotidine 20 mg p.o. daily. 23. Calcitriol 0.25 mcg tablet every other day. 24. Spironolactone 25 mg half tablet p.o. daily. 25. Cholecalciferol/vitamin D3 1000 units daily. DISCHARGE DIAGNOSES: 1. Toxic cholangitis related to common duct stone manifesting as sepsis with mental status changes, status post laparoscopic cholecystectomy with cholangiogram, laparoscopic common duct exploration and clearance of duct and placement of drain. 2. Obesity. 3. History of right-sided breast cancer. 4. Restless legs syndrome. 5. Hypothyroidism. 6. Reactive airways disease. 7. Hypertension. 8. Diabetes mellitus. MD MARINA Covarrubias/SHREEL /[id number] cc: Dr. Arsen Tamayo MD Copies: ~ PATIENT NAME: JUDY WALLACE DISCHARGE SUMMARY DATE OF : 48 REPORT #: [id number] PHYSICIAN: MARY KATE BYRNES MD PCP: TREVA TAMAYO MD REPORT IS CONFIDENTIAL AND NOT TO BE RELEASED WITHOUT AUTHORIZATION
--- NOTE | ~2025-08-24 | HP ---
[facility] [address], [place] [address] Draft ADMISSION DATE: 08/25/2025 REASON FOR ADMISSION: Epigastric pain, distended inflamed gallbladder, probable acute cholecystitis with dilated common duct. HISTORY OF PRESENT ILLNESS: This 75-year-old white woman is a patient Dr. Tamayo and has numerous medical problems. She is known to me from the past having undergone a right central partial mastectomy with sentinel lymph node biopsy November 24, 2023, greater than a year ago. In the meantime, she did undergo total mastectomy and ultimately breast reconstruction with implantation of a prosthesis. My review of her record confirms that she had invasive carcinoma at the margin and obviously additional mastectomy was undertaken and ultimately right breast reconstruction. She presented late last night to the emergency room with weakness and confusion. Her daughter who accompanies her says that she thought she was having a stroke. The patient has been more weak than usual lately, though she is generally ambulatory by herself. She is afflicted by significant restless legs syndrome and is noted for which extensive evaluation has been undertaken and no clear remedy has been outlined despite interventions of various medications. The patient had complaints of epigastric and right subcostal pain and was noted to be quite markedly tender on examination. An ultrasound was performed approximately 3:00 a.m. showing heterogeneous echotexture of the liver without mass and mild gallbladder wall thickening, which was nonspecific. Minimal sludge in the dependent aspect of the gallbladder lumen and a mildly dilated common duct. I was consulted at that time and recommended a CT scan be obtained as she did have elevated liver enzymes and bilirubin. A CT scan showed a distended gallbladder with mild pericholecystic edema suspicious for acute cholecystitis and mild extrahepatic ductal dilatation. Her lab studies were notable for a bilirubin of 3, alkaline phosphatase 666, an ALT of 404, an AST of 437. Her initial lactic acid was 2.3, none have been checked since that time to my understanding. I asked the patient to be directly admitted to me and ultimately I recommended admission to the intensive care unit as she did have some level of hypertension at presentation. Notably, her EKG that was performed showed normal sinus rhythm, though the patient says she has had atrial fibrillation in the past; she does have small Q-waves in 2, 3 and AVF leads and possible prior inferior myocardial infarction could not be ruled out. PATIENT NAME: JUDY WALLACE HISTORY AND PHYSICAL DATE OF : 48 REPORT #: [id number] PHYSICIAN: MARY KATE BYRNES MD PCP: TREVA TAMAYO MD REPORT IS CONFIDENTIAL AND NOT TO BE RELEASED WITHOUT AUTHORIZATION [facility] [address], [place] [address] Draft Additionally, her electrolytes showed a potassium of 3.3, elevated creatinine of 3.17, subsequently 3.50 with fluid resuscitation. Lipase was normal at 69. With IV hydration, the patient did improve clinically fair amount and was less problematic from hemodynamic standpoint. Her presentation vital sign was 103 and approximately midnight down to 99.8 by 5 a.m. with treatment of IV antibiotic piperacillin. Her blood pressure at presentation was 123 systolic, has been variably decreased since that time to 87/51 without tachycardia. A blood pressure was obtained of the extremity rather than her left arm, which was quite a bit higher at 104. A Murillo catheter was placed at the discretion of the intensive care unit nurse (Roshni), which showed only 75 mL of urine over the preceding 3 hours. Upon my presentation, the patient is with episodic spasms of her legs, which she attributes to worsening by the Murillo catheter. The patient does have significant underlying restless legs syndrome and a rather unusual presentation from that indeed. The patient says that she voids every hour and may well have a bladder spasm issue more than restless legs in my opinion. PAST MEDICAL HISTORY: Extensive including; 1. Stage 3 kidney disease with a baseline creatinine greater than 3 most of the time. 2. Asthma. 3. Restless legs/muscle spasms. 4. Convulsions (spasms of muscle without loss of consciousness) at night, and underlying bronchitis. 5. The patient has never smoked. Does not use alcohol or illicit drugs. SURGICAL HISTORY: Includes; 1. Bilateral total knee replacement. 2. Bladder suspension surgery. 3. Hysterectomy. 4. Facial reconstruction. 5. Hernia repair. 6. Right partial mastectomy followed by total mastectomy with reconstruction including implant of breast. ALLERGIES: Described as iodine and iodine containing products causing anaphylaxis. Shellfish, adhesives, celecoxib, codeine, Valium, gabapentin, hydrocodone, Flagyl, morphine, oxycodone, and tramadol. PATIENT NAME: JUDY WALLACE HISTORY AND PHYSICAL DATE OF : 48 REPORT #: [id number] PHYSICIAN: MARY KATE BYRNES MD PCP: TREVA TAMAYO MD REPORT IS CONFIDENTIAL AND NOT TO BE RELEASED WITHOUT AUTHORIZATION [address] [address] Draft CURRENT MEDICINES: Include; 1. Motrin. 2. Tylenol. 3. Additionally, she has taken Zofran. 4. Hydrocodone with Tylenol. 5. Atorvastatin. 6. Jardiance. 7. Insulin. 8. Amiloride. 9. Synthroid. 10. Aspirin. 11. Metolazone. 12. Montelukast. 13. Uloric. 14. Albuterol inhaler. 15. Potassium chloride. 16. Torsemide b.i.d. 17. Magnesium chloride. 18. Vitamin B12. 19. Dipyridamole and zinc gluconate supplement. 20. Also takes Dilaudid apparently. It is not listed as a home medication, however. SOCIAL HISTORY: She lives with her in the same household as her adult daughter. REVIEW OF SYSTEMS: She denies any chest pain, arm pain or neck pain. She has no jaw pain. Her pain is mostly in the epigastric and right subcostal area. She has episodic spasms of her legs and moves her legs in a jerky motion, which she says is typical for her. PHYSICAL EXAMINATION: HEAD AND NECK: Shows unusual makeup including eye shadow, which is brilliant blue and extends up to her eyebrows. Trachea is midline. CHEST: Clear. HEART: Regular without murmur. Normal sinus is noted on her rhythm strip. CHEST: Shows diminished respiratory excursion, but no tachypnea. She has no wheezing. ABDOMEN: Not distended. She has significant tenderness in the epigastric and right subcostal area. There is no mass. I detect no ascites. EXTREMITIES: Show no clubbing, cyanosis, or edema. LAB STUDIES: PATIENT NAME: JUDY WALLACE HISTORY AND PHYSICAL DATE OF : 48 REPORT #: [id number] PHYSICIAN: MARY KATE BYRNES MD PCP: TREVA TAMAYO MD REPORT IS CONFIDENTIAL AND NOT TO BE RELEASED WITHOUT AUTHORIZATION [facility] [address], [place] [address] Draft As previously noted. White count 16.5, hematocrit 42.2, platelets 191,000. Potassium 3.3, creatinine was 3.50, bilirubin 3.0, AST 437, ALT 404, alkaline phosphatase 666, total protein 7.4, albumin 3.6. Protime; INR is 1.11 with a PT of 13.6. Chest x-ray with left basilar opacity likely atelectasis, possibly infiltrate. Ultrasound as previously noted. Heterogeneous echotexture of the liver without discrete mass. Mild gallbladder wall thickening. No gallstones. Minimal sludge. CT with a distended gallbladder with mild pericholecystic edema, probable acute cholecystitis, mild extrahepatic biliary ductal dilatation. ASSESSMENT: Most likely, she does have acute calculous cholecystitis or at least sludge with cholecystitis and may have common duct obstruction given her liver enzymes and so on. Normally speaking fluid resuscitation, IV antibiotics (initiated already piperacillin) and cholecystectomy and possible common duct exploration would be recommended. She has a complex past medical history including diabetes and with EKG findings and with relative hypotension, though close to her baseline according to reports and without tachycardia, I still would check a troponin to assure there is no sign of myocardial ischemia as a component of her presentation. Obviously, general anesthesia under a situation of cardiac ischemia can be problematic. A Murillo catheter was placed, was valuable and did indicate a relatively low urine output. Additional fluid will be administered and despite some concern for the Murillo catheter's benefit, we will remove the Murillo catheter as she is bitterly complaining about it and says that has worsening her spasms of her legs. Still we will monitor urine output. She has complex issues and really did satisfy sepsis criteria at presentation and on that basis, I did admit her to the intensive care unit rather than the regular nursing floor as had originally been intended. I think that is appropriate. Consideration of consultation with Dr. Davis, hospitalist will be made as well. If possible, proceeding to operation as a source control of her underlying problem would be appropriate for long as the other medical issues are reasonably stabilized and characterized. MD MARINA Covarrubias/MODL /[id number] PATIENT NAME: JUDY WALLACE HISTORY AND PHYSICAL DATE OF : 48 REPORT #: [id number] PHYSICIAN: MARY KATE BYRNES MD PCP: TREVA TAMAYO MD REPORT IS CONFIDENTIAL AND NOT TO BE RELEASED WITHOUT AUTHORIZATION [facility] [address], [place] [address] Draft cc: Dr. Belkis Leger Copies: ~ PATIENT NAME: JUDY WALLACE HISTORY AND PHYSICAL DATE OF : 48 REPORT #: [id number] PHYSICIAN: MARY KATE BYRNES MD PCP: TREVA TAMAYO MD REPORT IS CONFIDENTIAL AND NOT TO BE RELEASED WITHOUT AUTHORIZATION
[~2025-08-24 23:56] MED LIST changes: -LEVOTHYROXINE125 MCG PO; +LEVOXYL100 MCG PO
[2025-08-25] VITALS (13 sets, daily range): BP systolic 79–118; BP diastolic 43–63
[2025-08-25] MEDS ORDERED: IBLOOD GLUCOSE TEST STRIP 1 EA TEST VI ONE (00:30)
[2025-08-25] MEDS ORDERED: SODIUM CHLORIDE 0.9% 1,000 ML IV ONE ×2 (00:30→01:15)
[2025-08-25] MEDS ORDERED: ACETAMINOPHEN 650 MG SUPP PR ONE (00:30)
[2025-08-25 00:39] LABS: BASOPHILS 0.2 % (0.1-1.2); EOSINOPHILS 0.1 % (0.7-5.8); LYMPHOCYTES 2.8 % (19.3-51.7); MCH 28.9 PG (25.6-32.2); MCHC 33.2 g/dL (32.2-35.5); MCV 87.2 fL (79.4-94.8); MONOCYTES 6.6 % (4.7-12.5); NEUTROPHILS 89.6 % (34.0-71.1); RBC 4.84 M/uL (3.93-5.22)
[2025-08-25 00:45] LABS: BLOOD/HGB, URINE NEGATIVE (Negative); KETONE, URINE NEGATIVE (Negative); LEUK ESTERASE, URINE NEGATIVE (negative); NITRITE, URINE NEGATIVE (negative)
[2025-08-25 01:00] LABS: INR 1.11 (0.80-1.30); PROTIME 13.6 Sec (11.2-14.2)
[2025-08-25 01:01] LABS: ALT (SGPT) 404.0 U/L (14-59); AST (SGOT) 437.0 U/L (15-37); GLOMERULAR FILTRATION RATE,EST 13.0 mL/min (>60); PROTEIN, TOTAL 7.4 g/dL (6.4-8.2); UREA NITROGEN 60.0 mg/dL (7-18)
[2025-08-25 01:10] LABS: LACTIC ACID, BLOOD 3.8 mmol/L (0.4-2.0)
[2025-08-25 01:20] LABS: INFLUENZA B NAA NEGATIVE (NEGATIVE); RESPIRATORY SYNCYTIAL VIR NAA NEGATIVE (NEGATIVE)
[2025-08-25] MEDS ORDERED: IBUPROFEN 600 MG TAB PO ONE (01:30)
[2025-08-25] MEDS ORDERED: AZITHROMYCIN 500 MG in DEXTROSE 5% 250 ML IV ONE (03:45)
[2025-08-25] MEDS ORDERED: HYDROmorphone HCL 1 MG/ML SYR IV PRN ×4 (04:15→16:00)
[2025-08-25] MEDS ORDERED: SODIUM CHLORIDE 0.9% 1,000 ML IV SCH (04:15)
[2025-08-25 04:35] LABS: GLOMERULAR FILTRATION RATE,EST 15.0 mL/min (>60); UREA NITROGEN 56.0 mg/dL (7-18)
[2025-08-25] MEDS ORDERED: PIPERACILLIN/TAZOBACTAM 4.5 GM in SODIUM CHLORIDE 0.9% 100 ML IV ONE (05:15)
[2025-08-25] MEDS ORDERED: DEXTROSE 5% - LACTATED RINGERS 1,000 ML IV SCH (05:45)
[2025-08-25] MEDS ORDERED: ACETAMINOPHEN 325 MG TAB PO PRN (05:45)
[2025-08-25] MEDS ORDERED: IBLOOD GLUCOSE TEST STRIP 1 EA TEST VI SCH (07:00)
[2025-08-25] MEDS ORDERED: Insulin Regular, Human 100 UNIT/ML ML SUB-Q SCH (08:00)
--- NOTE | 2025-08-25 08:00 | NUR ---
PT WAKES EASILY WITH VOICE - RATES PAIN 6/10 IN UPPER EPIGASTRIC AREA. BP NOTED TO BE HYPOTENSIVE WITH MAP'S <60 DESPITE 2L BOLUS IN ED. PT ORIENTED AND ASYMPTOMATIC WITH HR 60'S. IV SITE PATENT WITH IVF INFUSING - PT CONFIRMS RIGHT ARM RESTRICTION R/T BREAST MASTECTOMY. PT STATES SHE HAS CHRONIC HYPOTENSION.
[2025-08-25] MEDS ORDERED: FAMOTIDINE 20 MG/ 2 ML VIAL IV SCH ×2 (09:00→12:30)
--- NOTE | 2025-08-25 09:12 | NUR ---
DAUGHTER AT BEDSIDE AND UPDATED ON CURRENT POC. ALL QUESTIONS ANSWERED.
--- NOTE | 2025-08-25 10:02 | NUR ---
PT TOLERATES MCNEAL CATH PLACEMENT WITHOUT DIFFICULTY - 75ML URINE IMMEDIATLEY RETURNED. BP REMAINS SOFT WITH MOST CURRENT MAP 62, HR 60'S. IV SITE PATENT. PT REMAINS NPO IN ANTICIPATION OF SURGERY. DAUGHTER AT BEDSIDE, WARM BLANKET PROVIDED. CALL LIGHT IN REACH.
[2025-08-25] MEDS ORDERED: SEVOFLURANE 250 ML BTL INH ONE (10:56)
--- NOTE | 2025-08-25 11:21 | NUR ---
PT RESTING IN BED WITH EYES CLOSED, RR EVEN AND UNLABORED. CONTINUED CLOSE MONITORING OF BP. HOURLY URINE OUTPUT 35ML LAST HOUR. DAUGHTER RESTING IN CHAIR AT BEDSIDE.
[2025-08-25 12:14] LABS: BASOPHILS 0.2 % (0.1-1.2); EOSINOPHILS 0.1 % (0.7-5.8); LYMPHOCYTES 7.2 % (19.3-51.7); MCH 28.6 PG (25.6-32.2); MCHC 32.6 g/dL (32.2-35.5); MCV 87.8 fL (79.4-94.8); MONOCYTES 7.0 % (4.7-12.5); NEUTROPHILS 85.0 % (34.0-71.1); RBC 3.95 M/uL (3.93-5.22)
--- NOTE | 2025-08-25 12:21 | NUR ---
RN AT BEDSIDE WITH MD TO ROUND. MCNEAL CATH REMOVED PER VERBAL ORDER FROM MD, PT STATES SHE MUST HAVE IT OUT OR IT WILL CAUSE "CONVULSIONS". PT DENIES SEIZURE DISORDER. PT CONTINUES TO HAVE MARGINAL HOURLY OUTPUT, MD AWARE. VERBAL ORDER RECEIVED FOR 500ML LR BOLUS WITH REVIEW OF VITAL SIGNS. LAB IN ROOM TO DRAW STAT LABS ORDERED. DAUGHTER AT BEDSIDE AND STATES UNDERSTANDING OF PLAN.
[2025-08-25] MEDS ORDERED: LACTATED RINGER'S 500 ML IV ONE (12:30)
[2025-08-25] MEDS ORDERED: KETOROLAC TROMETHAMINE 30 MG/ML VIAL IV PRN (12:30)
[2025-08-25] MEDS ORDERED: LACTATED RINGER'S 1,000 ML IV SCH (12:30)
[2025-08-25 12:40] LABS: ALT (SGPT) 291.0 U/L (14-59); AST (SGOT) 241.0 U/L (15-37); GLOMERULAR FILTRATION RATE,EST 15.0 mL/min (>60); PROTEIN, TOTAL 5.8 g/dL (6.4-8.2); UREA NITROGEN 55.0 mg/dL (7-18)
--- NOTE | 2025-08-25 13:21 | NUR ---
HELPING HANDS NURSE. INTO GET PATIENT UP TO COMMODE. PATIENT WAS ON COMMODE FOR ABOUT 10 MINUTES. STATING THAT SHE IS ONLY ABLE TO "DRIBLE" AT THIS TIME. PATIENT BOLUS IS DONE AND DISCONNECTED. PATIENT IS VERY CONCERNED THAT SHE IS NOT ON HER DIURETICS. ADVISED PATIENT THAT I AM HELPING HANDS AND JUST GOT TO THE FLOOR BUT THAT I WOULD LET HER PRIMARY NURSE AND KNOW HE IS ON THE FLOOR. BOTH ADVISED. PATIENT HELPED BACK TO BED. DENIES ANY OTHER CARES AT THIS TIME. IV PUMP CLEARED AND I&O PLACED.
[2025-08-25] MEDS ORDERED: SODIUM CHLORIDE 0.9% 60 ML IV ONE (15:09)
[2025-08-25] MEDS ORDERED: SUGAMMADEX SODIUM 200 MG/2 ML ML ONE (15:16)
[2025-08-25] MEDS ORDERED: ROCURONIUM BROMIDE 50 MG/5 ML SYR ONE ×2 (15:16→17:15)
[2025-08-25] MEDS ORDERED: SUCCINYLCHOLINE IN 0.9% NACL 200 MG/10 ML SYRINGE ONE (15:16)
[2025-08-25] MEDS ORDERED: ACETAMINOPHEN 1,000 MG/100 ML VIAL ONE (15:16)
[2025-08-25] MEDS ORDERED: LIDOCAINE HCL 2% 5 ML SDV ONE (15:16)
[2025-08-25] MEDS ORDERED: fentaNYL citrate 100 MCG/2 ML VIAL ONE (15:17)
--- NOTE | 2025-08-25 15:20 | NUR ---
PT OFF FLOOR TO [place]
[2025-08-25] MEDS ORDERED: DEXAMETHASONE SOD PHOS 4 MG/ML VIAL ONE (15:42)
[2025-08-25] MEDS ORDERED: IBLOOD GLUCOSE TEST STRIP 1 EA TEST VI PRN (16:00)
[2025-08-25] MEDS ORDERED: PROCHLORPERAZINE EDISYLATE 10 MG/2 ML VIAL IV PRN (16:00)
[2025-08-25] MEDS ORDERED: NALOXONE HCL 0.4 MG SYR IV PRN (16:00)
[2025-08-25] MEDS ORDERED: MIDAZOLAM HCL 2 MG/2 ML VIAL IV PRN (16:00)
[2025-08-25] MEDS ORDERED: fentaNYL citrate 50 MCG/ML SDV IV PRN (16:00)
[2025-08-25] MEDS ORDERED: PIPERACILLIN/TAZOBACTAM 4.5 GM in DEXTROSE 5% 100 ML IV SCH ×2 (17:00→21:00)
[2025-08-25] MEDS ORDERED: ACETAMINOPHEN 500 MG TAB PO PRN (18:15)
[2025-08-25] MEDS ORDERED: POTASSIUM CHLORIDE 10 MEQ TABCR PO SCH (18:17)
[2025-08-25] MEDS ORDERED: LEVOTHYROXINE SODIUM 125 MCG TAB PO SCH (18:17)
--- NOTE | 2025-08-25 18:22 | NUR ---
08/25/251821 Asya Farooq 180-PATIENT ARRIVED TO ROOM 126 CCU FOR RECOVERY. PATIENT REACTIVE TO VERBAL STIMULI 6L MASK RR EVEN. SR HR 70'S. PATIENT HAS RESTLESS LEGS AND IS MOVING LEGS TO SIDE AND BODY BACK TO SIDE. PATIENT REPORTS "NAUSEA" WILL MEDICATE PER EMAR. 1813-PATIENT AWAKE ON RA 94% RR EVEN. REPORTING PAIN "9" TO ABDOMEN PATIENT WILL MOVE LEGS IN BED KICKING IN AIR. 4 LAP SITES TO ABDOMEN ALONG WITH JUDSON DRAIN. LINDSAY MAP MAKER ADMINISTERED 0.5 MG DILAUDID IVP 1819-PATIENT AWAKE ON RA 95% RR EVEN MOVING LEGS IN BED SCDS ON AND REPORTS " WILL MAKE IT WORSE" LINDSAY MAP MAKER ADMINISTERED 0.5 MG DILAUDID IVP
[2025-08-25] MEDS ORDERED: DEXTROSE 50% 50 ML SYR IV PRN ×2 (18:45)
[2025-08-25] MEDS ORDERED: IBLOOD GLUCOSE TEST STRIP 1 EA TEST XX PRN (18:45)
[2025-08-25] MEDS ORDERED: DEXTROSE 5% 1,000 ML IV PRN (18:45)
[2025-08-25] MEDS ORDERED: GLUCAGON,HUMAN RECOMBINANT 1 MG/ML VIAL SUB-Q PRN (18:45)
--- NOTE | 2025-08-25 18:47 | NUR ---
REPORT RECEIVED FROM T[facility] WARDEN - PT RESTING IN BED WITH EYES CLOSED, VS STABLE ON MONITOR, NEEDING 2L NC FOR SP02 SUPPORT. LAP SITES AND JUDSON VISUALIZED. STERI STRIPS INTACT. PT NEEDING TO HAVE 1MG VERSED TO CALM FROM THRASHING IN BED DURING RECOVERY BY LIABILITY CLAIMS EXAMINER. AND DAUGHTER AT BEDSIDE, MD AT BEDSIDE TO UPDATE ON PLAN OF CARE.
--- NOTE | 2025-08-25 19:53 | NUR ---
0.5MG IV DILAUDID GIVEN FOR 10/10 ABDOMINAL PAIN.
[2025-08-25] MEDS ORDERED: TORSEMIDE 20 MG TAB PO SCH (21:00)
[2025-08-26] VITALS (12 sets, daily range): BP systolic 99–123; BP diastolic 55–69
[2025-08-26 05:43] LABS: BASOPHILS 0.1 % (0.1-1.2); EOSINOPHILS 0 % (0.7-5.8); LYMPHOCYTES 4.5 % (19.3-51.7); MCH 29.1 PG (25.6-32.2); MCHC 33.1 g/dL (32.2-35.5); MCV 87.8 fL (79.4-94.8); MONOCYTES 4.6 % (4.7-12.5); NEUTROPHILS 90.4 % (34.0-71.1); RBC 4.09 M/uL (3.93-5.22)
[2025-08-26 06:14] LABS: ALT (SGPT) 254.0 U/L (14-59); AST (SGOT) 160.0 U/L (15-37); GLOMERULAR FILTRATION RATE,EST 16.0 mL/min (>60); PROTEIN, TOTAL 6.2 g/dL (6.4-8.2); UREA NITROGEN 51.0 mg/dL (7-18)
[2025-08-26] MEDS ORDERED: GLUCAGON,HUMAN RECOMBINANT 1 MG/ML VIAL SUB-Q PRN (08:15)
[2025-08-26] MEDS ORDERED: DEXTROSE 50% 50 ML SYR IV PRN ×2 (08:15)
[2025-08-26] MEDS ORDERED: DEXTROSE 5% 1,000 ML IV PRN (08:15)
[2025-08-26] MEDS ORDERED: IBLOOD GLUCOSE TEST STRIP 1 EA TEST XX PRN (08:15)
--- NOTE | 2025-08-26 08:28 | NUR ---
PT SITTING UP IN BED EATING BREAKFAST. RATES PAIN 9/10 IN ABD WITH INHALE, SHARP PAIN. PRN PO DILAUDID ADMINISTERED. PT REFUSES RN REQUEST TO AMBULATE UP TO CHAIR FOR BREAKFAST "UNTIL PAIN MEDICATION KICKS IN". PT STATES SHE "MUST HAVE ZOFRAN WITH ANY PAIN MEDICATIONS, I TAKE IT TWICE A DAY AT HOME", NOT CURRENTLY ON EMAR, WILL ADDRESS WITH MD WHEN ROUNDING. PT DENIES NAUSEA AT THIS TIME. VS STABLE ON MONITOR, AFEBRILE. PT ALSO DENIES TO USE COMMODE THIS AM VS LUIS STATING "I WANT TO BE ABLE TO PEE WHEN I WANT AND NOT WAIT FOR YOU TO COME HELP ME". PT EDUCATED AMBULATION OOB AND USE OF COMMODE ARE BOTH DR. BYRNES'S ORDERS TO RN TO INITIATE HAYDER POST OP. URINE OUTPUT CLEAR YELLOW IN CANISTER.
[2025-08-26] MEDS ORDERED: FAMOTIDINE 20 MG/ 2 ML VIAL IV SCH (09:00)
[2025-08-26] MEDS ORDERED: POTASSIUM CHLORIDE 10 MEQ TABCR PO SCH ×2 (09:00→21:00)
--- NOTE | 2025-08-26 10:00 | NUR ---
PT UP TO COMMODE TO VOID, STEADY ON FEET, NEEDS LINE/TUBE MANAGMENT. TO RECLINER AFTERWARDS WITH LEGS ELEVATED. PT REPORTS PASSING GAS. CALL LIGHT IN REACH. FRESH LINENS ON BED. AT BEDSIDE.
--- NOTE | 2025-08-26 11:07 | NUR ---
ALERT AND ORIENTED IN RECLINER, SPOUSE IN ROOM ANSWERS MAJORITY OF QUESTIONS. PATIENT LIVES IN HOUSE WITH 2 STEPS TO GET INSIDE. NO ISSUES WITH STEPS AT BASELINE. PATIENT HAS A WALKER BUT DOES NOT USE IT AT HER BASELINE. SHE DRIVES, SPOUSE WILL PROVIDE TRANSPORTATION AT DC. PATIENT AND SPOUSE STATES THERE ARE NO FINANCIAL CONCERNS. PLANS TO DC TO HOME WHEN MEDICALLY READY. NO CM NEEDS NOTED AT THIS TIME.
--- NOTE | 2025-08-26 11:17 | NUR ---
PT UP IN CHAIR RESTING WITH EYES CLOSED. VS STABLE ON MONITOR. CALL LIGHT IN REACH, AT BEDSIDE.
--- NOTE | 2025-08-26 11:45 | NUR ---
PT USES CALL LIGHT TO REPORT NEEDING TO VOID. UP TO BATHROOM WITH STANDBY ASSIST. PT OPTS TO GO BACK TO BED AFTERWARD R/T PAIN ON TAILBONE FROM SITTING. SCDS IN PLACE. CALL LIGHT IN REACH.
[2025-08-26] MEDS ORDERED: IBLOOD GLUCOSE TEST STRIP 1 EA TEST XX SCH (12:00)
[2025-08-26] MEDS ORDERED: INSULIN LISPRO 100 UNIT/ML ML SUB-Q SCH (12:00)
--- NOTE | 2025-08-26 12:34 | NUR ---
PT REPORTS PAIN 8/10 IN UPPER ABD AREA, PRN PO DILAUDID ADMINISTERED. PT PROVIDED LUNCH AND INSULIN COVERAGE. VS STABLE, AFEBRILE. NO ACUTE CONCERNS IN ASSESSMENT AT THIS TIME. CALL LIGHT IN REACH.
[2025-08-26] MEDS ORDERED: LEVETIRACETAM250 MG PO (12:36)
[2025-08-26] MEDS ORDERED: RESTASIS1 DROP OU (13:35)
--- NOTE | 2025-08-26 13:40 | NUR ---
Pt up to bathroom with 1 person standby assist. Able to void, and do personal care independantly, urine yellow. Pt complains of restless legs, requests to ambulate after using restroom. Pt ambulates with standby assist only in CCU room and in CCU hallway. Tolerates well, denies dizziness our SOB with ambulation. Patients daughter has been in the room and with patient during this time.
[2025-08-26] MEDS ORDERED: POTASSIUM CHLO20 ME1 PO (13:53)
--- NOTE | 2025-08-26 13:54 | NUR ---
UR CLINICAL REVIEW: 2 MN FOR VERSALUS- PER CELLULAR BIOLOGIST MEETS INPT FOR SEPSIS SECONDARY TO ACUTE CHOLEYCYSTITIS WITH NEED FOR SURGICAL INTERVENTION, SERIAL LABS, CLOSE MONITORING, IVF AND IV ABX MEDICARE INPT 08/25/25 @ 1237 ORDER MATCHES REG NO AUTH REQUIRED PER MEDICARE GUIDELINES DISCHARGE TO HOME WHEN STABLE 08/27/25 DC REVIEW
[2025-08-26] MEDS ORDERED: HYDROMORPHONE HC2 MG PO (13:55)
[2025-08-26] MEDS ORDERED: FAMOTIDINE40 MG PO (13:55)
[2025-08-26] MEDS ORDERED: CALCITRIOL0.25 MCG PO (13:57)
[2025-08-26] MEDS ORDERED: SPIRONOLACTONE25 MG PO (13:59)
--- NOTE | 2025-08-26 14:30 | NUR ---
Patient back in bed, SCD's reapplied and started. Pt states "my legs feel better after walking" Pt denies any needs at this time, daughter continues to remain in the room with Deirdre.
[2025-08-26] MEDS ORDERED: VITAMIN D325 MCG PO (15:16)
--- NOTE | 2025-08-26 16:13 | NUR ---
PT USES CALL LIGHT TO REQUEST ASSISTANCE TO BATHROOM. REMAINS STEADY ON FEET, ABLE TO PREFORM SELF CARES WITHOUT DIFFICULTY. PT MINDFUL OF JUDSON DRAIN. BACK TO EDGE OF BED TO SIT. AFEBRILE. CALL LIGHT IN REACH.
--- NOTE | 2025-08-26 17:00 | NUR ---
RN IN ROOM ROUNDING WITH MD - FAMILY PRESENT WITH PT. ALL QUETIONS ANSWERED.
--- NOTE | 2025-08-26 18:55 | OR ---
[facility] [address], [place] [address] Signed DATE OF OPERATION: 08/25/2025 SURGEON: Mary Kate Byrnes MD PREOPERATIVE DIAGNOSES: 1. Sepsis; acute calculous cholecystitis and cholangitis secondary to sludge. 2. Diabetes and multiple medical problems including chronic renal failure. POSTOPERATIVE DIAGNOSES: Severe acute cholecystitis with sludge and obstruction of bile duct with stones/sludge. PROCEDURES: 1. Laparoscopy with laparoscopic lysis of adhesions. 2. Laparoscopic cholecystectomy with cholangiogram. 3. Laparoscopic transcystic common duct exploration with extraction of obstructing debris of distal common duct, dilation of ampulla and clearance of common bile duct. 4. Flexible choledochoscopy with basket extraction of mucoid material. ANESTHESIA: General endotracheal, Anthony Noguera, RECORDER GRAVITY PROSPECTING and local 10 mL of 0.25% Marcaine with epinephrine. INDICATION: This is a 75-year-old white woman, who is known to me from the past, undergoing right partial mastectomy with oncoplastic closure and sentinel lymph node biopsies over a year ago, subsequently found to have a positive margin, ultimately operated elsewhere with total mastectomy and subsequent breast reconstruction. She has numerous medical problems, one of which is chronic renal failure, having a creatinine level above 3, as well as diabetes and multiple other medical problems. Particularly vaccine is her restless legs syndrome, which is poorly characterized otherwise. She presented to the emergency room the customs officer hours and evaluated by Dr. Leger and found to have significant tenderness in the right upper and epigastric abdominal areas. An ultrasound of the gallbladder showed some thickening and some sludge and possible pericholecystic fluid and somewhat dilated common bile duct. I was consulted approximately 3 in the morning and recommend a CT scan to better characterize the head of the pancreas and is well to identify the intrahepatic ductal dilatation of the biliary tree. This was performed, but without IV contrast given her renal insufficiency. The findings did show a dilated gallbladder with findings highly suggestive of acute cholecystitis and there was some mild intrahepatic ductal Electronically Signed By: MARY KATE BYRNES MD 08/26/25 1855 PATIENT NAME: JUDY WALLACE OPERATIVE REPORT DATE OF : 48 REPORT #: [id number] PHYSICIAN: MARY KATE BYRNES MD PCP: TREVA VITALE MD REPORT IS CONFIDENTIAL AND NOT TO BE RELEASED WITHOUT AUTHORIZATION [facility] [address], [place] [address] Signed dilatation. The patient was noted to be hypotensive with elevated lactate level at presentation, subsequently found to have increasing lactate despite fluid resuscitation, IV antibiotic, piperacillin and other interventions. On that basis, she was fully evaluated also to assess for occult myocardial infarction; troponin level was normal, and although EKG showed small Q-waves in II, III, and AVF leads. She was considered unlikely to be having a cardiac event in any way. A lot of her toxicity has been improved with hydration and antibiotics. I have recommended proceeding with cholecystectomy as infection source control as well as probable common duct exploration depending on findings. The risk of bleeding, infection, bile duct injury, need for open procedure, failure to cure her problems, complications related to her cardiovascular status and renal status were all reviewed with the patient, her daughter, and her . They all understood and wished to proceed. FINDINGS: Indeed the gallbladder was quite markedly inflamed and very distended decompression did show green bile. Considerable edema was noted in the infundibulum of the gallbladder. The gallbladder safely dissected free. An initial cholangiogram showed a dilated common duct with lack of flow into the duodenum and a filling defect in the distal portion. On that basis transcystic duct exploration was undertaken with dilation of the cystic duct and the ampulla. Ultimately, flexible choledochoscopy with extraction of some mucoid material of the common duct as well as antegrade passage of a stone into the duodenum proper. By completion, the T-tube cholangiogram showed no impediment to flow and clearance of the duct. The procedure was prolonged, complicated, difficult as might be expected. DESCRIPTION OF PROCEDURE: The patient was brought to the operating room, given a general endotracheal anesthetic. Preoperative antibiotic piperacillin was used. Sequential compression device stockings used and heparin subcutaneously administered. A Murillo catheter was placed. Mindful of a possible lengthy operation. The abdomen was prepared with chlorhexidine solution and draped sterilely. A previous infraumbilical incision was noted and her trunk and torso appeared to be rather shortened. On that basis, an infraumbilical incision was made through the previous incision and encountering some mesh from prior incisional hernia repair. This was divided and the abdomen was entered without problem, showing no sign of adhesions at that site. Pneumoperitoneum was achieved to a level of 14 mmHg of carbon dioxide gas using the Chiqui cannula. Intra-abdominal inspection showed no sign of ascites or carcinomatosis. The gallbladder was quite markedly edematous and inflamed and distended. Three additional trocars were placed in usual configuration in the subxiphoid, right midclavicular, and right anterior axillary line. Attempts to elevate the gallbladder were unsuccessful due to stiff nature of distention and on that basis, a laparoscopic decompressive needle trocar device was used to decompress green bile from Electronically Signed By: MARY KATE BYRNES MD 08/26/25 6728 PATIENT NAME: JUDY WALLACE OPERATIVE REPORT DATE OF : 48 REPORT #: [id number] PHYSICIAN: MARY KATE BRYNES MD PCP: TREVA VITALE MD REPORT IS CONFIDENTIAL AND NOT TO BE RELEASED WITHOUT AUTHORIZATION [facility] [address], [place] [address] Signed the gallbladder itself. The puncture site was subsequently secured with an endo-loop. The gallbladder was elevated and dense adhesions of omentum to the undersurface were taken down with blunt and electrocautery dissection. Further elevation of the gallbladder was ultimately able to be undertaken securing that device to the table with an Allis clamp. The infundibulum was grasped and retracted laterally using blunt and electrocautery dissection. With extreme care, the edematous infundibulum was dissected free and the cystic duct ultimately became apparent. A window was created preserving the cystic duct in the plate of the hepatic fossa ultimately allowed for application of a clip across gallbladder cystic duct junction. A transverse choledochotomy was made in the cystic duct. Retrograde milking of the cystic duct showed mucoid material. Using Méndez type cholangiocatheter intraoperative cholangiography was undertaken showing contrast into the biliary tree. Given her stated allergy to iodine and so on a diluted solution was used though it would unlikely be of true consequence full-strength whether or not. The cholangiogram demonstrated flow into the common bile duct with some retrograde filling and a dilated common duct noted. The distal portion was a defect. Various maneuvers were taken to better identify this, but there was no doubt that since there was no flow into the duodenum that the obstructive process was present probably by stone or debris otherwise. The Méndez catheter was removed and an additional right upper quadrant Taut 5 mm port placed under direct visualization in alignment with the cystic duct. A flexible J-wire was passed down the trocar and insinuated into the cystic duct. Under fluoroscopic control, passage of the wire was undertaken showing curling in the distal duct likely related to obstructive process there. Various maneuvers were undertaken, but the tip of the wire arched backwards looping suggestive of impediment to passage of the wire in the distal portion. On that basis, an ERCP balloon catheter was passed over the wire under direct visualization with fluoroscopic control and with various manipulations passed ultimately into the duodenum via the ampulla. Tactile sensation did suggest stone or other obstructive process. Under fluoroscopic control, the ampulla was dilated and held in place. The balloon was decompressed and withdrawn over the wire aligning with the cystic duct at the common duct junction. This too was dilated with all the care. Ultimately, the balloon catheter was withdrawn and removed leaving the wire in place. Various manipulations did not allow the wire to pass down the ampulla once again. The wire was left in place and a small ureteral scope obtained and passed through the Taut trocar over the wire ultimately passing into the cystic duct and into the common bile duct. Passage down the duct with wire as guidance did show yellow gallstone type debris and mucoid material. The wire was removed and a flexible basket passed over through the scope and under Electronically Signed By: MARY KATE BYRNES MD 08/26/25 3917 PATIENT NAME: JUDY WALLACE OPERATIVE REPORT DATE OF : 48 REPORT #: [id number] PHYSICIAN: MARY KATE BYRNES MD PCP: TREVA VITALE MD REPORT IS CONFIDENTIAL AND NOT TO BE RELEASED WITHOUT AUTHORIZATION [address] [address] Signed direct visualization grasping of the mucoid material was undertaken showing no definite hard stone. Irrigation was undertaken more fully and the scope withdrawn and mucoid material offloaded from the basket. At this point, the scope was reintroduced without the need for the wire into the cystic duct and down the common bile duct. Passage into the duodenum was ultimately accomplished showing atypical villi of the duodenum proper. The scope was withdrawn through the ampulla, which had been dilated and stone debris was noted having been pushed into the duodenum no doubt. Further withdrawal of scope was undertaken allowing for irrigation more fully showing no impediment to flow. Other mucoid material and cholesterol debris was extracted with the basket, though it was very minimal amount. The scope was then withdrawn from the cystic duct and plans made for cholangiogram. Using the Méndez type cholangiocatheter, the cystic duct was cannulated once again and copiously irrigated with saline. Completion cholangiogram was then performed showing contrast filling the bile duct and passing into the duodenum without impediment. There was no sign of filling defect or other problem. The catheter was removed and the cystic duct was triply clipped. Cystic arterial branches nearby were clipped and the gallbladder dissected free in a retrograde fashion using electrocautery. Gallbladder was placed in an endobag and extracted through the infraumbilical port site without problem, opened on the back table and found to have acute and chronic inflammatory change, but biliary contents showed no actual stones only mucoid gravel sludge type material. Irrigation was undertaken in the perihepatic spaces. Hemostasis was assured with electrocautery. The right-sided trocar 5 mm Espinoza drain was placed in the subhepatic space after application of Kathleen hemostatic agent to the gallbladder fossa. Excess irrigation fluid was suctioned free, the drain was secured to the skin with 2-0 nylon suture. Excess irrigation fluid over the liver was additionally found to have been cleared up completely. Trocars removed under direct visualization showing no sign of bleeding. The infraumbilical fascial incision was reapproximated with the initial 0 Vicryl suture, but additionally a running 2-0 Prolene suture given the mesh had been divided and would more likely heal with Prolene suture than an absorbable one. 10 mL of 0.25% Marcaine with epinephrine injected locally. The skin was then closed with interrupted 3-0 Vicryl. Steri-Strips were applied. She was ultimately extubated and transferred to the recovery room in good condition having suffered no complications. Sponge, needle and instrument counts were reported as correct x3. The operation was prolonged, complicated, and difficult on the basis of numerous maneuvers required to provide safe common duct exploration lasting probably four times longer than usual. Electronically Signed By: MARY KATE BYRNES MD 08/26/25 1855 PATIENT NAME: JUDY WALLACE OPERATIVE REPORT DATE OF : 48 REPORT #: [id number] PHYSICIAN: MARY KATE BYRNES MD PCP: TREVA VITALE MD REPORT IS CONFIDENTIAL AND NOT TO BE RELEASED WITHOUT AUTHORIZATION [facility] [address], [place] [address] Signed MD MARINA Covarrubias/CHRISTIAN /[id number] cc: MD Dr. Ailyn Flores [place], [place] Dr. Asya Leger Copies: ~ Electronically Signed By: MARY KATE BYRNES MD 08/26/25 1855 PATIENT NAME: JUDY WALLACE OPERATIVE REPORT DATE OF : 48 REPORT #: [id number] PHYSICIAN: MARY KATE BYRNES MD PCP: TREVA VITALE MD REPORT IS CONFIDENTIAL AND NOT TO BE RELEASED WITHOUT AUTHORIZATION
[2025-08-26] MEDS ORDERED: INSULIN GLARGINE-YFGN 100 UNIT/ML ML SUB-Q SCH (19:28)
--- NOTE | 2025-08-26 19:40 | NUR ---
HANDOFF REPORT RECEIVED FROM DAY SHIFT, RN. PATIENT AWAKE IN BED WATCHING TV. NO SIGNS OF ACUTE DISTRESS NOTED. NO NEEDS AT THIS TIME. CALL LIGHT IN REACH.
--- NOTE | 2025-08-26 20:10 | NUR ---
PATIENT USES CALL LIGHT TO VOID. PATIENT AMBULATES TO BATHROOM, STEADY ON FEET. PATIENT VOIDS THEN BACK TO BED. DENIES FEELING ANY SOB OR DIZZINESS. NO FURTHER NEEDS AT THIS TIME. CALL LIGHT IN REACH.
--- NOTE | 2025-08-26 20:55 | NUR ---
DR. BYRNES CALLED. NEW ORDER RECEIVED FOR 2G MAGNESIUM SULFATE REPLACEMENT AND CMP AND MAGNESIUM TO BE ENTERED FOR AM LABS. ORDERS VERIFIED VIA REPEAT BACK METHOD.
[2025-08-26] MEDS ORDERED: levETIRAcetam 500 MG TAB PO SCH (21:00)
[2025-08-26] MEDS ORDERED: MAGNESIUM SULFATE 2 GM/50 ML BAG IV ONE (21:15)
--- NOTE | 2025-08-26 23:10 | NUR ---
patient complains of 8/10 upper abdominal pain. PRN pain medication given per EMAR. lights dimmed. no further needs at this time. call light in reach.
--- NOTE | 2025-08-26 23:56 | NUR ---
PATIENT UP TO BATHROOM TO VOID. PATIENT STEADY ON FEET, DENIES FEELING SOB OR DIZZY. PATIENT BACK TO BED. IV ABX INFUSING PER EMAR, SITE WNL. SCD'S IN PLACE. NO FURTHER NEEDS AT THIS TIME. CALL LIGHT IN REACH.
--- NOTE | 2025-08-27 01:00 | NUR ---
patient resting in bed with eyes closed, respirations even and unlabored. no signs of acute distress noted. patient has call light in reach.
[2025-08-27 02:08] VITALS: BP 123/67
--- NOTE | 2025-08-27 03:40 | NUR ---
PATIENT USES CALL LIGHT TO USE RESTROOM. PATIENT AMBULATES TO BATHROOM, STEADY ON FEET. PATIENT VOIDS THEN AMBULATES BACK TO BED. NO FURTHER NEEDS AT THIS TIME. CALL LIGHT IN REACH.
--- NOTE | 2025-08-27 05:21 | NUR ---
PATIENT USES CALL LIGHT REQUESTING TO USE RESTROOM. PATIENT STEADY ON FEET. PATIENT VOIDS THEN BACK TO BED. NO FURTHER NEEDS AT THIS TIME. CALL LIGHT IN REACH.
[2025-08-27 06:06] LABS: ALT (SGPT) 230.0 U/L (14-59); AST (SGOT) 132.0 U/L (15-37); GLOMERULAR FILTRATION RATE,EST 18.0 mL/min (>60); PROTEIN, TOTAL 6.6 g/dL (6.4-8.2); UREA NITROGEN 55.0 mg/dL (7-18)
--- NOTE | 2025-08-27 06:27 | NUR ---
PATIENT UP TO BATHROOM TO VOID, STEADY ON FEET. PATIENT BACK TO BED. DENIES ANY NAUSEA/DIZZINESS/SOB. SCD'S PLACED. NO FURTHER NEEDS AT THIS TIME. CALL LIGHT IN REACH.
[2025-08-27] MEDS ORDERED: LEVOTHYROXINE SODIUM 100 MCG TAB PO SCH (07:30)
[2025-08-27 07:58] VITALS: BP 114/71
[2025-08-27] MEDS ORDERED: FAMOTIDINE 20 MG TAB PO SCH (09:00)
--- NOTE | 2025-08-27 09:46 | NUR ---
IN PATIENT'S ROOM FOR AM ASSESSMENT AND SHINGLE GRADER. PT UP IN CHAIR BUT WANTING TO GET BACK TO BED. PT DID WALK IN HALLWAY WITH WALKER ALONGSIDE AND TOLERATED WELL. PT EAGER TO D/C HOME TODAY. ABLE TO TAKE PO PILLS 1 AT A TIME WELL. IV ZOSYN CONNECTED TO IV IN LEFT INNER FOREARM. PT STATES PAIN IS 5-6/10 AND TOLERABLE. JUDSON DRAINING SEROSANGINOUS FLUID AT THIS TIME. PT'S DEJAH AT BEDSIDE. PT DENIES FURTHER NEEDS. SCDs ARE ON. WILL CONTINUE TO MONITOR.
--- NOTE | 2025-08-27 10:20 | NUR ---
INTO ROOM TO ANSWER CALL LIGHT. PT NEEDING TO USE BATHROOM. PT AMBULATED TO BATHROOM VIA SBA. 300 MLS OUT. PT WANTING TO WALK, AMBULATED BACK AND FORTH THROUGH THE HALLWAY WITH FWW, STEADY ON FEET. PT NOW BACK IN ROOM, REPORTS PAIN 9/10. PRN MEDICATION GIVEN.
--- NOTE | 2025-08-27 10:53 | NUR ---
PATIENT ALERT AND ORIENTED, SITTING UP ON EDGE OF BED. NO CM NEEDS. POTENTIAL DC TO HOME TODAY.
--- NOTE | 2025-08-27 12:39 | NUR ---
DC REVIEW: NO BARRIERS TO DC NOTED DISCHARGE TO HOME WHEN STABLE ADD:1-2 DAYS NO ACTION REQUIRED
--- NOTE | 2025-08-27 13:00 | NUR ---
PATIENT SITTING UP EATING LUNCH AT THIS TIME. PT REPORTS NOT LIKING THE FOOD BECAUSE OF LOW SALT. PT'S AND VISITOR REMAIN IN ROOM. PT DENIES FURTHER NEEDS. JOSUE RUFFIN CONTINUES.
--- NOTE | 2025-08-27 14:06 | NUR ---
DR. BYRNES IN TO SEE PATIENT AND PLAN TO D/C HER HOME. JUDSON DRAIN PULLED BY DR. BYRNES. PT EAGER TO GO HOME. IV SITES D/C.
[2025-08-27 14:11] VITALS: BP 103/75
== END 2025-08-27 14:27 | disposition home or self-care (01) | DRG 854 ==
LOC: ED 23:56 → CCU 08-25 05:32
PROVIDERS: Family Medicine; ADMIT Surgery; ATTEND Surgery
PROC: BF532Z0 Other Imaging of Gallbladder and Bile Ducts using Fluorescing Agent, Intraoperative (ICD-10-PCS; 2025-08-25)
PROC: 0FJB8ZZ Inspection of Hepatobiliary Duct, Via Natural or Artificial Opening Endoscopic (ICD-10-PCS; 2025-08-25)
PROC: 3E03329 Introduction of Other Anti-infective into Peripheral Vein, Percutaneous Approach (ICD-10-PCS; 2025-08-25)
PROC: 0FT44ZZ Resection of Gallbladder, Percutaneous Endoscopic Approach (ICD-10-PCS; principal; 2025-08-25 15:04)
DX: A41.9 Sepsis, unspecified organism (principal); K56.50 Intestinal adhesions [bands], unspecified as to partial versus complete obstruction; K80.43 Calculus of bile duct with acute cholecystitis with obstruction; N17.9 Acute kidney failure, unspecified; E11.22 Type 2 diabetes mellitus with diabetic chronic kidney disease; N18.30 Chronic kidney disease, stage 3 unspecified; J45.909 Unspecified asthma, uncomplicated; Z96.653 Presence of artificial knee joint, bilateral; R74.01 Elevation of levels of liver transaminase levels; G25.81 Restless legs syndrome; E03.9 Hypothyroidism, unspecified; I12.9 Hypertensive chronic kidney disease with stage 1 through stage 4 chronic kidney disease, or unspecified chronic kidney disease; E66.9 Obesity, unspecified; Z85.3 Personal history of malignant neoplasm of breast; Z87.09 Personal history of other diseases of the respiratory system; Z90.11 Acquired absence of right breast and nipple; Z90.710 Acquired absence of both cervix and uterus; Z98.890 Other specified postprocedural states; Z87.19 Personal history of other diseases of the digestive system; Z88.8 Allergy status to other drugs, medicaments and biological substances; Z91.048 Other nonmedicinal substance allergy status; Z91.013 Allergy to seafood; Z88.5 Allergy status to narcotic agent; Z88.1 Allergy status to other antibiotic agents; Z79.899 Other long term (current) drug therapy; Z79.1 Long term (current) use of non-steroidal anti-inflammatories (NSAID); Z79.82 Long term (current) use of aspirin; Z79.891 Long term (current) use of opiate analgesic; Z79.890 Hormone replacement therapy; Z79.4 Long term (current) use of insulin; Z79.51 Long term (current) use of inhaled steroids; Z68.31 Body mass index [BMI] 31.0-31.9, adult
CPT/HCPCS: 00790; 36415; 71045; 74176; 74300; 76705; 80048; 80053; 81003; 82010; 82803; 83605; 83690; 83735; 84484; 85025; 85610; 87502; 93005; 93010; A9270; C1769; C1894; J0131; J0330; J0456; J0696; J1100; J1171; J1815; J2003; J2250; J2405; J2543; J2704; J3010; J3475; J3490; J7030; J7060; J7121; Q9967; U0002